=== PATIENT | female | born 1950 | race Caucasian/White ===

== ENCOUNTER → 2017-10-22 10:08 | Outpatient (CLI) | payer MEDICARE, OTHER, SELFPAY | PROVIDERS: Family Provider Family Medicine; PCP Family Medicine; Visit Provider Family Medicine | DX: M16.12 Unilateral primary osteoarthritis, left hip (principal) | CPT/HCPCS: 73502 ==

== ENCOUNTER → 2017-10-26 09:30 | Outpatient (CLI) | payer MEDICARE, OTHER, SELFPAY | PROVIDERS: Family Provider Family Medicine; PCP Family Medicine; Visit Provider Family Medicine | DX: M25.552 Pain in left hip (principal) | CPT/HCPCS: 72195 ==

== ENCOUNTER → 2017-10-28 16:49 | Outpatient (CLI) | payer MEDICARE, OTHER, SELFPAY ==
[2017-10-28 17:05] LABS: CREATININE FINGERSTICK 0.7 mg/dL (0.55-1.02); EGFR FINGERSTICK > 60.0000 mL/min (>60)
== END ==
PROVIDERS: Family Provider Family Medicine; PCP Family Medicine; Visit Provider Surgery
DX: R59.0 Localized enlarged lymph nodes (principal); R10.9 Unspecified abdominal pain
CPT/HCPCS: 74177; Q9967

== ENCOUNTER 2017-11-02 06:49 | Day surgery (SDC) | payer MEDICARE, OTHER, SELFPAY ==
[2017-11-02] VITALS (7 sets, daily range): BP systolic 87–155; BP diastolic 50–102; PULSE 60–87; RESP 16; TEMP 36.4–37.1; O2SAT 94–98; BMI 46.7
--- NOTE | 2017-11-02 | IMM_PTH ---
PATIENT: SARAH GRANGER LOC: EN U#:[id number] AGE/SX: 67/F ROOM: RE11/02/[address]: Dr. Kevin Varghese MD : 1950 BED: DIS: 11/02/2017 SPEC #: [id number] RECD: 11/03/17 14:04 STATUS: JESSIE REQ #: [id number] DONITA: 11/02/17 00:[address]: Kevin Varghese DEPT: IMMUNOHISTOCHEMISTRY RECD BY: Loida Odonnell ENTERED: 11/03/17 14:06 SP TYPE: IMMUNO OTHR DR: Dr. Jose Daniel Yang, DO Tissues: Transverse colon Procedures: Synapto (add) RCC (add) MSH2 (add) MLH-1 (add) MSH6 (add) Anti-PMS2 (add) NAPSIN A (add) CA-125 (add) CD56 (add) CEA (add) CHROMO (add) CK20 (add) CK7 (add) CK8 (add) JACQUES-2 (add) HEP PAR (add) KI-67 (add) P53 (add) SD (add) TTF1 (add) ER (initial) PHYSICIAN & INSTITUTION [place] [id number] SPECIMEN INFORMATION: Tissue Source: Transverse colon mass, biopsy Clinical Info: Right lower quadrant pain, diarrhea Specimen Number: [id number] CPT code: 22097, 01400 x20 METHODOLOGY: Deparaffinized sections of prefer/formalin-fixed tissue or PAP/DQ stained slides are incubated with monoclonal/polyclonal antibodies/oligonucleotide probes. Localization is made via biotin free immunoperoxidase method. Appropriate controls are performed and reacted as expected. Results on target cell population are indicated in the following table: RESULTS: ANTIBODY / CLONE RESULT ER (6F11) negative SD (1E2) negative CK7 (OV-TL12/30) positive, focal CK8 (55nincI52) positive CK20 (KS20.8) negative TTF-1 (8G7G3/1) negative Napsin A (Rabbit Polyclonal) negative HepPar (OCh1E5) negative RCC (PN-15) negative Ki-67 (30-9) positive (64%) P53 (DO-7) positive, moderate MSH2 (25D12) positive MSH6 (44) positive MLH-1 (M1) negative PMS2 (CEE3162) negative JACQUES-2 (SP21) positive CD56 (123C3.D5) negative Chromo (LK2H10) negative Synapto (polyclonal) negative CA125 (OC125) negative CEA (11-7/TF-3HB-1) negative These tests were developed and their performance characteristics determined by [facility]. They may not have been cleared or approved by the U.S. Food and Drug Administration. The FDA has determined that such clearance or approval is not necessary. INTERPRETATION: Transverse colon mass, biopsy: Poorly differentiated invasive carcinoma. Result of Microsatellite Instability Study: Positive (loss of mismatch protein; microsatellite instability detected). Complete loss of MLH1 and PMS2. Case has been reviewed in consultation with Dr. Del Rosario who concurs with the above diagnosis. IDC:KEISHA SJ:joan 11/04/17
[2017-11-02 07:50] LABS: Bedside Glucose 104 mg/dL (70-110)
--- NOTE | 2017-11-02 08:00 | EGD_PTH ---
PATIENT: SARAH GRANGER LOC: EN U#:[id number] AGE/SX: 67/F ROOM: RE11/02/[address]: Dr. Kevin Varghese MD : 1950 BED: DIS: 11/02/2017 SPEC #: [id number] RECD: 11/02/17 10:07 STATUS: JESSIE JARVIS #: [id number] DONITA: 11/02/17 08:[address]: Kevin Varghese DEPT: SURGICAL PATHOLOGY RECD BY: Pablo Yanez ENTERED: 11/02/17 12:17 SP TYPE: EGD BIOPSY OTHR DR: Dr. Jose Daniel Yang, DO Tissues: Transverse colon Procedures: Surgery Specimen Level IV HEADER OPERATION[place] [place] DIAGNOSIS: Right lower quadrant pain, diarrhea TISSUE SUBMITTED: Biopsy of transverse colon mass MICROSCOPIC DIAGNOSIS Transverse colon mass, biopsy: Poorly differentiated carcinoma. See comment. LESLY:joan 11/03/17 COMMENT Immunohistochemistry ([id number]) supports the above diagnosis. The tumor entirely is submucosal in location. The results from microsatellite instability will be reported separately ([id number]). Case has been reviewed in consultation with Dr. Del Rosario who concurs with the above diagnosis. IDC:AM MICROSCOPIC DESCRIPTION Slides are reviewed. GROSS DESCRIPTION Received in fixative is one container labeled with the patient's name and designated biopsy of transverse colon mass. The specimen consists of multiple irregular fragments of light herring soft tissue that in aggregate measure 1.5 x 0.5 x 0.1 cm. The specimen is totally submitted in one cassette. / SJ:joan 11/02/17 TC:0 CPT: 56869
--- NOTE | 2017-11-02 09:26 | OP.PCM_ITS ---
Problem List (1) Colon wall thickening Status: Acute Report of Operation Date of Procedure: 11/02/17 Pre-Operative Diagnosis: Colonic wall thickening and abdominal lymphadenopathy Post-Operative Diagnosis: Transverse colon mass Surgery/Procedure Performed:: 1. EGD. 2. Colonoscopy with biopsy Description of Surgical Findings:: The patient had a normal EGD. On colonoscopy the colon was normal up until the mid transverse colon where I encountered a mass. I was unable to get past this mass. Multiple biopsies of this mass were taken. Specimen's removed: Transverse colon mass Description of Procedure: The major risks and benefits associated with the procedure were explained to the patient in detail. The patient verbalized understanding and agreement with the same. The patient was then placed in the left lateral decubitus position. IV sedation was started by anesthesia. The endoscope was then advanced under direct visualization over the tongue, into the esophagus , stomach and duodenum. It was slowly withdrawn and the mucosa was carefully evaluated. Duodenal mucosal abnormalities were not visualized. Antegrade and retrograde views of the stomach were normal and did not reveal a hiatal hernia or ulceration. Gastric folds were normal. The scope was then withdrawn through the GE junction and careful examination did not demonstrate any mucosal abnormalities. No evidence of Robles's esophagus was apparent. Careful examination of the remainder of the esophagus was normal. The scope was then withdrawn from the patient and the procedure terminated. It was well tolerated and there were no immediate complications. The patient was placed in the left lateral decubitus position and a digital rectal exam was performed. This examination was within normal limits. A well- lubricated colonoscope was then inserted into the rectum and advanced under direct visualization until the transverse colon was reached. The bowel prep was good. A mass was identified in the mid transverse colon. I was unable to get through this mass. I did take several biopsies of the mass with cold forceps. There was some bleeding but this was slow. It was then withdrawn and the descending colon and sigmoid colon appeared normal. The scope was then retroflexed and the distal rectum appeared normal as well. The scope was then straightened and was completely retrieved upon exiting the anal canal and the procedure was terminated. The patient was then transferred to the recovery room in stable condition. Recommendations: As the patient appears to have a colonic mass. I will not start the patient on antibiotics as I do not believe she has active colitis. Several biopsies of the mass were obtained and I will bring her case before tumor board on Michael morning and call her with pathology.
== END 2017-11-02 09:55 | disposition home or self-care (01) ==
LOC: EN 06:49 → AC 06:50
PROVIDERS: Family Provider Family Medicine; PCP Family Medicine; Visit Provider Surgery
PROC: 0DJD8ZZ Inspection of Lower Intestinal Tract, Via Natural or Artificial Opening Endoscopic (ICD-10-PCS; CPT 45378; principal; 2017-11-02 07:55)
DX: C18.4 Malignant neoplasm of transverse colon (principal); K63.89 Other specified diseases of intestine; R59.0 Localized enlarged lymph nodes; K58.0 Irritable bowel syndrome with diarrhea; E11.9 Type 2 diabetes mellitus without complications; E78.5 Hyperlipidemia, unspecified; I10 Essential (primary) hypertension; E55.9 Vitamin D deficiency, unspecified; E83.52 Hypercalcemia; M19.90 Unspecified osteoarthritis, unspecified site; E06.9 Thyroiditis, unspecified; Z85.3 Personal history of malignant neoplasm of breast; Z79.84 Long term (current) use of oral hypoglycemic drugs; Z79.899 Other long term (current) drug therapy
CPT/HCPCS: 43235; 45380; 82962; 88305; 88341; 88342; J7120

== ENCOUNTER → 2017-11-10 08:22 | Outpatient (CLI) | payer MEDICARE, OTHER, SELFPAY ==
[2017-11-10] VITALS (9 sets, daily range): BP systolic 106–167; BP diastolic 32–82; PULSE 64–85; RESP 16–18; TEMP 36.6; O2SAT 93–928; BMI 47.1
--- NOTE | 2017-11-10 | ASPIGT_PTH ---
PATIENT: SARAH GRANGER LOC: [place] U#:[id number] AGE/SX: 74/F ROOM: RE11/10/[address]: Dr. Violet Shepherd MD : 1950 BED: DIS: SPEC #: [id number] RECD: 11/10/17 12:16 STATUS: JESSIE REPaz #: [id number] DONITA: 11/10/17 00:[address]: Violet Shepherd DEPT: SURGICAL PATHOLOGY RECD BY: Dariusz Stapleton ENTERED: 11/10/17 12:17 SP TYPE: ASP RAD OTHR DR: DO Dr. Catalion Loya MD Tissues: Retroperitoneum, NOS Procedures: FNA Specimen Adequacy Special Stain Group II Surgery Specimen Level IV Diff Quik Stain (control) Imprint (control) HEADER OPERATION: CT-guided retroperitoneal biopsy PRE-OP DIAGNOSIS: Retroperitoneal lymphadenopathy TISSUE SUBMITTED: Retroperitoneal biopsy MICROSCOPIC DIAGNOSIS Retroperitoneal lymph node, CT-guided core biopsy: Moderately to poorly differentiated adenocarcinoma with extensive necrosis. See comment. SJ:rg 11/11/17 COMMENT The specimen is evaluated at the time of CT-guided biopsy by Dr. Suh. Immediate Evaluation = Atypical cells with extensive necrosis are noted. Immunohistochemistry ([id number]) supports the above diagnosis and favors colonic primary. Please make reference to previous specimen ([id number]) transverse colon mass with diagnosis of poorly differentiated carcinoma. As per clinical history, patient has history of bilateral breast carcinoma. 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 This case is discussed with Dr. Shepherd on 11/12/17. Case has been reviewed in consultation with Dr. Del Rosario who concurs with the above diagnosis. IDC:AM MICROSCOPIC DESCRIPTION Slides are reviewed. GROSS DESCRIPTION Received in fixative is one container labeled with the patient's name and designated CT-guided retroperitoneal core biopsy. The specimen consists of three elongated fragments of herring-yellow soft tissue that in aggregate measure 2 x 0.1 x <0.1 cm. The entire specimen is submitted in one cassette. One core is saved in RPMI for flow cytometry study if it is needed. One touch imprint is prepared at the time of core biopsy. The core saved for flow cytometry study is submitted in cassette 2. / SJ:joan 11/10/17 TC:0 CPT: 48218, 35409
--- NOTE | 2017-11-10 | IMM_PTH ---
PATIENT: SARAH GRANGER LOC: CT U#:[id number] AGE/SX: 74/F ROOM: RE11/10/[address]: Dr. Violet Shepherd MD : 1950 BED: DIS: SPEC #: [id number] RECD: 11/11/17 09:42 STATUS: JESSIE REQ #: [id number] DONITA: 11/10/17 00:[address]: Violet Shepherd DEPT: IMMUNOHISTOCHEMISTRY RECD BY: Loida Odonnell ENTERED: 11/11/17 09:44 SP TYPE: IMMUNO OTHR DR: DO Dr. Catalino Loya MD Tissues: Retroperitoneum, NOS Procedures: RCC (add) NAPSIN A (add) CA-125 (add) CEA (add) CK20 (add) CK5-6 (add) CK7 (add) CK8 (add) JACQUES-2 (add) E-CAD (add) HEP PAR (add) DC (add) TTF1 (add) P40 (add) CDX2 (add) ER (initial) PHYSICIAN & INSTITUTION [place] [id number] SPECIMEN INFORMATION: Tissue Source: Retroperitoneal biopsy Clinical Info: Retroperitoneal lymphadenopathy Specimen Number: [id number] CPT code: 28984, 62502 x15 METHODOLOGY: Deparaffinized sections of prefer/formalin-fixed tissue or PAP/DQ stained slides are incubated with monoclonal/polyclonal antibodies/oligonucleotide probes. Localization is made via biotin free immunoperoxidase method. Appropriate controls are performed and reacted as expected. Results on target cell population are indicated in the following table: RESULTS: ANTIBODY / CLONE RESULT ER (6F11) negative DC (1E2) negative E-Cad (ECH-6) positive CK7 (OV-TL12/30) negative CK8 (70dcmnH44) positive CK20 (KS20.8) negative CDX2 ([id number]) positive TTF-1 (8G7G3/1) negative Napsin A (Rabbit Polyclonal) negative HepPar (OCh1E5) negative RCC (PN-15) negative CA125 (OC125) positive CK5-6 (D5 & 1684) negative CEA (11-7/TF-3HB-1) positive P40 (BC28) negative JACQUES-2 (SP21) positive These tests were developed and their performance characteristics determined by [facility]. They may not have been cleared or approved by the U.S. Food and Drug Administration. The FDA has determined that such clearance or approval is not necessary. INTERPRETATION: Retroperitoneal biopsy: Metastatic poorly differentiated adenocarcinoma with extensive necrosis. See comment. SJ:joan 11/11/17 Comment: IHC profile favors colonic primary. Case has been reviewed in consultation with Dr. Del Rosario who concurs with the above diagnosis. IDC:AM
--- NOTE | 2017-11-10 08:44 | CT_ITS ---
PROCEDURE: CT GUIDED biopsy of the left retroperitoneal mass. DATE: November 10, 2017. INDICATION: Female, 67 years old. History of retroperitoneal lymphadenopathy. PHYSICIAN: Chris Hernandez M.D. RADIATION DOSAGE (If Supplied By Facility): CTDIvol = ( 15.2 ) mGy, DLP = ( 365.31 ) mGycm. Individualized dose optimization techniques were utilized. PROCEDURE: The risks, benefits, and alternatives to the procedure were explained to the patient. The specific risk of hemorrhage requiring further treatment or intervention was detailed and accepted. Follow-up instructions were discussed with the patient as well. Written informed consent was obtained. The patient was brought into the CT suite and placed in the prone position. . An appropriate entry site was identified. The overlying skin was prepped and draped in the usual sterile fashion. 1% lidocaine was administered subcutaneously for local anesthesia. Conscious sedation was performed. The patient received 3 mg of Versed and 100 mcg of fentanyl intravenously. The patient was monitored appropriately by the department nurse. Conscious sedation was started at 10:15 AM and terminated at 10:[address] guidance, a total of 4 passes were performed utilizing an 18-gauge core biopsy needle. The specimens were then placed in the appropriate fluid and transported to the laboratory for analysis. Hemostasis was obtained. The patient tolerated the procedure well without immediate complications. CT/Biopsy/Inj or Needle Placement IMPRESSION: Successful CT guided biopsy of the left retroperitoneal lymphadenopathy., as described above. Electronically Signed: Chris Hernandez MD at 14:10 EDT Tel [phone], Service support ,
[2017-11-10 08:47] LABS: Absolute Lymphocyte Count 1.15 X10^3/ul (0.83-4.51); Absolute Neutrophil Count 6.2 X10^3/uL (2.0-7.7); Basophil# 0.03 X10^3/uL; Basophil% 0.3 % (0-1); Eosinophil# 1.07 X10^3/uL; Eosinophils% 11.6 % (0-5); Hematocrit 29.5 % (37-47); Hemoglobin 9.3 g/dl (12.0-15.0); Lymphocyte # 1.15 X10^3/ul (4.0); Lymphocyte % 12.4 % (19-41); Mean Corp Hgb Conc 31.5 g/gl (32-36); Mean Corpuscular Volume 85.5 fL (81-99); Mean Platelet Vol. 9.8 fl (6.2-12.0); Monocyte# 0.79 X10^3/uL; Monocyte% 8.5 % (0-10); Neutrophil # 6.21 X10^3/uL (2.7-7.7); Neutrophil % 67.1 % (47-70); Platelet Count 443 K/mm3 (150-450); RBC Distribution Width CV 15.4 % (11.6-14.6); RBC Distribution Width SD 46.1 fl (35.1-43.9); Red Blood Count 3.45 M/mm3 (4.2-5.4); White Blood Count 9.3 K/mm3 (4.4-11.0)
[2017-11-10 08:49] LABS: POSITIVE COUNT NO; POSITIVE DIFFERENTIAL NO; POSITIVE MORPHOLOGY NO
[2017-11-10 09:22] LABS: International Normalized Ratio 1.1; Prothrombin Time (Protime)PT. 14.5 SECONDS (11.7-14.9)
[2017-11-10 09:23] LABS: Partial Thromboplast Time 29.3 Seconds (24.1-36.2)
[2017-11-11 13:53] LABS: Carcinoembryonic Antigen 19.6 ng/mL (0.0-4.7)
== END ==
PROVIDERS: Family Provider Family Medicine; PCP Family Medicine; Visit Provider Internal Medicine Hematology & Oncology
DX: C78.6 Secondary malignant neoplasm of retroperitoneum and peritoneum (principal); C78.5 Secondary malignant neoplasm of large intestine and rectum; Z85.3 Personal history of malignant neoplasm of breast; E83.52 Hypercalcemia; M19.90 Unspecified osteoarthritis, unspecified site; E11.9 Type 2 diabetes mellitus without complications; I10 Essential (primary) hypertension; K58.9 Irritable bowel syndrome, unspecified; E78.5 Hyperlipidemia, unspecified
CPT/HCPCS: 49180; 36415; 77012; 82378; 85025; 85610; 85730; 88172; 88305; 88313; 88341; 88342; 99156; 99157; J7040; A4216

== ENCOUNTER 2017-11-12 14:46 | Emergency (ER) | payer MEDICARE, OTHER, SELFPAY ==
[2017-11-12 14:47] VITALS: BP 167/89; PULSE 96; RESP 20; TEMP 36.9; O2SAT 98; BMI 46.9
--- NOTE | 2017-11-12 15:06 | ED.DCSUM_ITS ---
- ER Visit Summary Date of Service: 11/12/17 Chief Complaint: Abdominal pain History of Present Illness: The patient is a 67 F recently diagnosed with colon cancer. She has had intermittent right lower quadrant pain for the last 4 months. She reports nausea and dry heaves that started last night. She denies fever or chills. She states she has not been passing gas as much as normal. Her last bowel movement was this morning. Prior abdominal surgeries are significant for full hysterectomy. Physical Examination: Blood pressure is 167/89, temperature 98.5, heart rate 96 , respiratory rate 20, pulse ox 98% on room air. Head and neck examination is unremarkable. Heart is regular rate and rhythm. Lung sounds are clear. Abdomen is soft with no focal tenderness on exam. She allows deep palpation throughout. There is no guarding or rebound. Normal bowel sounds noted throughout. Back examination reveals no focal tenderness. Site of recent lymph node biopsy is nontender. Test Results: CBC was normal white count. Hemoglobin is 9.1 which is stable when compared to prior values. Chemistry studies normal. Urinalysis does show 10-25 RBCs with 5-10 white cells. Only 1+ bacteria is noted. Nitrites are negative. Acute abdominal series x-rays are obtained and reveal a visible mass lesion in hands worse: To the left of the spine with moderate proximal increase in colon and small bowel gas. There is likely at least a minor component of obstruction although no substantial stool collection proximal to the masses noted. Emergency Department Course and Treatment: Patient was given morphine, Zofran, and IV fluids. Test results were discussed with her. She is an appointment to follow-up with her oncologist on Wednesday to get her biopsy results. We discussed soft bland diet. We will give her antiemetics for home. Treatment Plan: [] Disposition: Discharge Impression: Abdominal pain with known colon cancer This note was generated with [employer] dictation software. It may contain incorrect words, spelling, and punctuation that were not noted in review of the chart prior to signing ED Disposition - Plan for ED Patient: Chief Complaint: Abd Pain Referrals: Jose Daniel Yang DO [Primary Care Provider] -
[2017-11-12 15:41] LABS: Absolute Lymphocyte Count 0.91 X10^3/ul (0.83-4.51); Absolute Neutrophil Count 2.9 X10^3/uL (2.0-7.7); Basophil# 0.01 X10^3/uL; Basophil% 0.2 % (0-1); Eosinophils% 4.4 % (0-5); Hemoglobin 9.1 g/dl (12.0-15.0); Lymphocyte # 0.91 X10^3/ul (4.0); Lymphocyte % 20.1 % (19-41); Mean Corp Hgb Conc 31.4 g/gl (32-36); Mean Corpuscular Hgb 26.1 pg (27.0-32.0); Mean Corpuscular Volume 83.3 fL (81-99); Mean Platelet Vol. 9.4 fl (6.2-12.0); Monocyte# 0.56 X10^3/uL; Monocyte% 12.4 % (0-10); Neutrophil # 2.85 X10^3/uL (2.7-7.7); Neutrophil % 62.9 % (47-70); Platelet Count 423 K/mm3 (150-450); RBC Distribution Width CV 15.6 % (11.6-14.6); RBC Distribution Width SD 47.7 fl (35.1-43.9); Red Blood Count 3.48 M/mm3 (4.2-5.4); White Blood Count 4.5 K/mm3 (4.4-11.0)
[2017-11-12 15:42] LABS: POSITIVE COUNT NO; POSITIVE DIFFERENTIAL NO; POSITIVE MORPHOLOGY NO
[2017-11-12] MEDS: Morphine 4 MG/ML Syringe IV (15:55)
[2017-11-12] MEDS: Ondansetron 4 MG/2 ML Vial IV (15:55)
[2017-11-12 16:03] LABS: Anion Gap 12 (5-15); BUN 19 mg/dL (7-18); BUN/Creat Ratio 24.3 RATIO (10-20); Calcium,Total 8.4 mg/dL (8.5-10.1); Chloride 106 mmol/L (98-107); Creatinine, Serum 0.78 mg/dL (0.55-1.02); EST Glomerular Filtration Rate 79 mL/min (>60); Est Glom Filt Rate - Afr Amer 95 mL/min (>60); Estimated Creatinine Clearance 59.48 ml/min; Glucose 96 mg/dL (74-106); Sodium Level 142 mmol/L (136-145)
--- NOTE | 2017-11-12 16:05 | RAD_ITS ---
STUDY: X-RAY - ACUTE ABDOMINAL SERIES REASON FOR EXAM: Female, 67 years old. Abdominal pain with recent diagnosis of colon cancer. TECHNIQUE: Single view of the chest. Supine and upright, 2 view(s) of the abdomen were obtained. COMPARISON: None. FINDINGS: Moderately good inspiration with areas of bibasilar linear atelectasis, mild. Negative for major consolidation or pleural effusion. Normal size heart. Normal mediastinum and nish. Normal visualized pulmonary arteries. There is atherosclerotic tortuosity of the aortic arch and descending thoracic aorta. There is a relative gaseous distention of the proximal transverse colon with an abrupt cut off and the appearance of a very narrowed lumen of the left side of the transverse colon which is likely the site of colon cancer. The colon thereafter is nondistended. Also evidence of mild distal small bowel dilatation . Multiple surgical zacarias of the bilateral pelvis. Degenerative changes of the lumbar spine and hips bilaterally, left greater than right. RAD/Acute Abdomen Inc Chest IMPRESSION: Visible mass lesion and narrowing of the transverse colon to the left of the spine with a moderate proximal increase in colon and small bowel gas. There is likely at least a minor component of obstruction although there does not appear to be substantial stool collection proximal to the mass density. Negative for evidence of perforation. Electronically Signed: Lesli Perez MD at 17:16 EDT , Service support ,
[2017-11-12 17:49] LABS: Color, Urine Yellow (Yellow); Glucose, Dipstick Normal (Normal); Ketone-Dipstick 5 mg/dl (Negative); Leukocyte Esterase-Dipstick 100 /ul (Negative); Nitrite-Dipstick Negative (Negative); Occult Blood-Urine 25 /ul (Negative); Protein-Dipstick 30 mg/dl (Negative); Urine Clarity Cloudy (Clear); Urine Urobilinogen Normal (Normal)
[2017-11-12 17:52] LABS: Urine Bilirubin Dipstick 3 mg/dL (Negative)
[2017-11-12 17:56] LABS: Fine Granular Cast- Urine 0-5 SEEN /lpf (0-5); Mucous, Urine 2+ /hpf (<or=2+)
[2017-11-12 17:58] LABS: Hyaline Cast 0-5 SEEN /lpf (0-5)
[2017-11-12 18:00] LABS: Bacteria 1+ /hpf (None Seen); Red Blood Cells-Urine 10-25 SEEN /hpf (0-5); Squamous Epithelial Cells - UA 0-5 SEEN /hpf (5-10); Transitional Epithelial - Ur 0-5 SEEN /hpf (0-5)
[2017-11-12 18:01] LABS: White Blood Cells 5-10 SEEN /hpf (0-5)
[2017-11-12] MEDS: 0.9% Normal Saline 1,000 ML 150 ML IV (18:19)
--- NOTE | 2017-11-12 18:35 | ED.DEP ---
ED Disposition - Plan for ED Patient: Disposition: Home or Assisted Living Chief Complaint: Abd Pain Instructions: ED Abdominal Pain Unkn Cause Referrals: Violet Shepherd MD [STAFF PHYSICIAN] - Keep Crescencio appointment Additional Instructions: As discussed, your CT scan revealed build-up of air in your colon due to the mass in your colon. Follow bland diet with soft foods. Return for worsening symptoms or concerns.
--- NOTE | 2017-11-12 18:37 | ED.DEP ---
ED Disposition - Plan for ED Patient: Disposition: Home or Assisted Living Chief Complaint: Abd Pain Instructions: ED Abdominal Pain Unkn Cause Prescriptions: Ondansetron [Zofran Odt] 4 mg PO Q8H PRN PRN #10 tablet PRN Reason: Nausea Referrals: Violet Shepherd MD [STAFF PHYSICIAN] - Keep Crescencio appointment Additional Instructions: As discussed, your CT scan revealed build-up of air in your colon due to the mass in your colon. Follow bland diet with soft foods. Return for worsening symptoms or concerns.
== END 2017-11-12 19:11 | disposition home or self-care (01) ==
PROVIDERS: Emergency Provider Emergency Medicine; Family Provider Family Medicine; PCP Family Medicine
DX: C18.9 Malignant neoplasm of colon, unspecified (principal); I10 Essential (primary) hypertension; E78.00 Pure hypercholesterolemia, unspecified; E11.9 Type 2 diabetes mellitus without complications; Z85.3 Personal history of malignant neoplasm of breast; Z79.84 Long term (current) use of oral hypoglycemic drugs; Z79.899 Other long term (current) drug therapy
CPT/HCPCS: 74022; 80048; 81001; 85025; 96361; 96374; 96375; 99285; J7030; J7040; A4216; J2405

== ENCOUNTER 2017-11-14 17:09 | Inpatient (IN) | payer MEDICARE, OTHER, SELFPAY ==
[2017-11-14 17:26] VITALS: BP 136/67; PULSE 76; RESP 16; TEMP 36.6; O2SAT 100; BMI 47.1
[2017-11-14 18:49] VITALS: BMI 47.2
[2017-11-14 19:09] LABS: Absolute Lymphocyte Count 1.52 X10^3/ul (0.83-4.51); Absolute Neutrophil Count 4.7 X10^3/uL (2.0-7.7); Basophil# 0.03 X10^3/uL; Basophil% 0.4 % (0-1); Eosinophil# 0.94 X10^3/uL; Eosinophils% 11.9 % (0-5); Hematocrit 26.9 % (37-47); Hemoglobin 8.2 g/dl (12.0-15.0); Lymphocyte # 1.52 X10^3/ul (4.0); Lymphocyte % 19.3 % (19-41); Mean Corp Hgb Conc 30.5 g/gl (32-36); Mean Corpuscular Volume 85.4 fL (81-99); Mean Platelet Vol. 9.5 fl (6.2-12.0); Monocyte# 0.63 X10^3/uL; Neutrophil # 4.74 X10^3/uL (2.7-7.7); Neutrophil % 60.1 % (47-70); Platelet Count 396 K/mm3 (150-450); RBC Distribution Width CV 15.8 % (11.6-14.6); RBC Distribution Width SD 49.2 fl (35.1-43.9); Red Blood Count 3.15 M/mm3 (4.2-5.4); White Blood Count 7.9 K/mm3 (4.4-11.0)
[2017-11-14 19:11] LABS: POSITIVE COUNT NO; POSITIVE DIFFERENTIAL NO; POSITIVE MORPHOLOGY NO
[2017-11-14 19:33] LABS: ALB/GLOB Ratio 0.9 RATIO (0.9-2.4); AST(SGOT) 32 U/L (15-37); Alanine Aminotransfer ALT/SGPT 18 U/L (13-56); Albumin, Serum 3.3 g/dL (3.2-5.0); Alkaline Phosphatase 82 U/L (45-117); Anion Gap 8 (5-15); BUN 17 mg/dL (7-18); Calcium,Total 8.6 mg/dL (8.5-10.1); Chloride 106 mmol/L (98-107); Creatinine, Serum 0.89 mg/dL (0.55-1.02); EST Glomerular Filtration Rate 67 mL/min (>60); Est Glom Filt Rate - Afr Amer 81 mL/min (>60); Estimated Creatinine Clearance 52.13 ml/min; Globulin 3.7 g/dL (2.2-4.2); Glucose 77 mg/dL (74-106); Potassium 3.7 mmol/L (3.5-5.1); Sodium Level 140 mmol/L (136-145)
[2017-11-14] MEDS: 0.9% Normal Saline 1,000 ML 125 ML IV (19:58)
[2017-11-14 20:05] LABS: Bedside Glucose 74 mg/dL (70-110)
[2017-11-14] MEDS: metroNIDAZOLE 500 MG Tablet 1000 MG PO ×2 (21:00→22:14)
[2017-11-14] MEDS: Magnesium Citrate 300 ML PO (21:00)
[2017-11-14 21:02] VITALS: BP 160/73; PULSE 62; RESP 16; TEMP 36.8; O2SAT 95
[2017-11-15] VITALS (12 sets, daily range): BP systolic 103–155; BP diastolic 51–92; PULSE 52–75; RESP 14–20; TEMP 36.3–37.2; O2SAT 93–100; BMI 47.1; BMI 47.2
--- NOTE | 2017-11-15 | IMM_PTH ---
PATIENT: SARAH GRANGER LOC: MS2 U#:[id number] AGE/SX: 67/F ROOM: [facility] [place] RE11/14/[address]: Dr. Kevin Varghese MD : 1950 BED: 1 DIS: 11/20/2017 SPEC #: [id number] RECD: 11/18/17 14:39 STATUS: JESSIE REQ #: [id number] DONITA: 11/15/17 00:[address]: Kevin Varghese DEPT: IMMUNOHISTOCHEMISTRY RECD BY: Loida Odonnell ENTERED: 11/18/17 14:41 SP TYPE: IMMUNO OTHR DR: Dr. Jose Daniel Yang, DO Tissues: Right colon Procedures: CD31 (initial) Synapto (add) CD56 (add) CHROMO (add) FACTOR VIII (add) NSE (add) PHYSICIAN & INSTITUTION [place] [id number] SPECIMEN INFORMATION: Tissue Source: Right colon, hemicolectomy Clinical Info: Colon cancer, partial colon obstruction Specimen Number: [id number] #5 CPT code: 60655, 07961 x5 METHODOLOGY: Deparaffinized sections of prefer/formalin-fixed tissue or PAP/DQ stained slides are incubated with monoclonal/polyclonal antibodies/oligonucleotide probes. Localization is made via biotin free immunoperoxidase method. Appropriate controls are performed and reacted as expected. Results on target cell population are indicated in the following table: RESULTS: ANTIBODY / CLONE RESULT Block #5 CD31 (ERINN/70A) positive Factor VIII (R Ag) positive Chromo (LK2H10) negative Synapto (polyclonal) negative CD56 (123C3.D5) negative NSE Neuron Specific Enolase negative These tests were developed and their performance characteristics determined by [facility]. They may not have been cleared or approved by the U.S. Food and Drug Administration. The FDA has determined that such clearance or approval is not necessary. INTERPRETATION: Right colon, hemicolectomy: Poorly differentiated carcinoma. Focal lymphvascular invasion is noted. Negative for neuroendocrine differentiation. SJ:joan 11/19/17
[2017-11-15 00:11] LABS: Bedside Glucose 79 mg/dL (70-110)
[2017-11-15 03:07] LABS: Anion Gap 8 (5-15); BUN 15 mg/dL (7-18); BUN/Creat Ratio 19.9 RATIO (10-20); Calcium,Total 8.2 mg/dL (8.5-10.1); Chloride 107 mmol/L (98-107); Creatinine, Serum 0.75 mg/dL (0.55-1.02); EST Glomerular Filtration Rate 82 mL/min (>60); Est Glom Filt Rate - Afr Amer 99 mL/min (>60); Estimated Creatinine Clearance 61.86 ml/min; Glucose 92 mg/dL (74-106); Potassium 3.3 mmol/L (3.5-5.1); Sodium Level 141 mmol/L (136-145)
--- NOTE | 2017-11-15 03:29 | PCM.HP.STD ---
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 The patient underwent needle biopsy of enlarged retroperitoneal lymph nodes this week and that came back as consistent with metastatic disease and colon cancer. The patient came to the emergency room Michael evening with abdominal pain nausea and vomiting. She had an acute abdominal series which showed distention of the distal small bowel and proximal colon consistent with partial obstruction. The patient reports that she had a lot of pain that day but it did get better. Currently she is not having much abdominal pain. Past Medical History Past Medical History (Chronic Problems): Chronic Problems (Last Reviewed 11/01/17 @ 13:02 by Neha Gu) Left hip pain (Chronic) Arthritis (Chronic) Type 2 diabetes mellitus (Chronic) IBS (irritable bowel syndrome) (Chronic) Hyperlipemia (Chronic) Hypertension (Chronic) Medical History: Medical History (Last Reviewed 11/01/17 @ 13:02 by Neha Gu) Hypercalcemia (Acute) E83.52 Vitamin D deficiency (Acute) E55.9 Arthritis (Chronic) M19.90 Type 2 diabetes mellitus (Chronic) E11.9 History of breast cancer (Acute) Z85.3 started in 1997 IBS (irritable bowel syndrome) (Chronic) K58.9 Parathyroid abnormality (Acute) E21.5 Hyperlipemia (Chronic) E78.5 Hypertension (Chronic) I10 History of left knee surgery Z98.890 Allergies amoxicillin [From Augmentin] Adverse Reaction (Severe, Verified 11/12/17 14:47) Hives clavulanic acid [From Augmentin] Adverse Reaction (Severe, Verified 11/12/17 14:47) Hives Home Medications: Ambulatory Orders Medication Instructions Recorded nabumetone 750 mg tablet 750 mg PO BID #180 tab 08/03/17 calcium carbonate 600 mg calcium 600 mg PO BID tab 08/17/17 (1,500 mg) tablet cholecalciferol (vitamin D3) 5,000 5,000 unit PO QDAY 08/17/17 unit capsule levothyroxine 50 mcg tablet 50 mcg PO QDAY 08/17/17 metformin 500 mg tablet 1,000 mg PO BID tab 08/17/17 Citalopram [Celexa] 10 mg PO DAILY 11/09/17 Multivitamin [Multiple Vitamins] 1 each PO DAILY 11/09/17 Ondansetron [Zofran Odt] 4 mg PO Q8H PRN PRN #10 tablet 11/12/17 Atorvastatin Calcium [Lipitor] 40 mg PO QDAY 11/14/17 Surgical History: Surgical History (Last Reviewed 11/09/17 @ 14:46 by Khushbu Mcleod) History of bilateral mastectomy Z90.13 History of hysterectomy Z90.710 due to postmenopausal bleeding and history of breast cancer History of lumpectomy of right breast Z98.890 1997 History of parathyroidectomy Z2017, due to enlargement. History of tonsillectomy Z. Surgical History: hysterectomy, mastectomy Smoking Status: Never smoker Alcohol: None Drugs: None - *Family History Maternal Family History: Family History (Last Reviewed 11/15/17 @ 03:31 by Kevin Varghese MD) Mother Cancer Sister Cancer Father Heart disease Myocardial infarction, Onset Age: 72 Review of Systems Constitutional: Reports: Anorexia. Denies: Chills HEENT: Denies: Difficulty Swallowing Cardiovascular: Denies: Chest Pain Respiratory: Denies: Cough, Shortness of Breath Gastrointestinal: Reports: Diarrhea, Nausea. Denies: Abdominal Pain, Hematemesis, Hematochezia, Melena, Vomiting Genitourinary: Denies: Dysuria Musculoskeletal: Denies: Joint Tenderness Skin: Denies: Jaundice Neurological: Denies: Balance problems Hematologic/ Lymphatic: Reports: Anemia VTE Information - Inpt Only VTE Present on Admission: No VTE Mechan Device Prophylaxis: SCD's Patient Problems: Active and Suspected Problems (Last Reviewed 11/01/17 @ 13:02 by Neha Gu) Colonic obstruction (Acute) - Physical Exam General: Alert, Oriented x3, Cooperative HEENT: Atraumatic, PERRLA Neck: Supple Lungs: Normal air movement Cardiovascular: Regular rate, Regular Rhythm Abdomen: Soft, Non Tender, Non-Distended, Obese Extremities: No clubbing Skin: No rashes Musculoskeletal: No Muscle Wasting Neurological: Cranial nerves II-XII grossly intact, Deep Tendon Reflexes 2+/4 and Symmetrical Psych/Mental Status: Normal Affect, Appropriate Vital Signs Temp Pulse Resp BP Pulse Ox 98.8 F 70 16 155/79 H 96 11/15/17 02:31 11/15/17 02:31 11/15/17 02:31 11/15/17 02:31 11/15/17 02:31 Oxygen Delivery Method Room Air Weight: 266 lb 4.8 oz Body Mass Index (BMI) 47.1 Intake and Output for Last 24 Hours 11/13/17 11/14/17 11/15/17 23:59 23:59 23:59 Intake Total 830 / 830 Balance 830 / 830 Laboratory Tests Past 24 Hrs 11/14/17 11/14/17 11/14/17 18:50 18:50 18:50 WBC 7.9 RBC 3.15 L Hgb 8.2 L Hct 26.9 L MCV 85.4 MCH 26.0 L MCHC 30.5 L RDW 15.8 H RDW Differential 49.2 H Plt Count 396 MPV 9.5 Immature Gran % (Auto) 0.300 Neut % (Auto) 60.1 Lymph % (Auto) 19.3 [place] % (Auto) 8.0 Eos % (Auto) 11.9 H Baso % (Auto) 0.4 Absolute Neuts (auto) 4.7 Absolute Lymphs (auto) 1.52 Total Counted Not Reportable Sodium 140 Potassium 3.7 Chloride 106 Carbon Dioxide 26.0 Anion Gap 8 BUN 17 Creatinine 0.89 Estim Creat Clear Calc 52.13 Est GFR (MDRD) Af Amer 81 Est GFR (MDRD) Non-Af 67 BUN/Creatinine Ratio 19.0 Glucose 77 Hemoglobin A1c Calcium 8.6 Total Bilirubin 0.60 AST 32 ALT 18 Alkaline Phosphatase 82 Total Protein 7.0 Albumin 3.3 Globulin 3.7 Albumin/Globulin Ratio 0.9 Carcinoembryonic Ag Pending TSH Blood Type Antibody Screen 11/14/17 11/15/17 11/15/17 18:50 02:17 02:17 WBC RBC Hgb Hct MCV MCH MCHC RDW RDW Differential Plt Count MPV Immature Gran % (Auto) Neut % (Auto) Lymph % (Auto) [place] % (Auto) Eos % (Auto) Baso % (Auto) Absolute Neuts (auto) Absolute Lymphs (auto) Total Counted Sodium 141 Potassium 3.3 L Chloride 107 Carbon Dioxide 26.0 Anion Gap 8 BUN 15 Creatinine 0.75 Estim Creat Clear Calc 61.86 Est GFR (MDRD) Af Amer 99 Est GFR (MDRD) Non-Af 82 BUN/Creatinine Ratio 19.9 Glucose 92 Hemoglobin A1c 6.0 Calcium 8.2 L Total Bilirubin AST ALT Alkaline Phosphatase Total Protein Albumin Globulin Albumin/Globulin Ratio Carcinoembryonic Ag TSH 2.00 Blood Type A POSITIVE Antibody Screen NEGATIVE POC Glucose 11/15/17 11/14/17 00:06 19:04 POC Glucose 79 74 Assessment/Plan All Active Problems (Last Reviewed 11/01/17 @ 13:02 by Neha Gu) Colonic obstruction (Acute) Colon cancer (Acute) Lymphadenopathy, abdominal (Acute) Colon wall thickening (Acute) Hypercalcemia (Acute) Vitamin D deficiency (Acute) History of breast cancer (Acute) Parathyroid abnormality (Acute) Contusion (Acute) 67-year-old female with colon carcinoma and partial obstruction of the colon 1. The patient was recently in the emergency room for partial obstruction of her colon. She was discharged home but I called her and asked her to come in to be directly admitted. I discussed her case with Dr. Shepherd on Wednesday. Her lymph node biopsy was consistent with metastatic disease. I discussed her case at tumor Board this morning as well. The consensus is that she should have palliative partial colectomy to bypass the mass if possible with chemotherapy subsequently. 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 She was referred for genetic therapy but has not been able to get to her appointment yet. 2. I believe we should do the surgery sooner rather than later as the patient has a minute obstruction of her colon. I explained to the patient that this surgery is palliative in nature and that her cancer is not curable but it is treatable. The plan will be to perform an extended right hemicolectomy with ileocolic anastomosis. Once again this plan is for palliative resection and subsequently she will have chemotherapy. I explained that a port will be placed at another date due to the complexity of her surgery. 3. I explained that I would try to start laparoscopically and proceed with his much surgery as I could laparoscopically. I explained the possibility of carcinomatosis. I explained that likely I would have to open at least an upper abdominal midline incision to take the specimen out and possibly perform the anastomosis. I explained that if I would encode to rule out adhesions or carcinomatosis I may have to bring the loop of small bowel out as a loop ileostomy for diversion. I explained that there is a high risk of bleeding due to the several enlarged lymph nodes in her mesentery and retroperitoneum. I explained the risks of surgery including but not limited to bleeding, infection, injury to her other organs such as the ureters, small bowel, colon, liver, spleen and bladder. I explained once more that there is a possibility of having to create a stoma. The patient understands and is willing to proceed with surgery tomorrow afternoon. 4. I admitted the patient and I will start on a clear liquid diet. She will be n.p.o. after midnight. I will give her an antibiotic bowel prep and a bottle of mag citrate as a partial mechanical prep as she is not completely obstructed. She was hypokalemic on this morning's BMP and I will replace her potassium. She has been typed and screened. I will not start her on Lovenox after surgery due to high risk of bleeding due to the lymphadenopathy. Kevin Varghese MD Pager: [facility] [address] [place] [address], [address] [place] [address] Office:
[2017-11-15] MEDS: 0.9% Normal Saline 1,000 ML 125 ML IV ×2 (03:38→20:59)
[2017-11-15] MEDS: metroNIDAZOLE 500 MG Tablet 1000 MG PO (05:06)
[2017-11-15 05:21] LABS: Bedside Glucose 90 mg/dL (70-110)
--- NOTE | 2017-11-15 05:30 | EKG12_ITS ---
Test Reason : AM EKG Blood Pressure : / mmHG Vent. Rate : 064 BPM Atrial Rate : 064 BPM P-R Int : 158 ms QRS Dur : 084 ms QT Int : 432 ms P-R-T Axes : 050 031 040 degrees QTc Int : 445 ms Normal sinus rhythm Normal ECG When compared with ECG of 06-NOV-2011 15:05, No significant change was found Confirmed by NILES LAWRENCE, ATIYA ([id number]), multimedia editor NICHOLAS MUSA ([id number]) on 11/23/2017 2:58:05 PM Referred By: HERMINIA Confirmed By:ATIYA CAGE MD
--- NOTE | 2017-11-15 07:30 | COL._PTH ---
PATIENT: SARAH GRANGER LOC: MS2 U#:[id number] AGE/SX: 67/F ROOM: MS212 RE11/14/[address]: Dr. Kevin Varghese MD : 1950 BED: 1 DIS: 11/20/2017 SPEC #: [id number] RECD: 11/15/17 18:53 STATUS: JESSIE BRYANTPaz #: [id number] DONITA: 11/15/17 07:[address]: Kevin Varghese DEPT: SURGICAL PATHOLOGY RECD BY: Dariusz Stapleton ENTERED: 11/16/17 09:57 SP TYPE: COLON OTHR DR: Dr. Jose Daniel Yang, DO Tissues: Colon, NOS Procedures: Surgery Specimen Level HEADER OPERATION: Laparoscopic extended hemicolectomy PRE-OP DIAGNOSIS: Colon cancer, partial colon obstruction TISSUE SUBMITTED: Harry right colon MICROSCOPIC DIAGNOSIS Right colon, right hemicolectomy: Invasive adenocarcinoma. See cancer checklist below. AM:joan 11/18/17 COMMENT COLON CANCER SUMMARY: Specimen - right colon Procedure - right hemicolectomy Tumor site - right colon Tumor size - 7 x 4 x 2 cm Macroscopic tumor perforation - not identified Histologic type - adenocarcinoma Histologic grade - high grade (poorly differentiated) Microscopic tumor extension - tumor invades through muscularis propria and extends into subserosal adipose tissue. Tumor is located 22 cm from its closest (distal) margin of resection. Margins: Proximal margin - uninvolved by invasive carcinoma Distal margin - uninvolved by invasive carcinoma Circumferential or mesenteric margin - uninvolved by invasive carcinoma Treatment effect - unknown Lymph-Vascular invasion - focally present Perineural invasion - not identified Tumor deposits - present (several, macroscopic) Lymph nodes: Number of lymph nodes examined - 23 Number of lymph nodes involved - 13 and matted group of lymph nodes Many of the lymph nodes are completely replaced by the tumor. Distant metastasis: present, please refer to previous specimen [id number], retroperitoneal lymph node biopsy. Additional pathologic findings: - Appendix, luminal obliteration. - Colonic and small intestinal donut, no pathologic diagnosis. - Cecum, focal serosal fibrosis. 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 PATHOLOGIC STAGE: pT3 N2b M1 The above summary is in compliance with [employer] (CAP) Cancer Protocols Checklist and [place] Joint Committee on Cancer (AJCC), Staging Manual, 8th Ed. Immunohistochemistry ([id number]) supports the above diagnosis the diagnosis of lymph-vascular invasion and no evidence of neuroendocrine differentiation. Please make reference to previous specimens [id number], Transverse colon mass, biopsy with diagnosis of poorly differentiated carcinoma; and [id number], retroperitoneal lymph node, core biopsy with diagnosis of moderately to poorly differentiated adenocarcinoma with extensive necrosis and [id number], IHC profile favors colonic primary. Case has been reviewed in consultation with Dr. Suh who concurs with the above diagnosis. IDC:SJ MICROSCOPIC DESCRIPTION Slides are reviewed. GROSS DESCRIPTION Received in fixative is one container labeled with the patient's name and designated harry right colon. The specimen consists of an extended right hemicolectomy specimen consisting of cecum with ascending colon and transverse colon with attached adipose tissue measuring 56 cm in length. Segment of small intestine measures 3 cm in length. The appendix measures 8 cm in length and 0.7 cm in diameter. 22?cm away from the distal resection margin and 22 cm away from the ileocecal valve there is a circumferential ulcerated tumor mass measuring 7 x 4 x 2 cm. The mass is almost completely obliterating the lumen. The mucosa proximal to the mass is edematous. No additional mass lesion is identified. The serosal surface and overlying adipose tissue over the tumor is inked black. The mass appears to involve the full thickness of the bowel wall. Also present in the container is a donut-shaped piece of colonic tissue measuring 3 x 1.5 x 1 cm. The colonic adipose tissue is fixed in lymph node-revealing solution. More dictation will follow after overnight fixation. / LESLY:joan 11/16/17 Sections of the appendix reveal a pinpoint lumen. Sections of the tumor reveal it extensively invades into the adjacent adipose tissue. Multiple matted groups of lymph nodes are noted in the pericolonic adipose tissue. Focal area of serosal surface at the cecum shows a whitish area. The section of pericolonic adipose tissue also reveals multiple lymph nodes. The largest lymph node measures 2 cm in greatest dimension. Multiple areas of tumor deposits are noted in the pericolonic adipose tissue. Division Chief sections are submitted as follows: 1- donut, 2 - appendix, 3 - proximal and distal resection margins, 4-7 - tumor, 8 - whitish area on the serosal surface, cecum and small intestine, 9 - ileocecal valve, 10 - multiple lymph nodes, 11 - one serially sectioned lymph node, 12 - one bisected lymph node, 13-15 - mattered group of lymph nodes and tumor deposits, 16 - one bisected lymph node, 17 - one bisected lymph node, 18 - multiple lymph nodes, 19 - one bisected lymph node, 20 - two lymph nodes, 21 - one lymph node, 22 - one lymph node, 23 - one lymph node, 24 - one lymph node. / SJ:rg 11/17/17 TC:0 CPT: 52699 ADDENDUM ADDENDUM ADDENDUM ADDENDUM ADDENDUM ADDENDUM ADDENDUM ADDENDUM 01/26/2018 10:06 ADDENDUM 01/26/2018 10:06 ADDENDUM 01/26/2018 10:06 ADDENDUM 01/26/2018 10:06 ADDENDUM 01/26/2018 10:06 KRAS AND NRAS ANALYSIS REPORT FROM [facility] KRAS Extended Analysis: No KRAS mutation was identified in the provided specimen. NRAS Extended Analysis: No NRAS mutation was identified in the provided specimen. Please see complete report in e-chart or EMR for further details
--- NOTE | 2017-11-15 08:16 | PCM.PN.SRG ---
Patient Problems: Active and Suspected Problems (Last Reviewed 11/01/17 @ 13:02 by Neha Gu) Colonic obstruction (Acute) Subjective: Patient does not have any complaints this morning - Physical Exam General: Alert, Oriented x3, Cooperative, No apparent distress HEENT: Atraumatic Lungs: Normal air movement Cardiovascular: Regular rate, Regular Rhythm Abdomen: Soft, Non Tender, Non-Distended Vital Signs Temp Pulse Resp BP Pulse Ox 98.8 F 70 16 155/79 H 96 11/15/17 02:31 11/15/17 02:31 11/15/17 02:31 11/15/17 02:31 11/15/17 02:31 Oxygen Delivery Method Room Air Weight: 266 lb 4.8 oz Body Mass Index (BMI) 47.1 Intake and Output for Last 24 Hours 11/13/17 11/14/17 11/15/17 23:59 23:59 23:59 Intake Total 1578 / 1578 Balance 1578 / 1578 Laboratory Tests Past 24 Hrs 11/14/17 11/14/17 11/14/17 18:50 18:50 18:50 WBC 7.9 RBC 3.15 L Hgb 8.2 L Hct 26.9 L MCV 85.4 MCH 26.0 L MCHC 30.5 L RDW 15.8 H RDW Differential 49.2 H Plt Count 396 MPV 9.5 Immature Gran % (Auto) 0.300 Neut % (Auto) 60.1 Lymph % (Auto) 19.3 [place] % (Auto) 8.0 Eos % (Auto) 11.9 H Baso % (Auto) 0.4 Absolute Neuts (auto) 4.7 Absolute Lymphs (auto) 1.52 Total Counted Not Reportable Sodium 140 Potassium 3.7 Chloride 106 Carbon Dioxide 26.0 Anion Gap 8 BUN 17 Creatinine 0.89 Estim Creat Clear Calc 52.13 Est GFR (MDRD) Af Amer 81 Est GFR (MDRD) Non-Af 67 BUN/Creatinine Ratio 19.0 Glucose 77 Hemoglobin A1c Calcium 8.6 Total Bilirubin 0.60 AST 32 ALT 18 Alkaline Phosphatase 82 Total Protein 7.0 Albumin 3.3 Globulin 3.7 Albumin/Globulin Ratio 0.9 Carcinoembryonic Ag Pending TSH Blood Type Antibody Screen 11/14/17 11/15/17 11/15/17 18:50 02:17 02:17 WBC RBC Hgb Hct MCV MCH MCHC RDW RDW Differential Plt Count MPV Immature Gran % (Auto) Neut % (Auto) Lymph % (Auto) [place] % (Auto) Eos % (Auto) Baso % (Auto) Absolute Neuts (auto) Absolute Lymphs (auto) Total Counted Sodium 141 Potassium 3.3 L Chloride 107 Carbon Dioxide 26.0 Anion Gap 8 BUN 15 Creatinine 0.75 Estim Creat Clear Calc 61.86 Est GFR (MDRD) Af Amer 99 Est GFR (MDRD) Non-Af 82 BUN/Creatinine Ratio 19.9 Glucose 92 Hemoglobin A1c 6.0 Calcium 8.2 L Total Bilirubin AST ALT Alkaline Phosphatase Total Protein Albumin Globulin Albumin/Globulin Ratio Carcinoembryonic Ag TSH 2.00 Blood Type A POSITIVE Antibody Screen NEGATIVE POC Glucose 11/15/17 11/15/17 11/14/17 05:12 00:06 19:04 POC Glucose 90 79 74 Medical Necessity - Tobacco Use Smoking Status: Never smoker Assessment/Plan All Active Problems (Last Reviewed 11/01/17 @ 13:02 by Neha Gu) Colonic obstruction (Acute) Colon cancer (Acute) Lymphadenopathy, abdominal (Acute) Colon wall thickening (Acute) Hypercalcemia (Acute) Vitamin D deficiency (Acute) History of breast cancer (Acute) Parathyroid abnormality (Acute) Contusion (Acute) 67-year-old female with colon cancer 1. The patient did tolerate a bottle of mag citrate last night and had a liquid bowel movement. She may be only partially obstructed at this time but I still recommend surgery before she is completely obstructed. I asked her if she had any further questions this morning and she denied any. I discussed surgery once more with her and once again stressed the point that this was a palliative surgery and there was a possibility of placing a stoma. The patient understands and is willing to proceed with surgery. 2. Patient was hypokalemic and I have replaced this per IV. 3. Plan is to proceed with laparoscopic probable open extended right hemicolectomy for partially obstructing transverse colon cancer. Kevin Varghese MD Pager: [facility] [address] [place] [address], [address] [place] [address] Office:
[2017-11-15 12:10] LABS: Bedside Glucose 78 mg/dL (70-110)
--- NOTE | 2017-11-15 12:13 | NURSING ---
PT TO PACU VIA BED.
[2017-11-15] MEDS: Bupiv/Epi 0.5% Mpf 30 ML Vial (17:20)
[2017-11-15 18:05] LABS: Bedside Glucose 149 mg/dL (70-110)
--- NOTE | 2017-11-15 19:10 | PCM.OPRPT ---
Problem List (1) Colonic obstruction Status: Acute (2) Colon cancer Status: Acute Qualifiers: Colon location: transverse Qualified Code(s): C18.4 - Malignant neoplasm of transverse colon Report of Operation Date of Procedure: 11/15/17 Pre-Operative Diagnosis: Obstructing transverse colon cancer, metastatic to lymph nodes in the retroperitoneum Post-Operative Diagnosis: Same Surgery/Procedure Performed:: Palliative laparoscopic extended right hemicolectomy with terminal ileum to descending colon anastomosis Description of Surgical Findings:: Large colon mass with distention of proximal colon Specimen's removed: Extended right hemicolon Description of Procedure: The patient was brought back to the operating room and general anesthesia was induced. A Stacy catheter was placed. Next the abdomen was prepped and draped in the usual sterile fashion. Next a small midline incision was made inferior to the umbilicus and deepened to the level of the fascia. The fascia was elevated and incised. A 12 mm port was placed into this incision and the abdomen was inflated to 15 mmHg. The abdomen was inspected and there was no carcinomatosis. Next a 5 mm port was placed in the left lower quadrant and left upper quadrant. The transverse colon was grasped and elevated. There were adhesions to the anterior abdominal wall which were taken down with the Enseal. There is a very large mass in the distal transverse colon with dilated ascending colon. Next the patient was placed in reverse Trendelenburg position and another 12 mm port was placed in the superior epigastrium. The splenic flexure attachments were taken down laparoscopically. This was taken medially and the lesser sac was taken off of the transverse colon. Next the right colon was taken from its lateral attachments. The appendix was then elevated and the terminal ileum was elevated as well. A window was made in the mesentery of the terminal ileum and a stapler was fired across the terminal ileum. Next the terminal ileum and appendix were elevated and the mesentery of the right colon was taken at the colon. I did not attempt to take any mesentery as this is a palliative procedure. This was taken anteriorly and superiorly until the hepatic flexure was reached. The duodenum was reflected superiorly and the transverse colon was taken down from its mesentery. This was taken into the splenic flexure was reached. Next the surgery was converted to open and the midline incision superiorly was opened down to the fascia and extended. The specimen was then brought through the anterior abdominal incision and stapled at the splenic flexure. This was sent for pathology. Next the terminal ileum was brought adjacent to the descending colon and an enterotomy was made in both parts of the bowel and a 75 DANY stapler was placed into both in the antimesenteric side of the terminal ileum was stapled to the tenia of the descending colon. Next the staple line was inspected and there was no bleeding. A 60 TL stapler was then used to close the enterotomy. A 3-0 Vicryl suture was used as a crotch stitch. The anastomosis appeared to have no tension on it. Next the abdomen was irrigated and suctioned dry. Omentum was used to cover the anterior abdominal wall. Next all staff changed the gown and gloves. The anterior fascia was then closed with running with #1 PDS sutures which met in the middle. The subcutaneous tissue was then irrigated and suctioned and all incisions were injected with local anesthetic. The midline incision was then stapled and the small laparoscopic incisions were closed with interrupted 4-0 Monocryl as well as Steri-Strips and bandages. The patient's Stacy was left in at the end of the case to monitor urine output. Patient tolerated the procedure well and was brought to PACU in stable condition. - Admit VTE Documentation VTE Mechan Device Prophylaxis: SCD's
[2017-11-15 23:11] LABS: Bedside Glucose 117 mg/dL (70-110)
[2017-11-16] VITALS (11 sets, daily range): BP systolic 136–158; BP diastolic 64–78; PULSE 54–74; RESP 16–20; TEMP 36.8–37.1; O2SAT 94–96
[2017-11-16] MEDS: Morphine 2 MG/ML Syringe IV (04:18)
[2017-11-16] MEDS: 0.9% NaCl Peripheral Flush Adult/Peds IV (04:18)
[2017-11-16] MEDS: 0.9% Normal Saline 1,000 ML 125 ML IV (06:06)
[2017-11-16 06:46] LABS: Bedside Glucose 87 mg/dL (70-110)
[2017-11-16 07:08] LABS: Absolute Lymphocyte Count 1.03 X10^3/ul (0.83-4.51); Absolute Neutrophil Count 6.9 X10^3/uL (2.0-7.7); Basophil# 0.01 X10^3/uL; Basophil% 0.1 % (0-1); Eosinophil# 0.16 X10^3/uL; Eosinophils% 1.9 % (0-5); Hematocrit 27.5 % (37-47); Hemoglobin 8.5 g/dl (12.0-15.0); Lymphocyte # 1.03 X10^3/ul (4.0); Lymphocyte % 11.9 % (19-41); Mean Corp Hgb Conc 30.9 g/gl (32-36); Mean Corpuscular Hgb 26.3 pg (27.0-32.0); Mean Corpuscular Volume 85.1 fL (81-99); Mean Platelet Vol. 9.7 fl (6.2-12.0); Monocyte# 0.55 X10^3/uL; Monocyte% 6.4 % (0-10); Neutrophil # 6.88 X10^3/uL (2.7-7.7); Neutrophil % 79.6 % (47-70); Platelet Count 385 K/mm3 (150-450); RBC Distribution Width CV 16.2 % (11.6-14.6); RBC Distribution Width SD 50.7 fl (35.1-43.9); Red Blood Count 3.23 M/mm3 (4.2-5.4); White Blood Count 8.6 K/mm3 (4.4-11.0)
[2017-11-16 07:10] LABS: POSITIVE COUNT NO; POSITIVE DIFFERENTIAL NO; POSITIVE MORPHOLOGY NO
[2017-11-16 07:41] LABS: Anion Gap 9 (5-15); BUN 11 mg/dL (7-18); BUN/Creat Ratio 14.8 RATIO (10-20); Calcium,Total 7.5 mg/dL (8.5-10.1); Chloride 110 mmol/L (98-107); Creatinine, Serum 0.74 mg/dL (0.55-1.02); EST Glomerular Filtration Rate 83 mL/min (>60); Est Glom Filt Rate - Afr Amer 101 mL/min (>60); Glucose 91 mg/dL (74-106); Magnesium 1.8 mg/dL (1.6-2.6); Phosphorus 2.7 mg/dL (2.5-4.9); Potassium 4.4 mmol/L (3.5-5.1); Sodium Level 142 mmol/L (136-145)
--- NOTE | 2017-11-16 07:48 | PN.SURG_ITS ---
Patient Problems: Active and Suspected Problems (Last Reviewed 11/01/17 @ 13:02 by Neha Gu) Colonic obstruction (Acute) Subjective: Patient is doing well and her pain is controlled with no nausea or vomiting. She is not passing flatus yet. - Physical Exam General: Alert, Cooperative Lungs: Normal air movement Cardiovascular: Regular rate, Regular Rhythm Abdomen: Soft, Non-Distended, Tender - Mild incisional tenderness., - - Incision has some serosanguineous drainage. Dressings were changed. Vital Signs Temp Pulse Resp BP Pulse Ox 97.6 F L 54 L 16 141/66 H 94 11/15/17 22:46 11/16/17 03:45 11/16/17 03:45 11/15/17 22:46 11/16/17 06:50 Oxygen Flow Rate (L/min) 6 Oxygen Delivery Method Nasal Cannula Weight: 266 lb 1.567 oz Body Mass Index (BMI) 47.1 Finger Stick Blood Glucose 149 Intake and Output for Last 24 Hours 11/14/17 11/15/17 11/16/17 23:59 23:59 23:59 Intake Total 4078 / 4078 2658 / 2658 Output Total 180 / 180 340 / 340 Balance 3898 / 3898 2318 / 2318 Laboratory Tests Past 24 Hrs 11/14/17 11/16/17 11/16/17 18:50 06:40 06:40 WBC 8.6 RBC 3.23 L Hgb 8.5 L Hct 27.5 L MCV 85.1 MCH 26.3 L MCHC 30.9 L RDW 16.2 H RDW Differential 50.7 H Plt Count 385 MPV 9.7 Immature Gran % (Auto) 0.100 Neut % (Auto) 79.6 H Lymph % (Auto) 11.9 L [place] % (Auto) 6.4 Eos % (Auto) 1.9 Baso % (Auto) 0.1 Absolute Neuts (auto) 6.9 Absolute Lymphs (auto) 1.03 Total Counted Not Reportable Sodium 142 Potassium 4.4 Chloride 110 H Carbon Dioxide 23.0 Anion Gap 9 BUN 11 Creatinine 0.74 Estim Creat Clear Calc 62.70 Est GFR (MDRD) Af Amer 101 Est GFR (MDRD) Non-Af 83 BUN/Creatinine Ratio 14.8 Glucose 91 Calcium 7.5 L Phosphorus 2.7 Magnesium 1.8 Crossmatch See Detail POC Glucose 11/16/17 11/15/17 11/15/17 06:16 23:05 18:00 POC Glucose 87 117 H 149 H 11/15/17 11:53 POC Glucose 78 Medical Necessity - Tobacco Use Smoking Status: Never smoker Assessment/Plan All Active Problems (Last Reviewed 11/01/17 @ 13:02 by Neha Gu) Colonic obstruction (Acute) Colon cancer (Acute) Lymphadenopathy, abdominal (Acute) Colon wall thickening (Acute) Hypercalcemia (Acute) Vitamin D deficiency (Acute) History of breast cancer (Acute) Parathyroid abnormality (Acute) Contusion (Acute) 67-year-old female status post extended right hemicolectomy for colon cancer 1. The patient is doing well and her pain is well controlled. She had low urine output I will give her another bolus of 500 cc and keep the Stacy in place for now until the urine output picks up. Her urine is dark and tereso colored. Her creatinine is normal. 2. I encouraged ambulation and incentive spirometer. Her hemoglobin is stable so I will start Lovenox. PPI as well. 3. Once the patient is passing flatus will start a clear liquid diet and advance as tolerated. Kevin Varghese MD Pager: [facility] [address] [place] [address], [address] [place] [phone] Office:
[2017-11-16] MEDS: Multivitamins,Therapeutic Tablet 1 TABLET PO (08:03)
[2017-11-16] MEDS: Calcium Carbonate 500 MG Tablet PO ×2 (08:03→17:33)
[2017-11-16] MEDS: Citalopram 10 MG Tablet PO (08:04)
[2017-11-16] MEDS: Etodolac 300 MG Capsule PO ×2 (08:04→17:33)
[2017-11-16 09:52] LABS: Carcinoembryonic Antigen 17.3 ng/mL (0.0-4.7)
[2017-11-16] MEDS: Enoxaparin 40 MG/0.4 ML Syringe SC (10:09)
--- NOTE | 2017-11-16 11:23 | ONC.PHONE ---
PATIENT IN [facility]; CALLED AND SPOKE WITH NOEMY BALTAZAR. F/U APPT SCHEDULED FOR 12/06/17 @2:30PM ADDED TO D/C PAPERWORK FOR PATIENT.
[2017-11-16 11:31] LABS: Bedside Glucose 79 mg/dL (70-110)
[2017-11-16] MEDS: 0.9% Normal Saline 1,000 ML 999 ML IV (12:25)
[2017-11-16] MEDS: Dextrose 5%-Lactated Ringers 1,000 ML 125 ML IV ×2 (12:26→20:34)
--- NOTE | 2017-11-16 12:35 | CASEMGMT ---
NOEMY LUNA Assessment completed. DC Plan: home -NOEMY LUNA took seat in room and discussed dc planning with pt. Pt states she was independent prior to admission. Used a cane due to L hip pain-needs surgical intervention, however this will need to be held due to present condition. Lives independently, drives and plans to return home on dc. -Pt has hx of mastectomy w/chemotherapy in past and is not looking forward to having to start chemo again. She saw Dr. Alexander in past and will see him on dc. NOEMY LUNA offered support to pt, allowed her to voice concerns over diagnosis of colon ca and need for chemo. Pt states her family is very supportive and will assist if needed. Pt states she does need anything further on dc at this time. -Time allowed for verbalization and support. -Her plan is to return home on dc. Kaylee SHEA RN [facility]
[2017-11-16 17:41] LABS: Bedside Glucose 106 mg/dL (70-110)
[2017-11-16] MEDS: Atorvastatin Calcium 40 MG Tablet PO (20:34)
--- NOTE | 2017-11-16 23:19 | CPS ---
patient refused bipap at time of visit. patient requested to use oxygen via [place]. patients nurse aware.
[2017-11-16 23:50] LABS: Bedside Glucose 114 mg/dL (70-110)
[2017-11-17] VITALS (7 sets, daily range): BP systolic 138–149; BP diastolic 73–82; PULSE 65–84; RESP 16–18; TEMP 36.9–37.6; O2SAT 2–96
[2017-11-17] MEDS: Levothyroxine 50 MCG Tablet PO (04:55)
[2017-11-17] MEDS: Dextrose 5%-Lactated Ringers 1,000 ML 125 ML IV (04:55)
[2017-11-17 06:11] LABS: Bedside Glucose 126 mg/dL (70-110)
[2017-11-17 07:25] LABS: Absolute Lymphocyte Count 0.83 X10^3/ul (0.83-4.51); Absolute Neutrophil Count 8.1 X10^3/uL (2.0-7.7); Basophil# 0.02 X10^3/uL; Basophil% 0.2 % (0-1); Eosinophil# 0.71 X10^3/uL; Eosinophils% 6.8 % (0-5); Hematocrit 28.7 % (37-47); Hemoglobin 8.7 g/dl (12.0-15.0); Lymphocyte # 0.83 X10^3/ul (4.0); Lymphocyte % 7.9 % (19-41); Mean Corp Hgb Conc 30.3 g/gl (32-36); Mean Corpuscular Hgb 25.7 pg (27.0-32.0); Mean Corpuscular Volume 84.7 fL (81-99); Mean Platelet Vol. 9.1 fl (6.2-12.0); Monocyte# 0.79 X10^3/uL; Monocyte% 7.5 % (0-10); Neutrophil # 8.14 X10^3/uL (2.7-7.7); Neutrophil % 77.5 % (47-70); Platelet Count 410 K/mm3 (150-450); RBC Distribution Width CV 16.5 % (11.6-14.6); RBC Distribution Width SD 51.5 fl (35.1-43.9); Red Blood Count 3.39 M/mm3 (4.2-5.4); White Blood Count 10.5 K/mm3 (4.4-11.0)
[2017-11-17 07:29] LABS: POSITIVE COUNT NO; POSITIVE DIFFERENTIAL NO; POSITIVE MORPHOLOGY NO
--- NOTE | 2017-11-17 07:34 | PN.SURG_ITS ---
Patient Problems: Active and Suspected Problems (Last Reviewed 11/01/17 @ 13:02 by Neha Gu) Colonic obstruction (Acute) Subjective: Patient evaluated resting comfortably in chair. She denies abdominal pain/discomfort except 3 out of 10 with movement. She denies nausea, vomiting. Negative flatus and BM. On 3 L of O2. - Physical Exam General: Alert, Oriented x3, Cooperative Abdomen: Soft, Non Tender, Hypoactive Bowel Sounds, Obese, - - Incisions c/d/i. No erythema or infection noted. Vital Signs Temp Pulse Resp BP Pulse Ox 99.6 F H 84 18 149/79 H 92 11/17/17 04:44 11/17/17 04:44 11/17/17 04:53 11/17/17 04:44 11/17/17 04:44 Oxygen Flow Rate (L/min) 3 Oxygen Delivery Method Nasal Cannula Weight: 266 lb 1.567 oz Body Mass Index (BMI) 47.1 Finger Stick Blood Glucose 149 Intake and Output for Last 24 Hours 11/15/17 11/16/17 11/17/17 23:59 23:59 23:59 Intake Total 4078 / 4078 6162 / 6162 637 / 637 Output Total 180 / 180 1240 / 1240 500 / 500 Balance 3898 / 3898 4922 / 4922 137 / 137 Laboratory Tests Past 24 Hrs 11/14/17 11/16/17 11/17/17 18:50 06:40 07:15 WBC 10.5 RBC 3.39 L Hgb 8.7 L Hct 28.7 L MCV 84.7 MCH 25.7 L MCHC 30.3 L RDW 16.5 H RDW Differential 51.5 H Plt Count 410 MPV 9.1 Immature Gran % (Auto) 0.100 Neut % (Auto) 77.5 H Lymph % (Auto) 7.9 L [place] % (Auto) 7.5 Eos % (Auto) 6.8 H Baso % (Auto) 0.2 Absolute Neuts (auto) 8.1 H Absolute Lymphs (auto) 0.83 Total Counted Not Reportable Sodium 142 Potassium 4.4 Chloride 110 H Carbon Dioxide 23.0 Anion Gap 9 BUN 11 Creatinine 0.74 Estim Creat Clear Calc 62.70 Est GFR (MDRD) Af Amer 101 Est GFR (MDRD) Non-Af 83 BUN/Creatinine Ratio 14.8 Glucose 91 Calcium 7.5 L Phosphorus 2.7 Magnesium 1.8 Carcinoembryonic Ag 17.3 H 11/17/17 07:15 WBC RBC Hgb Hct MCV MCH MCHC RDW RDW Differential Plt Count MPV Immature Gran % (Auto) Neut % (Auto) Lymph % (Auto) [place] % (Auto) Eos % (Auto) Baso % (Auto) Absolute Neuts (auto) Absolute Lymphs (auto) Total Counted Sodium Pending Potassium Pending Chloride Pending Carbon Dioxide Pending Anion Gap Pending BUN Pending Creatinine Pending Estim Creat Clear Calc Est GFR (MDRD) Af Amer Pending Est GFR (MDRD) Non-Af Pending BUN/Creatinine Ratio Pending Glucose Pending Calcium Pending Phosphorus Magnesium Carcinoembryonic Ag POC Glucose 11/17/17 11/16/17 11/16/17 06:07 23:32 17:31 POC Glucose 126 H 114 H 106 11/16/17 11:19 POC Glucose 79 Medical Necessity - Tobacco Use Smoking Status: Never smoker Assessment/Plan All Active Problems (Last Reviewed 11/01/17 @ 13:02 by Neha Gu) Colonic obstruction (Acute) Colon cancer (Acute) Lymphadenopathy, abdominal (Acute) Colon wall thickening (Acute) Hypercalcemia (Acute) Vitamin D deficiency (Acute) History of breast cancer (Acute) Parathyroid abnormality (Acute) Contusion (Acute) I am following this patient in conjunction with Dr. Agustin in Dr. Varghese's absence. Impression: S/p laparoscopic extended right linda-colectomy Patient progressing very well Remove Stacy May chew gum and hard candy Will give 20 mg IV Lasix Continue ambulation and encourage I.S. Patient to bring in her home BPAP machine We will continue to monitor this patient Code Visit Inpatient E&M: 44090 Subs Hosp L1 - NO CHARGE; POST-OP
[2017-11-17 07:42] LABS: Anion Gap 6 (5-15); BUN 7 mg/dL (7-18); BUN/Creat Ratio 8.9 RATIO (10-20); Chloride 108 mmol/L (98-107); Creatinine, Serum 0.78 mg/dL (0.55-1.02); EST Glomerular Filtration Rate 78 mL/min (>60); Est Glom Filt Rate - Afr Amer 94 mL/min (>60); Estimated Creatinine Clearance 59.48 ml/min; Glucose 123 mg/dL (74-106); Sodium Level 141 mmol/L (136-145)
[2017-11-17] MEDS: Etodolac 300 MG Capsule PO ×2 (08:09→17:03)
[2017-11-17] MEDS: Citalopram 10 MG Tablet PO (08:10)
[2017-11-17] MEDS: Multivitamins,Therapeutic Tablet 1 TABLET PO (08:10)
[2017-11-17] MEDS: Calcium Carbonate 500 MG Tablet PO ×2 (08:10→17:03)
[2017-11-17] MEDS: Enoxaparin 40 MG/0.4 ML Syringe SC (08:14)
[2017-11-17] MEDS: Furosemide 20 MG/2 ML VIAL IV (08:27)
[2017-11-17 12:21] LABS: Bedside Glucose 129 mg/dL (70-110)
[2017-11-17] MEDS: Dextrose 5%-Lactated Ringers 1,000 ML 60 ML IV (15:43)
[2017-11-17 17:16] LABS: Bedside Glucose 107 mg/dL (70-110)
[2017-11-17] MEDS: Atorvastatin Calcium 40 MG Tablet PO (22:02)
[2017-11-18 00:21] LABS: Bedside Glucose 109 mg/dL (70-110)
[2017-11-18 02:00] VITALS: BP 141/80; PULSE 72; RESP 16; TEMP 36.8; O2SAT 93
[2017-11-18 05:34] LABS: Hemoglobin 7.7 g/dl (12.0-15.0); Mean Corp Hgb Conc 30.8 g/gl (32-36); Mean Corpuscular Hgb 26.2 pg (27.0-32.0); Mean Platelet Vol. 9.3 fl (6.2-12.0); Platelet Count 333 K/mm3 (150-450); RBC Distribution Width CV 16.5 % (11.6-14.6); RBC Distribution Width SD 51.7 fl (35.1-43.9); Red Blood Count 2.94 M/mm3 (4.2-5.4); White Blood Count 7.6 K/mm3 (4.4-11.0)
[2017-11-18 05:37] LABS: Scan Indicated on CBC? Y/N NO
[2017-11-18] MEDS: Levothyroxine 50 MCG Tablet PO (05:42)
[2017-11-18 05:56] LABS: Anion Gap 8 (5-15); BUN 5 mg/dL (7-18); BUN/Creat Ratio 7.2 RATIO (10-20); Calcium,Total 8.2 mg/dL (8.5-10.1); Chloride 106 mmol/L (98-107); EST Glomerular Filtration Rate 90 mL/min (>60); Est Glom Filt Rate - Afr Amer 109 mL/min (>60); Estimated Creatinine Clearance 66.28 ml/min; Glucose 106 mg/dL (74-106); Potassium 3.4 mmol/L (3.5-5.1); Sodium Level 142 mmol/L (136-145)
[2017-11-18 06:26] LABS: Bedside Glucose 103 mg/dL (70-110)
[2017-11-18 07:39] VITALS: O2SAT 91
--- NOTE | 2017-11-18 08:02 | PCM.PN.SRG ---
Patient Problems: Active and Suspected Problems (Last Reviewed 11/01/17 @ 13:02 by Neha Gu) Colonic obstruction (Acute) Subjective: Patient evaluated resting comfortably in bed. She denies nausea, vomiting, fever. Tolerating clear liquids well. Urinating well. Multiple small bowel movements. Very small amount of flatus. - Physical Exam General: Alert, Oriented x3, Cooperative Abdomen: Bowel Sounds Present - slightly more bowel sounds, Soft, Non Tender, Obese, - - Incisions c/d/i. No erythema, infection. No drainage. Vital Signs Temp Pulse Resp BP Pulse Ox 98.2 F 72 16 141/80 H 91 11/18/17 02:00 11/18/17 02:00 11/18/17 02:00 11/18/17 02:00 11/18/17 07:39 Oxygen Flow Rate (L/min) 2 Oxygen Delivery Method Room Air Weight: 266 lb 1.567 oz Body Mass Index (BMI) 47.1 Finger Stick Blood Glucose 149 Intake and Output for Last 24 Hours 11/16/17 11/17/17 11/18/17 23:59 23:59 23:59 Intake Total 6162 / 6162 1771 / 1771 761 / 761 Output Total 1240 / 1240 2600 / 2600 600 / 600 Balance 4922 / 4922 -829 / -829 161 / 161 Laboratory Tests Past 24 Hrs 11/18/17 11/18/17 05:15 05:15 WBC 7.6 RBC 2.94 L Hgb 7.7 L Hct 25.0 L MCV 85.0 MCH 26.2 L MCHC 30.8 L RDW 16.5 H RDW Differential 51.7 H Plt Count 333 MPV 9.3 Sodium 142 Potassium 3.4 L Chloride 106 Carbon Dioxide 28.0 Anion Gap 8 BUN 5 L Creatinine 0.70 Estim Creat Clear Calc 66.28 Est GFR (MDRD) Af Amer 109 Est GFR (MDRD) Non-Af 90 BUN/Creatinine Ratio 7.2 L Glucose 106 Calcium 8.2 L POC Glucose 11/18/17 11/17/17 11/17/17 05:40 23:31 17:01 POC Glucose 103 109 107 11/17/17 12:15 POC Glucose 129 H Medical Necessity - Tobacco Use Smoking Status: Never smoker Assessment/Plan All Active Problems (Last Reviewed 11/01/17 @ 13:02 by Neha Gu) Colonic obstruction (Acute) Colon cancer (Acute) Lymphadenopathy, abdominal (Acute) Colon wall thickening (Acute) Hypercalcemia (Acute) Vitamin D deficiency (Acute) History of breast cancer (Acute) Parathyroid abnormality (Acute) Contusion (Acute) I am following this patient in conjunction with Dr. Agustin in Dr. Varghese's absence. Impression: S/p laparoscopic extended right linda-colectomy Patient progressing very well Continue ambulation and encourage I.S. Continue clear liquids until GI function returns more. Replace potassium We will continue to monitor this patient Code Visit Inpatient E&M: 64826 Subs Hosp L1 - NO CHARGE; POST-OP
[2017-11-18] MEDS: Multivitamins,Therapeutic Tablet 1 TABLET PO (08:40)
[2017-11-18 08:45] VITALS: BP 150/69; PULSE 82; RESP 18; TEMP 36.6; O2SAT 92
[2017-11-18] MEDS: Calcium Carbonate 500 MG Tablet PO ×2 (08:48→17:20)
[2017-11-18] MEDS: Dextrose 5%-Lactated Ringers 1,000 ML 60 ML IV (08:48)
[2017-11-18] MEDS: Etodolac 300 MG Capsule PO ×2 (08:48→17:20)
[2017-11-18] MEDS: Enoxaparin 40 MG/0.4 ML Syringe SC (08:49)
[2017-11-18] MEDS: Citalopram 10 MG Tablet PO (08:49)
--- NOTE | 2017-11-18 10:41 | CASEMGMT ---
Addendum entered by Marcy Andera 11/18/17 11:07: Myrtle from TCU left this SW a message stating pt would qualify for a short term stay in TCU. SW spoke w/pt, explained that she would qualify for a short term stay in TCU. Pt states she may want to do this, is fairly certain she would like to go to TCU at discharge. TCU is her first choice over a SNF in the community. SW explained will let TCU know, and will check back with her tomorrow. Pt states understanding. SW will continue to follow. BIN Vergara, [employer] Original Note: SW spoke w/RN, she states pt may want to go somewhere for rehab short term. SW met w/pt in room, reviewed options with pt including group home for a short stay versus home health. Pt states she would like to consider a short term rehab stay. SW explained will need to qualify under Medicare. SW explained the Medicare qualifying stay rule, and a need for skilled services. Pt states understanding. SW spoke w/pt about SNF options, pt is agreeable to SW making a referral to Myrtle in TCU and having her look at pt's chart to see if pt would qualify for a short term SNF stay. Pt states if she does not qualify, she would be okay w/going home and having home health and a [facility] referral. SW explained will look into this for her and let her know. SW called Myrtle in TCU, message left requesting she review pt to see if she would qualify for TCU. SW will continue to follow. BIN Vergara, [employer]
[2017-11-18] MEDS: Pantoprazole Sodium 40 MG Tablet PO (12:17)
[2017-11-18 12:25] LABS: Bedside Glucose 119 mg/dL (70-110)
[2017-11-18 14:00] VITALS: BP 129/68; PULSE 87; RESP 18; TEMP 36.9; O2SAT 93
[2017-11-18 17:31] LABS: Bedside Glucose 96 mg/dL (70-110)
--- NOTE | 2017-11-18 17:55 | NURSING ---
reviewed and agree with charting by Ciera Zarco, student nurse
[2017-11-18 20:53] VITALS: BP 144/62; PULSE 66; RESP 18; TEMP 37.1; O2SAT 94
[2017-11-18] MEDS: Atorvastatin Calcium 40 MG Tablet PO (21:08)
[2017-11-18 22:01] LABS: Bedside Glucose 102 mg/dL (70-110)
[2017-11-19 02:11] VITALS: BP 157/67; PULSE 63; RESP 16; TEMP 37.2; O2SAT 95
[2017-11-19] MEDS: Levothyroxine 50 MCG Tablet PO (06:35)
[2017-11-19] MEDS: 0.9% NaCl Peripheral Flush Adult/Peds IV (06:35)
[2017-11-19 06:46] LABS: Bedside Glucose 102 mg/dL (70-110)
[2017-11-19 07:30] VITALS: O2SAT 95
--- NOTE | 2017-11-19 07:54 | PCM.PN.SRG ---
Patient Problems: Active and Suspected Problems (Last Reviewed 11/01/17 @ 13:02 by Neha Gu) Colonic obstruction (Acute) Subjective: Patient tolerated transitional diet yesterday, small amount of flatus and small bowel movements, ambulating - Physical Exam General: Alert, Oriented x3, Cooperative, No apparent distress HEENT: Atraumatic Abdomen: Soft, Non-Distended, Tender - Minimal at incision site, incision clean dry and intact with zacarias Extremities: No clubbing, No cyanosis Vital Signs Temp Pulse Resp BP Pulse Ox 98.9 F 63 16 157/67 H 95 11/19/17 02:11 11/19/17 02:11 11/19/17 02:11 11/19/17 02:11 11/19/17 07:30 Oxygen Flow Rate (L/min) 2 Oxygen Delivery Method Nasal Cannula Weight: 266 lb 1.567 oz Body Mass Index (BMI) 47.1 Finger Stick Blood Glucose 149 Intake and Output for Last 24 Hours 11/17/17 11/18/17 11/19/17 23:59 23:59 23:59 Intake Total 1771 / 1771 2697 / 2697 Output Total 2600 / 2600 2700 / 2700 450 / 450 Balance -829 / -829 -3 / -3 -450 / -450 POC Glucose 11/19/17 11/18/17 11/18/17 06:33 21:07 17:20 POC Glucose 102 102 96 11/18/17 12:16 POC Glucose 119 H Medical Necessity - Tobacco Use Smoking Status: Never smoker Assessment/Plan All Active Problems (Last Reviewed 11/01/17 @ 13:02 by Neha Gu) Colonic obstruction (Acute) Colon cancer (Acute) Lymphadenopathy, abdominal (Acute) Colon wall thickening (Acute) Hypercalcemia (Acute) Vitamin D deficiency (Acute) History of breast cancer (Acute) Parathyroid abnormality (Acute) Contusion (Acute) Continue transitional diet Will check back with patient in the afternoon to see if she is still doing well if so may be able to transition to TCU later today. Continue ambulation
[2017-11-19 07:57] VITALS: BP 158/82; PULSE 64; RESP 16; TEMP 36.8; O2SAT 97
[2017-11-19] MEDS: Calcium Carbonate 500 MG Tablet PO ×2 (08:09→17:06)
[2017-11-19] MEDS: Multivitamins,Therapeutic Tablet 1 TABLET PO (08:09)
[2017-11-19] MEDS: Etodolac 300 MG Capsule PO ×2 (08:09→17:06)
--- NOTE | 2017-11-19 09:37 | CASEMGMT ---
SW met w/pt in room in regard to discharge plan. Pt is agreeable to go to TCU, she asked about coverage. SW explained that Medicare will cover the first 20 days at 100%, as long as skilled services are needed. SW explained spoke w/therapy, pt will benefit from therapy for strengthening, pt is not at his baseline; SW let pt know this. SW also explained that as per TCU, pt would qualify under Medicare for a short stay in TCU. SW also explained can send in the referral to [facility] and will have the SW in TCU call [facility] to let them know when pt is discharged from there, pt is agreeable to this. Pt asked about cost, SW explained that it's $4/meal suggested donation. SW faxed referral in to [facility]. SW let the TCU SW know to call [facility] when pt is close to discharge. Green sheet on chart in anticipation of discharge later today or tomorrow. JUDY let Myrtle in TCU know pt will be discharged later today or tomorrow. BIN Vergara, [employer]
[2017-11-19] MEDS: Citalopram 10 MG Tablet PO (10:11)
[2017-11-19] MEDS: Enoxaparin 40 MG/0.4 ML Syringe SC (10:11)
[2017-11-19] MEDS: Pantoprazole Sodium 40 MG Tablet PO (10:11)
[2017-11-19 11:06] LABS: Bedside Glucose 150 mg/dL (70-110)
[2017-11-19] MEDS: Insulin Lispro 100 UNIT/ML INSULN.PEN SC (11:06)
[2017-11-19 14:59] VITALS: BP 149/74; PULSE 63; RESP 16; TEMP 36.8; O2SAT 96
[2017-11-19 17:11] LABS: Bedside Glucose 115 mg/dL (70-110)
[2017-11-19] MEDS: Atorvastatin Calcium 40 MG Tablet PO (22:08)
[2017-11-19 22:10] VITALS: BP 154/79; PULSE 73; RESP 16; TEMP 36.6; O2SAT 93
[2017-11-20 00:40] LABS: Bedside Glucose 123 mg/dL (70-110)
[2017-11-20 04:10] VITALS: BP 137/73; PULSE 64; RESP 18; TEMP 36.7; O2SAT 95
--- NOTE | 2017-11-20 05:06 | PCM.DC.GS ---
Discharge Diet: - - Incisional diet/low fiber Discharge Activity: Return to Normal Activity May shower in (days): 0 Lifting Restrictions: No lifting greater than 20 pounds x 4 weeks Call your doctor if your incision/area has: Continuous Slow Oozing, Sudden Increased Bleeding, Increased Pain/ Swelling, Increased Redness, Foul Smelling Discharge, Swelling at the incision site Call your doctor if you observe: Fever of 101 or Higher Remove Dressing in (days):: 1 - Change dressing daily at umbilicus if still slightly draining Additional Dressing/Incision Instructions:: Plan to remove zacarias in 14 days from surgery. Patient is DC'd from [facility] prior to that date we will have her make an appointment Allergies/Adverse Reactions: Allergies amoxicillin [From Augmentin] Adverse Reaction (Severe, Verified 11/12/17 14:47) Hives clavulanic acid [From Augmentin] Adverse Reaction (Severe, Verified 11/12/17 14:47) Hives Medications to take at Discharge nabumetone 750 mg tablet 750 mg PO BID #180 tab 08/03/17 calcium carbonate 600 mg calcium (1,500 mg) tablet 600 mg PO BID tab 08/17/17 cholecalciferol (vitamin D3) 5,000 unit capsule 5,000 unit PO QDAY 08/17/17 levothyroxine 50 mcg tablet 50 mcg PO QDAY 08/17/17 metformin 500 mg tablet 1,000 mg PO BID tab 08/17/17 Citalopram [Celexa] 10 mg PO DAILY 11/09/17 Multivitamin [Multiple Vitamins] 1 each PO DAILY 11/09/17 Ondansetron [Zofran Odt] 4 mg PO Q8H PRN PRN #10 tablet 11/12/17 Atorvastatin Calcium [Lipitor] 40 mg PO QDAY 11/14/17 Primary Care Physician: Jose Daniel Yang DO [Primary Care Provider] - Test Results: Test results from this visit will be discussed in further detail at your follow-up appointment, if applicable. Please Follow Up With: Violet Shepherd MD When: WEDNESDAY Please Follow Up With: Kevin Varghese MD When: Follow-up 2 weeks from discharge or 14 days from surgery for staple removal Proposed Discharge Date: 11/20/17
--- NOTE | 2017-11-20 05:09 | PCM.TXEXTCAR ---
- Diet 11/18/17 16:02 Diet: Transitional Is pt able to select menu?: Yes - Routine Orders/Code Status Code Status: Full Code - Wound(s) ABDOMEN, MIDLINE Wound Type: Surgical Incision Dressing Change: Dry Sterile Dressing - change daily at umbilicus, if no drainage ok to d/c dressing, plan to remove zacarias 14 days from surgery. ABDOMEN, LAPROSCOPIC SITES Wound Type: Surgical Incision Dressing Change: OPSITE X 4 - Suggestions for Active Care Times a day to sit in chair: 3 - Therapies Weight Bearing: Full weight bearing Physical Therapy: Eval and Treat Occupational Therapy: Eval and Treat - Problem/Diagnosis (1) Colon cancer Status: Acute Current Visit: No (2) Lymphadenopathy, abdominal Status: Acute Current Visit: No (3) Colonic obstruction Status: Acute Current Visit: Yes - Allergies/Procedures Done in Hospital Allergies/Adverse Reactions: Allergies amoxicillin [From Augmentin] Adverse Reaction (Severe, Verified 11/12/17 14:47) Hives clavulanic acid [From Augmentin] Adverse Reaction (Severe, Verified 11/12/17 14:47) Hives Procedures: - - 11/15/17 laparoscopic extended right hemicolectomy due to obstructing colon cancer - Type of Care/Length of Stay Estimated LOS: Convalescent Care Less Than 30 days Type of Care Needed: Skilled Rehab Potential: Good Prognosis: Good - Additional Orders/Day of Discharge Day of Discharge: 11/20/17 - Dietary and Speech Recommendations Dietitian Recommendations/Changes: Rec adv diet as tolerated to transitional. Will provide Ensure Clear w/ meals and medpass while on clear liquid diet. - Follow Up Care Primary Care Physician: Jose Daniel Yang DO [Primary Care Provider] - Please Follow Up With: Violet Shepherd MD When: WEDNESDAY Please Follow Up With: Kevin Varghese MD When: Follow-up 2 weeks from discharge or 14 days from surgery for staple removal
--- NOTE | 2017-11-20 05:13 | PCM.DC.SUM ---
Discharge Date and Diagnosis - Problem List Patient Problems: Active and Suspected Problems (Last Reviewed 11/01/17 @ 13:02 by Neha Gu) Colonic obstruction (Acute) Date of Admission: 11/15/17 Date of Discharge: 11/20/17 - Primary Discharge Diagnosis Active and Suspected Problems (Last Reviewed 11/01/17 @ 13:02 by Neha Gu) Colonic obstruction (Acute) Metastatic colon cancer - Secondary Discharge Diagnosis Chronic Problems (Last Reviewed 11/01/17 @ 13:02 by Neha Gu) Left hip pain (Chronic) Arthritis (Chronic) Type 2 diabetes mellitus (Chronic) IBS (irritable bowel syndrome) (Chronic) Hyperlipemia (Chronic) Hypertension (Chronic) Hospital Course and Treatment Operations: - - On 11/15/17 patient underwent laparoscopic extended right hemicolectomy due to obstructing colon cancer Procedures: None Summary of Care Provided: The patient is a 67 year old F was directly admitted after going to the ER on having an acute abdominal series which showed likely obstructing colon cancer lesion in her transverse colon and she was sent home. Patient continued to have abdominal pain and not able to eat. She was direct admitted and underwent a laparoscopic extended right hemicolectomy on 11/15/17. Postoperatively patient did do well and by 11/17 she did have a bowel movement and was able to start on sips which have slowly been advanced and she is currently on a transitional diet/low fiber and is tolerating well and continues to have bowel function as well as flatus. Her hemoglobin on admit was 8.2 her last checked 2 days ago was 7.7 I am rechecking that this morning as well. Discharge Diet: - - Incisional diet/low fiber Discharge Activity: Return to Normal Activity May shower in (days): 0 Call your doctor if your incision/area has: Continuous Slow Oozing, Sudden Increased Bleeding, Increased Pain/ Swelling, Increased Redness, Foul Smelling Discharge, Swelling at the incision site Call your doctor if you observe: Fever of 101 or Higher Remove Dressing in (days):: 1 - Change dressing daily at umbilicus if still slightly draining Additional Dressing/Incision Instructions:: Plan to remove zacarias in 14 days from surgery. Patient is DC'd from [facility] prior to that date we will have her make an appointment Home Medications: Medications to take at Discharge nabumetone 750 mg tablet 750 mg PO BID #180 tab 08/03/17 calcium carbonate 600 mg calcium (1,500 mg) tablet 600 mg PO BID tab 08/17/17 cholecalciferol (vitamin D3) 5,000 unit capsule 5,000 unit PO QDAY 08/17/17 levothyroxine 50 mcg tablet 50 mcg PO QDAY 08/17/17 metformin 500 mg tablet 1,000 mg PO BID tab 08/17/17 Citalopram [Celexa] 10 mg PO DAILY 11/09/17 Multivitamin [Multiple Vitamins] 1 each PO DAILY 11/09/17 Ondansetron [Zofran Odt] 4 mg PO Q8H PRN PRN #10 tablet 11/12/17 Atorvastatin Calcium [Lipitor] 40 mg PO QDAY 11/14/17 Primary Care Physician: Jose Daniel Yang DO [Primary Care Provider] - Please Follow Up With: Violet Shepherd MD When: WEDNESDAY Please Follow Up With: Kevin Varghese MD When: Follow-up 2 weeks from discharge or 14 days from surgery for staple removal Disposition: Snf facility Minutes spent on discharge:: 20 Patient Condition:: Good Medical Necessity - Tobacco Use Smoking Status: Never smoker Meaningful Use Info Meaningful Use Diagnoses (Choose all that apply): None applicable Code Visit Inpatient E&M: 90076 Disch Hosp
--- NOTE | 2017-11-20 05:16 | PCM.PN.SRG ---
Patient Problems: Active and Suspected Problems (Last Reviewed 11/01/17 @ 13:02 by Neha Gu) Colonic obstruction (Acute) Subjective: Patient is doing well tolerating transitional diet having bowel function - Physical Exam General: Alert, Oriented x3, Cooperative, No apparent distress Abdomen: Soft, Non-Distended, Tender - Mild tenderness to palpation over the incision, incision clean dry and intact with zacarias, no peritoneal signs Extremities: No clubbing, No cyanosis Neurological: Cranial nerves II-XII grossly intact Vital Signs Temp Pulse Resp BP Pulse Ox 97.9 F 73 16 154/79 H 93 11/19/17 22:10 11/19/17 22:10 11/19/17 22:10 11/19/17 22:10 11/19/17 22:10 Oxygen Flow Rate (L/min) 2 Oxygen Delivery Method Room Air Weight: 266 lb 1.567 oz Body Mass Index (BMI) 47.1 Finger Stick Blood Glucose 149 Intake and Output for Last 24 Hours 11/18/17 11/19/17 11/20/17 23:59 23:59 23:59 Intake Total 2697 / 2697 750 / 750 200 / 200 Output Total 2700 / 2700 1350 / 1350 Balance -3 / -3 -600 / -600 200 / 200 POC Glucose 11/19/17 11/19/17 11/19/17 22:04 17:01 10:59 POC Glucose 123 H 115 H 150 H 11/19/17 06:33 POC Glucose 102 Medical Necessity - Tobacco Use Smoking Status: Never smoker Assessment/Plan All Active Problems (Last Reviewed 11/01/17 @ 13:02 by Neha Gu) Colonic obstruction (Acute) Colon cancer (Acute) Lymphadenopathy, abdominal (Acute) Colon wall thickening (Acute) Hypercalcemia (Acute) Vitamin D deficiency (Acute) History of breast cancer (Acute) Parathyroid abnormality (Acute) Contusion (Acute) Continue transitional diet We will transfer to TCU this morning for continued physical therapy/OT for strengthening. We will recheck her hemoglobin this morning her last was 7.7 however on admission she was 8.2. Continue ambulation Jackelin Agustin M.D. Pager: [phone] [facility] [address] [place] [address], Outpatient Pavilion, [address] [place] [address] Office: [phone]
[2017-11-20] MEDS: Levothyroxine 50 MCG Tablet PO (06:07)
[2017-11-20 07:01] LABS: Bedside Glucose 104 mg/dL (70-110)
[2017-11-20 07:24] LABS: Absolute Lymphocyte Count 0.93 X10^3/ul (0.83-4.51); Absolute Neutrophil Count 4.2 X10^3/uL (2.0-7.7); Basophil# 0.04 X10^3/uL; Basophil% 0.6 % (0-1); Eosinophil# 0.73 X10^3/uL; Eosinophils% 10.9 % (0-5); Hematocrit 24.9 % (37-47); Hemoglobin 7.6 g/dl (12.0-15.0); Lymphocyte # 0.93 X10^3/ul (4.0); Lymphocyte % 13.8 % (19-41); Mean Corp Hgb Conc 30.5 g/gl (32-36); Mean Corpuscular Hgb 26.2 pg (27.0-32.0); Mean Corpuscular Volume 85.9 fL (81-99); Mean Platelet Vol. 9.7 fl (6.2-12.0); Monocyte# 0.75 X10^3/uL; Monocyte% 11.2 % (0-10); Neutrophil # 4.24 X10^3/uL (2.7-7.7); Neutrophil % 63.1 % (47-70); Platelet Count 369 K/mm3 (150-450); RBC Distribution Width CV 16.1 % (11.6-14.6); RBC Distribution Width SD 48.8 fl (35.1-43.9); White Blood Count 6.7 K/mm3 (4.4-11.0)
[2017-11-20 07:30] LABS: POSITIVE COUNT NO; POSITIVE DIFFERENTIAL NO; POSITIVE MORPHOLOGY NO
[2017-11-20 08:15] LABS: Iron 18 ug/dL (50-170); Iron Binding Capacity,Total 194 ug/dL (250-450); PERCENT IRON SATURATION 9.3 % (15.0-55.0)
[2017-11-20 08:44] VITALS: BP 141/65; PULSE 72; RESP 18; TEMP 36.8; O2SAT 96
[2017-11-20] MEDS: Multivitamins,Therapeutic Tablet 1 TABLET PO (08:46)
[2017-11-20] MEDS: Citalopram 10 MG Tablet PO (08:46)
[2017-11-20] MEDS: Pantoprazole Sodium 40 MG Tablet PO (08:46)
[2017-11-20] MEDS: Calcium Carbonate 500 MG Tablet PO (08:47)
[2017-11-20] MEDS: Etodolac 300 MG Capsule PO (08:47)
[2017-11-20] MEDS: Enoxaparin 40 MG/0.4 ML Syringe SC (08:47)
[2017-11-20] MEDS: Insulin Lispro 100 UNIT/ML INSULN.PEN SC (11:52)
[2017-11-20 12:01] LABS: Bedside Glucose 151 mg/dL (70-110)
--- NOTE | 2017-11-20 12:14 | NURSING ---
call placed to TCU and report given to RN who will be taking over care for this patient
[2017-11-20 14:19] LABS: Ferritin 93 ng/mL (8-252)
[2018-01-26 15:10] LABS: Miscellaneous Lab Procedure SEE PATH
== END 2017-11-20 13:28 | disposition skilled nursing facility (03) | DRG 330 ==
PROVIDERS: Anesthesiology; Physician Assistant; Surgery; Admitting Provider Surgery; Family Provider Family Medicine; PCP Family Medicine; Visit Provider Surgery
PROC: 0DTF4ZZ Resection of Right Large Intestine, Percutaneous Endoscopic Approach (ICD-10-PCS; principal; 2017-11-15 07:10)
DX: C18.4 Malignant neoplasm of transverse colon (principal); C77.2 Secondary and unspecified malignant neoplasm of intra-abdominal lymph nodes; Z68.42 Body mass index [BMI] 45.0-49.9, adult; Z23 Encounter for immunization; E87.6 Hypokalemia; E66.9 Obesity, unspecified; I10 Essential (primary) hypertension; E11.8 Type 2 diabetes mellitus with unspecified complications; E78.5 Hyperlipidemia, unspecified; K58.9 Irritable bowel syndrome, unspecified; M19.90 Unspecified osteoarthritis, unspecified site; Z79.84 Long term (current) use of oral hypoglycemic drugs; Z85.3 Personal history of malignant neoplasm of breast
CPT/HCPCS: 36415; 74022; 80048; 80053; 81001; 82378; 82728; 82962; 83036; 83540; 83550; 83735; 84100; 84443; 85025; 85027; 86850; 86900; 86920; 88309; 88341; 88342; 93005; 94660; 96361; 96374; 96375; 97162; 97166; 97530; 97803; 99285; J7030; J7040; 90686; A4216; C1760; J1940; J2405

== ENCOUNTER 2017-11-20 13:50 | Inpatient (IN) | payer MEDICARE, OTHER, SELFPAY ==
[2017-11-20 14:19] VITALS: BP 143/76; PULSE 68; RESP 18; TEMP 36.4; O2SAT 93
--- NOTE | 2017-11-20 14:19 | NURSING ---
Pt admitted to room 8 from MS2 via bed. Oriented to room and call light system explained.
[2017-11-20 15:08] VITALS: BMI 49.4
[2017-11-20 15:21] VITALS: BMI 49.4
--- NOTE | 2017-11-20 17:00 | PCM.HP.STD ---
Problem List (1) Metastatic colon cancer in female Status: Acute (2) Diabetes mellitus Status: Chronic (3) Osteoarthritis of left hip Status: Chronic (4) Breast cancer Status: Chronic (5) Hypothyroidism Status: Chronic (6) Depression Status: Chronic (7) Nausea Status: Chronic (8) Debility Status: Acute (9) Colonic obstruction Status: Acute (10) IBS (irritable bowel syndrome) Status: Chronic (11) Hyperlipemia Status: Chronic (12) Hypertension Status: Chronic History of Present Illness Date of Admission: 11/20/17 Chief Complaint: Here for rehabilitation, strengthening, prior to discharge home alone. The patient is a 67 year old Female with below past medical history with followin11/15/2017 Admit to Hospital. Colon cancer of transverse colon. Retroperitoneal lymph node needle biopsy consistent with metastatic colon cancer. Abdominal pain, nausea, vomiting. X-ray consistent with partial bowel obstruction. Tumor board recommended palliative partial colectomy with subsequent chemotherapy. Plan right hemicolectomy. 11/15/2017 Dr. Varghese performed palliative laparoscopic extended right hemicolectomy with terminal ileum to descending colon anastomosis. 11/19/2017 Tolerating diet, passing flatus. 11/20/2017 Admit to TCU with debility, here for rehabilitation, strengthening, prior to discharge home alone, outpatient chemotherapy. Past Medical History Past Medical History (Chronic Problems): Chronic Problems (Last Reviewed 11/01/17 @ 13:02 by Neha Gu) Diabetes mellitus (Chronic) Osteoarthritis of left hip (Chronic) Breast cancer (Chronic) Hypothyroidism (Chronic) Depression (Chronic) Nausea (Chronic) Left hip pain (Chronic) Arthritis (Chronic) Type 2 diabetes mellitus (Chronic) IBS (irritable bowel syndrome) (Chronic) Hyperlipemia (Chronic) Hypertension (Chronic) Medical History: Medical History (Last Reviewed 11/01/17 @ 13:02 by Neha Gu) Hypercalcemia (Acute) E83.52 Vitamin D deficiency (Acute) E55.9 Arthritis (Chronic) M19.90 Type 2 diabetes mellitus (Chronic) E11.9 History of breast cancer (Acute) Z85.3 started in 1997 IBS (irritable bowel syndrome) (Chronic) K58.9 Parathyroid abnormality (Acute) E21.5 Hyperlipemia (Chronic) E78.5 Hypertension (Chronic) I10 History of left knee surgery Z98.890 Allergies amoxicillin [From Augmentin] Adverse Reaction (Severe, Verified 11/12/17 14:47) Hives clavulanic acid [From Augmentin] Adverse Reaction (Severe, Verified 11/12/17 14:47) Hives Home Medications: Ambulatory Orders Medication Instructions Recorded calcium carbonate 600 mg calcium 600 mg PO BID tab 08/17/17 (1,500 mg) tablet levothyroxine 50 mcg tablet 50 mcg PO DAILY@0600 08/17/17 metformin 500 mg tablet 1,000 mg PO BIDCM tab 08/17/17 Citalopram [Celexa] 10 mg PO DAILY 11/09/17 Atorvastatin Calcium [Lipitor] 40 mg PO QHS 11/14/17 Cholecalciferol (VIT D3) [Vitamin 5,000 unit PO DAILY 11/20/17 D] Multivit,Calc,Mins/Iron/Folic 1 each PO DAILY 11/20/17 [Therapeutic-M Tablet] Nabumetone [Relafen] 750 mg PO BID 11/20/17 Surgical History: Surgical History (Last Reviewed 11/09/17 @ 14:46 by Khushbu Mcleod) History of bilateral mastectomy Z90.13 History of hysterectomy Z90.710 due to postmenopausal bleeding and history of breast cancer History of lumpectomy of right breast Z98.890 1998 History of parathyroidectomy Z98.890 2018, due to enlargement. History of tonsillectomy Z90.89 Surgical History: hysterectomy, mastectomy - Bilateral., tonsillectomy, - - Parathyroidectomy. 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 Lives: Alone Smoking Status: Never smoker Tobacco Use: Non-smoker Alcohol: None Drugs: None - *Family History Maternal Family History: Family History (Last Reviewed 11/15/17 @ 03:31 by Kevin Varghese MD) Mother Cancer Sister Cancer Father Heart disease Myocardial infarction, Onset Age: 72 History Items: No pertinent history Paternal Family History: Family History (Last Reviewed 11/15/17 @ 03:31 by Kevin Varghese MD) Mother Cancer Sister Cancer Father Heart disease Myocardial infarction, Onset Age: 72 Review of Systems Constitutional: Denies: Chills, Fever, Weight Change HEENT: Denies: Head Aches, Sinus Congestion, Sinus Drainage Cardiovascular: Denies: Chest Pain, Palpitations Respiratory: Denies: Cough, Shortness of breath at rest, Sputum production Gastrointestinal: Denies: Abdominal Pain, Nausea, Vomiting Genitourinary: Denies: Dysuria Musculoskeletal: Denies: Joint Pain, Joint Tenderness Skin: Denies: Rash, Wounds Neurological: Denies: Numbness, Tingling, Focal weakness Psychiatric: Denies: Anxiety, Depression, Homicidal Ideations, Suicidal Ideations Hematologic/ Lymphatic: Denies: Easy Bruising, Easy Bleeding VTE Information - Inpt Only VTE Present on Admission: No VTE Mechan Device Prophylaxis: Knee High RAMAKRISHNA Hose VTE Pharm Prophylaxis ordered?: Yes Patient Problems: Active and Suspected Problems (Last Reviewed 11/01/17 @ 13:02 by Neha Gu) Metastatic colon cancer in female (Acute) Debility (Acute) - Physical Exam General: Alert, Oriented x3, Cooperative HEENT: Atraumatic, PERRLA, EOMI, Normocephalic Neck: Supple, No JVD, Negative Carotid Bruits Lungs: Clear to auscultation, Normal air movement Cardiovascular: Regular rate, No murmurs Abdomen: Bowel Sounds Present, Soft, Non Tender Extremities: No edema, Capillary Refill Less than 3 Seconds Skin: No rashes, No breakdown Musculoskeletal: No Tenderness to Palpation of Joints or Extremities Neurological: Cranial nerves II-XII grossly intact Psych/Mental Status: Normal Affect, Appropriate Vital Signs Temp Pulse Resp BP Pulse Ox 97.6 F L 68 18 143/76 H 93 11/20/17 14:19 11/20/17 14:19 11/20/17 14:19 11/20/17 14:19 11/20/17 14:19 Oxygen Delivery Method Room Air Weight: 126.6 kg Body Mass Index (BMI) 49.4 Finger Stick Blood Glucose 149 Assessment/Plan All Active Problems (Last Reviewed 11/01/17 @ 13:02 by Neha Gu) Colonic obstruction (Acute) Metastatic colon cancer in female (Acute) Debility (Acute) Colon cancer (Acute) Lymphadenopathy, abdominal (Acute) Colon wall thickening (Acute) Hypercalcemia (Acute) Vitamin D deficiency (Acute) History of breast cancer (Acute) Parathyroid abnormality (Acute) Contusion (Acute) 67 year old female with below past medical history significant for metastatic colon cancer, hospitalized for bowel obstruction, underwent lap right hemicolectomy per Dr. Varghese, admitted to TCU with debility, here for rehabilitation, strengthening, prior to discharge home alone, outpatient chemotherapy. Debility - PT/OT. Pain - Tylenol 1000MG Q8H PRN mild pain. Bowel - Miralax 17GM daily, Senna/colace 1 tablet BID, Dulcolax 10MG PO daily PRN. Pneumonia vaccination - Administer Prevnar 13 and/or Pneumovax 23 as necessary. DVT prophylaxis - Hold due to risk of bleeding from retroperitoneal lymph node. Hyperlipidemia - Atorvastatin 40MG QHS. Calcium deficiency - Oscal 500MG BID. Vitamin D deficiency - D3 5000IU daily. Depression - Celexa 10MG daily. Osteoarthritis of left hip - Lodine 300MG BID. Iron deficiency/Postoperative anemia - Ferrex 150MG daily. Hypothyroidism - Levothyroxine 50MCG daily. Diabetes Mellitus II - Metformin 1000MG BID. Nutrition - MVI daily. Insomnia - Doxepin 50MG QHS.
[2017-11-20 17:06] LABS: Bedside Glucose 109 mg/dL (70-110)
--- NOTE | 2017-11-20 17:07 | HP.PCM_ITS ---
Problem List (1) Metastatic colon cancer in female Status: Acute (2) Diabetes mellitus Status: Chronic (3) Osteoarthritis of left hip Status: Chronic (4) Breast cancer Status: Chronic (5) Hypothyroidism Status: Chronic (6) Depression Status: Chronic (7) Nausea Status: Chronic (8) Debility Status: Acute (9) Colonic obstruction Status: Acute (10) IBS (irritable bowel syndrome) Status: Chronic (11) Hyperlipemia Status: Chronic (12) Hypertension Status: Chronic History of Present Illness Date of Admission: 11/20/17 Chief Complaint: Here for rehabilitation, strengthening, prior to discharge home alone. The patient is a 67 year old Female with below past medical history with followin11/15/2017 Admit to Hospital. Colon cancer of transverse colon. Retroperitoneal lymph node needle biopsy consistent with metastatic colon cancer. Abdominal pain, nausea, vomiting. X-ray consistent with partial bowel obstruction. Tumor board recommended palliative partial colectomy with subsequent chemotherapy. Plan right hemicolectomy. 11/15/2017 Dr. Varghese performed palliative laparoscopic extended right hemicolectomy with terminal ileum to descending colon anastomosis. 11/19/2017 Tolerating diet, passing flatus. 11/20/2017 Admit to TCU with debility, here for rehabilitation, strengthening, prior to discharge home alone, outpatient chemotherapy. Past Medical History Past Medical History (Chronic Problems): Chronic Problems (Last Reviewed 11/01/17 @ 13:02 by Neha Gu) Diabetes mellitus (Chronic) Osteoarthritis of left hip (Chronic) Breast cancer (Chronic) Hypothyroidism (Chronic) Depression (Chronic) Nausea (Chronic) Left hip pain (Chronic) Arthritis (Chronic) Type 2 diabetes mellitus (Chronic) IBS (irritable bowel syndrome) (Chronic) Hyperlipemia (Chronic) Hypertension (Chronic) Medical History: Medical History (Last Reviewed 11/01/17 @ 13:02 by Neha Gu) Hypercalcemia (Acute) E83.52 Vitamin D deficiency (Acute) E55.9 Arthritis (Chronic) M19.90 Type 2 diabetes mellitus (Chronic) E11.9 History of breast cancer (Acute) Z85.3 started in 1997 IBS (irritable bowel syndrome) (Chronic) K58.9 Parathyroid abnormality (Acute) E21.5 Hyperlipemia (Chronic) E78.5 Hypertension (Chronic) I10 History of left knee surgery Z98.890 Allergies amoxicillin [From Augmentin] Adverse Reaction (Severe, Verified 11/12/17 14:47) Hives clavulanic acid [From Augmentin] Adverse Reaction (Severe, Verified 11/12/17 14:47) Hives Home Medications: Ambulatory Orders Medication Instructions Recorded calcium carbonate 600 mg calcium 600 mg PO BID tab 08/17/17 (1,500 mg) tablet levothyroxine 50 mcg tablet 50 mcg PO DAILY@0600 08/17/17 metformin 500 mg tablet 1,000 mg PO BIDCM tab 08/17/17 Citalopram [Celexa] 10 mg PO DAILY 11/09/17 Atorvastatin Calcium [Lipitor] 40 mg PO QHS 11/14/17 Cholecalciferol (VIT D3) [Vitamin 5,000 unit PO DAILY 11/20/17 D] Multivit,Calc,Mins/Iron/Folic 1 each PO DAILY 11/20/17 [Therapeutic-M Tablet] Nabumetone [Relafen] 750 mg PO BID 11/20/17 Surgical History: Surgical History (Last Reviewed 11/09/17 @ 14:46 by Khushbu Mcleod) History of bilateral mastectomy Z90.13 History of hysterectomy Z90.710 due to postmenopausal bleeding and history of breast cancer History of lumpectomy of right breast Z98.890 1998 History of parathyroidectomy Z98.890 2018, due to enlargement. History of tonsillectomy Z90.89 Surgical History: hysterectomy, mastectomy - Bilateral., tonsillectomy, - - Parathyroidectomy. 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 Lives: Alone Smoking Status: Never smoker Tobacco Use: Non-smoker Alcohol: None Drugs: None - *Family History Maternal Family History: Family History (Last Reviewed 11/15/17 @ 03:31 by Kevin Varghese MD) Mother Cancer Sister Cancer Father Heart disease Myocardial infarction, Onset Age: 72 History Items: No pertinent history Paternal Family History: Family History (Last Reviewed 11/15/17 @ 03:31 by Kevin Varghese MD) Mother Cancer Sister Cancer Father Heart disease Myocardial infarction, Onset Age: 72 Review of Systems Constitutional: Denies: Chills, Fever, Weight Change HEENT: Denies: Head Aches, Sinus Congestion, Sinus Drainage Cardiovascular: Denies: Chest Pain, Palpitations Respiratory: Denies: Cough, Shortness of breath at rest, Sputum production Gastrointestinal: Denies: Abdominal Pain, Nausea, Vomiting Genitourinary: Denies: Dysuria Musculoskeletal: Denies: Joint Pain, Joint Tenderness Skin: Denies: Rash, Wounds Neurological: Denies: Numbness, Tingling, Focal weakness Psychiatric: Denies: Anxiety, Depression, Homicidal Ideations, Suicidal Ideations Hematologic/ Lymphatic: Denies: Easy Bruising, Easy Bleeding VTE Information - Inpt Only VTE Present on Admission: No VTE Mechan Device Prophylaxis: Knee High RAMAKRISHNA Hose VTE Pharm Prophylaxis ordered?: Yes Patient Problems: Active and Suspected Problems (Last Reviewed 11/01/17 @ 13:02 by Neha uG) Metastatic colon cancer in female (Acute) Debility (Acute) - Physical Exam General: Alert, Oriented x3, Cooperative HEENT: Atraumatic, PERRLA, EOMI, Normocephalic Neck: Supple, No JVD, Negative Carotid Bruits Lungs: Clear to auscultation, Normal air movement Cardiovascular: Regular rate, No murmurs Abdomen: Bowel Sounds Present, Soft, Non Tender Extremities: No edema, Capillary Refill Less than 3 Seconds Skin: No rashes, No breakdown Musculoskeletal: No Tenderness to Palpation of Joints or Extremities Neurological: Cranial nerves II-XII grossly intact Psych/Mental Status: Normal Affect, Appropriate Vital Signs Temp Pulse Resp BP Pulse Ox 97.6 F L 68 18 143/76 H 93 11/20/17 14:19 11/20/17 14:19 11/20/17 14:19 11/20/17 14:19 11/20/17 14:19 Oxygen Delivery Method Room Air Weight: 126.6 kg Body Mass Index (BMI) 49.4 Finger Stick Blood Glucose 149 Assessment/Plan All Active Problems (Last Reviewed 11/01/17 @ 13:02 by Neha Gu) Colonic obstruction (Acute) Metastatic colon cancer in female (Acute) Debility (Acute) Colon cancer (Acute) Lymphadenopathy, abdominal (Acute) Colon wall thickening (Acute) Hypercalcemia (Acute) Vitamin D deficiency (Acute) History of breast cancer (Acute) Parathyroid abnormality (Acute) Contusion (Acute) 67 year old female with below past medical history significant for metastatic colon cancer, hospitalized for bowel obstruction, underwent lap right hemicolectomy per Dr. Varghese, admitted to TCU with debility, here for rehabilitation, strengthening, prior to discharge home alone, outpatient chemotherapy. * Debility - PT/OT. * Pain - Tylenol 1000MG Q8H PRN mild pain. * Bowel - Miralax 17GM daily, Senna/colace 1 tablet BID, Dulcolax 10MG PO daily PRN. * Pneumonia vaccination - Administer Prevnar 13 and/or Pneumovax 23 as necessary. * DVT prophylaxis - Hold due to risk of bleeding from retroperitoneal lymph node. * Hyperlipidemia - Atorvastatin 40MG QHS. * Calcium deficiency - Oscal 500MG BID. * Vitamin D deficiency - D3 5000IU daily. * Depression - Celexa 10MG daily. * Osteoarthritis of left hip - Lodine 300MG BID. * Iron deficiency/Postoperative anemia - Ferrex 150MG daily. * Hypothyroidism - Levothyroxine 50MCG daily. * Diabetes Mellitus II - Metformin 1000MG BID. * Nutrition - MVI daily. * Insomnia - Doxepin 50MG QHS.
[2017-11-20] MEDS: Calcium (Elemental) 500 MG Tablet PO (17:36)
[2017-11-20] MEDS: Etodolac 300 MG Capsule PO (17:36)
[2017-11-20] MEDS: Senna/Docusate Sodium 1 Tablet PO (17:40)
[2017-11-20] MEDS: Iron Polysaccharide Complex 150 MG CAPSULE PO (18:34)
[2017-11-20] MEDS: Atorvastatin Calcium 40 MG Tablet PO (20:07)
[2017-11-20 21:26] LABS: Bedside Glucose 138 mg/dL (70-110)
[2017-11-21] MEDS: Citalopram 10 MG Tablet PO (04:47)
[2017-11-21] MEDS: Senna/Docusate Sodium 1 Tablet PO ×2 (04:48→18:07)
[2017-11-21] MEDS: Levothyroxine 50 MCG Tablet PO (04:48)
[2017-11-21 06:19] LABS: Absolute Lymphocyte Count 0.95 X10^3/ul (0.83-4.51); Absolute Neutrophil Count 5.4 X10^3/uL (2.0-7.7); Basophil# 0.03 X10^3/uL; Basophil% 0.4 % (0-1); Eosinophil# 0.77 X10^3/uL; Eosinophils% 9.7 % (0-5); Hemoglobin 7.7 g/dl (12.0-15.0); Lymphocyte # 0.95 X10^3/ul (4.0); Mean Corp Hgb Conc 30.8 g/gl (32-36); Mean Corpuscular Hgb 26.4 pg (27.0-32.0); Mean Corpuscular Volume 85.6 fL (81-99); Mean Platelet Vol. 9.3 fl (6.2-12.0); Monocyte# 0.73 X10^3/uL; Monocyte% 9.2 % (0-10); Neutrophil # 5.41 X10^3/uL (2.7-7.7); Neutrophil % 68.4 % (47-70); Platelet Count 378 K/mm3 (150-450); RBC Distribution Width SD 48.8 fl (35.1-43.9); Red Blood Count 2.92 M/mm3 (4.2-5.4); White Blood Count 7.9 K/mm3 (4.4-11.0)
[2017-11-21 06:26] LABS: POSITIVE COUNT NO; POSITIVE DIFFERENTIAL NO; POSITIVE MORPHOLOGY NO
[2017-11-21 06:37] LABS: Anion Gap 7 (5-15); BUN 7 mg/dL (7-18); BUN/Creat Ratio 8.7 RATIO (10-20); Calcium,Total 8.3 mg/dL (8.5-10.1); Chloride 106 mmol/L (98-107); Creatinine, Serum 0.81 mg/dL (0.55-1.02); EST Glomerular Filtration Rate 76 mL/min (>60); Est Glom Filt Rate - Afr Amer 92 mL/min (>60); Estimated Creatinine Clearance 57.28 ml/min; Glucose 93 mg/dL (74-106); Potassium 3.3 mmol/L (3.5-5.1); Sodium Level 141 mmol/L (136-145)
[2017-11-21 07:01] LABS: Bedside Glucose 105 mg/dL (70-110)
[2017-11-21] MEDS: Etodolac 300 MG Capsule PO ×2 (08:04→18:07)
[2017-11-21] MEDS: Iron Polysaccharide Complex 150 MG CAPSULE PO (08:05)
[2017-11-21] MEDS: Calcium (Elemental) 500 MG Tablet PO ×2 (08:05→18:07)
[2017-11-21] MEDS: Multivitamins,Therapeutic Tablet 1 TABLET PO (08:05)
--- NOTE | 2017-11-21 08:48 | NURSING ---
Labs reviewed by Dr. Sousa, NO for KCL 20mEq x1 now and recheck BMP in AM.
[2017-11-21] MEDS: Tuberculin,Purif.prot.deriv. 50 TU/ML Vial 5 ML ID (10:05)
--- NOTE | 2017-11-21 10:46 | PCM.PN.RX ---
<MaxShakeel D - Last Filed: 11/21/17 10:46> Progress Note - Pharmacy Subjective: TCU Admission Objective: Allergies amoxicillin [From Augmentin] Adverse Reaction (Severe, Verified 11/12/17 14:47) Hives clavulanic acid [From Augmentin] Adverse Reaction (Severe, Verified 11/12/17 14:47) Hives Current Medications Generic Name Dose Route Start Last Admin Trade Name Freq PRN Reason Stop Dose Admin Acetaminophen 1,000 mg 11/20/17 17:15 Tylenol PO Q8H PRN PRN MILD PAIN (1-3) Atorvastatin Calcium 40 mg 11/20/17 22:00 11/20/17 20:07 Lipitor PO 40 mg QHS [facility] Administration Bisacodyl 10 mg 11/20/17 14:42 Dulcolax PO DAILY PRN Constipation Calcium Carbonate 500 mg 11/20/17 17:00 11/21/17 08:05 Os-Lio 500 PO 500 mg BIDCM [facility] Administration Cholecalciferol 5,000 unit 11/21/17 06:00 11/21/17 04:48 Vitamin D PO 5,000 unit DAILY [facility] Administration Citalopram Hydrobromide 10 mg 11/21/17 06:00 11/21/17 04:47 Celexa PO 10 mg DAILY [facility] Administration Etodolac 300 mg 11/20/17 17:00 11/21/17 08:04 Lodine PO 300 mg BIDCM [facility] Administration Levothyroxine Sodium 50 mcg 11/21/17 06:00 11/21/17 04:48 Synthroid PO 50 mcg DAILY@0600 [facility] Administration Metformin HCl 1,000 mg 11/20/17 17:00 11/21/17 08:04 Glucophage PO 1,000 mg BIDCM [facility] Administration Multivitamins 1 tablet 11/21/17 08:00 11/21/17 08:05 Multivitamin PO 1 tablet DAILY@0800 [facility] Administration Polyethylene Glycol 17 gm 11/21/17 06:00 11/21/17 04:48 Miralax PO Not Given DAILY [facility] Polysaccharide Iron Complex 150 mg 11/20/17 16:30 11/21/17 08:05 [facility] Senna/Docusate Sodium 1 tablet 11/20/17 18:00 11/21/17 04:48 Senokot-S, Elaine-Colace PO 1 tablet BID [facility] Administration Tuberculin PPD 5 tu 11/28/17 10:00 Tubersol, Aplisol, Ppd ID 11/28/17 10:01 X1 ONE Problem List (Last Reviewed 11/01/17 @ 13:02 by Neha Gu) Metastatic colon cancer in female (Acute) Diabetes mellitus (Chronic) Osteoarthritis of left hip (Chronic) Breast cancer (Chronic) Hypothyroidism (Chronic) Depression (Chronic) Nausea (Chronic) Debility (Acute) Vital Signs Temp Pulse Resp BP Pulse Ox 97.6 F L 68 18 143/76 H 93 11/20/17 14:19 11/20/17 14:19 11/20/17 14:19 11/20/17 14:19 11/20/17 14:19 Oxygen Delivery Method Room Air Weight: 126.6 kg Body Mass Index (BMI) 49.4 Finger Stick Blood Glucose 149 Sodium 141 mmol/L (136-145) 11/21/17 06:03 Potassium 3.3 mmol/L (3.5-5.1) L 11/21/17 06:03 Chloride 106 mmol/L (98-107) 11/21/17 06:03 Carbon Dioxide 28.0 mmol/L (21.0-32.0) 11/21/17 06:03 Anion Gap 7 (5-15) 11/21/17 06:03 BUN 7 mg/dL (7-18) 11/21/17 06:03 Creatinine 0.81 mg/dL (0.55-1.02) 11/21/17 06:03 Est GFR (MDRD) Af Amer 92 mL/min (>60) 11/21/17 06:03 Est GFR (MDRD) Non-Af 76 mL/min (>60) 11/21/17 06:03 BUN/Creatinine Ratio 8.7 RATIO (10-20) L 11/21/17 06:03 Glucose 93 mg/dL (74-106) 11/21/17 06:03 Assessment/Plan: 1) Pain APAP for mild pain, etodolac scheduled. Continue to monitor daily pain scores, prn medication use. 2) DM2 Metformin twice daily, atorvastatin. Continue to monitor BGT, renal function, lipids 3) Nutrition Ca, D, Fe, multivitamin. Continue to monitor clinically. Psychotropic Medications: 4) Depression Citalopram daily. Continue to monitor s/s depression. Unnecessary Medications: None Bowel Regimen: 5) Senna/s, PEG, prn bisacodyl. Continue to monitor prn medication use, for constipation/diarrhea. Date of Note:: 11/21/17 - Provider Comments Provider responsibility: Provider responsible to enter orders to implement recommendations <Ole Sousa Chi - Last Filed: 11/21/17 12:57> Progress Note - Pharmacy Subjective: [] Objective: Allergies amoxicillin [From Augmentin] Adverse Reaction (Severe, Verified 11/12/17 14:47) Hives clavulanic acid [From Augmentin] Adverse Reaction (Severe, Verified 11/12/17 14:47) Hives Current Medications Generic Name Dose Route Start Last Admin Trade Name Freq PRN Reason Stop Dose Admin Acetaminophen 1,000 mg 11/20/17 17:15 Tylenol PO Q8H PRN PRN MILD PAIN (1-3/10) Atorvastatin Calcium 40 mg 11/20/17 22:00 11/20/17 20:07 Lipitor PO 40 mg QHS [facility] Administration Bisacodyl 10 mg 11/20/17 14:42 Dulcolax PO DAILY PRN Constipation Calcium Carbonate 500 mg 11/20/17 17:00 11/21/17 08:05 Os-Lio 500 PO 500 mg BIDCM [facility] Administration Cholecalciferol 5,000 unit 11/21/17 06:00 11/21/17 04:48 Vitamin D PO 5,000 unit DAILY [facility] Administration Citalopram Hydrobromide 10 mg 11/21/17 06:00 11/21/17 04:47 Celexa PO 10 mg DAILY [facility] Administration Doxepin HCl 50 mg 11/21/17 22:00 Doxepin Hcl PO QHS [facility] Etodolac 300 mg 11/20/17 17:00 11/21/17 08:04 Lodine PO 300 mg BIDCM [facility] Administration Levothyroxine Sodium 50 mcg 11/21/17 06:00 11/21/17 04:48 Synthroid PO 50 mcg DAILY@0600 [facility] Administration Metformin HCl 1,000 mg 11/20/17 17:00 11/21/17 08:04 Glucophage PO 1,000 mg BIDCM [facility] Administration Multivitamins 1 tablet 11/21/17 08:00 11/21/17 08:05 Multivitamin PO 1 tablet DAILY@0800 [facility] Administration Polyethylene Glycol 17 gm 11/21/17 06:00 11/21/17 04:48 Miralax PO Not Given DAILY [facility] Polysaccharide Iron Complex 150 mg 11/20/17 16:30 11/21/17 08:05 Ferrex 150 PO 150 mg DAILYCM [facility] Administration Senna/Docusate Sodium 1 tablet 11/20/17 18:00 11/21/17 04:48 Senokot-S, Elaine-Colace PO 1 tablet BID [facility] Administration Tuberculin PPD 5 tu 11/28/17 10:00 Tubersol, Aplisol, Ppd ID 11/28/17 10:01 X1 ONE Problem List (Last Reviewed 11/01/17 @ 13:02 by Neha Gu) Metastatic colon cancer in female (Acute) Diabetes mellitus (Chronic) Osteoarthritis of left hip (Chronic) Breast cancer (Chronic) Hypothyroidism (Chronic) Depression (Chronic) Nausea (Chronic) Debility (Acute) Vital Signs Temp Pulse Resp BP Pulse Ox 97.6 F L 68 18 143/76 H 93 11/20/17 14:19 11/20/17 14:19 11/20/17 14:19 11/20/17 14:19 11/20/17 14:19 Oxygen Delivery Method Room Air Weight: 126.6 kg Body Mass Index (BMI) 49.4 Finger Stick Blood Glucose 149 Sodium 141 mmol/L (136-145) 11/21/17 06:03 Potassium 3.3 mmol/L (3.5-5.1) L 11/21/17 06:03 Chloride 106 mmol/L (98-107) 11/21/17 06:03 Carbon Dioxide 28.0 mmol/L (21.0-32.0) 11/21/17 06:03 Anion Gap 7 (5-15) 11/21/17 06:03 BUN 7 mg/dL (7-18) 11/21/17 06:03 Creatinine 0.81 mg/dL (0.55-1.02) 11/21/17 06:03 Est GFR (MDRD) Af Amer 92 mL/min (>60) 11/21/17 06:03 Est GFR (MDRD) Non-Af 76 mL/min (>60) 11/21/17 06:03 BUN/Creatinine Ratio 8.7 RATIO (10-20) L 11/21/17 06:03 Glucose 93 mg/dL (74-106) 11/21/17 06:03 Assessment/Plan: Psychotropic Medications: Unnecessary Medications: Bowel Regimen: - Provider Comments Provider responsibility: Provider responsible to enter orders to implement recommendations Provider Comments to Recommendations by Pharmacy: Agree
--- NOTE | 2017-11-21 11:01 | PHA.CONS_ITS ---
<MaxShakeel D - Last Filed: 11/21/17 10:46> Progress Note - Pharmacy Subjective: TCU Admission Objective: Allergies amoxicillin [From Augmentin] Adverse Reaction (Severe, Verified 11/12/17 14:47) Hives clavulanic acid [From Augmentin] Adverse Reaction (Severe, Verified 11/12/17 14:47) Hives Current Medications Generic Name Dose Route Start Last Admin Trade Name Freq PRN Reason Stop Dose Admin Acetaminophen 1,000 mg 11/20/17 17:15 Tylenol PO Q8H PRN PRN MILD PAIN (1-3) Atorvastatin Calcium 40 mg 11/20/17 22:00 11/20/17 20:07 Lipitor PO 40 mg QHS [facility] Administration Bisacodyl 10 mg 11/20/17 14:42 Dulcolax PO DAILY PRN Constipation Calcium Carbonate 500 mg 11/20/17 17:00 11/21/17 08:05 Os-Lio 500 PO 500 mg BIDCM [facility] Administration Cholecalciferol 5,000 unit 11/21/17 06:00 11/21/17 04:48 Vitamin D PO 5,000 unit DAILY [facility] Administration Citalopram Hydrobromide 10 mg 11/21/17 06:00 11/21/17 04:47 Celexa PO 10 mg DAILY [facility] Administration Etodolac 300 mg 11/20/17 17:00 11/21/17 08:04 Lodine PO 300 mg BIDCM [facility] Administration Levothyroxine Sodium 50 mcg 11/21/17 06:00 11/21/17 04:48 Synthroid PO 50 mcg DAILY@0600 [facility] Administration Metformin HCl 1,000 mg 11/20/17 17:00 11/21/17 08:04 Glucophage PO 1,000 mg BIDCM [facility] Administration Multivitamins 1 tablet 11/21/17 08:00 11/21/17 08:05 Multivitamin PO 1 tablet DAILY@0800 [facility] Administration Polyethylene Glycol 17 gm 11/21/17 06:00 11/21/17 04:48 Miralax PO Not Given DAILY [facility] Polysaccharide Iron Complex 150 mg 11/20/17 16:30 11/21/17 08:05 [facility] Senna/Docusate Sodium 1 tablet 11/20/17 18:00 11/21/17 04:48 Senokot-S, Elaine-Colace PO 1 tablet BID [facility] Administration Tuberculin PPD 5 tu 11/28/17 10:00 Tubersol, Aplisol, Ppd ID 11/28/17 10:01 X1 ONE Problem List (Last Reviewed 11/01/17 @ 13:02 by Neha Gu) Metastatic colon cancer in female (Acute) Diabetes mellitus (Chronic) Osteoarthritis of left hip (Chronic) Breast cancer (Chronic) Hypothyroidism (Chronic) Depression (Chronic) Nausea (Chronic) Debility (Acute) Vital Signs Temp Pulse Resp BP Pulse Ox 97.6 F L 68 18 143/76 H 93 11/20/17 14:19 11/20/17 14:19 11/20/17 14:19 11/20/17 14:19 11/20/17 14:19 Oxygen Delivery Method Room Air Weight: 126.6 kg Body Mass Index (BMI) 49.4 Finger Stick Blood Glucose 149 Sodium 141 mmol/L (136-145) 11/21/17 06:03 Potassium 3.3 mmol/L (3.5-5.1) L 11/21/17 06:03 Chloride 106 mmol/L (98-107) 11/21/17 06:03 Carbon Dioxide 28.0 mmol/L (21.0-32.0) 11/21/17 06:03 Anion Gap 7 (5-15) 11/21/17 06:03 BUN 7 mg/dL (7-18) 11/21/17 06:03 Creatinine 0.81 mg/dL (0.55-1.02) 11/21/17 06:03 Est GFR (MDRD) Af Amer 92 mL/min (>60) 11/21/17 06:03 Est GFR (MDRD) Non-Af 76 mL/min (>60) 11/21/17 06:03 BUN/Creatinine Ratio 8.7 RATIO (10-20) L 11/21/17 06:03 Glucose 93 mg/dL (74-106) 11/21/17 06:03 Assessment/Plan: 1) Pain APAP for mild pain, etodolac scheduled. Continue to monitor daily pain scores, prn medication use. 2) DM2 Metformin twice daily, atorvastatin. Continue to monitor BGT, renal function, lipids 3) Nutrition Ca, D, Fe, multivitamin. Continue to monitor clinically. Psychotropic Medications: 4) Depression Citalopram daily. Continue to monitor s/s depression. Unnecessary Medications: None Bowel Regimen: 5) Senna/s, PEG, prn bisacodyl. Continue to monitor prn medication use, for constipation/diarrhea. Date of Note:: 11/21/17 - Provider Comments Provider responsibility: Provider responsible to enter orders to implement recommendations <Ole Sousa Chi - Last Filed: 11/21/17 12:57> Progress Note - Pharmacy Subjective: [] Objective: Allergies amoxicillin [From Augmentin] Adverse Reaction (Severe, Verified 11/12/17 14:47) Hives clavulanic acid [From Augmentin] Adverse Reaction (Severe, Verified 11/12/17 14:47) Hives Current Medications Generic Name Dose Route Start Last Admin Trade Name Freq PRN Reason Stop Dose Admin Acetaminophen 1,000 mg 11/20/17 17:15 Tylenol PO Q8H PRN PRN MILD PAIN (1-3/10) Atorvastatin Calcium 40 mg 11/20/17 22:00 11/20/17 20:07 Lipitor PO 40 mg QHS [facility] Administration Bisacodyl 10 mg 11/20/17 14:42 Dulcolax PO DAILY PRN Constipation Calcium Carbonate 500 mg 11/20/17 17:00 11/21/17 08:05 Os-Lio 500 PO 500 mg BIDCM [facility] Administration Cholecalciferol 5,000 unit 11/21/17 06:00 11/21/17 04:48 Vitamin D PO 5,000 unit DAILY [facility] Administration Citalopram Hydrobromide 10 mg 11/21/17 06:00 11/21/17 04:47 Celexa PO 10 mg DAILY [facility] Administration Doxepin HCl 50 mg 11/21/17 22:00 Doxepin Hcl PO QHS [facility] Etodolac 300 mg 11/20/17 17:00 11/21/17 08:04 Lodine PO 300 mg BIDCM [facility] Administration Levothyroxine Sodium 50 mcg 11/21/17 06:00 11/21/17 04:48 Synthroid PO 50 mcg DAILY@0600 [facility] Administration Metformin HCl 1,000 mg 11/20/17 17:00 11/21/17 08:04 Glucophage PO 1,000 mg BIDCM [facility] Administration Multivitamins 1 tablet 11/21/17 08:00 11/21/17 08:05 Multivitamin PO 1 tablet DAILY@0800 [facility] Administration Polyethylene Glycol 17 gm 11/21/17 06:00 11/21/17 04:48 Miralax PO Not Given DAILY [facility] Polysaccharide Iron Complex 150 mg 11/20/17 16:30 11/21/17 08:05 Ferrex 150 PO 150 mg DAILYCM [facility] Administration Senna/Docusate Sodium 1 tablet 11/20/17 18:00 11/21/17 04:48 Senokot-S, Elaine-Colace PO 1 tablet BID [facility] Administration Tuberculin PPD 5 tu 11/28/17 10:00 Tubersol, Aplisol, Ppd ID 11/28/17 10:01 X1 ONE Problem List (Last Reviewed 11/01/17 @ 13:02 by Neha Gu) Metastatic colon cancer in female (Acute) Diabetes mellitus (Chronic) Osteoarthritis of left hip (Chronic) Breast cancer (Chronic) Hypothyroidism (Chronic) Depression (Chronic) Nausea (Chronic) Debility (Acute) Vital Signs Temp Pulse Resp BP Pulse Ox 97.6 F L 68 18 143/76 H 93 11/20/17 14:19 11/20/17 14:19 11/20/17 14:19 11/20/17 14:19 11/20/17 14:19 Oxygen Delivery Method Room Air Weight: 126.6 kg Body Mass Index (BMI) 49.4 Finger Stick Blood Glucose 149 Sodium 141 mmol/L (136-145) 11/21/17 06:03 Potassium 3.3 mmol/L (3.5-5.1) L 11/21/17 06:03 Chloride 106 mmol/L (98-107) 11/21/17 06:03 Carbon Dioxide 28.0 mmol/L (21.0-32.0) 11/21/17 06:03 Anion Gap 7 (5-15) 11/21/17 06:03 BUN 7 mg/dL (7-18) 11/21/17 06:03 Creatinine 0.81 mg/dL (0.55-1.02) 11/21/17 06:03 Est GFR (MDRD) Af Amer 92 mL/min (>60) 11/21/17 06:03 Est GFR (MDRD) Non-Af 76 mL/min (>60) 11/21/17 06:03 BUN/Creatinine Ratio 8.7 RATIO (10-20) L 11/21/17 06:03 Glucose 93 mg/dL (74-106) 11/21/17 06:03 Assessment/Plan: Psychotropic Medications: Unnecessary Medications: Bowel Regimen: - Provider Comments Provider responsibility: Provider responsible to enter orders to implement recommendations Provider Comments to Recommendations by Pharmacy: Agree
--- NOTE | 2017-11-21 11:01 | NURSING ---
Incision to abdomen well approximated with no drainage. 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 Will continue to monitor.
--- NOTE | 2017-11-21 12:28 | NURSING ---
Pt has c/o not sleeping well. Dr. Sousa updated, NO for doxepin 50mg PO qHS.
[2017-11-21 15:10] VITALS: BP 156/81; PULSE 80; RESP 20; TEMP 37.2; O2SAT 92
[2017-11-21] MEDS: DOXEPIN HCL 50 MG CAPSULE PO (22:03)
[2017-11-21] MEDS: Atorvastatin Calcium 40 MG Tablet PO (22:03)
[2017-11-22] MEDS: Citalopram 10 MG Tablet PO (05:30)
[2017-11-22] MEDS: Levothyroxine 50 MCG Tablet PO (05:30)
[2017-11-22 06:05] LABS: Anion Gap 8 (5-15); BUN 8 mg/dL (7-18); BUN/Creat Ratio 11.6 RATIO (10-20); Calcium,Total 8.9 mg/dL (8.5-10.1); Chloride 106 mmol/L (98-107); Creatinine, Serum 0.69 mg/dL (0.55-1.02); EST Glomerular Filtration Rate 91 mL/min (>60); Est Glom Filt Rate - Afr Amer 110 mL/min (>60); Estimated Creatinine Clearance 67.24 ml/min; Glucose 93 mg/dL (74-106); Potassium 3.4 mmol/L (3.5-5.1); Sodium Level 143 mmol/L (136-145)
[2017-11-22 07:00] LABS: Bedside Glucose 96 mg/dL (70-110)
--- NOTE | 2017-11-22 07:31 | NURSING ---
Dr. Rivera in to see pt
--- NOTE | 2017-11-22 08:16 | PCM.PN.SRG ---
Patient Problems: Active and Suspected Problems (Last Reviewed 11/01/17 @ 13:02 by Neha Gu) Metastatic colon cancer in female (Acute) Debility (Acute) Subjective: Patient reports she is doing well. She is having loose stools. She is tolerating a diet and her pain is minimal. - Physical Exam General: Alert, Oriented x3 Neck: Supple Lungs: Normal air movement Cardiovascular: Regular rate, Regular Rhythm Abdomen: Soft, Non Tender, Non-Distended, - - Her incision is clean dry and intact and healing well. Vital Signs Temp Pulse Resp BP Pulse Ox 98.9 F 80 20 H 156/81 H 92 11/21/17 15:10 11/21/17 15:10 11/21/17 15:10 11/21/17 15:10 11/21/17 15:10 Oxygen Delivery Method Room Air Weight: 279 lb 1.683 oz Body Mass Index (BMI) 49.4 Finger Stick Blood Glucose 149 Intake and Output for Last 24 Hours 11/20/17 11/21/17 11/22/17 23:59 23:59 23:59 Intake Total 600 / 600 900 / 900 Balance 600 / 600 900 / 900 Laboratory Tests Past 24 Hrs 11/22/17 05:20 Sodium 143 Potassium 3.4 L Chloride 106 Carbon Dioxide 29.0 Anion Gap 8 BUN 8 Creatinine 0.69 Estim Creat Clear Calc 67.24 Est GFR (MDRD) Af Amer 110 Est GFR (MDRD) Non-Af 91 BUN/Creatinine Ratio 11.6 Glucose 93 Calcium 8.9 POC Glucose 11/22/17 06:18 POC Glucose 96 Medical Necessity - Tobacco Use Smoking Status: Never smoker Tobacco Use: Non-smoker Assessment/Plan All Active Problems (Last Reviewed 11/01/17 @ 13:02 by Neha Gu) Colonic obstruction (Acute) Metastatic colon cancer in female (Acute) Debility (Acute) Colon cancer (Acute) Lymphadenopathy, abdominal (Acute) Colon wall thickening (Acute) Hypercalcemia (Acute) Vitamin D deficiency (Acute) History of breast cancer (Acute) Parathyroid abnormality (Acute) Contusion (Acute) 67-year-old female status post transverse colon resection 1. The patient is tolerating a diet and her pain is minimal. I do recommend holding MiraLAX and Colace as she is having loose stools. I may add some Lomotil to decrease her soft stools. 2. I will remove zacarias at the end of the week. Kevin Varghese MD Pager: [facility] [address] [place] [address] [address] [place] [address] Office:
--- NOTE | 2017-11-22 08:19 | PN.SURG_ITS ---
Patient Problems: Active and Suspected Problems (Last Reviewed 11/01/17 @ 13:02 by Neha Gu) Metastatic colon cancer in female (Acute) Debility (Acute) Subjective: Patient reports she is doing well. She is having loose stools. She is tolerating a diet and her pain is minimal. - Physical Exam General: Alert, Oriented x3 Neck: Supple Lungs: Normal air movement Cardiovascular: Regular rate, Regular Rhythm Abdomen: Soft, Non Tender, Non-Distended, - - Her incision is clean dry and intact and healing well. Vital Signs Temp Pulse Resp BP Pulse Ox 98.9 F 80 20 H 156/81 H 92 11/21/17 15:10 11/21/17 15:10 11/21/17 15:10 11/21/17 15:10 11/21/17 15:10 Oxygen Delivery Method Room Air Weight: 279 lb 1.683 oz Body Mass Index (BMI) 49.4 Finger Stick Blood Glucose 149 Intake and Output for Last 24 Hours 11/20/17 11/21/17 11/22/17 23:59 23:59 23:59 Intake Total 600 / 600 900 / 900 Balance 600 / 600 900 / 900 Laboratory Tests Past 24 Hrs 11/22/17 05:20 Sodium 143 Potassium 3.4 L Chloride 106 Carbon Dioxide 29.0 Anion Gap 8 BUN 8 Creatinine 0.69 Estim Creat Clear Calc 67.24 Est GFR (MDRD) Af Amer 110 Est GFR (MDRD) Non-Af 91 BUN/Creatinine Ratio 11.6 Glucose 93 Calcium 8.9 POC Glucose 11/22/17 06:18 POC Glucose 96 Medical Necessity - Tobacco Use Smoking Status: Never smoker Tobacco Use: Non-smoker Assessment/Plan All Active Problems (Last Reviewed 11/01/17 @ 13:02 by Neha Gu) Colonic obstruction (Acute) Metastatic colon cancer in female (Acute) Debility (Acute) Colon cancer (Acute) Lymphadenopathy, abdominal (Acute) Colon wall thickening (Acute) Hypercalcemia (Acute) Vitamin D deficiency (Acute) History of breast cancer (Acute) Parathyroid abnormality (Acute) Contusion (Acute) 67-year-old female status post transverse colon resection 1. The patient is tolerating a diet and her pain is minimal. I do recommend holding MiraLAX and Colace as she is having loose stools. I may add some Lomotil to decrease her soft stools. 2. I will remove zacarias at the end of the week. Kevin Varghese MD Pager: [facility] [address] [place] [address] [address] [place] [address] Office:
[2017-11-22] MEDS: Etodolac 300 MG Capsule PO ×2 (08:56→17:00)
[2017-11-22] MEDS: Calcium (Elemental) 500 MG Tablet PO ×2 (08:56→17:00)
[2017-11-22] MEDS: Multivitamins,Therapeutic Tablet 1 TABLET PO (08:56)
[2017-11-22] MEDS: Iron Polysaccharide Complex 150 MG CAPSULE PO (08:56)
--- NOTE | 2017-11-22 11:04 | NURSING ---
THIS NURSE FOUND PT HAS A RASH ON HER BELLY,SIDES AND UPPER /POST THIGHS. REPORTED TO NOEMY HOUSTON AND NOEMY ROB
[2017-11-22 14:37] VITALS: PULSE 73; RESP 18; O2SAT 92
[2017-11-22 15:44] VITALS: BP 152/70; PULSE 67; RESP 18; TEMP 36.8; O2SAT 95
[2017-11-22] MEDS: Atorvastatin Calcium 40 MG Tablet PO (22:38)
[2017-11-22] MEDS: DOXEPIN HCL 50 MG CAPSULE PO (22:38)
[2017-11-23] MEDS: Citalopram 10 MG Tablet PO (06:25)
[2017-11-23] MEDS: Levothyroxine 50 MCG Tablet PO (06:25)
[2017-11-23 06:31] LABS: Bedside Glucose 100 mg/dL (70-110)
[2017-11-23] MEDS: Iron Polysaccharide Complex 150 MG CAPSULE PO (08:33)
[2017-11-23] MEDS: Etodolac 300 MG Capsule PO ×2 (08:33→17:23)
[2017-11-23] MEDS: Multivitamins,Therapeutic Tablet 1 TABLET PO (08:33)
[2017-11-23] MEDS: Calcium (Elemental) 500 MG Tablet PO ×2 (08:33→17:23)
[2017-11-23 16:00] VITALS: BP 149/71; PULSE 78; RESP 20; TEMP 37.7; O2SAT 91
[2017-11-23] MEDS: Acetaminophen 500 MG Tablet 1000 MG PO (17:23)
--- NOTE | 2017-11-23 17:24 | NURSING ---
Addendum entered by Charla Collins 11/23/17 17:45: Dr Sousa aware, no new orders. Original Note: Pt running low grade temp. 100.2. Not symptomatic at this time. no chills or pain at this time. Charla SALGUERO aware. Will continue to monitor
--- NOTE | 2017-11-23 17:33 | RAD_ITS ---
STUDY: X-RAY - ABDOMEN/PELVIS REASON FOR EXAM: Female, 67 years old. Fever. Recent surgery. TECHNIQUE: 3 AP supine views of the abdomen and pelvis. COMPARISON: 11/12/17 FINDINGS: There is no bowel obstruction. There is air and stool to the level of the rectum. There are surgical clips in the midline. The visualized osseous structures are within normal limits. RAD/Abdomen Single View (Portable) IMPRESSION: No bowel obstruction. Electronically Signed: Alcides Albarran, at 18:04 EDT Tel , Service support ,
[2017-11-23] MEDS: DOXEPIN HCL 50 MG CAPSULE PO (20:59)
[2017-11-23] MEDS: Atorvastatin Calcium 40 MG Tablet PO (20:59)
[2017-11-24] MEDS: Levothyroxine 50 MCG Tablet PO (06:19)
[2017-11-24] MEDS: Citalopram 10 MG Tablet PO (06:19)
[2017-11-24 06:22] VITALS: TEMP 36.9
[2017-11-24] MEDS: Etodolac 300 MG Capsule PO ×2 (08:08→17:38)
[2017-11-24] MEDS: Calcium (Elemental) 500 MG Tablet PO ×2 (08:08→17:38)
[2017-11-24] MEDS: Multivitamins,Therapeutic Tablet 1 TABLET PO (08:08)
[2017-11-24] MEDS: Iron Polysaccharide Complex 150 MG CAPSULE PO (08:08)
--- NOTE | 2017-11-24 13:17 | CASEMGMT ---
Plan of care meeting held. Resident present, no support person present at this time due to resident family all living out of town. Resident declining for this social insurance administrator to contact resident family in regards to meeting. Resident does not have a discharge date set at this time. Resident plans to continue with further care and treatment on the Transitional Care Unit at this time. Resident plans to discharge to home alone at time of discharge. Support given. Will continue to follow. Lady VIDAL, VAMP THROATER
--- NOTE | 2017-11-24 15:50 | NURSING ---
Pt running low grade temp of 99.9 at this time. Asymptomatic. No complaints voiced. Dinora SALGUERO made aware.
[2017-11-24 16:00] VITALS: BP 159/91; PULSE 86; RESP 20; TEMP 37.7; O2SAT 90
--- NOTE | 2017-11-24 17:07 | PCM.PROGNOTE ---
Patient Problems: Active and Suspected Problems (Last Reviewed 11/01/17 @ 13:02 by Neha Gu) Metastatic colon cancer in female (Acute) Debility (Acute) Subjective: This 67-year-old diabetic female was consulted to podiatry for thickened, discolored, elongated, and painful toenails 1, 2, 3, 4, 5 of the right and left foot. Patient is unable to safely trim her toenails on her own and feels she would get relief having them debrided. Patient admits to being diabetic and says that her blood sugars usually run around the 130 range. She currently denies any feelings of nausea, vomiting, fever, chills. - Physical Exam General: Alert, Oriented x3, Cooperative Extremities: No cyanosis, Capillary Refill Less than 3 Seconds - To distal digits bilateral, No Calf Tenderness - Negative Faye and Brewer sign, Diminished Peripheral Pulses - DP pulse palpable bilateral PT pulse nonpalpable due to bilateral lower extremity edema, Edema - Bilateral claudia-malleolar edema Skin: No rashes, No breakdown, - - Toenails 1, 2, 3, 4, 5 of the right and left foot are thickened, discolored, elongated, painful to palpation with the presence of subungual debris. Musculoskeletal: Tenderness - With palpation of the aforementioned toenails Neurological: Sensory exam intact to light touch and pain Psych/Mental Status: Normal Affect, Appropriate Vital Signs Temp Pulse Resp BP Pulse Ox 99.9 F H 86 20 H 159/91 H 90 11/24/17 16:00 11/24/17 16:00 11/24/17 16:00 11/24/17 16:00 11/24/17 16:00 Oxygen Delivery Method Room Air Weight: 125 kg Body Mass Index (BMI) 49.4 Finger Stick Blood Glucose 149 Intake and Output for Last 24 Hours 11/22/17 11/23/17 11/24/17 23:59 23:59 23:59 Intake Total 880 / 880 800 / 800 300 / 300 Balance 880 / 880 800 / 800 300 / 300 Medical Necessity - Tobacco Use Smoking Status: Never smoker Tobacco Use: Non-smoker Assessment/Plan All Active Problems (Last Reviewed 11/01/17 @ 13:02 by Neha Gu) Colonic obstruction (Acute) Metastatic colon cancer in female (Acute) Debility (Acute) Colon cancer (Acute) Lymphadenopathy, abdominal (Acute) Colon wall thickening (Acute) Hypercalcemia (Acute) Vitamin D deficiency (Acute) History of breast cancer (Acute) Parathyroid abnormality (Acute) Contusion (Acute) This 67-year-old diabetic female was carefully examined and evaluated bedside this evening. She is alert and oriented and in no apparent distress. Her toenails 1, 2, 3, 4 and 5 of the right and left foot were carefully debrided using a nail nipper. This was all done without incident. Patient experienced relief upon debridement of toenails. She was educated on diabetic foot health and was encouraged to follow-up with podiatry upon discharge for routine diabetic foot checks. At this time, the patient can be seen on an as-needed basis. Please contact with any issues.
[2017-11-24] MEDS: Acetaminophen 500 MG Tablet 1000 MG PO (18:15)
[2017-11-24 18:16] VITALS: TEMP 38
--- NOTE | 2017-11-24 18:21 | NURSING ---
temp rechecked, 100.4 temporal. PRN tylenol given at this time d/t elevated temp. Pt denies any symptoms. Will recheck temp and monitor. Dr. Sousa aware. See new orders.
--- NOTE | 2017-11-24 18:30 | RAD_ITS ---
STUDY: X-RAY CHEST REASON FOR EXAM: Female, 67 years old. Fever. History of colon cancer with recent surgery. TECHNIQUE: PA and lateral views of the chest. COMPARISON: Acute abdominal series with chest, November 12, 2017. FINDINGS: There is hypoexpansion of the lungs, unchanged from prior study. There is no new mass or infiltrate. There is no demonstrated pleural abnormality. Normal size heart. Normal mediastinum and nish. Normal visualized pulmonary arteries. There is atherosclerotic calcification of the aortic arch with tortuosity. There are diffuse degenerative changes of the visualized thoracic spine. There is degenerative osteoarthritis of the bilateral shoulders. There is an air-fluid level in the stomach beneath the left hemidiaphragm. There is no visualized free air. RAD/Chest PA and Lateral IMPRESSION: Hypoexpansion lungs without acute cardiopulmonary disease or interval change. Electronically Signed: Luis Pickard DO at 18:50 EDT Tel [phone], Service support ,
[2017-11-24 19:08] LABS: Bacteria 0 SEEN /hpf (None Seen); Mucous, Urine 0 SEEN /hpf (<or=2+); Red Blood Cells-Urine 0 SEEN /hpf (0-5); Squamous Epithelial Cells - UA 0 SEEN /hpf (5-10); White Blood Cells 0 SEEN /hpf (0-5)
[2017-11-24 19:52] LABS: Color, Urine Yellow (Yellow); Glucose, Dipstick Normal (Normal); Ketone-Dipstick Negative (Negative); Leukocyte Esterase-Dipstick Negative /ul (Negative); Nitrite-Dipstick Negative (Negative); Occult Blood-Urine 10 /ul (Negative); Protein-Dipstick Negative (Negative); Specific Gravity, Urine 1.015 (1.002-1.030); Urine Clarity Sl. Cloudy (Clear); Urine Urobilinogen Normal (Normal)
[2017-11-24 20:02] LABS: Urine Bilirubin Dipstick 3 mg/dL (Negative)
[2017-11-24 20:21] LABS: Absolute Lymphocyte Count 0.96 X10^3/ul (0.83-4.51); Absolute Neutrophil Count 6.4 X10^3/uL (2.0-7.7); Basophil# 0.02 X10^3/uL; Basophil% 0.2 % (0-1); Eosinophil# 0.68 X10^3/uL; Eosinophils% 7.7 % (0-5); Hematocrit 23.9 % (37-47); Hemoglobin 7.4 g/dl (12.0-15.0); Lymphocyte # 0.96 X10^3/ul (4.0); Lymphocyte % 10.9 % (19-41); Mean Corpuscular Hgb 26.1 pg (27.0-32.0); Mean Corpuscular Volume 84.2 fL (81-99); Mean Platelet Vol. 8.9 fl (6.2-12.0); Monocyte# 0.76 X10^3/uL; Monocyte% 8.6 % (0-10); Neutrophil % 72.5 % (47-70); POSITIVE COUNT NO; POSITIVE DIFFERENTIAL NO; POSITIVE MORPHOLOGY NO; Platelet Count 376 K/mm3 (150-450); RBC Distribution Width CV 16.2 % (11.6-14.6); RBC Distribution Width SD 50.2 fl (35.1-43.9); Red Blood Count 2.84 M/mm3 (4.2-5.4); White Blood Count 8.8 K/mm3 (4.4-11.0)
[2017-11-24] MEDS: Atorvastatin Calcium 40 MG Tablet PO (20:30)
[2017-11-24] MEDS: DOXEPIN HCL 50 MG CAPSULE PO (20:31)
[2017-11-24 20:38] LABS: Anion Gap 7 (5-15); BUN 13 mg/dL (7-18); BUN/Creat Ratio 16.7 RATIO (10-20); Calcium,Total 9.3 mg/dL (8.5-10.1); Chloride 103 mmol/L (98-107); Creatinine, Serum 0.78 mg/dL (0.55-1.02); EST Glomerular Filtration Rate 79 mL/min (>60); Est Glom Filt Rate - Afr Amer 96 mL/min (>60); Estimated Creatinine Clearance 59.48 ml/min; Glucose 109 mg/dL (74-106); Potassium 4.3 mmol/L (3.5-5.1); Sodium Level 138 mmol/L (136-145)
[2017-11-24 20:39] VITALS: BP 141/76; PULSE 87; RESP 16; TEMP 36.8; O2SAT 90
--- NOTE | 2017-11-24 20:55 | NURSING ---
Dr Sousa aware of CXR, CBC, BMP and UA. N.O. to encourage I.S. Pt aware, and encouraged. Pt utilizing I.S. while RN in room. Will continue to monitor and asses.
[2017-11-25 06:00] VITALS: TEMP 36.4
[2017-11-25] MEDS: Levothyroxine 50 MCG Tablet PO (06:21)
[2017-11-25] MEDS: Citalopram 10 MG Tablet PO (06:21)
[2017-11-25 06:56] LABS: Bedside Glucose 89 mg/dL (70-110)
[2017-11-25] MEDS: Etodolac 300 MG Capsule PO ×2 (08:39→16:48)
[2017-11-25] MEDS: Iron Polysaccharide Complex 150 MG CAPSULE PO (08:39)
[2017-11-25] MEDS: Multivitamins,Therapeutic Tablet 1 TABLET PO (08:39)
[2017-11-25] MEDS: Calcium (Elemental) 500 MG Tablet PO ×2 (08:39→16:48)
--- NOTE | 2017-11-25 11:31 | NURSING ---
Dr. Varghese here to see pt, took zacarias out, steri strips placed. States for pt to follow up after discharge.
--- NOTE | 2017-11-25 11:45 | CASEMGMT ---
Addendum entered by Lady Winn 11/25/17 14:10: Reviewed and approved social human services assistants student MDS documentation. Lady Mcgraw MECHANIC SENIOR, CIGARETTE MAKING EXAMINER Original Note: Brief interview for mental status (BIMS) and mood (PHQ-9) completed on this day. BIMS score 15/15. PHQ-9 score 04/20. Jennifer Mcgraw Social Work Student
[2017-11-25 16:00] VITALS: BP 134/58; PULSE 110; RESP 20; TEMP 37.2; O2SAT 92
[2017-11-25 20:15] VITALS: PULSE 74; RESP 20; O2SAT 92
[2017-11-25] MEDS: Atorvastatin Calcium 40 MG Tablet PO (20:16)
[2017-11-25] MEDS: DOXEPIN HCL 50 MG CAPSULE PO (20:16)
--- NOTE | 2017-11-25 23:16 | NURSING ---
Patient has been complaining of having loose stools/diarrhea for the past couple of days. Dr. Sousa notified, orders given for Imodium 2mg q6h prn for diarrhea.
[2017-11-25] MEDS: Loperamide 2 MG Capsule PO (23:34)
[2017-11-26] MEDS: Citalopram 10 MG Tablet PO (06:11)
[2017-11-26] MEDS: Levothyroxine 50 MCG Tablet PO (06:11)
[2017-11-26] MEDS: Loperamide 2 MG Capsule PO ×2 (06:15→20:34)
[2017-11-26 07:00] LABS: Bedside Glucose 92 mg/dL (70-110)
[2017-11-26] MEDS: Iron Polysaccharide Complex 150 MG CAPSULE PO (08:29)
[2017-11-26] MEDS: Multivitamins,Therapeutic Tablet 1 TABLET PO (08:29)
[2017-11-26] MEDS: Etodolac 300 MG Capsule PO ×2 (08:29→17:26)
[2017-11-26] MEDS: Calcium (Elemental) 500 MG Tablet PO ×2 (08:30→17:26)
[2017-11-26 15:22] VITALS: BP 134/71; PULSE 78; RESP 16; TEMP 36.7; O2SAT 94
--- NOTE | 2017-11-26 15:43 | MDS.RN ---
Pain interview for lidia 11/27/17 completed.
[2017-11-26] MEDS: Atorvastatin Calcium 40 MG Tablet PO (20:34)
[2017-11-26] MEDS: DOXEPIN HCL 50 MG CAPSULE PO (20:34)
[2017-11-26 22:03] VITALS: PULSE 74; RESP 16
[2017-11-27] MEDS: Levothyroxine 50 MCG Tablet PO (04:47)
[2017-11-27] MEDS: Citalopram 10 MG Tablet PO (04:47)
[2017-11-27 06:41] LABS: Bedside Glucose 93 mg/dL (70-110)
[2017-11-27] MEDS: Multivitamins,Therapeutic Tablet 1 TABLET PO (09:06)
[2017-11-27] MEDS: Etodolac 300 MG Capsule PO ×2 (09:06→17:09)
[2017-11-27] MEDS: Calcium (Elemental) 500 MG Tablet PO ×2 (09:06→17:09)
[2017-11-27] MEDS: Iron Polysaccharide Complex 150 MG CAPSULE PO (09:07)
[2017-11-27 16:00] VITALS: BP 139/83; PULSE 77; RESP 16; TEMP 37.1; O2SAT 94
[2017-11-27] MEDS: DOXEPIN HCL 50 MG CAPSULE PO (19:49)
[2017-11-27] MEDS: Atorvastatin Calcium 40 MG Tablet PO (19:49)
[2017-11-28] MEDS: Citalopram 10 MG Tablet PO (06:04)
[2017-11-28] MEDS: Levothyroxine 50 MCG Tablet PO (06:05)
[2017-11-28 06:45] LABS: Absolute Lymphocyte Count 1.07 X10^3/ul (0.83-4.51); Absolute Neutrophil Count 4.5 X10^3/uL (2.0-7.7); Basophil# 0.04 X10^3/uL; Basophil% 0.6 % (0-1); Eosinophil# 0.79 X10^3/uL; Hematocrit 24.4 % (37-47); Hemoglobin 7.4 g/dl (12.0-15.0); Lymphocyte # 1.07 X10^3/ul (4.0); Lymphocyte % 14.9 % (19-41); Mean Corp Hgb Conc 30.3 g/gl (32-36); Mean Corpuscular Hgb 26.2 pg (27.0-32.0); Mean Corpuscular Volume 86.5 fL (81-99); Mean Platelet Vol. 10.2 fl (6.2-12.0); Monocyte# 0.76 X10^3/uL; Monocyte% 10.6 % (0-10); Neutrophil # 4.53 X10^3/uL (2.7-7.7); Neutrophil % 62.8 % (47-70); Platelet Count 428 K/mm3 (150-450); RBC Distribution Width CV 16.3 % (11.6-14.6); RBC Distribution Width SD 49.9 fl (35.1-43.9); Red Blood Count 2.82 M/mm3 (4.2-5.4); White Blood Count 7.2 K/mm3 (4.4-11.0)
[2017-11-28 06:57] LABS: POSITIVE COUNT NO; POSITIVE DIFFERENTIAL NO; POSITIVE MORPHOLOGY NO
[2017-11-28 07:02] LABS: Anion Gap 9 (5-15); BUN 12 mg/dL (7-18); BUN/Creat Ratio 15.4 RATIO (10-20); Calcium,Total 9.1 mg/dL (8.5-10.1); Chloride 104 mmol/L (98-107); Creatinine, Serum 0.78 mg/dL (0.55-1.02); EST Glomerular Filtration Rate 79 mL/min (>60); Est Glom Filt Rate - Afr Amer 95 mL/min (>60); Estimated Creatinine Clearance 59.48 ml/min; Glucose 86 mg/dL (74-106); Potassium 4.8 mmol/L (3.5-5.1); Sodium Level 141 mmol/L (136-145)
[2017-11-28 07:26] LABS: Bedside Glucose 93 mg/dL (70-110)
[2017-11-28] MEDS: Multivitamins,Therapeutic Tablet 1 TABLET PO (07:56)
[2017-11-28] MEDS: Calcium (Elemental) 500 MG Tablet PO ×2 (07:56→22:23)
[2017-11-28] MEDS: Iron Polysaccharide Complex 150 MG CAPSULE PO (07:56)
[2017-11-28] MEDS: Etodolac 300 MG Capsule PO ×2 (07:56→22:23)
[2017-11-28 08:42] VITALS: PULSE 82; RESP 16
--- NOTE | 2017-11-28 11:06 | NURSING ---
Dr Sousa aware of pt HGB 7.4, new order for 2 units PRBC's with lasix in between.
[2017-11-28] MEDS: Tuberculin,Purif.prot.deriv. 50 TU/ML Vial 5 ML ID (11:42)
--- NOTE | 2017-11-28 13:59 | NURSING ---
pt off floor to room 212 for blood transfusion
[2017-11-28 22:05] VITALS: BP 121/75; PULSE 90; RESP 16; TEMP 36.6; O2SAT 94
[2017-11-28] MEDS: DOXEPIN HCL 50 MG CAPSULE PO (22:23)
[2017-11-28] MEDS: Atorvastatin Calcium 40 MG Tablet PO (22:23)
--- NOTE | 2017-11-28 22:25 | NURSING ---
JUST RETURNED FROM GETTING BLOOD. VSS SEE FLOW SHEET. GIVEN ALL EVENING MEDS. DENIES ANY PAIN OR DISCOMFORT, ASSISTED TO BATHROOM AND BACK TO BED. WILL CONT TO MONITOR. IN GOOD SPIRITS.SAME REPORTED TO NOEMY ANTONY.
[2017-11-29] MEDS: Citalopram 10 MG Tablet PO (05:50)
[2017-11-29] MEDS: Levothyroxine 50 MCG Tablet PO (05:50)
[2017-11-29 06:31] LABS: Bedside Glucose 94 mg/dL (70-110)
[2017-11-29] MEDS: Calcium (Elemental) 500 MG Tablet PO ×2 (08:26→18:28)
[2017-11-29] MEDS: Iron Polysaccharide Complex 150 MG CAPSULE PO (08:26)
[2017-11-29] MEDS: Multivitamins,Therapeutic Tablet 1 TABLET PO (08:26)
[2017-11-29] MEDS: Etodolac 300 MG Capsule PO ×2 (08:26→18:28)
[2017-11-29 10:00] VITALS: PULSE 96; O2SAT 91
[2017-11-29 15:52] VITALS: BP 138/78; PULSE 116; RESP 14; TEMP 36.6; O2SAT 91
[2017-11-29] MEDS: Atorvastatin Calcium 40 MG Tablet PO (21:29)
[2017-11-29] MEDS: DOXEPIN HCL 50 MG CAPSULE PO (21:29)
[2017-11-29 22:31] LABS: Hematocrit 31.6 % (37-47); Hemoglobin 10.1 g/dl (12.0-15.0)
[2017-11-30] MEDS: Levothyroxine 50 MCG Tablet PO (04:59)
[2017-11-30] MEDS: Citalopram 10 MG Tablet PO (04:59)
[2017-11-30 07:01] LABS: Bedside Glucose 90 mg/dL (70-110)
[2017-11-30] MEDS: Multivitamins,Therapeutic Tablet 1 TABLET PO (09:23)
[2017-11-30] MEDS: Calcium (Elemental) 500 MG Tablet PO ×2 (09:23→17:36)
[2017-11-30] MEDS: Iron Polysaccharide Complex 150 MG CAPSULE PO (09:23)
[2017-11-30] MEDS: Etodolac 300 MG Capsule PO ×2 (09:23→17:36)
[2017-11-30 16:00] VITALS: BP 128/90; PULSE 91; RESP 20; TEMP 36.8; O2SAT 95
[2017-11-30 18:30] VITALS: PULSE 84; RESP 18
[2017-11-30] MEDS: Atorvastatin Calcium 40 MG Tablet PO (21:14)
[2017-11-30] MEDS: DOXEPIN HCL 50 MG CAPSULE PO (21:14)
[2017-12-01] MEDS: Levothyroxine 50 MCG Tablet PO (06:06)
[2017-12-01] MEDS: Citalopram 10 MG Tablet PO (06:06)
[2017-12-01 06:56] LABS: Bedside Glucose 87 mg/dL (70-110)
--- NOTE | 2017-12-01 08:09 | PCM.PN.SRG ---
Patient Problems: Active and Suspected Problems (Last Reviewed 11/01/17 @ 13:02 by Neha Gu) Metastatic colon cancer in female (Acute) Debility (Acute) Subjective: Patient is doing well and having normal bowel movements. She is ambulating and tolerating a diet. - Physical Exam General: Alert, Oriented x3, Cooperative Lungs: Normal air movement Cardiovascular: Regular rate, Regular Rhythm Abdomen: Soft, Non Tender, Non-Distended, - - Incision is clean dry and intact Vital Signs Temp Pulse Resp BP Pulse Ox 98.2 F 84 18 128/90 H 95 11/30/17 16:00 11/30/17 18:30 11/30/17 18:30 11/30/17 16:00 11/30/17 16:00 Oxygen Delivery Method Room Air Weight: 265 lb 1 oz Body Mass Index (BMI) 49.4 Finger Stick Blood Glucose 149 Intake and Output for Last 24 Hours 11/29/17 11/30/17 12/01/17 23:59 23:59 23:59 Intake Total 840 / 840 960 / 960 Balance 840 / 840 960 / 960 POC Glucose 12/01/17 06:49 POC Glucose 87 Medical Necessity - Tobacco Use Smoking Status: Never smoker Tobacco Use: Non-smoker Assessment/Plan All Active Problems (Last Reviewed 11/01/17 @ 13:02 by Neha Gu) Colonic obstruction (Acute) Metastatic colon cancer in female (Acute) Debility (Acute) Colon cancer (Acute) Lymphadenopathy, abdominal (Acute) Colon wall thickening (Acute) Hypercalcemia (Acute) Vitamin D deficiency (Acute) History of breast cancer (Acute) Parathyroid abnormality (Acute) Contusion (Acute) 67-year-old female with colon cancer 1. Patient is doing well recovering from surgery. Her incision is clean dry and intact. 2. Patient needs a port for chemotherapy. Since she is still here I will get this done to reduce the amount of trip she has to make to the hospital. I will plan on doing this tomorrow. I explained port placement to the patient. I explained the risks including but not limited to bleeding, infection, pneumothorax, DVT, line infection. The patient understands all the risks and is willing to proceed. I will make her n.p.o. after midnight. Kevin Varghese MD Pager: [facility] [address] [place] [address], [address] [place] [address] Office:
[2017-12-01] MEDS: Calcium (Elemental) 500 MG Tablet PO ×2 (08:56→17:55)
[2017-12-01] MEDS: Multivitamins,Therapeutic Tablet 1 TABLET PO (08:56)
[2017-12-01] MEDS: Etodolac 300 MG Capsule PO ×2 (08:57→17:55)
[2017-12-01] MEDS: Iron Polysaccharide Complex 150 MG CAPSULE PO (08:57)
--- NOTE | 2017-12-01 13:27 | NURSING ---
IV IN RIGHT ARM. FLUSHED,NO S/S OF INFECTION OR REDNESS. PT TOLERATED WELL. REPORTED TO NOEMY PATRICIO AND NOEMY PEREZ
[2017-12-01 15:55] VITALS: BP 155/88; PULSE 94; RESP 20; TEMP 37; O2SAT 96
[2017-12-01 21:30] VITALS: PULSE 90; RESP 16; O2SAT 92
[2017-12-01] MEDS: Atorvastatin Calcium 40 MG Tablet PO (21:30)
[2017-12-01] MEDS: DOXEPIN HCL 50 MG CAPSULE PO (21:30)
--- NOTE | 2017-12-02 06:14 | NURSING ---
0600 MEDS NOT GIVEN AT PRESENT PER NOEMY MERCEDES. NPO FOR PROCEDURE THIS AM. WILL CONT TO MONITOR.
[2017-12-02 07:11] LABS: Bedside Glucose 86 mg/dL (70-110)
--- NOTE | 2017-12-02 09:15 | NURSING ---
pt off unit to surgery
--- NOTE | 2017-12-02 11:52 | NURSING ---
Addendum entered by Charla Collins 12/02/17 13:42: 2 steristrips to RT neck and DSD to RT chest over port site. Original Note: pt back from PACU at this time. alert & oriented x3.
[2017-12-02] MEDS: Multivitamins,Therapeutic Tablet 1 TABLET PO (13:23)
[2017-12-02] MEDS: Citalopram 10 MG Tablet PO (13:24)
[2017-12-02] MEDS: Iron Polysaccharide Complex 150 MG CAPSULE PO (13:24)
[2017-12-02] MEDS: Levothyroxine 50 MCG Tablet PO (13:24)
--- NOTE | 2017-12-02 14:08 | MDS.RN ---
Pain interview for lidia 12/04/17 completed.
--- NOTE | 2017-12-02 14:53 | MDS.RN ---
Information for the mds was obtained from review of the clinical record, interview of resident, staff, and direct observation of resident's care.
[2017-12-02 16:00] VITALS: BP 130/80; PULSE 81; RESP 20; TEMP 36.8; O2SAT 93
[2017-12-02] MEDS: Etodolac 300 MG Capsule PO (17:16)
[2017-12-02] MEDS: Calcium (Elemental) 500 MG Tablet PO (17:17)
[2017-12-02] MEDS: Menthol/Lanolin/Calamine/Znox 113 GM Tube 1 APPLIC TOPICAL (22:11)
[2017-12-02] MEDS: Atorvastatin Calcium 40 MG Tablet PO (22:12)
[2017-12-02] MEDS: DOXEPIN HCL 50 MG CAPSULE PO (22:12)
[2017-12-03] MEDS: Menthol/Lanolin/Calamine/Znox 113 GM Tube 1 APPLIC TOPICAL ×2 (05:34→21:48)
[2017-12-03] MEDS: Levothyroxine 50 MCG Tablet PO (05:35)
[2017-12-03] MEDS: Citalopram 10 MG Tablet PO (05:35)
[2017-12-03 06:50] LABS: Bedside Glucose 112 mg/dL (70-110)
[2017-12-03] MEDS: Iron Polysaccharide Complex 150 MG CAPSULE PO (08:44)
[2017-12-03] MEDS: Multivitamins,Therapeutic Tablet 1 TABLET PO (08:44)
[2017-12-03] MEDS: Etodolac 300 MG Capsule PO ×2 (08:44→17:47)
[2017-12-03] MEDS: Calcium (Elemental) 500 MG Tablet PO ×2 (08:44→17:47)
[2017-12-03 10:00] VITALS: PULSE 88; RESP 16
--- NOTE | 2017-12-03 13:33 | CASEMGMT ---
Brief interview for mental status (BIMS) and resident mood interview (PHQ-9) completed on this day. BIMS score 15/15. PHQ-9 score
--- NOTE | 2017-12-03 13:34 | CASEMGMT ---
Social Work Spoke with resident in room. This social work professor communicating to resident that discharge date has been set for 12/09/17. Resident is agreeable to discharge date and plans to discharge to home alone. No further therapy is being recommended at this time. Resident is reporting to need a walker at time of discharge. Resident does not have a preference of [facility], [employer] to be utilized. Support given. Will set up walker when order has been obtained. Proposed discharge date: 12/09/17 PLAN: Discharge to home alone. Lady VIDAL, CORPORATE CONCIERGE
--- NOTE | 2017-12-03 14:46 | DCINST_ITS ---
- Discharge Diagnoses Current Active Problems: Current Active and Chronic Problems (Last Reviewed 11/01/17 @ 13:02 by Neha Gu) Encounter for insertion of venous access port (Acute) Metastatic colon cancer in female (Acute) Diabetes mellitus (Chronic) Osteoarthritis of left hip (Chronic) Breast cancer (Chronic) Hypothyroidism (Chronic) Depression (Chronic) Nausea (Chronic) Debility (Acute) You will use the following diet at home:: No restrictions, Regular Your food should be the consistency of: Regular Your liquids should be the consistency of: Regular/Thin Discharge Activity: Return to Normal Activity, May Shower, Use Walker Weight Bearing Status: Weight bearing as tolerated Call your doctor if you observe: Fever of 101 or Higher, Inability to urinate, Inability to have a bowel movement, Shortness of breath, Chest pain, Uncontrolled pain Allergies/Adverse Reactions: Allergies amoxicillin [From Augmentin] Adverse Reaction (Severe, Verified 11/12/17 14:47) Hives clavulanic acid [From Augmentin] Adverse Reaction (Severe, Verified 11/12/17 14:47) Hives Medications to take at Discharge calcium carbonate 600 mg calcium (1,500 mg) tablet 600 mg PO BID tab 08/17/17 levothyroxine 50 mcg tablet 50 mcg PO DAILY@0600 08/17/17 metformin 500 mg tablet 1,000 mg PO BIDCM tab 08/17/17 Citalopram [Celexa] 10 mg PO DAILY 11/09/17 Atorvastatin Calcium [Lipitor] 40 mg PO QHS 11/14/17 Cholecalciferol (VIT D3) [Vitamin D3] 5,000 unit PO DAILY 11/20/17 Multivit,Calc,Mins/Iron/Folic [Therapeutic-M Tablet] 1 each PO DAILY 11/20/17 Nabumetone [Relafen] 750 mg PO BID 11/20/17 Acetaminophen [Tylenol] 1,000 mg PO Q8H PRN PRN tablet 12/03/17 Doxepin HCl 50 mg PO QHS #30 capsule 12/03/17 Iron Polysaccharide Complex [Ferrex 150] 150 mg PO DAILYCM #30 capsule 12/03/17 Menthol/Lanolin/Calamine/Znox [Calmoseptine Ointment] 1 applic TOPICAL 0600,2200 tube 12/03/17 Multivitamins,Therapeutic [Multivitamin] 1 tablet PO DAILY@0800 tablet 12/03/17 Polyethylene Glycol 3350 [Miralax] 17 gm PO DAILY PRN #30 packet 12/03/17 Potassium Chloride [K-Dur] 20 meq PO DAILYCM #30 tablet 12/03/17 The following prescriptions were given: Doxepin HCl 50 mg PO QHS #30 capsule Iron Polysaccharide Complex [Ferrex 150] 150 mg PO DAILYCM #30 capsule Polyethylene Glycol 3350 [Miralax] 17 gm PO DAILY PRN #30 packet PRN Reason: Constipation Potassium Chloride [K-Dur] 20 meq PO DAILYCM #30 tablet Primary Care Physician: Jose Daniel Yang DO [Primary Care Provider] - Please follow up with your Primary Care Physician in: 1 week. Test Results: Test results from this visit will be discussed in further detail at your follow- up appointment, if applicable. Please Follow Up With: Dr Varghese When: 1 week. Please Follow Up With: Dr Shepherd When: 1 week. Proposed Discharge Date: 12/09/17
--- NOTE | 2017-12-03 14:46 | PCM.DC.SUM ---
Discharge Date and Diagnosis - Problem List Patient Problems: Active and Suspected Problems (Last Reviewed 11/01/17 @ 13:02 by Neha Gu) Encounter for insertion of venous access port (Acute) Metastatic colon cancer in female (Acute) Debility (Acute) Date of Admission: 11/20/17 Date of Discharge: 12/09/17 - Primary Discharge Diagnosis Active and Suspected Problems (Last Reviewed 11/01/17 @ 13:02 by Neha Gu) Encounter for insertion of venous access port (Acute) Metastatic colon cancer in female (Acute) Debility (Acute) - Secondary Discharge Diagnosis Chronic Problems (Last Reviewed 11/01/17 @ 13:02 by Neha Gu) Diabetes mellitus (Chronic) Osteoarthritis of left hip (Chronic) Breast cancer (Chronic) Hypothyroidism (Chronic) Depression (Chronic) Nausea (Chronic) Left hip pain (Chronic) Arthritis (Chronic) Type 2 diabetes mellitus (Chronic) IBS (irritable bowel syndrome) (Chronic) Hyperlipemia (Chronic) Hypertension (Chronic) Hospital Course and Treatment Imaging Results: 12/02/17 12:33 Diet: Cardiac/Low Cholesterol Is pt able to select menu?: Yes Diet Comments: advance as tolerated Clinical Impression(s) from Imaging Studies KUB X-Ray 11/23/17 17:33 IMPRESSION: No bowel obstruction. Electronically Signed: Alcides Albarran, at 18:04 EDT Tel , Service support , Chest X-Ray 11/24/17 18:30 IMPRESSION: Hypoexpansion lungs without acute cardiopulmonary disease or interval change. Electronically Signed: Luis Pickard DO at 18:50 EDT Tel [phone], Service support , Labs (Last 48 Hours) 12/02/17 12/03/17 06:47 06:02 POC Glucose 86 112 H Operations: None, - - On 11/15/17 patient underwent laparoscopic extended right hemicolectomy due to obstructing colon cancer Procedures: None Summary of Care Provided: The patient is a 67 year old Female with below past medical history significant for metastatic colon cancer, hospitalized for bowel obstruction, underwent lap right hemicolectomy per Dr. Varghese, admitted to TCU with debility, here for rehabilitation, strengthening, prior to discharge home alone, outpatient chemotherapy. Discharge home alone. Patient Problems: Active and Suspected Problems (Last Reviewed 11/01/17 @ 13:02 by Neha Gu) Encounter for insertion of venous access port (Acute) Metastatic colon cancer in female (Acute) Debility (Acute) - Physical Exam Vital Signs Temp Pulse Resp BP Pulse Ox 98.2 F 88 16 130/80 H 93 12/02/17 16:00 12/03/17 10:00 12/03/17 10:00 12/02/17 16:00 12/02/17 16:00 Oxygen Delivery Method Room Air Weight: 120.23 kg Body Mass Index (BMI) 49.4 Finger Stick Blood Glucose 149 Intake and Output for Last 24 Hours 12/01/17 12/02/17 12/03/17 23:59 23:59 23:59 Intake Total 580 / 580 240 / 240 560 / 560 Balance 580 / 580 240 / 240 560 / 560 POC Glucose 12/03/17 06:02 POC Glucose 112 H Discharge Diet: No Restrictions Discharge Activity: Return to Normal Activity, May Shower, Use Walker Weight Bearing Status: Weight bearing as tolerated Call your doctor if you observe: Fever of 101 or Higher, Inability to urinate, Inability to have a bowel movement, Shortness of breath, Chest pain, Uncontrolled pain Home Medications: Medications to take at Discharge calcium carbonate 600 mg calcium (1,500 mg) tablet 600 mg PO BID tab 08/17/17 levothyroxine 50 mcg tablet 50 mcg PO DAILY@0600 08/17/17 metformin 500 mg tablet 1,000 mg PO BIDCM tab 08/17/17 Citalopram [Celexa] 10 mg PO DAILY 11/09/17 Atorvastatin Calcium [Lipitor] 40 mg PO QHS 11/14/17 Cholecalciferol (VIT D3) [Vitamin D3] 5,000 unit PO DAILY 11/20/17 Multivit,Calc,Mins/Iron/Folic [Therapeutic-M Tablet] 1 each PO DAILY 11/20/17 Nabumetone [Relafen] 750 mg PO BID 11/20/17 Acetaminophen [Tylenol] 1,000 mg PO Q8H PRN PRN tablet 12/03/17 Doxepin HCl 50 mg PO QHS #30 capsule 12/03/17 Iron Polysaccharide Complex [Ferrex 150] 150 mg PO DAILYCM #30 capsule 12/03/17 Menthol/Lanolin/Calamine/Znox [Calmoseptine Ointment] 1 applic TOPICAL 0600,2200 tube 12/03/17 Multivitamins,Therapeutic [Multivitamin] 1 tablet PO DAILY@0800 tablet 12/03/17 Polyethylene Glycol 3350 [Miralax] 17 gm PO DAILY PRN #30 packet 12/03/17 Potassium Chloride [K-Dur] 20 meq PO DAILYCM #30 tablet 12/03/17 Following Prescrptions Were Given to Patient: Doxepin HCl 50 mg PO QHS #30 capsule Iron Polysaccharide Complex [Ferrex 150] 150 mg PO DAILYCM #30 capsule Polyethylene Glycol 3350 [Miralax] 17 gm PO DAILY PRN #30 packet PRN Reason: Constipation Potassium Chloride [K-Dur] 20 meq PO DAILYCM #30 tablet Primary Care Physician: Jose Daniel Yang DO [Primary Care Provider] - Please follow up with your Primary Care Physician in: 1 week. Please Follow Up With: Dr Varghese When: 1 week. Please Follow Up With: Dr Shepherd When: 1 week. Disposition: Home Minutes spent on discharge:: 30 Patient Condition:: Stable Medical Necessity - Tobacco Use Smoking Status: Never smoker Tobacco Use: Non-smoker Meaningful Use Info Meaningful Use Diagnoses (Choose all that apply): None applicable
[2017-12-03 15:50] VITALS: BP 144/81; PULSE 88; RESP 18; TEMP 36.6; O2SAT 95
[2017-12-03] MEDS: Atorvastatin Calcium 40 MG Tablet PO (21:49)
[2017-12-03] MEDS: DOXEPIN HCL 50 MG CAPSULE PO (21:49)
[2017-12-04] MEDS: Citalopram 10 MG Tablet PO (06:24)
[2017-12-04] MEDS: Levothyroxine 50 MCG Tablet PO (06:24)
[2017-12-04] MEDS: Menthol/Lanolin/Calamine/Znox 113 GM Tube 1 APPLIC TOPICAL ×2 (06:26→22:13)
[2017-12-04 07:11] LABS: Bedside Glucose 87 mg/dL (70-110)
[2017-12-04] MEDS: Calcium (Elemental) 500 MG Tablet PO ×2 (08:33→16:57)
[2017-12-04] MEDS: Multivitamins,Therapeutic Tablet 1 TABLET PO (08:33)
[2017-12-04] MEDS: Iron Polysaccharide Complex 150 MG CAPSULE PO (08:33)
[2017-12-04] MEDS: Etodolac 300 MG Capsule PO ×2 (08:33→16:57)
[2017-12-04 16:00] VITALS: BP 133/76; PULSE 84; RESP 16; TEMP 37; O2SAT 93
[2017-12-04] MEDS: Atorvastatin Calcium 40 MG Tablet PO (22:12)
[2017-12-04] MEDS: DOXEPIN HCL 50 MG CAPSULE PO (22:12)
[2017-12-04 22:14] VITALS: PULSE 91; RESP 16; O2SAT 92
[2017-12-05] MEDS: Levothyroxine 50 MCG Tablet PO (05:53)
[2017-12-05] MEDS: Citalopram 10 MG Tablet PO (05:54)
[2017-12-05] MEDS: Menthol/Lanolin/Calamine/Znox 113 GM Tube 1 APPLIC TOPICAL ×2 (05:56→21:21)
[2017-12-05 06:32] LABS: Absolute Lymphocyte Count 1.27 X10^3/ul (0.83-4.51); Absolute Neutrophil Count 3.3 X10^3/uL (2.0-7.7); Basophil# 0.04 X10^3/uL; Basophil% 0.7 % (0-1); Eosinophil# 0.85 X10^3/uL; Eosinophils% 14.1 % (0-5); Hematocrit 31.2 % (37-47); Hemoglobin 9.5 g/dl (12.0-15.0); Lymphocyte # 1.27 X10^3/ul (4.0); Lymphocyte % 21.1 % (19-41); Mean Corp Hgb Conc 30.4 g/gl (32-36); Mean Corpuscular Hgb 26.2 pg (27.0-32.0); Mean Corpuscular Volume 86.2 fL (81-99); Mean Platelet Vol. 9.9 fl (6.2-12.0); Monocyte# 0.54 X10^3/uL; Neutrophil # 3.32 X10^3/uL (2.7-7.7); Neutrophil % 54.9 % (47-70); Platelet Count 401 K/mm3 (150-450); RBC Distribution Width CV 15.6 % (11.6-14.6); Red Blood Count 3.62 M/mm3 (4.2-5.4)
[2017-12-05 06:34] LABS: POSITIVE COUNT NO; POSITIVE DIFFERENTIAL NO; POSITIVE MORPHOLOGY NO
[2017-12-05 06:50] LABS: Anion Gap 6 (5-15); BUN 13 mg/dL (7-18); Calcium,Total 9.6 mg/dL (8.5-10.1); Chloride 103 mmol/L (98-107); Creatinine, Serum 0.93 mg/dL (0.55-1.02); EST Glomerular Filtration Rate 64 mL/min (>60); Est Glom Filt Rate - Afr Amer 78 mL/min (>60); Estimated Creatinine Clearance 49.89 ml/min; Glucose 88 mg/dL (74-106); Potassium 4.6 mmol/L (3.5-5.1); Sodium Level 136 mmol/L (136-145)
[2017-12-05 07:06] LABS: Bedside Glucose 87 mg/dL (70-110)
[2017-12-05] MEDS: Etodolac 300 MG Capsule PO ×2 (08:21→16:53)
[2017-12-05] MEDS: Calcium (Elemental) 500 MG Tablet PO ×2 (08:22→16:53)
[2017-12-05] MEDS: Multivitamins,Therapeutic Tablet 1 TABLET PO (08:22)
[2017-12-05] MEDS: Iron Polysaccharide Complex 150 MG CAPSULE PO (08:22)
--- NOTE | 2017-12-05 08:27 | NURSING ---
DRESSING REMOVED FROM RIGHT PORT SITE. STRI STRIPS IN TACK. NO S/S OF INFECTION. OR REDNESS.
[2017-12-05 16:00] VITALS: BP 118/74; PULSE 93; RESP 14; TEMP 36.8; O2SAT 90
[2017-12-05 21:00] VITALS: PULSE 90; RESP 18; O2SAT 92
[2017-12-05] MEDS: Atorvastatin Calcium 40 MG Tablet PO (21:22)
[2017-12-05] MEDS: DOXEPIN HCL 50 MG CAPSULE PO (21:23)
[2017-12-06] MEDS: Menthol/Lanolin/Calamine/Znox 113 GM Tube 1 APPLIC TOPICAL ×2 (05:44→20:21)
[2017-12-06] MEDS: Levothyroxine 50 MCG Tablet PO (05:44)
[2017-12-06] MEDS: Citalopram 10 MG Tablet PO (05:45)
[2017-12-06 07:11] LABS: Bedside Glucose 90 mg/dL (70-110)
[2017-12-06] MEDS: Etodolac 300 MG Capsule PO ×2 (09:52→17:33)
[2017-12-06] MEDS: Iron Polysaccharide Complex 150 MG CAPSULE PO (09:52)
[2017-12-06] MEDS: Multivitamins,Therapeutic Tablet 1 TABLET PO (09:52)
[2017-12-06] MEDS: Calcium (Elemental) 500 MG Tablet PO ×2 (09:52→17:34)
[2017-12-06 10:00] VITALS: PULSE 90; RESP 18; O2SAT 94
--- NOTE | 2017-12-06 13:34 | CASEMGMT ---
Addendum entered by Lady Winn 12/07/17 09:30: Correction: Discharge date: 12/09/17 Original Note: Social Work Order faxed to [facility] for front wheeled walkerAdriana. Walker to be delivered to resident room prior to resident discharge. Proposed discharge date: 12/08/17 PLAN: Discharge to home alone. - Resident does have friends/neighbors for support as needed. Lady VIDAL, POWERTRAIN ENGINEER
[2017-12-06 16:00] VITALS: BP 131/77; PULSE 88; RESP 18; TEMP 36.9; O2SAT 91
--- NOTE | 2017-12-06 16:25 | CASEMGMT ---
Social Work Collaborating with resident in room in regards to further discharge planning. Resident returning from oncology appointment just prior to this social media job titles enter the room. Resident appeared tearful. This social media job titles inquiring about appointment. Resident open to conversation. This social media job titles offered support to resident as the conversation of facing own mortality was had with resident. Resident tearful throughout conversation but able to voice emotions and process with this social media job titles. After resident collected self resident was able to discuss discharge planning with this social media job titles and finalize plans. Resident requesting for this social media job titles to give resident information on [employer] Whe[employer]. This social media job titles offering to make referral to [facility] for resident, resident declining at this time and plans to make referral on own. Support given. Resident son plans to provide transportation home for resident at time of discharge. Proposed discharge date: 12/09/17. PLAN: Discharge to home alone. Lady VIDAL, SWIMMING POOL SERVICE TECHNICIAN
[2017-12-06] MEDS: Acetaminophen 500 MG Tablet 1000 MG PO (18:49)
[2017-12-06] MEDS: DOXEPIN HCL 50 MG CAPSULE PO (20:20)
[2017-12-06] MEDS: Atorvastatin Calcium 40 MG Tablet PO (20:20)
[2017-12-07] MEDS: Levothyroxine 50 MCG Tablet PO (06:20)
[2017-12-07] MEDS: Citalopram 10 MG Tablet PO (06:20)
[2017-12-07] MEDS: Menthol/Lanolin/Calamine/Znox 113 GM Tube 1 APPLIC TOPICAL ×2 (06:24→20:54)
[2017-12-07 06:55] LABS: Bedside Glucose 89 mg/dL (70-110)
[2017-12-07] MEDS: Calcium (Elemental) 500 MG Tablet PO ×2 (08:16→18:17)
[2017-12-07] MEDS: Multivitamins,Therapeutic Tablet 1 TABLET PO (08:17)
[2017-12-07] MEDS: Etodolac 300 MG Capsule PO ×2 (08:17→18:17)
[2017-12-07] MEDS: Iron Polysaccharide Complex 150 MG CAPSULE PO (08:17)
[2017-12-07 16:00] VITALS: BP 129/75; PULSE 81; RESP 20; TEMP 36.7; O2SAT 92
[2017-12-07] MEDS: Atorvastatin Calcium 40 MG Tablet PO (20:53)
[2017-12-07] MEDS: DOXEPIN HCL 50 MG CAPSULE PO (20:53)
[2017-12-08] MEDS: Levothyroxine 50 MCG Tablet PO (05:43)
[2017-12-08] MEDS: Citalopram 10 MG Tablet PO (05:43)
[2017-12-08 06:41] LABS: Bedside Glucose 79 mg/dL (70-110)
[2017-12-08 07:02] VITALS: PULSE 75; RESP 16; O2SAT 92
[2017-12-08 07:12] VITALS: BP 137/77; PULSE 78; RESP 16; O2SAT 92
[2017-12-08] MEDS: Menthol/Lanolin/Calamine/Znox 113 GM Tube 1 APPLIC TOPICAL ×2 (07:14→21:10)
[2017-12-08] MEDS: Calcium (Elemental) 500 MG Tablet PO ×2 (08:26→17:32)
[2017-12-08] MEDS: Iron Polysaccharide Complex 150 MG CAPSULE PO (08:27)
[2017-12-08] MEDS: Etodolac 300 MG Capsule PO ×2 (08:27→17:32)
[2017-12-08] MEDS: Multivitamins,Therapeutic Tablet 1 TABLET PO (08:27)
[2017-12-08 15:54] VITALS: BP 146/89; PULSE 113; RESP 18; TEMP 36.9; O2SAT 94
[2017-12-08] MEDS: Atorvastatin Calcium 40 MG Tablet PO (21:08)
[2017-12-08] MEDS: DOXEPIN HCL 50 MG CAPSULE PO (21:08)
[2017-12-09] MEDS: Levothyroxine 50 MCG Tablet PO (05:54)
[2017-12-09] MEDS: Citalopram 10 MG Tablet PO (05:54)
[2017-12-09] MEDS: Menthol/Lanolin/Calamine/Znox 113 GM Tube 1 APPLIC TOPICAL (05:57)
[2017-12-09 06:36] LABS: Bedside Glucose 87 mg/dL (70-110)
[2017-12-09] MEDS: Iron Polysaccharide Complex 150 MG CAPSULE PO (09:37)
[2017-12-09] MEDS: Multivitamins,Therapeutic Tablet 1 TABLET PO (09:37)
[2017-12-09] MEDS: Etodolac 300 MG Capsule PO ×2 (09:37→16:55)
[2017-12-09] MEDS: Calcium (Elemental) 500 MG Tablet PO ×2 (09:37→16:54)
[2017-12-09 09:58] VITALS: PULSE 75; RESP 16; O2SAT 92
[2017-12-09 15:46] VITALS: BP 133/85; PULSE 95; RESP 18; TEMP 37.1; O2SAT 93
== END 2017-12-09 18:25 | disposition home or self-care (01) | DRG 949 ==
PROVIDERS: Admitting Provider Family Medicine Geriatric Medicine; Family Provider Family Medicine; PCP Family Medicine; Visit Provider Family Medicine Geriatric Medicine
DX: Z48.815 Encounter for surgical aftercare following surgery on the digestive system (principal); C18.9 Malignant neoplasm of colon, unspecified; Z85.3 Personal history of malignant neoplasm of breast; E55.9 Vitamin D deficiency, unspecified; M16.12 Unilateral primary osteoarthritis, left hip; E11.9 Type 2 diabetes mellitus without complications; E03.9 Hypothyroidism, unspecified; F32.9 Major depressive disorder, single episode, unspecified; E78.5 Hyperlipidemia, unspecified; K58.9 Irritable bowel syndrome, unspecified; I10 Essential (primary) hypertension; Z90.49 Acquired absence of other specified parts of digestive tract; M79.675 Pain in left toe(s); M79.674 Pain in right toe(s)
CPT/HCPCS: 36415; 36430; 71046; 74018; 80048; 81001; 82962; 85014; 85018; 85025; 86850; 86900; 86920; 86922; 87086; 97110; 97116; 97161; 97166; 97530; 97535; 97802; J7040; J7120; P9016; A4216

== ENCOUNTER 2017-11-28 14:30 | Outpatient (CLI) | payer MEDICARE, OTHER, SELFPAY ==
[2017-11-28] VITALS (9 sets, daily range): BP systolic 140–175; BP diastolic 83–97; PULSE 63–98; RESP 16–18; TEMP 36.6–37.4; O2SAT 94–97
[2017-11-28] MEDS: 0.9% NaCl Peripheral Flush Adult/Peds IV ×2 (18:09→21:45)
[2017-11-28] MEDS: Furosemide 40 MG/4 ML Vial IV (18:09)
--- NOTE | 2017-11-28 21:50 | NURSING ---
Called report to [facility] and informed that 2 units of PRBC were infused, and she received 40mg of lasix, pt tolerated well with clear lung sounds. Pt will be returning back to TCU via w/c in few minutes.
== END 2017-11-28 21:45 ==
LOC: MEDOUTP 14:33 → MS2 14:34
PROVIDERS: Family Provider Family Medicine; PCP Family Medicine; Visit Provider Family Medicine Geriatric Medicine
DX: D64.9 Anemia, unspecified (principal)
CPT/HCPCS: 36415; 36430; 86850; 86900; 86920; 86922; J7040; P9016; A4216; J1940

== ENCOUNTER 2017-12-02 09:21 | Day surgery (SDC) | payer MEDICARE, OTHER, SELFPAY ==
[2017-12-02] VITALS (7 sets, daily range): BP systolic 112–136; BP diastolic 64–71; PULSE 75–87; RESP 16; TEMP 36.2–36.9; O2SAT 93–98; BMI 46.9
[2017-12-02 09:56] LABS: Bedside Glucose 80 mg/dL (70-110)
[2017-12-02] MEDS: Bupivacaine Mpf 0.5% 30 ML VIAL (10:48)
--- NOTE | 2017-12-02 11:07 | RAD_ITS ---
STUDY: X-RAY CHEST REASON FOR EXAM: Female, 67 years old. Port placement TECHNIQUE: Single AP portable view of the chest. COMPARISON: Chest x-ray November 24, 2017 FINDINGS: There is a right-sided port with its tip in the region of the midsuperior vena cava near the level of the pulmonary arteries. No evidence pneumothorax. Low lung lines are noted and there is mild hypoventilatory change at the lung bases. There is no demonstrated pleural abnormality. Normal size heart. Normal mediastinum and nish. Normal visualized pulmonary arteries. Normal visualized aortic arch and descending thoracic aorta. Degenerative spondylosis is noted with multilevel marginal osteophytes of the thoracic spine. Normal visualized ribs, clavicles, and shoulders. There is no demonstrated abnormality of the visualized soft tissue structures of the upper abdomen. RAD/CXR for Line Placement IMPRESSION: There is now a right-sided Port-A-Cath present with its tip in the region the midsuperior vena cava. No pneumothorax. Electronically Signed: Katie Ventura MD at 12:06 EDT , Service support ,
--- NOTE | 2017-12-02 11:27 | DCINST_ITS ---
Discharge Diet: No Restrictions - Pain medication may cause nausea. You should typically eat light foods as you take your pain medication. Discharge Activity: Return to Normal Activity, May Shower - with your bandage in place in 1-2 days after surgery. DO NOT SHOWER WHEN YOUR PORT IS ACCESSED. Call your doctor if your incision/area has: Continuous Slow Oozing, Sudden Increased Bleeding, Increased Pain/ Swelling, Increased Redness Call your doctor if you observe: Fever of 101 or Higher Remove Dressing in (days):: 3 - When you remove the bandage, leave the steri- strips intact until they fall off. Allergies/Adverse Reactions: Allergies amoxicillin [From Augmentin] Adverse Reaction (Severe, Verified 11/12/17 14:47) Hives clavulanic acid [From Augmentin] Adverse Reaction (Severe, Verified 11/12/17 14:47) Hives Medications to take at Discharge calcium carbonate 600 mg calcium (1,500 mg) tablet 600 mg PO BID tab 08/17/17 levothyroxine 50 mcg tablet 50 mcg PO DAILY@0600 08/17/17 metformin 500 mg tablet 1,000 mg PO BIDCM tab 08/17/17 Citalopram [Celexa] 10 mg PO DAILY 11/09/17 Atorvastatin Calcium [Lipitor] 40 mg PO QHS 11/14/17 Cholecalciferol (VIT D3) [Vitamin D] 5,000 unit PO DAILY 11/20/17 Multivit,Calc,Mins/Iron/Folic [Therapeutic-M Tablet] 1 each PO DAILY 11/20/17 Nabumetone [Relafen] 750 mg PO BID 11/20/17 Primary Care Physician: Jose Daniel Yang DO [Primary Care Provider] - Test Results: Test results from this visit will be discussed in further detail at your follow- up appointment, if applicable. Please Follow Up With: Kevin Varghese MD When: Please call to schedule 2 week follow up appointment. [phone]
--- NOTE | 2017-12-02 11:27 | PCM.OPRPT ---
Problem List (1) Encounter for insertion of venous access port Status: Acute Report of Operation Date of Procedure: 12/02/17 Pre-Operative Diagnosis: Stage IV colon cancer Post-Operative Diagnosis: Stage IV colon cancer, need for vascular access device for chemotherapy Surgery/Procedure Performed:: Fluoroscopy and ultrasound-guided right chest port placement utilizing right IJ Description of Procedure: After obtaining informed consent patient was brought back to the operating room MAC anesthesia was induced and the right chest and neck were prepped in normal sterile fashion. Ultrasound was used to evaluate both IJ is in the right IJ was selected. Next, using a needle, the right IJ was accessed and a guidewire was passed on into the superior vena cava under fluoroscopy guidance. A small incision was made over the puncture site and the dilator introducer was placed over the guidewire. Next this was capped and the pocket was made for the port. 1% lidocaine with epinephrine was injected in the proposed port site. An incision was made with scalpel. Electrocautery was used to make a pocket under the skin and subcutaneous tissue. Hemostasis was obtained. Next, the catheter was tunneled up to the neck incision site and placed through the introducer. The peel-away introducer was removed and the position of the catheter was confirmed on fluoroscopy. Next, the catheter was trimmed and attached to the port with the locking device. Interrupted 2-0 Vicryl sutures were used to anchor the port to the chest wall and then the port was placed inside the pocket. The pocket was then flushed with saline and the port irrigated with saline. There was good blood return and the port flushed easily. Next, heparin was injected into the port. The skin was closed with subcutaneous interrupted 3-0 Vicryl sutures and interrupted skin 3-0 nylon sutures. A single 3-0 Vicryl sutures placed under the skin at the neck incision site. Steri-Strips were placed as well as op sites. Patient tolerated procedure well, was taken to PACU in stable condition. Chest x-ray will be obtained. Grafts/Implants Used: 8 [employer] - Admit VTE Documentation VTE Mechan Device Prophylaxis: SCD's
== END 2017-12-02 11:40 | disposition skilled nursing facility (03) ==
LOC: SDC 09:22 → AC 09:23
PROVIDERS: Family Provider Family Medicine; PCP Family Medicine; Referring Provider Surgery; Visit Provider Surgery
PROC: (CPT 36561; principal; 2017-12-02 10:00)
DX: C18.9 Malignant neoplasm of colon, unspecified (principal); Z45.2 Encounter for adjustment and management of vascular access device; Z85.3 Personal history of malignant neoplasm of breast; E55.9 Vitamin D deficiency, unspecified; D64.9 Anemia, unspecified; E11.9 Type 2 diabetes mellitus without complications; G47.33 Obstructive sleep apnea (adult) (pediatric); Z90.13 Acquired absence of bilateral breasts and nipples; Z79.84 Long term (current) use of oral hypoglycemic drugs; Z79.899 Other long term (current) drug therapy
CPT/HCPCS: 36561; 71045; 77001; 82962; C1788

== ENCOUNTER → 2017-12-13 10:33 | Outpatient (CLI) | payer MEDICARE, OTHER, SELFPAY ==
--- NOTE | 2017-12-13 10:38 | NM_ITS ---
CLINICAL: 67-year-old female with reported history of colorectal carcinoma. WHOLE BODY 99m Tc MDP RADIONUCLIDE BONE SCINTIGRAPHY COMPARISON: None available FINDINGS: Following the intravenous administration of 25.4 mCi of 99m Tc MDP, whole body bone images reveal: 1. Increased radiopharmaceutical concentration is identified in the upper-mid cervical spine posteriorly on the left, second-12th thoracic vertebra posteriorly on the left and right, the acromioclavicular compartments of both shoulders, sternoclavicular compartment of the right shoulder, third-fifth lumbar vertebra, right wrist, the left hip, bilateral knees, the right ankle, right-left midfoot, forefoot bilaterally. 2. The remaining skeletal structures are scintigraphically unremarkable with the bilateral renal images and urinary bladder activity identified. NM/Bone Scan Whole Body IMPRESSION: 1. The increase in radiopharmaceutical concentration identified in the cervical, thoracic and lumbar spine, bilateral shoulders, right wrist, left hip, both knees, right ankle, the midfoot and forefoot bilaterally is most consistent with degenerative arthritis. 2. there is no definitive typical scintigraphic evidence of skeletal metastatic disease on the current examination. Electronically Signed: Dariusz Li DO at 11:48 EDT Tel , Service support ,
== END ==
PROVIDERS: Family Provider Family Medicine; PCP Family Medicine; Referring Provider Internal Medicine Hematology & Oncology; Visit Provider Internal Medicine Hematology & Oncology
DX: C18.9 Malignant neoplasm of colon, unspecified (principal); C77.9 Secondary and unspecified malignant neoplasm of lymph node, unspecified
CPT/HCPCS: 78306

== ENCOUNTER → 2017-12-14 08:42 | Outpatient (CLI) | payer MEDICARE, OTHER, SELFPAY ==
--- NOTE | 2017-12-14 08:46 | CT_ITS ---
STUDY: CT CHEST WITH CONTRAST REASON FOR EXAM: Female, 67 years old. Initial staging. History of breast carcinoma, colon carcinoma, fallopian tube carcinoma. Had port placement 2 weeks ago. Previous bilateral mastectomy with chemotherapy and hysterectomy. RADIATION DOSAGE (If Supplied By Facility): CTDIvol = ( 17.75 ) mGy, DLP = ( 748.15 ) mGycm TECHNIQUE: Transaxial imaging was performed following intravenous administration of 100 ml of Isovue 300 contrast material. Coronal and sagittal reconstructions were performed. Individualized dose optimization techniques were used for this CT. COMPARISON: None. FINDINGS: Prominent soft tissue density adjacent to the left common carotid artery. This is most likely a dilated left internal jugular vein rather than mass. Ultrasound will help to confirm. Focal linear atelectases with air bronchograms in the posterior aspect of the left lower lobe. Minimal linear subsegmental atelectasis in the bibasilar region. No suspicious pulmonary nodules or infiltrates. There is no demonstrated pleural abnormality. Normal heart and pericardium. Normal mediastinum. Normal hilar regions. Normal enhanced pulmonary arteries. Normal aorta arch and descending thoracic aorta. No acute osseous abnormality. No lytic or blastic metastatic disease. Diffuse idiopathic skeletal hyperostosis in the bottom half of the thoracic spine. There is no demonstrated abnormality of the visualized upper abdomen. CT/Chest WITH Contrast IMPRESSION: 1. Focal linear atelectasis with air bronchograms in the left lower lobe. 2. Linear subsegmental atelectasis in the bibasilar region. 3. No suspicious metastatic pulmonary nodules or metastatic lymphadenopathy. 4. No CT evidence of lytic or blastic bone metastatic disease. 5. Prominent soft tissue adjacent the left common carotid artery is presumably a dominant and dilated left internal jugular vein. Correlation with physical exam will help exclude the presence of a mass in the left medial neck base. Ultrasound will also help confirm if desired. Electronically Signed: Mumtaz Jamil MD at 14:44 EDT , Service support ,
[2017-12-14 09:59] LABS: Absolute Lymphocyte Count 0.82 X10^3/ul (0.83-4.51); Basophil# 0.03 X10^3/uL; Basophil% 0.4 % (0-1); Eosinophils% 11.9 % (0-5); Hematocrit 29.8 % (37-47); Hemoglobin 9.3 g/dl (12.0-15.0); Lymphocyte # 0.82 X10^3/ul (4.0); Lymphocyte % 10.8 % (19-41); Mean Corp Hgb Conc 31.2 g/gl (32-36); Mean Corpuscular Hgb 26.9 pg (27.0-32.0); Mean Corpuscular Volume 86.1 fL (81-99); Mean Platelet Vol. 10.3 fl (6.2-12.0); Monocyte# 0.84 X10^3/uL; Monocyte% 11.1 % (0-10); Neutrophil # 4.99 X10^3/uL (2.7-7.7); Neutrophil % 65.7 % (47-70); Platelet Count 351 K/mm3 (150-450); RBC Distribution Width CV 15.5 % (11.6-14.6); RBC Distribution Width SD 47.3 fl (35.1-43.9); Red Blood Count 3.46 M/mm3 (4.2-5.4); White Blood Count 7.6 K/mm3 (4.4-11.0)
[2017-12-14 10:00] LABS: POSITIVE COUNT NO; POSITIVE DIFFERENTIAL NO; POSITIVE MORPHOLOGY NO
[2017-12-14 10:17] LABS: ALB/GLOB Ratio 0.7 RATIO (0.9-2.4); AST(SGOT) 30 U/L (15-37); Alanine Aminotransfer ALT/SGPT 18 U/L (13-56); Alkaline Phosphatase 81 U/L (45-117); Anion Gap 10 (5-15); BUN 16 mg/dL (7-18); BUN/Creat Ratio 16.3 RATIO (10-20); Calcium,Total 9.2 mg/dL (8.5-10.1); Chloride 102 mmol/L (98-107); Creatinine, Serum 0.98 mg/dL (0.55-1.02); EST Glomerular Filtration Rate 61 mL/min (>60); Est Glom Filt Rate - Afr Amer 73 mL/min (>60); Ferritin 164 ng/mL (8-252); Globulin 4.2 g/dL (2.2-4.2); Glucose 102 mg/dL (74-106); Iron 20 ug/dL (50-170); Iron Binding Capacity,Total 248 ug/dL (250-450); PERCENT IRON SATURATION 8.1 % (15.0-55.0); Potassium 4.4 mmol/L (3.5-5.1); Protein, Total 7.2 g/dL (6.4-8.2); Sodium Level 137 mmol/L (136-145)
[2017-12-15 11:09] LABS: Carcinoembryonic Antigen 18.5 ng/mL (0.0-4.7)
== END ==
PROVIDERS: Family Provider Family Medicine; PCP Family Medicine; Referring Provider Internal Medicine Hematology & Oncology; Visit Provider Internal Medicine Hematology & Oncology
DX: C18.9 Malignant neoplasm of colon, unspecified (principal); C77.9 Secondary and unspecified malignant neoplasm of lymph node, unspecified; D64.9 Anemia, unspecified
CPT/HCPCS: 36415; 71260; 80053; 82378; 82728; 83540; 83550; 85025; Q9967; A4216

== ENCOUNTER 2017-12-23 11:23 | Inpatient (IN) | payer MEDICARE, OTHER, SELFPAY ==
[2017-12-23] VITALS (14 sets, daily range): BP systolic 104–139; BP diastolic 68–99; PULSE 101–116; RESP 18–27; TEMP 36.6–36.9; O2SAT 93–100; BMI 45.1; BMI 45.2; BMI 44.1
--- NOTE | 2017-12-23 12:09 | RAD_ITS ---
STUDY: X-RAY CHEST REASON FOR EXAM: Female, 67 years old. Shortness of breath. Wheezing and weakness. History of breast cancer. Status post bilateral mastectomy. TECHNIQUE: Single AP portable view of the chest. COMPARISON: Comparison is made with prior study dated December 02, 2017. FINDINGS: A right-sided portacatheter is in situ with the tip in the midportion of the superior vena cava. EKG electrodes are seen. The lungs are clear and expanded. There is no demonstrated pleural abnormality. Normal size heart. Normal mediastinum and nish. There is prominence of the pulmonary hilar arteries without peripheral pulmonary vascular congestion, suggesting pulmonary hypertension. Normal visualized aortic arch and descending thoracic aorta. There are diffuse degenerative changes of the visualized thoracic spine. Normal visualized ribs, clavicles, and shoulders. There is no demonstrated abnormality of the visualized soft tissue structures of the upper abdomen. RAD/Chest 1 View (Portable) IMPRESSION: Enlargement of the pulmonary arteries bilaterally. The lungs are clear. Electronically Signed: Chris Hernandez MD at 12:32 EDT Tel [phone], Service support ,
--- NOTE | 2017-12-23 12:09 | EKG12_ITS ---
Test Reason : SOB Blood Pressure : / mmHG Vent. Rate : 109 BPM Atrial Rate : 109 BPM P-R Int : 156 ms QRS Dur : 134 ms QT Int : 386 ms P-R-T Axes : 060 -02 119 degrees QTc Int : 519 ms Sinus tachycardia Left bundle branch block Abnormal ECG Confirmed by ATIYA CAGE MD ([id number]), make up editor NICHOLAS MUSA ([id number]) on 12/27/2017 3:55:19 PM Referred By: Kevin Varghese Confirmed By:ATIYA CAGE MD
[2017-12-23 12:36] LABS: Absolute Lymphocyte Count 1.06 X10^3/ul (0.83-4.51); Absolute Neutrophil Count 6.6 X10^3/uL (2.0-7.7); Basophil# 0.03 X10^3/uL; Basophil% 0.3 % (0-1); Eosinophil# 0.41 X10^3/uL; Eosinophils% 4.5 % (0-5); Hematocrit 35.4 % (37-47); Lymphocyte # 1.06 X10^3/ul (4.0); Lymphocyte % 11.7 % (19-41); Mean Corp Hgb Conc 31.1 g/gl (32-36); Mean Corpuscular Volume 83.7 fL (81-99); Mean Platelet Vol. 9.9 fl (6.2-12.0); Monocyte# 0.99 X10^3/uL; Monocyte% 10.9 % (0-10); Neutrophil # 6.57 X10^3/uL (2.7-7.7); Neutrophil % 72.5 % (47-70); POSITIVE COUNT NO; POSITIVE DIFFERENTIAL NO; POSITIVE MORPHOLOGY NO; Platelet Count 459 K/mm3 (150-450); RBC Distribution Width CV 16.4 % (11.6-14.6); RBC Distribution Width SD 50.1 fl (35.1-43.9); Red Blood Count 4.23 M/mm3 (4.2-5.4); White Blood Count 9.1 K/mm3 (4.4-11.0)
[2017-12-23] MEDS: 0.9% Normal Saline 1,000 ML 150 ML IV (12:36)
[2017-12-23 12:47] LABS: Anion Gap 11 (5-15); BUN 24 mg/dL (7-18); BUN/Creat Ratio 21.2 RATIO (10-20); Calcium,Total 9.3 mg/dL (8.5-10.1); Chloride 102 mmol/L (98-107); Creatinine, Serum 1.13 mg/dL (0.55-1.02); EST Glomerular Filtration Rate 51 mL/min (>60); Est Glom Filt Rate - Afr Amer 62 mL/min (>60); Estimated Creatinine Clearance 41.06 ml/min; Glucose 121 mg/dL (74-106); Potassium 4.4 mmol/L (3.5-5.1); Sodium Level 136 mmol/L (136-145)
[2017-12-23 13:11] LABS: D-Dimer Quantitative (DVT/PE) 6.45 FEU/ug/m (0.27-0.49)
--- NOTE | 2017-12-23 13:13 | CT_ITS ---
STUDY: CTA CHEST REASON FOR EXAM: Female, 67 years old. One-day history of shortness of breath. History of stage IV colon carcinoma. RADIATION DOSAGE (If Supplied By Facility): CTDIvol = ( 17.65 ) mGy, DLP = ( 622.06 ) mGycm TECHNIQUE: The examination was performed with the intravenous administration of 100 ml of Isovue 370 contrast material. Post-processing of the angiographic images was performed, with multiplanar reformation and 3D reconstruction. Individualized dose optimization techniques were used for this CT. COMPARISON: Comparison is made with prior examination dated December 14, 2017. FINDINGS: Multiple bilateral intraluminal filling defects are seen in the distal left and right pulmonary arteries extending into the branches. This is in keeping with extensive pulmonary embolism. The pulmonary arteries are enlarged bilaterally. Normal thoracic aorta and visualized great vessels. There is no demonstrated aortic dissection. Normal heart and pericardium. Normal mediastinum. Normal hilar regions. Normal visualized trachea and bronchi. The lungs are well expanded. Mild degree of increased markings at the left lung base suggestive of right basilar atelectasis and/or early infiltrate. Mild increased markings in the lateral peripheral aspect of the superior segment of the left lower lobe suggestive of atelectasis and/or early infiltrate. Normal pleura. Normal chest wall structures. There are degenerative changes of thoracic spine. Loss of height of mid dorsal vertebrae. Metastasis cannot be excluded. Multiple rounded soft tissue masses seen in the peripancreatic region as well as the jaspal hepatis. This is suggestive of a adenopathy. An underlying pancreatic mass cannot be excluded. Tiny rounded densities as well as linear densities are seen in the peritoneal fat anterior to the left kidney. Omental metastasis should be ruled out. CT/CTA Chest W/WO Contrast IMPRESSION: Diffuse bilateral pulmonary emboli. Masses surrounding the pancreas and the region of the jaspal hepatis suggestive of adenopathy. Electronically Signed: Chris Hernandez MD at 14:06 EDT Tel [phone], Service support ,
--- NOTE | 2017-12-23 14:06 | ED.VISSUMM ---
- ER Visit Summary Date of Service: 12/23/17 Chief Complaint: Short Of breath, dehydration History of Present Illness: The patient is a 67 F with stage IV colon cancer. Patient was discharged from the TCU on December 10. She had a recent colectomy and had a port placed. She is scheduled to start chemotherapy next week. Patient has had very poor appetite and decreased p.o. intake over the past 2 weeks. She reports loss of 20 pounds in the past 9 days. She reports having shortness of breath since yesterday. She denies chest pain. She was seen at her PCPs office and then referred to the ER today. Physical Examination: Blood pressure is 123/74, temperature 98, heart rate 116, respiratory rate 18, pulse ox 94% on room air. Patient is sitting upright in bed in no acute distress. She is alert and talkative. Head neck examination is unremarkable. Heart is tachycardic. Lung sounds are clear. Abdomen is soft and nontender. Lower extremity examination does reveal 2+ edema bilaterally that is symmetric. Legs are nontender. Test Results: EKG is sinus tach at 109. There is a new left bundle branch block when compared to prior study from November 15 of this year. CBC reveals white count that is normal with hemoglobin 11.0. Chemistry studies reveal BUN 24 and creatinine 1.13. Troponin is elevated at 0.250. D-dimer is 6.45. Portable chest x-ray shows enlargement of pulmonary arteries bilaterally. Lungs are clear. CTA of the chest reveals large bilateral pulmonary emboli. Radiologist does note patient has adenopathy in the claudia-pancreatic space as well. Emergency Department Course and Treatment: Patient was given IV fluids. Upon completion of the CAT scan I spoke with supervisor food checkers and cashiers as well as cardiology. Patient be placed on heparin bolus and drip. She will be monitored in the ICU. Hospitalist is on page at this time and I will also contact PCP that sent the patient in to update them on her current findings. Treatment Plan: [] Disposition: Admit Impression: 1. Bilateral pulmonary emboli 2. Elevated troponin 3. New left bundle branch block This note was generated with [employer] dictation software. It may contain incorrect words, spelling, and punctuation that were not noted in review of the chart prior to signing ED Disposition - Plan for ED Patient: Chief Complaint: Shortness of Breath Referrals: Jose Daniel Yang, [Primary Care Provider] -
[2017-12-23] MEDS: HEPARIN/D5w 25,000 UNITS 25,000 UNITS/250 ML IV.SOLN. 10 UNITS IV (14:14)
[2017-12-23 14:19] LABS: International Normalized Ratio 1.2; Prothrombin Time (Protime)PT. 15.1 SECONDS (11.7-14.9)
[2017-12-23] MEDS: Heparin 10,000 UNITS/10 ML Vial 4000 UNITS IV (14:21)
--- NOTE | 2017-12-23 15:17 | HP.PCM_ITS ---
Problem List (1) Bilateral pulmonary embolism Status: Acute (2) Colon cancer metastasized to intra-abdominal lymph node Status: Chronic (3) SCOOTER (iron deficiency anemia) Status: Chronic (4) Diabetes mellitus Status: Chronic (5) Hypothyroidism Status: Chronic (6) Depression Status: Chronic (7) Hyperlipemia Status: Chronic (8) Hypertension Status: Chronic History of Present Illness Date of Admission: 12/23/17 Chief Complaint: SOB The patient is a 67 year old F with a h/o HTN. HLD, DM2, Hypothyroidism, and Stage 4 colon cancer s/p resection on 11/15 presenting with a one day h/o SOB. She went to her PCP and for evaluation and he sent her to the ER. In the Er she was found to have a new LBBB and an elevated troponin. CTA demonstrated diffuse PE. The ER physician discussed the case with the shelter advocate for admission in the ICU. The patient denies CP,and did not have any recent leg swelling. Past Medical History Past Medical History (Chronic Problems): Chronic Problems (Last Updated 12/23/17 @ 10:14 by Catina Burciaga) Colon cancer (Chronic) Colon cancer metastasized to intra-abdominal lymph node (Chronic) SCOOTER (iron deficiency anemia) (Chronic) Diabetes mellitus (Chronic) Osteoarthritis of left hip (Chronic) Breast cancer (Chronic) Hypothyroidism (Chronic) Depression (Chronic) Nausea (Chronic) Left hip pain (Chronic) Arthritis (Chronic) Type 2 diabetes mellitus (Chronic) IBS (irritable bowel syndrome) (Chronic) Hyperlipemia (Chronic) Hypertension (Chronic) Medical History: Medical History (Last Updated 12/23/17 @ 10:14 by Catina Buricaga) Colon cancer (Chronic) C18.9 Hypercalcemia (Acute) E83.52 Vitamin D deficiency (Acute) E55.9 Arthritis (Chronic) M19.90 Type 2 diabetes mellitus (Chronic) E11.9 History of breast cancer (Acute) Z85.3 started in 1997 IBS (irritable bowel syndrome) (Chronic) K58.9 Parathyroid abnormality (Acute) E21.5 Hyperlipemia (Chronic) E78.5 Hypertension (Chronic) I10 History of hysterectomy Z90.710 due to postmenopausal bleeding and history of breast cancer Allergies amoxicillin [From Augmentin] Allergy (Severe, Verified 12/23/17 14:03) Hives clavulanic acid [From Augmentin] Allergy (Severe, Verified 12/23/17 14:03) Hives Home Medications: Ambulatory Orders Medication Instructions Recorded calcium carbonate 600 mg calcium 600 mg PO BID tab 08/17/17 (1,500 mg) tablet levothyroxine 50 mcg tablet 50 mcg PO DAILY@0600 08/17/17 metformin 500 mg tablet 1,000 mg PO BIDCM tab 08/17/17 Citalopram [Celexa] 10 mg PO DAILY 11/09/17 Atorvastatin Calcium [Lipitor] 40 mg PO QHS 11/14/17 Nabumetone [Relafen] 750 mg PO BID 11/20/17 Acetaminophen [Tylenol] 1,000 mg PO Q8H PRN PRN tab 12/03/17 Doxepin HCl 50 mg PO QHS #30 cap 12/03/17 Iron Polysaccharide Complex 150 mg PO DAILYCM #30 cap 12/03/17 [Ferrex 150] Multivitamins,Therapeutic 1 tab PO DAILY@0800 tab 12/03/17 [Multivitamin] Potassium Chloride [K-Dur] 20 meq PO DAILYCM #30 tab 12/03/17 Lidocaine/Prilocaine 30 gm TP DAILY PRN PRN 30 Days #1 12/14/17 [Lidocaine-Prilocaine Cream] cream..g. Ondansetron HCl [Zofran] 4 mg PO Q8H PRN PRN 30 Days #30 tab 12/14/17 Cholecalciferol (Vitamin D3) 5,000 unit PO DAILY 12/23/17 [Vitamin D3] Escitalopram Oxalate [Lexapro] 10 mg PO DAILY 12/23/17 Surgical History: Surgical History (Last Reviewed 12/23/17 @ 10:14 by Catina Burciaga) History of bilateral mastectomy Z90.13 History of left knee surgery Z98.890 History of lumpectomy of right breast Z98.890 1997 History of parathyroidectomy Z98.890 2017, due to enlargement. History of tonsillectomy Z90.89 Hx of colectomy Z90.49 12/09 s/p port placement 12/09 Surgical History: hysterectomy, mastectomy - Bilateral., tonsillectomy, - - Parathyroidectomy. 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 Denies: Cough, Sputum production Gastrointestinal: Denies: Abdominal Pain, Nausea, Vomiting Genitourinary: Denies: Dysuria Musculoskeletal: Denies: Joint Pain, Joint Tenderness Skin: Denies: Rash, Wounds Neurological: Denies: Numbness, Tingling, Focal weakness Psychiatric: Reports: Depression. Denies: Anxiety Hematologic/ Lymphatic: Denies: Easy Bruising, Easy Bleeding VTE Information - Inpt Only VTE Present on Admission: Yes VTE Mechan Device Prophylaxis: None VTE Pharm Prophylaxis ordered?: Yes Patient Problems: Active and Suspected Problems (Last Updated 12/23/17 @ 10:14 by Catina Burciaga) Bilateral pulmonary embolism (Acute) - Physical Exam General: Alert, Oriented x3, Cooperative, No apparent distress HEENT: Atraumatic, PERRLA, EOMI, Normocephalic Oral: Moist Mucosa Neck: Supple, No JVD Lungs: Clear to auscultation, Normal air movement, No rhonchi, No wheeze, No rales Cardiovascular: Regular Rhythm, Normal S1, Normal S2, No murmurs, Tachycardic Abdomen: Soft, Non Tender, Non-Distended, No Hepato-splenomegaly Extremities: No edema, Capillary Refill Less than 3 Seconds Skin: No rashes, No breakdown, Incision - CDI Musculoskeletal: No Tenderness to Palpation of Joints or Extremities Neurological: Neuro grossly intact, Sensory exam intact to light touch and pain Psych/Mental Status: Normal Affect, Appropriate Vital Signs Temp Pulse Resp BP Pulse Ox 98 F 102 H 18 132/98 H 98 12/23/17 11:24 12/23/17 13:53 12/23/17 13:53 12/23/17 13:53 12/23/17 13:53 Oxygen Flow Rate (L/min) 3 Oxygen Delivery Method Nasal Cannula Weight: 255 lb Body Mass Index (BMI) 45.1 Finger Stick Blood Glucose 149 Laboratory Tests Past 24 Hrs 11/01/18 11/01/18 11/01/18 11:40 11:40 11:40 WBC 9.1 RBC 4.23 Hgb 11.0 L Hct 35.4 L MCV 83.7 MCH 26.0 L MCHC 31.1 L RDW 16.4 H RDW Differential 50.1 H Plt Count 459 H MPV 9.9 Immature Gran % (Auto) 0.100 Neut % (Auto) 72.5 H Lymph % (Auto) 11.7 L [place] % (Auto) 10.9 H Eos % (Auto) 4.5 Baso % (Auto) 0.3 Absolute Neuts (auto) 6.6 Absolute Lymphs (auto) 1.06 Total Counted Not Reportable PT INR D-Dimer Quant (PE/DVT) 6.45 H* Sodium 136 Potassium 4.4 Chloride 102 Carbon Dioxide 23.0 Anion Gap 11 BUN 24 H Creatinine 1.13 H Estim Creat Clear Calc 41.06 Est GFR (MDRD) Af Amer 62 Est GFR (MDRD) Non-Af 51 L BUN/Creatinine Ratio 21.2 H Glucose 121 H Calcium 9.3 Troponin I 0.250 H 12/23/17 11:40 WBC RBC Hgb Hct MCV MCH MCHC RDW RDW Differential Plt Count MPV Immature Gran % (Auto) Neut % (Auto) Lymph % (Auto) [place] % (Auto) Eos % (Auto) Baso % (Auto) Absolute Neuts (auto) Absolute Lymphs (auto) Total Counted PT 15.1 H INR 1.2 D-Dimer Quant (PE/DVT) Sodium Potassium Chloride Carbon Dioxide Anion Gap BUN Creatinine Estim Creat Clear Calc Est GFR (MDRD) Af Amer Est GFR (MDRD) Non-Af BUN/Creatinine Ratio Glucose Calcium Troponin I Assessment/Plan All Active Problems (Last Updated 12/23/17 @ 10:14 by Catina Burciaga) Bilateral pulmonary embolism (Acute) Educational circumstance (Acute) 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 Bilateral PE with elevated troponin and new LBBB/Stage 4 colon cancer with lymph node mets - Heparin gtt, will need to transition to therapeutic lovenox at discharge as the drug of choice - Serial cardiac enzymes - c/s to intensivitist and cardiology - echo in the am - IVF@125 2. DM2 - will hold metformin and start SSI with accuchecks 3. HLD - Stable - c/w lipitor 4. Iron deficiency anemia - Hgb 11 - C/w iron replacement 5. Hypothyroidism - stable, TSH 2 - Synthroid 50 mcg daily 6. Depression and Insomnia - she is on 3 different SSRI high risk for serotonin syndrome - Will DC all three start on Zoloft 50 mg with the goal increase to 100-150 mg after discharge - If her depression is uncontrolled then can add Wellbutrin or BuSpar if needed DVT: Heparin gtt Code Visit Inpatient E&M: 54420 Init Hosp L3
--- NOTE | 2017-12-23 16:20 | ECHOD_ITS ---
Reason For Study: Emboli Procedure This was a 2D Doppler, Color Flow transthoracic echocardiogram. Myocardial strain analysis was performed in this exam to aid in the assessment of cardiac function. Exam performed portable in ICU/CCU. Left Ventricle Normal LV size. The estimated ejection fraction is 50 %. Septal motion consistent with IVCD. Stage 1 diastolic dysfunction. The global longitudinal strain is moderately abnormal. The global longitudinal strain = -13.7% (abnormal). No regional wall motion abnormalities noted. Right Ventricle Normal RV size. Normal systolic function. Atria Normal left atrium. Normal right atrium. Mitral Valve Normal mitral valve. Tricuspid Valve Normal tricuspid valve. Mild (1+) tricuspid valve insufficiency. Pulmonary artery systolic pressure is 32 mmHg. Aortic Valve Trisinus/trileaflet aortic valve. Mild focal aortic valve calcification. Pulmonic Valve Normal pulmonic valve. Great Vessels Normal aortic root. The pulmonary artery is normal size. Normal inferior vena cava. Pericardium/Pleural No pericardial effusion. MMode/2D Measurements & Calculations LVIDd: 3.8 cm IVSd: 1.3 cm Ao root diam: 2.7 cm LVIDs: 2.8 cm LVPWd: 0.74 cm LA dimension: 3.2 cm RVDd: 4.3 cm FS: 27.2 % LAV(MOD-bp): 28.1 ml LVAd ap4: 22.2 cm2 SV(MOD-sp4): 19.7 ml LAV(MOD-bp) Indexed: 13.2 ml/m2 EDV(MOD-sp4): 46.1 ml LAV(MOD-sp2): 39.2 ml EDV(sp4-el): 47.7 ml LAV(MOD-sp4): 19.9 ml LVAs ap4: 14.6 cm2 ESV(MOD-sp4): 26.3 ml ESV(sp4-el): 25.6 ml EF(MOD-sp4): 42.9 % EF(sp4-el): 46.4 % SV(sp4-el): 22.1 ml LA A4 area: 11.2 cm2 RA A4 area: 10.7 cm2 Doppler Measurements & Calculations MV E max rubin: 36.5 cm/sec Lat Peak E' Rubin: 5.5 cm/sec Med Peak E' Rubin: 7.8 cm/sec MV A max rubin: 109.7 cm/sec E/E' lat: 6.7 E/E' med: 4.7 MV E/A: 0.33 Ao V2 max: 142.9 cm/sec LV V1 max: 113.9 cm/sec PA V2 max: 79.1 cm/sec Ao max P.2 mmHg LV V1 max P.2 mmHg Ao V2 mean: 102.8 cm/sec Ao mean P.8 mmHg Ao V2 VTI: 22.8 cm TR max rubin: 261.5 cm/sec TR max P.4 mmHg Interpretation Summary Normal LV size. The estimated ejection fraction is 50 %. Septal motion consistent with IVCD. Stage 1 diastolic dysfunction. The global longitudinal strain is moderately abnormal. Pulmonary artery systolic pressure is 32 mmHg. Ordering Physician: Jose Andrews Referring Physician: Jose Daniel Yang Performed By: Sylvia Lomas RDCS, RVT
[2017-12-23 16:25] LABS: Bedside Glucose 102 mg/dL (70-110)
--- NOTE | 2017-12-23 18:02 | PCM.CONS.C ---
Reason for Consult Date of Consultation: 12/23/17 Reason for Consultation: Abnormal cardiac enzymes History of Present Illness: The patient is a 67 year old F with a history of recurrent breast carcinoma status post chemotherapy and now with recently diagnosed stage IV colon cancer. Patient was discharged from the TCU on December 10. She had a recent colectomy and had a port placed. She is scheduled to start chemotherapy next week. Patient has had very poor appetite and decreased p.o. intake over the past 2 weeks. She reports loss of 20 pounds in the past 9 days. She reports having shortness of breath since yesterday. She denies chest pain. She was seen at her PCPs office and then referred to the ER today. She was evaluated in the emergency room and was noted to be tachycardic with a new left bundle branch block. A d-dimer was obtained which was noted to be elevated and a CAT scan was performed which demonstrated evidence of bilateral significant pulmonary emboli. She was admitted to the intensive care unit and cardiology consulted due to the abnormal cardiac troponin enzymes. She did not have any dizziness or diaphoresis no near syncope or syncope. She has not had any recent prolonged travel. She however has been hospitalized as noted above recently Past Medical History Allergies/Adverse Reactions: Allergies amoxicillin [From Augmentin] Allergy (Severe, Verified 12/23/17 14:03) Hives clavulanic acid [From Augmentin] Allergy (Severe, Verified 12/23/17 14:03) Hives Home Medications: Ambulatory Orders Medication Instructions Recorded calcium carbonate 600 mg calcium 600 mg PO BID tab 08/17/17 (1,500 mg) tablet levothyroxine 50 mcg tablet 50 mcg PO DAILY@0600 08/17/17 metformin 500 mg tablet 1,000 mg PO BIDCM tab 08/17/17 Citalopram [Celexa] 10 mg PO DAILY 11/09/17 Atorvastatin Calcium [Lipitor] 40 mg PO QHS 11/14/17 Nabumetone [Relafen] 750 mg PO BID 11/20/17 Acetaminophen [Tylenol] 1,000 mg PO Q8H PRN PRN tab 12/03/17 Doxepin HCl 50 mg PO QHS #30 cap 12/03/17 Iron Polysaccharide Complex 150 mg PO DAILYCM #30 cap 12/03/17 [Ferrex 150] Multivitamins,Therapeutic 1 tab PO DAILY@0800 tab 12/03/17 [Multivitamin] Potassium Chloride [K-Dur] 20 meq PO DAILYCM #30 tab 12/03/17 Lidocaine/Prilocaine 30 gm TP DAILY PRN PRN 30 Days #1 12/14/17 [Lidocaine-Prilocaine Cream] cream..g. Ondansetron HCl [Zofran] 4 mg PO Q8H PRN PRN 30 Days #30 tab 12/14/17 Cholecalciferol (Vitamin D3) 5,000 unit PO DAILY 12/23/17 [Vitamin D3] Escitalopram Oxalate [Lexapro] 10 mg PO DAILY 12/23/17 Past Medical History (Chronic Problems): Chronic Problems (Last Updated 12/23/17 @ 10:14 by Catina Burciaga) Colon cancer (Chronic) Colon cancer metastasized to intra-abdominal lymph node (Chronic) SCOOTER (iron deficiency anemia) (Chronic) Diabetes mellitus (Chronic) Osteoarthritis of left hip (Chronic) Breast cancer (Chronic) Hypothyroidism (Chronic) Depression (Chronic) Nausea (Chronic) Left hip pain (Chronic) Arthritis (Chronic) Type 2 diabetes mellitus (Chronic) IBS (irritable bowel syndrome) (Chronic) Hyperlipemia (Chronic) Hypertension (Chronic) Surgical History: hysterectomy, mastectomy - Bilateral., tonsillectomy, - - Parathyroidectomy. 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 Denies: Fever, Night Sweats HEENT: Denies: Vision Change Cardiovascular: Reports: Shortness of Breath, Shortness of Breath at Rest. Denies: Chest Discomfort, Orthopnea, PND, Peripheral Edema, Palpitations, Lightheadedness, Dizziness, Near Syncope, Syncope Respiratory: Denies: Cough, Sputum Production, Hemoptysis Gastrointestinal: Denies: Hematemesis, Hematochezia, Melena Genitourinary: Denies: Dysuria, Hematuria Muscoloskeletal: Denies: Myalgias Skin: Denies: Rash Neurological: Reports: Weakness. Denies: Dizziness Psychiatric: Denies: Anxiety Endocrine: Reports: Unexplained Weight Loss Hematologic/ Lymphatic: Reports: Anemia Subjectve: Pleasant lady no apparent distress Objective: Vital Signs Temp Pulse Resp BP Pulse Ox 97.8 F 104 H 23 H 112/68 100 12/23/17 16:00 12/23/17 16:00 12/23/17 16:00 12/23/17 16:00 12/23/17 16:00 Oxygen Flow Rate (L/min) 3 Oxygen Delivery Method Nasal Cannula Weight: 249 lb 1.957 oz Body Mass Index (BMI) 44.1 Finger Stick Blood Glucose 149 General: Awake, Alert, Oriented x 3 HEENT: PERRL, EOMI, Sclera Non Icteric Neck: Supple, Good ROM, No Lymph Node Enlargement Chest Wall: - - Bilateral mastectomy Lungs: Clear to auscultation Cardiovascular: Regular Rhythm, Normal S1, Normal S2, No Murmurs, No Rubs, No Gallops Vascular: No Carotid Bruits, Normal Femoral Pulses, Normal Radial Pulses, Normal Dorsalis Pedal Pulse, Normal Posterior Tibial Pulses Abdomen: Bowel Sounds Present, Soft, Non Tender, No HSM, No Organomegaly Extremities: No Cyanosis, No Clubbing, No edema Lymphatic: No Lymph Node Enlargement Neurological: No Focal Motor or Sensory Deficit Psych/Mental Status: Appropriate 12/23/17 11:40: WBC 9.1, RBC 4.23, Hgb 11.0 L, Hct 35.4 L, MCV 83.7, MCH 26.0 L, MCHC 31.1 L, RDW 16.4 H, RDW Differential 50.1 H, Plt Count 459 H, MPV 9.9, Immature Gran % (Auto) 0.100, Neut % (Auto) 72.5 H, Lymph % (Auto) 11.7 L, [place] % (Auto) 10.9 H, Eos % (Auto) 4.5, Baso % (Auto) 0.3, Absolute Neuts (auto) 6.6, Total Counted Not Reportable 12/23/17 11:40: D-Dimer Quant (PE/DVT) 6.45 H* 12/23/17 11:40: Sodium 136, Potassium 4.4, Chloride 102, Carbon Dioxide 23.0, Anion Gap 11, BUN 24 H, Creatinine 1.13 H, Est GFR (MDRD) Af Amer 62, Est GFR (MDRD) Non-Af 51 L, BUN/Creatinine Ratio 21.2 H, Glucose 121 H, Calcium 9.3, Troponin I 0.250 H 12/23/17 11:40: PT 15.1 H, INR 1.2 12/23/17 16:10: Troponin I 0.236 H Rhythm: EKG: ECHO: Stress Test: Cardiac Cath: PCI: CT Surgery: Holter monitor: EPS: PPM: CXR: Chest CT Scan: Assessment/Plan 1. Abnormal cardiac enzymes The above is likely secondary to the extensive pulmonary emboli rather than primary coronary artery disease. My recommendation at this time is to continue with supportive therapy and obtain an echocardiogram to assess her left ventricular function. She will continue with anticoagulation with heparin. There is no indication for tissue plasminogen activator at this particular time. 2. New onset left bundle branch block This is certainly new compared to her electrocardiogram from October of this year. Like to obtain an echocardiogram to exclude a cardiomyopathic process. I have explained to the family that at this time supportive therapy would be the modus operandi. Thank you for allowing me to participate in the care of your patient. Please don't hesitate to call if any issues arise
--- NOTE | 2017-12-23 18:08 | CON.PCM_ITS ---
Reason for Consult Date of Consultation: 12/23/17 Reason for Consultation: Abnormal cardiac enzymes History of Present Illness: The patient is a 67 year old F with a history of recurrent breast carcinoma status post chemotherapy and now with recently diagnosed stage IV colon cancer. Patient was discharged from the TCU on December 10. She had a recent colectomy and had a port placed. She is scheduled to start chemotherapy next week. Patient has had very poor appetite and decreased p.o. intake over the past 2 weeks. She reports loss of 20 pounds in the past 9 days. She reports having shortness of breath since yesterday. She denies chest pain. She was seen at her PCPs office and then referred to the ER today. She was evaluated in the emergency room and was noted to be tachycardic with a new left bundle branch block. A d-dimer was obtained which was noted to be elevated and a CAT scan was performed which demonstrated evidence of bilateral significant pulmonary emboli. She was admitted to the intensive care unit and cardiology consulted due to the abnormal cardiac troponin enzymes. She did not have any dizziness or diaphoresis no near syncope or syncope. She has not had any recent prolonged travel. She however has been hospitalized as noted above recently Past Medical History Allergies/Adverse Reactions: Allergies amoxicillin [From Augmentin] Allergy (Severe, Verified 12/23/17 14:03) Hives clavulanic acid [From Augmentin] Allergy (Severe, Verified 12/23/17 14:03) Hives Home Medications: Ambulatory Orders Medication Instructions Recorded calcium carbonate 600 mg calcium 600 mg PO BID tab 08/17/17 (1,500 mg) tablet levothyroxine 50 mcg tablet 50 mcg PO DAILY@0600 08/17/17 metformin 500 mg tablet 1,000 mg PO BIDCM tab 08/17/17 Citalopram [Celexa] 10 mg PO DAILY 11/09/17 Atorvastatin Calcium [Lipitor] 40 mg PO QHS 11/14/17 Nabumetone [Relafen] 750 mg PO BID 11/20/17 Acetaminophen [Tylenol] 1,000 mg PO Q8H PRN PRN tab 12/03/17 Doxepin HCl 50 mg PO QHS #30 cap 12/03/17 Iron Polysaccharide Complex 150 mg PO DAILYCM #30 cap 12/03/17 [Ferrex 150] Multivitamins,Therapeutic 1 tab PO DAILY@0800 tab 12/03/17 [Multivitamin] Potassium Chloride [K-Dur] 20 meq PO DAILYCM #30 tab 12/03/17 Lidocaine/Prilocaine 30 gm TP DAILY PRN PRN 30 Days #1 12/14/17 [Lidocaine-Prilocaine Cream] cream..g. Ondansetron HCl [Zofran] 4 mg PO Q8H PRN PRN 30 Days #30 tab 12/14/17 Cholecalciferol (Vitamin D3) 5,000 unit PO DAILY 12/23/17 [Vitamin D3] Escitalopram Oxalate [Lexapro] 10 mg PO DAILY 12/23/17 Past Medical History (Chronic Problems): Chronic Problems (Last Updated 12/23/17 @ 10:14 by Catina Burciaga) Colon cancer (Chronic) Colon cancer metastasized to intra-abdominal lymph node (Chronic) SCOOTER (iron deficiency anemia) (Chronic) Diabetes mellitus (Chronic) Osteoarthritis of left hip (Chronic) Breast cancer (Chronic) Hypothyroidism (Chronic) Depression (Chronic) Nausea (Chronic) Left hip pain (Chronic) Arthritis (Chronic) Type 2 diabetes mellitus (Chronic) IBS (irritable bowel syndrome) (Chronic) Hyperlipemia (Chronic) Hypertension (Chronic) Surgical History: hysterectomy, mastectomy - Bilateral., tonsillectomy, - - Parathyroidectomy. 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 Denies: Fever, Night Sweats HEENT: Denies: Vision Change Cardiovascular: Reports: Shortness of Breath, Shortness of Breath at Rest. Denies: Chest Discomfort, Orthopnea, PND, Peripheral Edema, Palpitations, Lightheadedness, Dizziness, Near Syncope, Syncope Respiratory: Denies: Cough, Sputum Production, Hemoptysis Gastrointestinal: Denies: Hematemesis, Hematochezia, Melena Genitourinary: Denies: Dysuria, Hematuria Muscoloskeletal: Denies: Myalgias Skin: Denies: Rash Neurological: Reports: Weakness. Denies: Dizziness Psychiatric: Denies: Anxiety Endocrine: Reports: Unexplained Weight Loss Hematologic/ Lymphatic: Reports: Anemia Subjectve: Pleasant lady no apparent distress Objective: Vital Signs Temp Pulse Resp BP Pulse Ox 97.8 F 104 H 23 H 112/68 100 12/23/17 16:00 12/23/17 16:00 12/23/17 16:00 12/23/17 16:00 12/23/17 16:00 Oxygen Flow Rate (L/min) 3 Oxygen Delivery Method Nasal Cannula Weight: 249 lb 1.957 oz Body Mass Index (BMI) 44.1 Finger Stick Blood Glucose 149 General: Awake, Alert, Oriented x 3 HEENT: PERRL, EOMI, Sclera Non Icteric Neck: Supple, Good ROM, No Lymph Node Enlargement Chest Wall: - - Bilateral mastectomy Lungs: Clear to auscultation Cardiovascular: Regular Rhythm, Normal S1, Normal S2, No Murmurs, No Rubs, No Gallops Vascular: No Carotid Bruits, Normal Femoral Pulses, Normal Radial Pulses, Normal Dorsalis Pedal Pulse, Normal Posterior Tibial Pulses Abdomen: Bowel Sounds Present, Soft, Non Tender, No HSM, No Organomegaly Extremities: No Cyanosis, No Clubbing, No edema Lymphatic: No Lymph Node Enlargement Neurological: No Focal Motor or Sensory Deficit Psych/Mental Status: Appropriate 12/23/17 11:40: WBC 9.1, RBC 4.23, Hgb 11.0 L, Hct 35.4 L, MCV 83.7, MCH 26.0 L, MCHC 31.1 L, RDW 16.4 H, RDW Differential 50.1 H, Plt Count 459 H, MPV 9.9, Immature Gran % (Auto) 0.100, Neut % (Auto) 72.5 H, Lymph % (Auto) 11.7 L, [place] % (Auto) 10.9 H, Eos % (Auto) 4.5, Baso % (Auto) 0.3, Absolute Neuts (auto) 6.6, Total Counted Not Reportable 12/23/17 11:40: D-Dimer Quant (PE/DVT) 6.45 H* 12/23/17 11:40: Sodium 136, Potassium 4.4, Chloride 102, Carbon Dioxide 23.0, Anion Gap 11, BUN 24 H, Creatinine 1.13 H, Est GFR (MDRD) Af Amer 62, Est GFR (MDRD) Non-Af 51 L, BUN/Creatinine Ratio 21.2 H, Glucose 121 H, Calcium 9.3, Troponin I 0.250 H 12/23/17 11:40: PT 15.1 H, INR 1.2 12/23/17 16:10: Troponin I 0.236 H Rhythm: EKG: ECHO: Stress Test: Cardiac Cath: PCI: CT Surgery: Holter monitor: EPS: PPM: CXR: Chest CT Scan: Assessment/Plan 1. Abnormal cardiac enzymes * The above is likely secondary to the extensive pulmonary emboli rather than primary coronary artery disease. My recommendation at this time is to continue with supportive therapy and obtain an echocardiogram to assess her left ventricular function. * She will continue with anticoagulation with heparin. There is no indication for tissue plasminogen activator at this particular time. * 2. New onset left bundle branch block * This is certainly new compared to her electrocardiogram from October of this year. * Like to obtain an echocardiogram to exclude a cardiomyopathic process. * I have explained to the family that at this time supportive therapy would be the modus operandi. Thank you for allowing me to participate in the care of your patient. Please don't hesitate to call if any issues arise
[2017-12-23] MEDS: 0.9% Normal Saline 1,000 ML 125 ML IV (20:02)
[2017-12-23 20:45] LABS: Partial Thromboplast Time 42.5 Seconds (24.1-36.2)
[2017-12-23 21:55] LABS: Bedside Glucose 119 mg/dL (70-110)
[2017-12-23] MEDS: Acetaminophen 325 MG Tablet 650 MG PO (23:19)
[2017-12-24] VITALS (22 sets, daily range): BP systolic 108–152; BP diastolic 76–94; PULSE 65–113; RESP 15–25; TEMP 36.2–37; O2SAT 95–100
[2017-12-24] MEDS: 0.9% Normal Saline 1,000 ML 125 ML IV (04:03)
[2017-12-24 04:28] LABS: Hematocrit 30.3 % (37-47); Hemoglobin 9.4 g/dl (12.0-15.0); Mean Corpuscular Hgb 25.9 pg (27.0-32.0); Mean Corpuscular Volume 83.5 fL (81-99); Mean Platelet Vol. 9.5 fl (6.2-12.0); Platelet Count 358 K/mm3 (150-450); RBC Distribution Width CV 16.6 % (11.6-14.6); Red Blood Count 3.63 M/mm3 (4.2-5.4); Scan Indicated on CBC? Y/N NO; White Blood Count 7.3 K/mm3 (4.4-11.0)
[2017-12-24 04:38] LABS: Partial Thromboplast Time 52.6 Seconds (24.1-36.2)
[2017-12-24 04:39] LABS: Anion Gap 8 (5-15); BUN 20 mg/dL (7-18); BUN/Creat Ratio 24.5 RATIO (10-20); Chloride 106 mmol/L (98-107); Creatinine, Serum 0.82 mg/dL (0.55-1.02); EST Glomerular Filtration Rate 75 mL/min (>60); Est Glom Filt Rate - Afr Amer 90 mL/min (>60); Estimated Creatinine Clearance 56.58 ml/min; Glucose 108 mg/dL (74-106); Potassium 4.3 mmol/L (3.5-5.1); Sodium Level 139 mmol/L (136-145)
[2017-12-24] MEDS: Acetaminophen 325 MG Tablet 650 MG PO (05:07)
--- NOTE | 2017-12-24 05:55 | EKG12_ITS ---
Test Reason : AM EKG Blood Pressure : / mmHG Vent. Rate : 089 BPM Atrial Rate : 089 BPM P-R Int : 174 ms QRS Dur : 078 ms QT Int : 398 ms P-R-T Axes : 056 013 055 degrees QTc Int : 484 ms Normal sinus rhythm Nonspecific T wave abnormality Abnormal ECG When compared with ECG of 23-DEC-2017 11:40, MANUAL COMPARISON REQUIRED, DATA IS UNCONFIRMED Confirmed by NILES LAWRENCE, ATIYA ([id number]), fashion editor NICHOLAS MUSA ([id number]) on 12/30/2017 4:14:53 PM Referred By: CAMPBELL Confirmed By:ATIYA CAGE MD
[2017-12-24 06:46] LABS: Bedside Glucose 109 mg/dL (70-110)
--- NOTE | 2017-12-24 07:43 | PCM.CON.CC ---
Problem List (1) Bilateral pulmonary embolism Status: Acute (2) Colon cancer Status: Chronic (3) Colon cancer metastasized to intra-abdominal lymph node Status: Chronic (4) Metastasis to lymph nodes Status: Acute (5) SCOOTER (iron deficiency anemia) Status: Chronic (6) Diabetes mellitus Status: Chronic (7) Osteoarthritis of left hip Status: Chronic (8) Hypothyroidism Status: Chronic (9) Left hip pain Status: Chronic (10) Vitamin D deficiency Status: Acute (11) Arthritis Status: Chronic (12) Type 2 diabetes mellitus Status: Chronic (13) History of breast cancer Status: Acute Comment: started in 1997 (14) IBS (irritable bowel syndrome) Status: Chronic (15) Parathyroid abnormality Status: Acute (16) Hyperlipemia Status: Chronic (17) Hypertension Status: Chronic Reason for Consult Date of Consultation: 12/24/17 Reason for Consultation: Hypoxemia History of Present Illness: The patient is a 67 year old F, with past medical history listed below, who presented to [facility] on 12/23/2017 secondary to shortness of breath. Patient was recently discharged from the TCU on December 10 following a recent colectomy and port placement. Patient reportedly to start chemotherapy next week, but noted on Wednesday that she started to have acute shortness of breath at approximately 4 PM. Patient has noted a decreased appetite and a 20 pound weight loss, but shortness of breath has not been an issue to this point. Patient denied any chest pain on presentation, but was noted to be tachycardic at 116 bpm. D-dimer was elevated at 6.45, so a CT scan of the chest was done showing large bilateral pulmonary emboli. Patient's troponin was mildly elevated at 0.25. Patient was initiated on a heparin drip and then admitted to the intensive care unit for further monitoring. Since being in the intensive care unit, patient has had some ectopy, but this has improved over the course of her hospitalization. Patient is currently on a heparin drip and denies any complications such as epistaxis, hemoptysis, melena or hematochezia. Patient subjectively feels her shortness of breath is improved, but she has not been walking around. Patient denies any current chest pain at this time. Patient does give a history of breast cancer in the past. Patient with a recent diagnosis of colon cancer. Patient has never been on anticoagulation previously. Patient denies any previous lung pathology including asthma. Patient denies any smoking history. 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 Review of systems otherwise negative x10 systems. Past Medical History Past Medical History (Chronic Problems): Chronic Problems (Last Updated 12/23/17 @ 10:14 by Catina Burciaga) Colon cancer (Chronic) Colon cancer metastasized to intra-abdominal lymph node (Chronic) SCOOTER (iron deficiency anemia) (Chronic) Diabetes mellitus (Chronic) Osteoarthritis of left hip (Chronic) Breast cancer (Chronic) Hypothyroidism (Chronic) Depression (Chronic) Nausea (Chronic) Left hip pain (Chronic) Arthritis (Chronic) Type 2 diabetes mellitus (Chronic) IBS (irritable bowel syndrome) (Chronic) Hyperlipemia (Chronic) Hypertension (Chronic) Medical History: Medical History (Last Updated 12/23/17 @ 10:14 by Catina Burciaga) Colon cancer (Chronic) C18.9 Hypercalcemia (Acute) E83.52 Vitamin D deficiency (Acute) E55.9 Arthritis (Chronic) M19.90 Type 2 diabetes mellitus (Chronic) E11.9 History of breast cancer (Acute) Z85.3 started in 1997 IBS (irritable bowel syndrome) (Chronic) K58.9 Parathyroid abnormality (Acute) E21.5 Hyperlipemia (Chronic) E78.5 Hypertension (Chronic) I10 History of hysterectomy Z90.710 due to postmenopausal bleeding and history of breast cancer Allergies amoxicillin [From Augmentin] Allergy (Severe, Verified 12/23/17 14:03) Hives clavulanic acid [From Augmentin] Allergy (Severe, Verified 12/23/17 14:03) Hives Home Medications: Ambulatory Orders Medication Instructions Recorded calcium carbonate 600 mg calcium 600 mg PO BID tab 08/17/17 (1,500 mg) tablet levothyroxine 50 mcg tablet 50 mcg PO DAILY@0600 08/17/17 metformin 500 mg tablet 1,000 mg PO BIDCM tab 08/17/17 Citalopram [Celexa] 10 mg PO DAILY 11/09/17 Atorvastatin Calcium [Lipitor] 40 mg PO QHS 11/14/17 Nabumetone [Relafen] 750 mg PO BID 11/20/17 Acetaminophen [Tylenol] 1,000 mg PO Q8H PRN PRN tab 12/03/17 Doxepin HCl 50 mg PO QHS #30 cap 12/03/17 Iron Polysaccharide Complex 150 mg PO DAILYCM #30 cap 12/03/17 [Ferrex 150] Multivitamins,Therapeutic 1 tab PO DAILY@0800 tab 12/03/17 [Multivitamin] Potassium Chloride [K-Dur] 20 meq PO DAILYCM #30 tab 12/03/17 Lidocaine/Prilocaine 30 gm TP DAILY PRN PRN 30 Days #1 12/14/17 [Lidocaine-Prilocaine Cream] cream..g. Ondansetron HCl [Zofran] 4 mg PO Q8H PRN PRN 30 Days #30 tab 12/14/17 Cholecalciferol (Vitamin D3) 5,000 unit PO DAILY 12/23/17 [Vitamin D3] Escitalopram Oxalate [Lexapro] 10 mg PO DAILY 12/23/17 Surgical History: Surgical History (Last Reviewed 12/23/17 @ 10:14 by Catina Burciaga) History of bilateral mastectomy Z90.13 History of left knee surgery Z98.890 History of lumpectomy of right breast Z98.890 1998 History of parathyroidectomy Z98.890 2018, due to enlargement. History of tonsillectomy Z90.89 Hx of colectomy Z90.49 12/09 s/p port placement 12/09 Surgical History: hysterectomy, mastectomy - Bilateral., tonsillectomy, - - Parathyroidectomy. 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 Large bilateral pulmonary emboli are appreciated. No significant lung pathology is noted such as bronchiectasis, emphysema or groundglass opacities. - Physical Exam General: Alert, Oriented x3, Cooperative, No apparent distress, - - No conversational dyspnea. Morbidly obese. HEENT: Atraumatic, PERRLA, EOMI, Normocephalic, - - No scleral icterus or injection noted. Nasal cannula in place. Oral: Moist Mucosa, No Gingival or Mucosal Lesions/ Ulcerations Neck: Supple, No JVD, No Nodes, Trachea Midline Lungs: No rhonchi, No wheeze, No rales, Diminished, - - Symmetric expansion. No dullness to percussion. Cardiovascular: Regular rate, Regular Rhythm, Normal S1, Normal S2, No murmurs, No rub noted, No Gallop, - - Ectopy noted initially, but appears to be improving on telemetry Abdomen: Bowel Sounds Present, Soft, Non Tender, Non-Distended, Obese Extremities: No clubbing, No cyanosis, Capillary Refill Less than 3 Seconds, Edema - Bilateral lower extremities Skin: No rashes, No breakdown Musculoskeletal: No Tenderness to Palpation of Joints or Extremities, No Muscle Wasting Lymphatic: No Cervical, Supraclavicular, or Inguinal Adenopathy Neurological: Cranial nerves II-XII grossly intact, Neuro grossly intact, Motor Exam 5/5 strength throughout Psych/Mental Status: Alert and oriented to time, place, person, mood and affect Vital Signs Temp Pulse Resp BP Pulse Ox 37.0 C 97 19 H 136/94 H 98 12/24/17 04:00 12/24/17 07:00 12/24/17 07:00 12/24/17 07:00 12/24/17 07:00 Oxygen Flow Rate (L/min) 3 Oxygen Delivery Method Nasal Cannula Weight: 112.8 kg Body Mass Index (BMI) 44.1 Finger Stick Blood Glucose 149 Intake and Output for Last 24 Hours 12/22/17 12/23/17 12/24/17 23:59 23:59 23:59 Intake Total 657 / 657 1831.1 / 1831.1 Output Total 300 / 300 200 / 200 Balance 357 / 357 1631.1 / 1631.1 Laboratory Tests Past 24 Hrs 12/23/17 12/23/17 12/23/17 11:40 11:40 11:40 WBC 9.1 RBC 4.23 Hgb 11.0 L Hct 35.4 L MCV 83.7 MCH 26.0 L MCHC 31.1 L RDW 16.4 H RDW Differential 50.1 H Plt Count 459 H MPV 9.9 Immature Gran % (Auto) 0.100 Neut % (Auto) 72.5 H Lymph % (Auto) 11.7 L [place] % (Auto) 10.9 H Eos % (Auto) 4.5 Baso % (Auto) 0.3 Absolute Neuts (auto) 6.6 Absolute Lymphs (auto) 1.06 Total Counted Not Reportable PT INR APTT D-Dimer Quant (PE/DVT) 6.45 H* Sodium 136 Potassium 4.4 Chloride 102 Carbon Dioxide 23.0 Anion Gap 11 BUN 24 H Creatinine 1.13 H Estim Creat Clear Calc 41.06 Est GFR (MDRD) Af Amer 62 Est GFR (MDRD) Non-Af 51 L BUN/Creatinine Ratio 21.2 H Glucose 121 H Calcium 9.3 Troponin I 0.250 H 12/23/17 12/23/17 12/23/17 11:40 16:10 20:15 WBC RBC Hgb Hct MCV MCH MCHC RDW RDW Differential Plt Count MPV Immature Gran % (Auto) Neut % (Auto) Lymph % (Auto) [place] % (Auto) Eos % (Auto) Baso % (Auto) Absolute Neuts (auto) Absolute Lymphs (auto) Total Counted PT 15.1 H INR 1.2 APTT D-Dimer Quant (PE/DVT) Sodium Potassium Chloride Carbon Dioxide Anion Gap BUN Creatinine Estim Creat Clear Calc Est GFR (MDRD) Af Amer Est GFR (MDRD) Non-Af BUN/Creatinine Ratio Glucose Calcium Troponin I 0.236 H 0.159 H 12/23/17 12/23/17 12/24/17 20:15 23:20 04:15 WBC 7.3 RBC 3.63 L Hgb 9.4 L Hct 30.3 L MCV 83.5 MCH 25.9 L MCHC 31.0 L RDW 16.6 H RDW Differential 51.0 H Plt Count 358 MPV 9.5 Immature Gran % (Auto) Neut % (Auto) Lymph % (Auto) [place] % (Auto) Eos % (Auto) Baso % (Auto) Absolute Neuts (auto) Absolute Lymphs (auto) Total Counted PT INR APTT 42.5 H D-Dimer Quant (PE/DVT) Sodium Potassium Chloride Carbon Dioxide Anion Gap BUN Creatinine Estim Creat Clear Calc Est GFR (MDRD) Af Amer Est GFR (MDRD) Non-Af BUN/Creatinine Ratio Glucose Calcium Troponin I 0.143 H 12/24/17 12/24/17 04:15 04:15 WBC RBC Hgb Hct MCV MCH MCHC RDW RDW Differential Plt Count MPV Immature Gran % (Auto) Neut % (Auto) Lymph % (Auto) [place] % (Auto) Eos % (Auto) Baso % (Auto) Absolute Neuts (auto) Absolute Lymphs (auto) Total Counted PT INR APTT 52.6 H D-Dimer Quant (PE/DVT) Sodium 139 Potassium 4.3 Chloride 106 Carbon Dioxide 25.0 Anion Gap 8 BUN 20 H Creatinine 0.82 Estim Creat Clear Calc 56.58 Est GFR (MDRD) Af Amer 90 Est GFR (MDRD) Non-Af 75 BUN/Creatinine Ratio 24.5 H Glucose 108 H Calcium 8.0 L Troponin I POC Glucose 12/24/17 12/23/17 12/23/17 06:42 21:46 16:16 POC Glucose 109 119 H 102 Clinical Impression(s) from Imaging Studies Chest X-Ray 12/23/17 12:09 IMPRESSION: Enlargement of the pulmonary arteries bilaterally. The lungs are clear. Electronically Signed: Chris Hernandez MD at 12:32 EDT Tel [phone], Service support , Chest CTA 12/23/17 13:13 IMPRESSION: Diffuse bilateral pulmonary emboli. Masses surrounding the pancreas and the region of the jaspal hepatis suggestive of adenopathy. Electronically Signed: Chris Hernandez MD at 14:06 EDT Tel [phone], Service support , Assessment/Plan Active and Suspected Problems (Last Updated 12/23/17 @ 10:14 by Catina Burciaga) Bilateral pulmonary embolism (Acute) RECOMMENDATIONS: 1. Wean oxygen as tolerated 2. Obtain echocardiogram for evaluation of right-sided pressures 3. Probably transition to Lovenox therapy on discharge 4. Walking oximetry prior to discharge 5. Increase activity as tolerated 6. Okay to leave the intensive care unit from my perspective IMPRESSIONS: 1. Acute hypoxic respiratory insufficiency secondary to bilateral PE Patient currently requiring supplemental oxygen to maintain appropriate saturations. Patient is on a heparin drip. Okay to discontinue serial cardiac enzymes from my perspective. Will obtain an echocardiogram for evaluation of right heart strain. If patient has significant right heart strain, repeat in 4-6 weeks to ensure resolution would be appropriate. Clinical suspicion that patient will need to be on anticoagulation for the rest of her life given stage IV colon cancer and relative immobility. Lovenox has been approved for the use of malignancy. 2. Elevated troponin Patient reports onset of symptoms approximately 24 hours prior to presentation. Elevation in troponin likely secondary to increased demand and strain related to bilateral PE. Echocardiogram has been ordered to evaluate right-sided pressures. Cardiology is following. 3. Stage IV colon cancer status post resection Patient reportedly to start chemotherapy in the near future. This will increase her risk of recurrent clots. Patient likely should be treated with Lovenox therapy for the rest of her life. Defer to oncology. 4. Iron deficiency anemia/hyperlipidemia/diabetes mellitus type 2/hypothyroidism/depression Complicates care, management, recovery and prognosis. Patient has had a drop in hemoglobin, but this is likely delusional. Continue with baseline medications. Agree with hold of metformin given recent contrast. Code Visit Inpatient E&M: 74776 Init Hosp L3
--- NOTE | 2017-12-24 07:51 | CON.PCM_ITS ---
Problem List (1) Bilateral pulmonary embolism Status: Acute (2) Colon cancer Status: Chronic (3) Colon cancer metastasized to intra-abdominal lymph node Status: Chronic (4) Metastasis to lymph nodes Status: Acute (5) SCOOTER (iron deficiency anemia) Status: Chronic (6) Diabetes mellitus Status: Chronic (7) Osteoarthritis of left hip Status: Chronic (8) Hypothyroidism Status: Chronic (9) Left hip pain Status: Chronic (10) Vitamin D deficiency Status: Acute (11) Arthritis Status: Chronic (12) Type 2 diabetes mellitus Status: Chronic (13) History of breast cancer Status: Acute Comment: started in 1997 (14) IBS (irritable bowel syndrome) Status: Chronic (15) Parathyroid abnormality Status: Acute (16) Hyperlipemia Status: Chronic (17) Hypertension Status: Chronic Reason for Consult Date of Consultation: 12/24/17 Reason for Consultation: Hypoxemia History of Present Illness: The patient is a 67 year old F, with past medical history listed below, who presented to [facility] on 12/23/2017 secondary to shortness of breath. Patient was recently discharged from the TCU on December 10 following a recent colectomy and port placement. Patient reportedly to start chemotherapy next week, but noted on Wednesday that she started to have acute shortness of breath at approximately 4 PM. Patient has noted a decreased appetite and a 20 pound weight loss, but shortness of breath has not been an issue to this point. Patient denied any chest pain on presentation, but was noted to be tachycardic at 116 bpm. D-dimer was elevated at 6.45, so a CT scan of the chest was done showing large bilateral pulmonary emboli. Patient's troponin was mildly elevated at 0.25. Patient was initiated on a heparin drip and then admitted to the intensive care unit for further monitoring. Since being in the intensive care unit, patient has had some ectopy, but this has improved over the course of her hospitalization. Patient is currently on a heparin drip and denies any complications such as epistaxis, hemoptysis, melena or hematochezia. Patient subjectively feels her shortness of breath is improved, but she has not been walking around. Patient denies any current chest pain at this time. Patient does give a history of breast cancer in the past. Patient with a recent diagnosis of colon cancer. Patient has never been on anticoagulation previously. Patient denies any previous lung pathology including asthma. Patient denies any smoking history. 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 Review of systems otherwise negative x10 systems. Past Medical History Past Medical History (Chronic Problems): Chronic Problems (Last Updated 12/23/17 @ 10:14 by Catina Burciaga) Colon cancer (Chronic) Colon cancer metastasized to intra-abdominal lymph node (Chronic) SCOOTER (iron deficiency anemia) (Chronic) Diabetes mellitus (Chronic) Osteoarthritis of left hip (Chronic) Breast cancer (Chronic) Hypothyroidism (Chronic) Depression (Chronic) Nausea (Chronic) Left hip pain (Chronic) Arthritis (Chronic) Type 2 diabetes mellitus (Chronic) IBS (irritable bowel syndrome) (Chronic) Hyperlipemia (Chronic) Hypertension (Chronic) Medical History: Medical History (Last Updated 12/23/17 @ 10:14 by Catina Burciaga) Colon cancer (Chronic) C18.9 Hypercalcemia (Acute) E83.52 Vitamin D deficiency (Acute) E55.9 Arthritis (Chronic) M19.90 Type 2 diabetes mellitus (Chronic) E11.9 History of breast cancer (Acute) Z85.3 started in 1997 IBS (irritable bowel syndrome) (Chronic) K58.9 Parathyroid abnormality (Acute) E21.5 Hyperlipemia (Chronic) E78.5 Hypertension (Chronic) I10 History of hysterectomy Z90.710 due to postmenopausal bleeding and history of breast cancer Allergies amoxicillin [From Augmentin] Allergy (Severe, Verified 12/23/17 14:03) Hives clavulanic acid [From Augmentin] Allergy (Severe, Verified 12/23/17 14:03) Hives Home Medications: Ambulatory Orders Medication Instructions Recorded calcium carbonate 600 mg calcium 600 mg PO BID tab 08/17/17 (1,500 mg) tablet levothyroxine 50 mcg tablet 50 mcg PO DAILY@0600 08/17/17 metformin 500 mg tablet 1,000 mg PO BIDCM tab 08/17/17 Citalopram [Celexa] 10 mg PO DAILY 11/09/17 Atorvastatin Calcium [Lipitor] 40 mg PO QHS 11/14/17 Nabumetone [Relafen] 750 mg PO BID 11/20/17 Acetaminophen [Tylenol] 1,000 mg PO Q8H PRN PRN tab 12/03/17 Doxepin HCl 50 mg PO QHS #30 cap 12/03/17 Iron Polysaccharide Complex 150 mg PO DAILYCM #30 cap 12/03/17 [Ferrex 150] Multivitamins,Therapeutic 1 tab PO DAILY@0800 tab 12/03/17 [Multivitamin] Potassium Chloride [K-Dur] 20 meq PO DAILYCM #30 tab 12/03/17 Lidocaine/Prilocaine 30 gm TP DAILY PRN PRN 30 Days #1 12/14/17 [Lidocaine-Prilocaine Cream] cream..g. Ondansetron HCl [Zofran] 4 mg PO Q8H PRN PRN 30 Days #30 tab 12/14/17 Cholecalciferol (Vitamin D3) 5,000 unit PO DAILY 12/23/17 [Vitamin D3] Escitalopram Oxalate [Lexapro] 10 mg PO DAILY 12/23/17 Surgical History: Surgical History (Last Reviewed 12/23/17 @ 10:14 by Catina Burciaga) History of bilateral mastectomy Z90.13 History of left knee surgery Z98.890 History of lumpectomy of right breast Z98.890 1998 History of parathyroidectomy Z98.890 2018, due to enlargement. History of tonsillectomy Z90.89 Hx of colectomy Z90.49 12/09 s/p port placement 12/09 Surgical History: hysterectomy, mastectomy - Bilateral., tonsillectomy, - - Parathyroidectomy. 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 Large bilateral pulmonary emboli are appreciated. No significant lung pathology is noted such as bronchiectasis, emphysema or groundglass opacities. - Physical Exam General: Alert, Oriented x3, Cooperative, No apparent distress, - - No conversational dyspnea. Morbidly obese. HEENT: Atraumatic, PERRLA, EOMI, Normocephalic, - - No scleral icterus or injection noted. Nasal cannula in place. Oral: Moist Mucosa, No Gingival or Mucosal Lesions/ Ulcerations Neck: Supple, No JVD, No Nodes, Trachea Midline Lungs: No rhonchi, No wheeze, No rales, Diminished, - - Symmetric expansion. No dullness to percussion. Cardiovascular: Regular rate, Regular Rhythm, Normal S1, Normal S2, No murmurs, No rub noted, No Gallop, - - Ectopy noted initially, but appears to be improving on telemetry Abdomen: Bowel Sounds Present, Soft, Non Tender, Non-Distended, Obese Extremities: No clubbing, No cyanosis, Capillary Refill Less than 3 Seconds, Edema - Bilateral lower extremities Skin: No rashes, No breakdown Musculoskeletal: No Tenderness to Palpation of Joints or Extremities, No Muscle Wasting Lymphatic: No Cervical, Supraclavicular, or Inguinal Adenopathy Neurological: Cranial nerves II-XII grossly intact, Neuro grossly intact, Motor Exam 5/5 strength throughout Psych/Mental Status: Alert and oriented to time, place, person, mood and affect Vital Signs Temp Pulse Resp BP Pulse Ox 37.0 C 97 19 H 136/94 H 98 12/24/17 04:00 12/24/17 07:00 12/24/17 07:00 12/24/17 07:00 12/24/17 07:00 Oxygen Flow Rate (L/min) 3 Oxygen Delivery Method Nasal Cannula Weight: 112.8 kg Body Mass Index (BMI) 44.1 Finger Stick Blood Glucose 149 Intake and Output for Last 24 Hours 12/22/17 12/23/17 12/24/17 23:59 23:59 23:59 Intake Total 657 / 657 1831.1 / 1831.1 Output Total 300 / 300 200 / 200 Balance 357 / 357 1631.1 / 1631.1 Laboratory Tests Past 24 Hrs 12/23/17 12/23/17 12/23/17 11:40 11:40 11:40 WBC 9.1 RBC 4.23 Hgb 11.0 L Hct 35.4 L MCV 83.7 MCH 26.0 L MCHC 31.1 L RDW 16.4 H RDW Differential 50.1 H Plt Count 459 H MPV 9.9 Immature Gran % (Auto) 0.100 Neut % (Auto) 72.5 H Lymph % (Auto) 11.7 L [place] % (Auto) 10.9 H Eos % (Auto) 4.5 Baso % (Auto) 0.3 Absolute Neuts (auto) 6.6 Absolute Lymphs (auto) 1.06 Total Counted Not Reportable PT INR APTT D-Dimer Quant (PE/DVT) 6.45 H* Sodium 136 Potassium 4.4 Chloride 102 Carbon Dioxide 23.0 Anion Gap 11 BUN 24 H Creatinine 1.13 H Estim Creat Clear Calc 41.06 Est GFR (MDRD) Af Amer 62 Est GFR (MDRD) Non-Af 51 L BUN/Creatinine Ratio 21.2 H Glucose 121 H Calcium 9.3 Troponin I 0.250 H 12/23/17 12/23/17 12/23/17 11:40 16:10 20:15 WBC RBC Hgb Hct MCV MCH MCHC RDW RDW Differential Plt Count MPV Immature Gran % (Auto) Neut % (Auto) Lymph % (Auto) [place] % (Auto) Eos % (Auto) Baso % (Auto) Absolute Neuts (auto) Absolute Lymphs (auto) Total Counted PT 15.1 H INR 1.2 APTT D-Dimer Quant (PE/DVT) Sodium Potassium Chloride Carbon Dioxide Anion Gap BUN Creatinine Estim Creat Clear Calc Est GFR (MDRD) Af Amer Est GFR (MDRD) Non-Af BUN/Creatinine Ratio Glucose Calcium Troponin I 0.236 H 0.159 H 12/23/17 12/23/17 12/24/17 20:15 23:20 04:15 WBC 7.3 RBC 3.63 L Hgb 9.4 L Hct 30.3 L MCV 83.5 MCH 25.9 L MCHC 31.0 L RDW 16.6 H RDW Differential 51.0 H Plt Count 358 MPV 9.5 Immature Gran % (Auto) Neut % (Auto) Lymph % (Auto) [place] % (Auto) Eos % (Auto) Baso % (Auto) Absolute Neuts (auto) Absolute Lymphs (auto) Total Counted PT INR APTT 42.5 H D-Dimer Quant (PE/DVT) Sodium Potassium Chloride Carbon Dioxide Anion Gap BUN Creatinine Estim Creat Clear Calc Est GFR (MDRD) Af Amer Est GFR (MDRD) Non-Af BUN/Creatinine Ratio Glucose Calcium Troponin I 0.143 H 12/24/17 12/24/17 04:15 04:15 WBC RBC Hgb Hct MCV MCH MCHC RDW RDW Differential Plt Count MPV Immature Gran % (Auto) Neut % (Auto) Lymph % (Auto) [place] % (Auto) Eos % (Auto) Baso % (Auto) Absolute Neuts (auto) Absolute Lymphs (auto) Total Counted PT INR APTT 52.6 H D-Dimer Quant (PE/DVT) Sodium 139 Potassium 4.3 Chloride 106 Carbon Dioxide 25.0 Anion Gap 8 BUN 20 H Creatinine 0.82 Estim Creat Clear Calc 56.58 Est GFR (MDRD) Af Amer 90 Est GFR (MDRD) Non-Af 75 BUN/Creatinine Ratio 24.5 H Glucose 108 H Calcium 8.0 L Troponin I POC Glucose 12/24/17 12/23/17 12/23/17 06:42 21:46 16:16 POC Glucose 109 119 H 102 Clinical Impression(s) from Imaging Studies Chest X-Ray 12/23/17 12:09 IMPRESSION: Enlargement of the pulmonary arteries bilaterally. The lungs are clear. Electronically Signed: Chris Hernandez MD at 12:32 EDT Tel [phone], Service support , Chest CTA 12/23/17 13:13 IMPRESSION: Diffuse bilateral pulmonary emboli. Masses surrounding the pancreas and the region of the jaspal hepatis suggestive of adenopathy. Electronically Signed: Chris Hernandez MD at 14:06 EDT Tel [phone], Service support , Assessment/Plan Active and Suspected Problems (Last Updated 12/23/17 @ 10:14 by Catina Burciaga) Bilateral pulmonary embolism (Acute) RECOMMENDATIONS: 1. Wean oxygen as tolerated 2. Obtain echocardiogram for evaluation of right-sided pressures 3. Probably transition to Lovenox therapy on discharge 4. Walking oximetry prior to discharge 5. Increase activity as tolerated 6. Okay to leave the intensive care unit from my perspective IMPRESSIONS: 1. Acute hypoxic respiratory insufficiency secondary to bilateral PE Patient currently requiring supplemental oxygen to maintain appropriate saturations. Patient is on a heparin drip. Okay to discontinue serial cardiac enzymes from my perspective. Will obtain an echocardiogram for evaluation of right heart strain. If patient has significant right heart strain, repeat in 4- 6 weeks to ensure resolution would be appropriate. Clinical suspicion that patient will need to be on anticoagulation for the rest of her life given stage IV colon cancer and relative immobility. Lovenox has been approved for the use of malignancy. 2. Elevated troponin Patient reports onset of symptoms approximately 24 hours prior to presentation. Elevation in troponin likely secondary to increased demand and strain related to bilateral PE. Echocardiogram has been ordered to evaluate right-sided pressures. Cardiology is following. 3. Stage IV colon cancer status post resection Patient reportedly to start chemotherapy in the near future. This will increase her risk of recurrent clots. Patient likely should be treated with Lovenox therapy for the rest of her life. Defer to oncology. 4. Iron deficiency anemia/hyperlipidemia/diabetes mellitus type 2/hypothyroidism/depression Complicates care, management, recovery and prognosis. Patient has had a drop in hemoglobin, but this is likely delusional. Continue with baseline m edications. Agree with hold of metformin given recent contrast. Code Visit Inpatient E&M: 75572 Init Hosp L3
--- NOTE | 2017-12-24 07:56 | PCM.PN.HOSP ---
Patient Problems: Active and Suspected Problems (Last Updated 12/23/17 @ 10:14 by Catina Burciaga) Bilateral pulmonary embolism (Acute) Subjective: Patient was seen and examined. Did well overnight with no complaints. 2 L of oxygen. Denies any pain or shortness of breath or chest discomfort Vitals/I&O's: Vital Signs Temp Pulse Resp BP Pulse Ox 98.6 F 86 19 H 136/94 H 98 12/24/17 04:00 12/24/17 07:25 12/24/17 07:00 12/24/17 07:00 12/24/17 07:00 Oxygen Flow Rate (L/min) 3 Oxygen Delivery Method Nasal Cannula Weight: 112.8 kg Body Mass Index (BMI) 44.1 Finger Stick Blood Glucose 149 Intake and Output for Last 24 Hours 12/22/17 12/23/17 12/24/17 23:59 23:59 23:59 Intake Total 657 / 657 1831.1 / 1831.1 Output Total 300 / 300 200 / 200 Balance 357 / 357 1631.1 / 1631.1 General: Alert, Oriented x3, Cooperative, No apparent distress, - - On 3 L of oxygen HEENT: Atraumatic, PERRLA, EOMI, Normocephalic Oral: Moist Mucosa Neck: Supple, No JVD, Negative Carotid Bruits Lungs: Clear to auscultation, Normal air movement Cardiovascular: Regular rate, Regular Rhythm, Normal S1, Normal S2, No murmurs Abdomen: Bowel Sounds Present, Soft, Non Tender, Non-Distended, No Hepato-splenomegaly Extremities: No edema Skin: No rashes, No breakdown Musculoskeletal: No Tenderness to Palpation of Joints or Extremities Lymphatic: No Cervical, Supraclavicular, or Inguinal Adenopathy Neurological: Cranial nerves II-XII grossly intact, Neuro grossly intact Psych/Mental Status: Normal Affect, Appropriate Laboratory Results 12/23/17 11:40: WBC 9.1, RBC 4.23, Hgb 11.0 L, Hct 35.4 L, MCV 83.7, MCH 26.0 L, MCHC 31.1 L, RDW 16.4 H, RDW Differential 50.1 H, Plt Count 459 H, MPV 9.9, Immature Gran % (Auto) 0.100, Neut % (Auto) 72.5 H, Lymph % (Auto) 11.7 L, [place] % (Auto) 10.9 H, Eos % (Auto) 4.5, Baso % (Auto) 0.3, Absolute Neuts (auto) 6.6, Absolute Lymphs (auto) 1.06, Total Counted Not Reportable 12/23/17 11:40: D-Dimer Quant (PE/DVT) 6.45 H* 12/23/17 11:40: Sodium 136, Potassium 4.4, Chloride 102, Carbon Dioxide 23.0, Anion Gap 11, BUN 24 H, Creatinine 1.13 H, Estim Creat Clear Calc 41.06, Est GFR (MDRD) Af Amer 62, Est GFR (MDRD) Non-Af 51 L, BUN/Creatinine Ratio 21.2 H, Glucose 121 H, Calcium 9.3, Troponin I 0.250 H 12/23/17 11:40: PT 15.1 H, INR 1.2 12/23/17 16:10: Troponin I 0.236 H 12/23/17 16:16: POC Glucose 102 12/23/17 20:15: Troponin I 0.159 H 12/23/17 20:15: APTT 42.5 H 12/23/17 21:46: POC Glucose 119 H 12/23/17 23:20: Troponin I 0.143 H 12/24/17 04:15: WBC 7.3, RBC 3.63 L, Hgb 9.4 L, Hct 30.3 L, MCV 83.5, MCH 25.9 L, MCHC 31.0 L, RDW 16.6 H, RDW Differential 51.0 H, Plt Count 358, MPV 9.5 12/24/17 04:15: Sodium 139, Potassium 4.3, Chloride 106, Carbon Dioxide 25.0, Anion Gap 8, BUN 20 H, Creatinine 0.82, Estim Creat Clear Calc 56.58, Est GFR (MDRD) Af Amer 90, Est GFR (MDRD) Non-Af 75, BUN/Creatinine Ratio 24.5 H, Glucose 108 H, Calcium 8.0 L 12/24/17 04:15: APTT 52.6 H 12/24/17 06:42: POC Glucose 109 Current Medications Acetaminophen (Tylenol) 650 mg PO Q6H PRN PRN PRN Reason: PAIN Last Admin: 12/24/17 05:07 Dose: 650 mg Dextrose (D50w Syringe) 0 gm IV X1 PRN; Protocol PRN Reason: Hypoglycemia Glucagon () 1 mg IM .X1 PRN PRN Reason: Hypoglycemia Heparin Sodium (Beef Lung) () 50 units IV UD PRN PRN Reason: HEPARIN FLUSH Heparin Sodium (Porcine) (Heparin Na) 0 unit IV UD PRN; Protocol Sodium Chloride () 1,000 mls @ 125 mls/hr IV .Q8H JOSE Last Admin: 12/24/17 04:03 Dose: 125 mls/hr Heparin Sodium/Dextrose () 25,000 units in 250 mls @ 10 mls/hr IV .Q25H JOSE; Protocol Last Admin: 12/23/17 16:18 Dose: Not Given Sodium Chloride () 250 mls @ 15 mls/hr IV .[id number] PRN PRN Reason: SALINE FLUSH Insulin Human Lispro (Humalog Kwikpen (Bkc)) 0 unit SQ ACHS JOSE; Protocol Last Admin: 12/24/17 07:11 Dose: Not Given Magnesium Hydroxide (Milk Of Magnesia) 30 ml PO DAILY PRN PRN PRN Reason: Constipation Sertraline HCl (Zoloft) 50 mg PO DAILY JOSE Sodium Chloride () 5 - 30 ml IV UD PRN PRN Reason: SALINE FLUSH Sodium Chloride () 10 ml IV UD PRN PRN Reason: VAD FLUSH Medical Necessity - Tobacco Use Smoking Status: Never smoker Assessment/Plan All Active Problems (Last Updated 12/23/17 @ 10:14 by Catina Burciaga) Bilateral pulmonary embolism (Acute) Educational circumstance (Acute) Metastasis to lymph nodes (Acute) Encounter for insertion of venous access port (Acute) Colonic obstruction (Acute) Debility (Acute) Hypercalcemia (Acute) Vitamin D deficiency (Acute) History of breast cancer (Acute) Parathyroid abnormality (Acute) Contusion (Acute) 67-year-old female with past medical history of stage IV colon cancer status post resection, hypertension, hyper lipidemia, type II DM comes in with shortness of breath and found to have extensive PE 1. Acute respiratory insufficiency secondary to extensive PE, continue on oxygen, wean off oxygen for SPO2 more than 94%, encourage use of incentive spirometer 2. Acute extensive PE, currently on heparin drip, will continue same for today, would need to transition her to Lovenox subcu 3. RISSA secondary to dehydration, improved with hydration, will trend BMP 4. Iron deficiency anemia, on oral iron 5. Hypertension, on medication, continue to monitor 6. Hyperlipidemia, on statin 7. Anxiety/depression, on Celexa, Lexapro 8. Type II DM, was on metformin, blood sugar stable, will resume on metformin, continue Accu-Chek with insulin sliding scale 9. Hypothyroidism, on levothyroxine 10. DVT prophylaxis -on heparin drip Code Visit Inpatient E&M: 48509 Subs Hosp L2
--- NOTE | 2017-12-24 09:33 | CASEMGMT ---
As per agent telegrapher, pt has LW/POA but is not able to bring in the documents. BIN Vergara, HEAD OF MEASUREMENT & INSIGHTS
--- NOTE | 2017-12-24 10:32 | CASEMGMT ---
SW received referral from for pt. SW met w/pt, offered support. Pt is having a difficult time regarding her diagnosis, and is feeling down. Pt denies wanting to harm herself, denying being suicidal. Pt states she may benefit from counseling, did take a list of counseling agencies in the area. Pt declined to have SW make an appointment for her. We discussed pt's diagnosis, the process in her getting diagnosed, and the treatment plan. Pt talked about supportive family and friends, and not wanting to ask for help but knowing she needs to do so. Supportive listening provided. SW also spoke w/pt about Passport services. Pt did start the application process for Medicaid, and is thinking about assisted living as well. Pt did try to call [facility] but could not get through. SW explained can send in a referral for a fpc care consult, pt agreeable to this. SW also spoke w/pt about Rose, pt navigator. Pt has met Rose already, SW encouraged her to follow up w/Rose if needed for other financial resources. Pt states understanding. SW let pt know if available to speak w/pt again. Pt thanked SW. SW completed and faxed referral to [facility] for a fpc care consult. SW remains available for any other supportive needs. BIN Vergara, AUTOMOBILE PAINTER
[2017-12-24] MEDS: Acetaminophen 500 MG Tablet 1000 MG PO ×2 (11:28→19:02)
--- NOTE | 2017-12-24 11:30 | CASEMGMT ---
Addendum entered by Abelardo Ann 12/24/17 12:04: If Home Oxygen is needed on discharge- See Green sheet with information on ordering from [facility]. Original Note: NOEMY LUNA Assessment. Intro role of CM to patient in room. Pt presented to ER with shortness of breath. CT showed bilateral pulmonary embolism. To ICU on 3L NC and Heparin gtt. PCP: Dr. Ortega Specialist: Dr. Shepherd, Oncologist Pharmacy: [facility] Prescription Coverage: yes. Enoxaparin coverage verified with pt's Prescription company. Per their review- Only generic is covered. Quantity limit of 48 syringes per month. Cost is $164.00 until deductible is met, then $57.40 after. IF Enoxaparin prescription exceeds above amount- physician will need to e-scribe to pharmacy. Prior authorization can then be started with Request for Quantity Exception. If approved, script can be filled. Prescription Company: [employer] RxBIN: [id number] RXPCN: [id number] RxGRP: [id number] ID: [id number] Phone: - Living Arrangements: DME preferred provider: [facility]. Pt lives independently in mobile home. Transportation: drives DME: sonny Lindsey RN, CM discussed dc plan with pt who plans to return home. Pt verbalized feeling depressed, having lack of desire and motivation for daily activities. Pt states she is not working, and this used to be an outlet activity for her. NOEMY LUNA offered to have JUDY speak with her re: resources available for her. Pt is agreeable. Referral placed and update given to JUDY Gloria DC PLAN: Home. See above For Enoxaparin information if ordered on dc.
[2017-12-24] MEDS: Glucerna Shake 120 ML LIQUID PO ×3 (11:34→17:13)
[2017-12-24 11:35] LABS: Bedside Glucose 151 mg/dL (70-110)
[2017-12-24 11:59] LABS: Partial Thromboplast Time 48.5 Seconds (24.1-36.2)
[2017-12-24] MEDS: Citalopram 10 MG Tablet PO (12:07)
[2017-12-24] MEDS: Insulin Lispro 100 UNIT/ML INSULN.PEN SQ (12:10)
[2017-12-24] MEDS: HEPARIN/D5w 25,000 UNITS 25,000 UNITS/250 ML IV.SOLN. 10 UNITS IV (12:25)
[2017-12-24] MEDS: Calcium Carbonate 500 MG Tablet PO (16:08)
[2017-12-24 16:30] LABS: Bedside Glucose 120 mg/dL (70-110)
--- NOTE | 2017-12-24 17:10 | CHAPLAIN ---
Type of Pastoral Visit _x__ Initial Visit ___ Follow-up Visit ___ On-call Visit ___ General Patient Visit ___ Spiritual Assessment ___ Family Conference ___ Bereavement ___ Rapid Response ___ Code Blue ___ Other (describe below) Pastoral Care Referral From _x__ Patient ___ Family ___ Nurse ___ Physician ___ Snack Bar Cook ___ Research Food Technologist ___ Other (describe below) Sacrament/Intervention _x__ Active listening ___ Anointing ___ Pentecostal ___ Bereavement ___ Communion _x__ Louann exploration ___ _x__ Life review _x__ Prayer ___ Reconciliation ___ Sacrament of Sick _x__ Supportive presence ___ Wedding ___ Other (describe below) Pastoral Comments patient says she has some depressing feelings due to ongoing health issues and feelings of being unable to sort out all the details of managing my health; pt is scheduled to have start to chemo treatments and is concerned that these will start on time; pt has two adult sons but they live out of town; pt loves to work at [employer] and the people that she sees there but will be unable to work now; we talked about other activities that bring her alberto and peace; patient was attending rastafari but has not been active in recent years; pt would like to get reconnected to her louann in these times; pt is open to further visits with contaminated land consultant; prayer is welcomed
[2017-12-24] MEDS: Atorvastatin Calcium 40 MG Tablet PO (21:49)
[2017-12-24] MEDS: DOXEPIN HCL 50 MG CAPSULE PO (21:49)
[2017-12-24 22:20] LABS: Bedside Glucose 124 mg/dL (70-110)
[2017-12-25] VITALS (14 sets, daily range): BP systolic 131–145; BP diastolic 83–92; PULSE 89–121; RESP 14–16; TEMP 36.1–36.8; O2SAT 92–100
[2017-12-25 03:23] LABS: Partial Thromboplast Time 69.9 Seconds (24.1-36.2)
[2017-12-25] MEDS: Acetaminophen 500 MG Tablet 1000 MG PO ×2 (03:49→13:17)
[2017-12-25] MEDS: Levothyroxine 50 MCG Tablet PO (06:07)
[2017-12-25 07:01] LABS: Bedside Glucose 104 mg/dL (70-110)
[2017-12-25 07:14] LABS: Absolute Lymphocyte Count 0.92 X10^3/ul (0.83-4.51); Basophil# 0.04 X10^3/uL; Basophil% 0.6 % (0-1); Eosinophil# 0.49 X10^3/uL; Eosinophils% 6.7 % (0-5); Hematocrit 30.4 % (37-47); Hemoglobin 9.3 g/dl (12.0-15.0); Lymphocyte # 0.92 X10^3/ul (4.0); Lymphocyte % 12.7 % (19-41); Mean Corp Hgb Conc 30.6 g/gl (32-36); Mean Corpuscular Hgb 26.3 pg (27.0-32.0); Mean Corpuscular Volume 86.1 fL (81-99); Mean Platelet Vol. 10.8 fl (6.2-12.0); Monocyte# 0.82 X10^3/uL; Monocyte% 11.3 % (0-10); Neutrophil # 4.98 X10^3/uL (2.7-7.7); Neutrophil % 68.6 % (47-70); POSITIVE COUNT NO; POSITIVE DIFFERENTIAL NO; POSITIVE MORPHOLOGY NO; Platelet Count 355 K/mm3 (150-450); RBC Distribution Width CV 16.7 % (11.6-14.6); RBC Distribution Width SD 50.7 fl (35.1-43.9); Red Blood Count 3.53 M/mm3 (4.2-5.4); White Blood Count 7.3 K/mm3 (4.4-11.0)
[2017-12-25] MEDS: Iron Polysaccharide Complex 150 MG CAPSULE PO (08:28)
[2017-12-25] MEDS: Multivitamins,Therapeutic Tablet 1 TABLET PO (08:29)
[2017-12-25] MEDS: Glucerna Shake 120 ML LIQUID PO ×3 (08:29→17:15)
[2017-12-25] MEDS: Calcium Carbonate 500 MG Tablet PO ×2 (08:29→17:15)
[2017-12-25] MEDS: Citalopram 10 MG Tablet PO (08:30)
--- NOTE | 2017-12-25 08:31 | DCINST_ITS ---
- Discharge Diagnoses Current Active Problems: Current Active and Chronic Problems (Last Updated 12/23/17 @ 10:14 by Catina Burciaga) Bilateral pulmonary embolism (Acute) Reason(s) for Visit for Discharge Instructions: Shortness of breath You will use the following diet at home:: Calorie/Carbohydrate Controlled (specify 1200, 1400, etc) Your food should be the consistency of: Regular Your liquids should be the consistency of: Regular/Thin Discharge Activity: Return to Normal Activity Additional Instructions: Continue to wear your oxygen all the time. Ypu should continue to use your incentive spirometer all the time. You should use your Lovenox injections twice a day. You need to follow-up with oncology and your primary care doctor in the outpatient in 2 weeks Allergies/Adverse Reactions: Allergies amoxicillin [From Augmentin] Allergy (Severe, Verified 12/23/17 14:03) Hives clavulanic acid [From Augmentin] Allergy (Severe, Verified 12/23/17 14:03) Hives Medications to take at Discharge calcium carbonate 600 mg calcium (1,500 mg) tablet 600 mg PO BID tab 08/17/17 levothyroxine 50 mcg tablet 50 mcg PO DAILY@0600 08/17/17 metformin 500 mg tablet 1,000 mg PO BIDCM tab 08/17/17 Citalopram [Celexa] 10 mg PO DAILY 11/09/17 Atorvastatin Calcium [Lipitor] 40 mg PO QHS 11/14/17 Nabumetone [Relafen] 750 mg PO BID 11/20/17 Acetaminophen [Tylenol] 1,000 mg PO Q8H PRN PRN tab 12/03/17 Doxepin HCl 50 mg PO QHS #30 cap 12/03/17 Iron Polysaccharide Complex [Ferrex 150] 150 mg PO DAILYCM #30 cap 12/03/17 Multivitamins,Therapeutic [Multivitamin] 1 tab PO DAILY@0800 tab 12/03/17 Potassium Chloride [K-Dur] 20 meq PO DAILYCM #30 tab 12/03/17 Lidocaine/Prilocaine [Lidocaine-Prilocaine Cream] 30 gm TP DAILY PRN PRN 30 Days #1 cream..g. 12/14/17 Ondansetron HCl [Zofran] 4 mg PO Q8H PRN PRN 30 Days #30 tab 12/14/17 Cholecalciferol (Vitamin D3) [Vitamin D3] 5,000 unit PO DAILY 12/23/17 Escitalopram Oxalate [Lexapro] 10 mg PO DAILY 12/23/17 Enoxaparin [Lovenox] 110 mg SC Q12@0600,1800 #60 syringe 12/25/17 The following prescriptions were given: Enoxaparin [Lovenox] 100 mg SC Q12 #60 syringe Primary Care Physician: Jose Daniel Yang DO [Primary Care Provider] - Please follow up with your Primary Care Physician in: within 2 weeks Test Results: Test results from this visit will be discussed in further detail at your follow- up appointment, if applicable. Please Follow Up With: Violet Shepherd MD When: within 2 weeks Proposed Discharge Date: 12/25/17
--- NOTE | 2017-12-25 08:34 | PCM.DC.SUM ---
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 The lungs are clear. Electronically Signed: Chris Hernandez MD at 12:32 EDT Tel [phone], Service support , Chest CTA 12/23/17 13:13 IMPRESSION: Diffuse bilateral pulmonary emboli. Masses surrounding the pancreas and the region of the jaspal hepatis suggestive of adenopathy. Electronically Signed: Chris Hernandez MD at 14:06 EDT Tel [phone], Service support , Pulmonology Operations: None, - Procedures: 2-D Echocardiogram Summary of Care Provided: 67-year-old female with past medical history of stage IV colon cancer status post resection, hypertension, hyperlipidemia, type II DM comes in with shortness of breath and found to have extensive PE. She was managed on oxygen initially in ICU. Transferred to the regular floor. No acute events on telemetry. She was managed on heparin and discharged on Lovenox subcu. Patient also had acute kidney injury on admission in 7 to dehydration that improved with hydration. She has history of iron deficiency anemia and is on iron. She was also on nutritional supplements and followed by resident hall director. Patient Problems: Active and Suspected Problems (Last Updated 12/23/17 @ 10:14 by Catina Burciaga) Bilateral pulmonary embolism (Acute) Subjective: Patient was seen and examined. Denies any complains. Feels well. Denies chest pain, palpitations. Objective: General: Alert, Oriented x3, Cooperative, No apparent distress, off oxygen HEENT: Atraumatic, PERRLA, EOMI, Normocephalic Oral: Moist Mucosa Neck: Supple, No JVD, Negative Carotid Bruits Lungs: Clear to auscultation, Normal air movement Cardiovascular: Regular rate, Regular Rhythm, Normal S1, Normal S2, No murmurs Abdomen: Bowel Sounds Present, Soft, Non Tender, Non-Distended, No Hepato-splenomegaly Extremities: No edema Skin: No rashes, No breakdown Musculoskeletal: No Tenderness to Palpation of Joints or Extremities Lymphatic: No Cervical, Supraclavicular, or Inguinal Adenopathy Neurological: Cranial nerves II-XII grossly intact, Neuro grossly intact Psych/Mental Status: Normal Affect, Appropriate - Physical Exam Vital Signs Temp Pulse Resp BP Pulse Ox 97 F L 98 16 131/92 H 100 12/25/17 08:19 12/25/17 08:19 12/25/17 08:19 12/25/17 08:19 12/25/17 08:19 Oxygen Flow Rate (L/min) 3 Oxygen Delivery Method Nasal Cannula Weight: 112.8 kg Body Mass Index (BMI) 44.1 Finger Stick Blood Glucose 149 Intake and Output for Last 24 Hours 12/23/17 12/24/17 12/25/17 23:59 23:59 23:59 Intake Total 657 / 657 3170.7 / 3170.7 Output Total 300 / 300 400 / 400 Balance 357 / 357 2770.7 / 2770.7 Laboratory Tests Past 24 Hrs 12/24/17 12/24/17 12/25/17 11:33 20:00 03:05 WBC RBC Hgb Hct MCV MCH MCHC RDW RDW Differential Plt Count MPV Immature Gran % (Auto) Neut % (Auto) Lymph % (Auto) [place] % (Auto) Eos % (Auto) Baso % (Auto) Absolute Neuts (auto) Absolute Lymphs (auto) Total Counted APTT 48.5 H 51.0 H 69.9 H 12/25/17 03:05 WBC 7.3 RBC 3.53 L Hgb 9.3 L Hct 30.4 L MCV 86.1 MCH 26.3 L MCHC 30.6 L RDW 16.7 H RDW Differential 50.7 H Plt Count 355 MPV 10.8 Immature Gran % (Auto) 0.100 Neut % (Auto) 68.6 Lymph % (Auto) 12.7 L [place] % (Auto) 11.3 H Eos % (Auto) 6.7 H Baso % (Auto) 0.6 Absolute Neuts (auto) 5.0 Absolute Lymphs (auto) 0.92 Total Counted Not Reportable APTT POC Glucose 12/25/17 12/24/17 12/24/17 06:55 21:46 16:04 POC Glucose 104 124 H 120 H 12/24/17 11:32 POC Glucose 151 H Discharge Diet: Low fat/ Low Cholesterol, 2000 mg Sodium Diet, Carb Control Diet Discharge Activity: Return to Normal Activity Home Medications: Medications to take at Discharge calcium carbonate 600 mg calcium (1,500 mg) tablet 600 mg PO BID tab 08/17/17 levothyroxine 50 mcg tablet 50 mcg PO DAILY@0600 08/17/17 metformin 500 mg tablet 1,000 mg PO BIDCM tab 08/17/17 Citalopram [Celexa] 10 mg PO DAILY 11/09/17 Atorvastatin Calcium [Lipitor] 40 mg PO QHS 11/14/17 Nabumetone [Relafen] 750 mg PO BID 11/20/17 Acetaminophen [Tylenol] 1,000 mg PO Q8H PRN PRN tab 12/03/17 Doxepin HCl 50 mg PO QHS #30 cap 12/03/17 Iron Polysaccharide Complex [Ferrex 150] 150 mg PO DAILYCM #30 cap 12/03/17 Multivitamins,Therapeutic [Multivitamin] 1 tab PO DAILY@0800 tab 12/03/17 Potassium Chloride [K-Dur] 20 meq PO DAILYCM #30 tab 12/03/17 Lidocaine/Prilocaine [Lidocaine-Prilocaine Cream] 30 gm TP DAILY PRN PRN 30 Days #1 cream..g. 12/14/17 Ondansetron HCl [Zofran] 4 mg PO Q8H PRN PRN 30 Days #30 tab 12/14/17 Cholecalciferol (Vitamin D3) [Vitamin D3] 5,000 unit PO DAILY 12/23/17 Escitalopram Oxalate [Lexapro] 10 mg PO DAILY 12/23/17 Enoxaparin [Lovenox] 30 mg IV BID #60 syringe 12/25/17 Enoxaparin [Lovenox] 80 mg SC Q12@0600,1800 #60 syringe 12/25/17 Following Prescrptions Were Given to Patient: Enoxaparin [Lovenox] 80 mg SC Q12@0600,1800 #60 syringe Enoxaparin [Lovenox] 30 mg IV BID #60 syringe Primary Care Physician: Jose Daniel Yang DO [Primary Care Provider] - Please follow up with your Primary Care Physician in: within 2 weeks Please Follow Up With: Violet Shepherd MD When: within 2 weeks Disposition: Home Minutes spent on discharge:: 45 Patient Condition:: Stable Medical Necessity - Tobacco Use Smoking Status: Never smoker Meaningful Use Info Meaningful Use Diagnoses (Choose all that apply): None applicable Code Visit Inpatient E&M: 08186 Disch Hosp
[2017-12-25] MEDS: Enoxaparin 100 MG/ML Syringe SC ×2 (09:36→22:53)
--- NOTE | 2017-12-25 10:11 | PCM.PROGNOTE ---
Patient Problems: Active and Suspected Problems (Last Updated 12/23/17 @ 10:14 by Catina Burciaga) Bilateral pulmonary embolism (Acute) Subjective: Patient did well overnight. No acute issues were reported. No bleeding complications have been reported. Patient has been weaned to room air and had a walking oximetry this morning. Saturations were reportedly maintained. Patient does report more dyspnea on exertion than baseline, but states that she can get around well. Objective: Echo results were noted. - Physical Exam General: Alert, Oriented x3, Cooperative, No apparent distress, - - Morbidly obese. Speaking in full sentences. HEENT: Atraumatic, PERRLA, EOMI, Normocephalic, - - No scleral icterus or injection noted. Oral: Moist Mucosa, No Gingival or Mucosal Lesions/ Ulcerations Neck: Supple, No JVD, No Nodes, Trachea Midline Lungs: Clear to auscultation, Normal air movement, No rhonchi, No wheeze, No rales, - - Symmetric expansion. No dullness to percussion. Cardiovascular: Regular rate, Regular Rhythm, Normal S1, Normal S2, No murmurs, No rub noted, No Gallop Abdomen: Bowel Sounds Present, Soft, Non Tender, Non-Distended Extremities: No clubbing, No cyanosis, Capillary Refill Less than 3 Seconds, Edema Skin: No rashes, No breakdown Musculoskeletal: No Tenderness to Palpation of Joints or Extremities Lymphatic: No Cervical, Supraclavicular, or Inguinal Adenopathy Neurological: Cranial nerves II-XII grossly intact, Neuro grossly intact, Motor Exam 5/5 strength throughout Psych/Mental Status: Alert and oriented to time, place, person, mood and affect Vital Signs Temp Pulse Resp BP Pulse Ox 36.1 C L 98 16 131/92 H 92 12/25/17 08:19 12/25/17 08:19 12/25/17 08:19 12/25/17 08:19 12/25/17 09:18 Oxygen Flow Rate (L/min) [] 0 Oxygen Flow Rate (L/min) [] 0 Oxygen Flow Rate (L/min) 3 Oxygen Delivery Method Nasal Cannula Weight: 112.8 kg Body Mass Index (BMI) 44.1 Finger Stick Blood Glucose 149 Intake and Output for Last 24 Hours 12/23/17 12/24/17 12/25/17 23:59 23:59 23:59 Intake Total 657 / 657 3170.7 / 3170.7 Output Total 300 / 300 400 / 400 Balance 357 / 357 2770.7 / 2770.7 Laboratory Tests Past 24 Hrs 12/24/17 12/24/17 12/25/17 11:33 20:00 03:05 WBC RBC Hgb Hct MCV MCH MCHC RDW RDW Differential Plt Count MPV Immature Gran % (Auto) Neut % (Auto) Lymph % (Auto) [place] % (Auto) Eos % (Auto) Baso % (Auto) Absolute Neuts (auto) Absolute Lymphs (auto) Total Counted APTT 48.5 H 51.0 H 69.9 H 12/25/17 03:05 WBC 7.3 RBC 3.53 L Hgb 9.3 L Hct 30.4 L MCV 86.1 MCH 26.3 L MCHC 30.6 L RDW 16.7 H RDW Differential 50.7 H Plt Count 355 MPV 10.8 Immature Gran % (Auto) 0.100 Neut % (Auto) 68.6 Lymph % (Auto) 12.7 L [place] % (Auto) 11.3 H Eos % (Auto) 6.7 H Baso % (Auto) 0.6 Absolute Neuts (auto) 5.0 Absolute Lymphs (auto) 0.92 Total Counted Not Reportable APTT POC Glucose 12/25/17 12/24/17 12/24/17 06:55 21:46 16:04 POC Glucose 104 124 H 120 H 12/24/17 11:32 POC Glucose 151 H Medical Necessity - Tobacco Use Smoking Status: Never smoker Assessment/Plan All Active Problems (Last Updated 12/23/17 @ 10:14 by Catina Burciaga) Bilateral pulmonary embolism (Acute) Educational circumstance (Acute) 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 Repeat echocardiogram per cardiology recommendations 2. Continue anticoagulation with Lovenox therapy 3. Follow-up with hematology/oncology as an outpatient 4. No pulmonary follow-up indicated from my perspective. IMPRESSIONS: 1. Acute hypoxic respiratory insufficiency secondary to bilateral PE She has responded very well to anticoagulation therapy. Patient currently on room air and tolerating well. Patient does not have any baseline lung pathology that would require pulmonary function testing as an outpatient. Patient does have risk factors for sleep apnea and this can be addressed if requested by PCP. However, pulmonary follow-up is likely not necessary given that cardiology can follow-up with echocardiogram and hematology can follow with anticoagulation. 2. Elevated troponin Patient reports onset of symptoms approximately 24 hours prior to presentation. Elevation in troponin likely secondary to increased demand and strain related to bilateral PE. And had no right heart strain, but did have elevated pulmonary artery pressures.. Cardiology is following. 3. Stage IV colon cancer status post resection Patient reportedly to start chemotherapy in the near future. This will increase her risk of recurrent clots. Patient likely should be treated with Lovenox therapy for the rest of her life. Defer to oncology. 4. Iron deficiency anemia/hyperlipidemia/diabetes mellitus type 2/hypothyroidism/depression Complicates care, management, recovery and prognosis. Patient has had a drop in hemoglobin, but this is likely delusional. Hemoglobin has remained stable overnight. Continue with baseline medications. Agree with hold of metformin given recent contrast. Code Visit Inpatient E&M: 82307 Subs Hosp L2
--- NOTE | 2017-12-25 11:00 | CASEMGMT ---
NOEMY LUNA received request from PCU charge nurse to follow-up on patient's Lovenox prescription. NOEMY LUNA called [facility] to inquire regarding Enoxaparin prescription. Pharmacy states that they are not able to fill Enoxaparin 110mg and would need two script, one for Enoxaparin 30mg and another for 80mg. Dr. Caldwell updated and she will send new script for Enoxaparin 30mg and 80mg to [facility]. NOEMY LUNA call prescription insurance regarding pricing. Enoxaparin 80mg for 60doses is $618 and 30mg is $84. NOEMY LUNA requested prior authorization to be expedited to lower prescription cost. Insurance stated to call back in 2 hours to see if prior authorization completed. NOEMY LUNA will continue to follow this patient and plan for a safe discharge.
[2017-12-25 12:11] LABS: Bedside Glucose 129 mg/dL (70-110)
--- NOTE | 2017-12-25 15:00 | CASEMGMT ---
NOEMY LUNA called prescription insurance to follow-up regarding prior authorizations. Per insurance the prior auth went through for Enoxaparin 80mg which brought barkley down to $316. Prior auth for Enoxaparin 30mg still pending. NOEMY LUNA called [facility] and updated regarding prior auth. Pharmacist stated that Enoxaparin 80mg ran for $316 and that they only had a 3 day supply for 30mg that they would give the patient and run through insurance when rest of supply came in. NOEMY LUNA updated patient regarding cost of Lovenox and she is unable to afford to fill the prescription. Dr. Caldwell updated. Discharge cancelled and patient will stay till Wednesday so that CM and SW can provided additional resources that will be available Wednesday. NOEMY LUNA updated patient that she will be here till Wednesday so that CM/SW can access additional resources that may be available. Patient thankful for assistance. CM/SW to continue to follow this patient and plan for a safe discharge.
[2017-12-25 16:46] LABS: Bedside Glucose 93 mg/dL (70-110)
[2017-12-25] MEDS: metFORMIN HCl 1,000 MG Tablet 1000 MG PO (17:15)
[2017-12-25] MEDS: DOXEPIN HCL 50 MG CAPSULE PO (22:49)
[2017-12-25] MEDS: Atorvastatin Calcium 40 MG Tablet PO (22:49)
[2017-12-25] MEDS: oxyCODONE 5 MG Tablet PO (22:53)
[2017-12-25 23:05] LABS: Bedside Glucose 114 mg/dL (70-110)
[2017-12-26] VITALS (15 sets, daily range): BP systolic 117–151; BP diastolic 71–91; PULSE 100–111; RESP 14–19; TEMP 36.3–37.1; O2SAT 90–100
[2017-12-26] MEDS: Levothyroxine 50 MCG Tablet PO (06:51)
[2017-12-26 07:06] LABS: Bedside Glucose 93 mg/dL (70-110)
--- NOTE | 2017-12-26 08:27 | PCM.PROGNOTE ---
Patient Problems: Active and Suspected Problems (Last Updated 12/23/17 @ 10:14 by Catina Burciaga) Bilateral pulmonary embolism (Acute) Subjective: Patient was supposed to be discharged yesterday, but stayed overnight secondary to insurance issues with Lovenox therapy. Patient denies any new symptoms at this time. Patient does remain on room air. Patient denies any complications with anticoagulation including epistaxis, melena, hematochezia or hemoptysis. - Physical Exam General: Alert, Oriented x3, Cooperative, No apparent distress, Well developed, Well nourished, - - Speaking in full sentences. Morbidly obese HEENT: Atraumatic, PERRLA, EOMI, Normocephalic, - - No scleral icterus or injection noted. Oral: Moist Mucosa, No Gingival or Mucosal Lesions/ Ulcerations Neck: Supple, No JVD, No Nodes, Trachea Midline Lungs: No rhonchi, No wheeze, No rales, Diminished, - - Symmetric expansion. No dullness to percussion. Cardiovascular: Normal S1, Normal S2, No murmurs, No rub noted, No Gallop, Tachycardic Abdomen: Bowel Sounds Present, Soft, Non Tender, Non-Distended, Obese Extremities: No clubbing, No cyanosis, Edema - 1+ lower extremity Skin: No rashes, No breakdown Musculoskeletal: No Tenderness to Palpation of Joints or Extremities Lymphatic: No Cervical, Supraclavicular, or Inguinal Adenopathy Neurological: Cranial nerves II-XII grossly intact, Neuro grossly intact, Motor Exam 5/5 strength throughout Psych/Mental Status: Alert and oriented to time, place, person, mood and affect Vital Signs Temp Pulse Resp BP Pulse Ox 36.7 C 107 H 18 117/71 90 12/26/17 03:30 12/26/17 07:37 12/26/17 03:30 12/26/17 03:30 12/26/17 07:25 Oxygen Flow Rate (L/min) [At 0 REST on Room Air] Oxygen Flow Rate (L/min) [ 0 AMBULATING on Room Air] Oxygen Flow Rate (L/min) 3 Oxygen Delivery Method Room Air Weight: 112.8 kg Body Mass Index (BMI) 44.1 Finger Stick Blood Glucose 149 Intake and Output for Last 24 Hours 11/02/18 11/03/18 11/04/18 23:59 23:59 22:59 Intake Total 3170.7 / 3170.7 801 / 801 520 / 520 Output Total 400 / 400 Balance 2770.7 / 2770.7 801 / 801 520 / 520 POC Glucose 12/26/17 12/25/17 12/25/17 06:47 22:47 16:41 POC Glucose 93 114 H 93 12/25/17 12:01 POC Glucose 129 H Medical Necessity - Tobacco Use Smoking Status: Never smoker Assessment/Plan All Active Problems (Last Updated 12/23/17 @ 10:14 by Catina Burciaga) Bilateral pulmonary embolism (Acute) Educational circumstance (Acute) 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 Repeat echocardiogram per cardiology recommendations 2. Continue anticoagulation with Lovenox therapy 3. Follow-up with hematology/oncology as an outpatient 4. No pulmonary follow-up indicated from my perspective. 5. Hemodynamically stable on room air. Will sign off from a pulmonary perspective IMPRESSIONS: 1. Acute hypoxic respiratory insufficiency secondary to bilateral PE She has responded very well to anticoagulation therapy. Patient currently on room air and tolerating well. Patient does not have any baseline lung pathology that would require pulmonary function testing as an outpatient. Patient does have risk factors for sleep apnea and this can be addressed if requested by PCP. However, pulmonary follow-up is likely not necessary given that cardiology can follow-up with echocardiogram and hematology can follow with anticoagulation. Patient currently admitted secondary to insurance issues. Hemodynamically stable on room air, so will sign off from a pulmonary perspective. 2. Elevated troponin Patient reports onset of symptoms approximately 24 hours prior to presentation. Elevation in troponin likely secondary to increased demand and strain related to bilateral PE. And had no right heart strain, but did have elevated pulmonary artery pressures. Cardiology is following. 3. Stage IV colon cancer status post resection Patient reportedly to start chemotherapy in the near future. This will increase her risk of recurrent clots. Patient likely should be treated with Lovenox therapy for the rest of her life. Defer to oncology. Await insurance approval 4. Iron deficiency anemia/hyperlipidemia/diabetes mellitus type 2/hypothyroidism/depression Complicates care, management, recovery and prognosis. Patient has had a drop in hemoglobin, but this is likely delusional. Hemoglobin has remained stable overnight. Continue with baseline medications. Consider BMP tomorrow to ensure normal renal function given metformin at maximum dosing. Code Visit Inpatient E&M: 57410 Subs Hosp L2
[2017-12-26] MEDS: Iron Polysaccharide Complex 150 MG CAPSULE PO (08:40)
[2017-12-26] MEDS: metFORMIN HCl 1,000 MG Tablet 1000 MG PO ×2 (08:40→18:06)
[2017-12-26] MEDS: Multivitamins,Therapeutic Tablet 1 TABLET PO (08:41)
[2017-12-26] MEDS: Calcium Carbonate 500 MG Tablet PO ×2 (08:41→18:06)
--- NOTE | 2017-12-26 08:56 | PN_ITS ---
Patient Problems: Active and Suspected Problems (Last Updated 12/23/17 @ 10:14 by Catina Burciaga) Bilateral pulmonary embolism (Acute) Subjective: Patient was seen and examined. She could not be discharged yesterday because insurance could not prior authorise her Lovenox injection. She was weaned to room air. No acute events overnight. Denies fever, chills, SON, hemoptysis or bleeding. Vitals/I&O's: Vital Signs Temp Pulse Resp BP Pulse Ox 98.5 F 111 H 18 134/82 H 98 12/26/17 08:39 12/26/17 08:39 12/26/17 08:39 12/26/17 08:39 12/26/17 08:39 Oxygen Flow Rate (L/min) [At 0 REST on Room Air] Oxygen Flow Rate (L/min) [ 0 AMBULATING on Room Air] Oxygen Flow Rate (L/min) 3 Oxygen Delivery Method Room Air Weight: 112.8 kg Body Mass Index (BMI) 44.1 Finger Stick Blood Glucose 149 Intake and Output for Last 24 Hours 12/24/17 12/25/17 12/26/17 23:59 23:59 22:59 Intake Total 3170.7 / 3170.7 801 / 801 520 / 520 Output Total 400 / 400 Balance 2770.7 / 2770.7 801 / 801 520 / 520 General: Alert, Oriented x3, Cooperative, No apparent distress HEENT: Atraumatic, PERRLA, EOMI, Normocephalic Oral: Moist Mucosa Neck: Supple, No JVD, Negative Carotid Bruits Lungs: Normal air movement, Diminished - at the lung bases Cardiovascular: Regular rate, Regular Rhythm, Normal S1, Normal S2, No murmurs Abdomen: Bowel Sounds Present, Soft, Non Tender, Non-Distended, No Hepato- splenomegaly Extremities: No edema Skin: No rashes, No breakdown Musculoskeletal: No Tenderness to Palpation of Joints or Extremities Lymphatic: No Cervical, Supraclavicular, or Inguinal Adenopathy Neurological: Cranial nerves II-XII grossly intact, Neuro grossly intact Psych/Mental Status: Normal Affect, Appropriate Laboratory Results 12/25/17 12:01: POC Glucose 129 H 12/25/17 16:41: POC Glucose 93 12/25/17 22:47: POC Glucose 114 H 12/26/17 06:47: POC Glucose 93 Current Medications Acetaminophen (Tylenol) 1,000 mg PO Q8H PRN PRN PRN Reason: MILD PAIN (1-05/01) Last Admin: 12/25/17 13:17 Dose: 1,000 mg Atorvastatin Calcium (Lipitor) 40 mg PO QHS [facility] Last Admin: 12/25/17 22:49 Dose: 40 mg Calcium Carbonate (Tums) 500 mg PO BIDCM [facility] Last Admin: 12/26/17 08:41 Dose: 500 mg Citalopram Hydrobromide (Celexa) 10 mg PO DAILY [facility] Last Admin: 12/25/17 08:30 Dose: 10 mg Dextrose (D50w Syringe) 0 gm IV X1 PRN; Protocol PRN Reason: Hypoglycemia Doxepin HCl (Doxepin Hcl) 50 mg PO QHS [facility] Last Admin: 12/25/17 22:49 Dose: 50 mg Enoxaparin Sodium (Lovenox) 100 mg SC Q12 [facility] Last Admin: 12/25/17 22:53 Dose: 100 mg Glucagon () 1 mg IM .X1 PRN PRN Reason: Hypoglycemia Heparin Sodium (Beef Lung) () 50 units IV UD PRN PRN Reason: HEPARIN FLUSH Insulin Human Lispro (Humalog Kwikpen (Bkc)) 0 unit SQ ACHS [facility]; Protocol Last Admin: 12/26/17 06:51 Dose: Not Given Levothyroxine Sodium (Synthroid) 50 mcg PO DAILY@0600 [facility] Last Admin: 12/26/17 06:51 Dose: 50 mcg Magnesium Hydroxide (Milk Of Magnesia) 30 ml PO DAILY PRN PRN PRN Reason: Constipation Metformin [facility] ([facility]) [facility] Last Admin: 12/26/17 08:40 Dose: 1,000 mg Multivitamins (Multivitamin) 1 tablet PO DAILY@0800 [facility] Last Admin: 12/26/17 08:41 Dose: 1 tablet Nutritional Formula (Lactose Free) (Glucerna Shake) 120 ml PO 4X/DAY [facility] Last Admin: 12/25/17 22:48 Dose: Not Given Ondansetron HCl (Zofran Odt) 4 mg PO Q8H PRN PRN PRN Reason: NAUSEA Oxycodone HCl (Oxyir) 5 mg PO X1 PRN PRN Reason: PAIN Last Admin: 12/25/17 22:53 Dose: 5 mg Polysaccharide Iron Complex (Ferrex 150) [facility] Last Admin: 12/26/17 08:40 Dose: 150 mg Potassium Chloride (K-Dur) 20 meq [facility] Last Admin: 12/26/17 08:40 Dose: 20 meq Sodium Chloride () 5 - 30 ml IV UD PRN PRN Reason: SALINE FLUSH Sodium Chloride () 10 ml IV UD PRN PRN Reason: VAD FLUSH Medical Necessity - Tobacco Use Smoking Status: Never smoker Assessment/Plan All Active Problems (Last Updated 12/23/17 @ 10:14 by Catina Burciaga) Bilateral pulmonary embolism (Acute) Educational circumstance (Acute) 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 1. Acute respiratory insufficiency secondary to extensive PE, resolved, will still encourage use of incentive spirometer 2. Acute extensive PE, on therapeutic Lovenox. Outpatient scripts and discharge are pending insurance authorization. Case management working on them, prior authorizations filled and faxed over to insurance company. Follow-up on Wednesday is warranted. 3. RISSA secondary to dehydration,resolved, labs in am 4. Iron deficiency anemia, on oral iron 5. Hypertension, on medication, continue to monitor 6. Hyperlipidemia, on statin 7. Anxiety/depression, on Celexa, Lexapro 8. Type II DM, resumed on metformin, stable, BS are stable. 9. Hypothyroidism, on levothyroxine 10. 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 DVT prophylaxis -Therapeutic Lovenox 12, Disposition: Pending insurance prior authorization for Lovenox. Code Visit Inpatient E&M: 16758 Subs Hosp L2
[2017-12-26] MEDS: Glucerna Shake 120 ML LIQUID PO ×2 (10:39→14:21)
[2017-12-26] MEDS: Citalopram 10 MG Tablet PO (10:40)
[2017-12-26] MEDS: Enoxaparin 120 MG/0.8 ML Syringe 110 MG SC ×2 (10:42→22:09)
[2017-12-26 12:25] LABS: Bedside Glucose 109 mg/dL (70-110)
[2017-12-26] MEDS: Acetaminophen 500 MG Tablet 1000 MG PO (14:21)
[2017-12-26 16:21] LABS: Bedside Glucose 116 mg/dL (70-110)
[2017-12-26] MEDS: DOXEPIN HCL 50 MG CAPSULE PO (22:09)
[2017-12-26] MEDS: Atorvastatin Calcium 40 MG Tablet PO (22:09)
[2017-12-26] MEDS: oxyCODONE 5 MG Tablet PO (22:10)
[2017-12-26 22:26] LABS: Bedside Glucose 97 mg/dL (70-110)
[2017-12-27] VITALS (7 sets, daily range): BP systolic 134–142; BP diastolic 74–78; PULSE 94–105; RESP 16–20; TEMP 36.7–36.9; O2SAT 93–97
[2017-12-27 06:40] LABS: Anion Gap 9 (5-15); BUN 14 mg/dL (7-18); BUN/Creat Ratio 21.3 RATIO (10-20); Calcium,Total 8.8 mg/dL (8.5-10.1); Chloride 107 mmol/L (98-107); Creatinine, Serum 0.66 mg/dL (0.55-1.02); EST Glomerular Filtration Rate 96 mL/min (>60); Est Glom Filt Rate - Afr Amer 116 mL/min (>60); Glucose 100 mg/dL (74-106); Potassium 4.3 mmol/L (3.5-5.1); Sodium Level 139 mmol/L (136-145)
[2017-12-27] MEDS: Levothyroxine 50 MCG Tablet PO (06:41)
[2017-12-27 07:10] LABS: Bedside Glucose 97 mg/dL (70-110)
[2017-12-27] MEDS: metFORMIN HCl 1,000 MG Tablet 1000 MG PO (08:29)
[2017-12-27] MEDS: Iron Polysaccharide Complex 150 MG CAPSULE PO (08:29)
[2017-12-27] MEDS: Multivitamins,Therapeutic Tablet 1 TABLET PO (08:29)
[2017-12-27] MEDS: Calcium Carbonate 500 MG Tablet PO (08:29)
[2017-12-27] MEDS: Enoxaparin 120 MG/0.8 ML Syringe 110 MG SC (08:30)
[2017-12-27] MEDS: Citalopram 10 MG Tablet PO (08:30)
--- NOTE | 2017-12-27 10:11 | CASEMGMT ---
Addendum entered by Abelardo Ann 12/27/17 12:07: NOEYM LUNA called to [facility]. Per hospital insurance representative, authorization for TIER exception has been approved and medication will be paid at Tier 2 level which would qualify for $reduced copay. He also checked the auth with the pharmacy and medication should be able to be filled now. -call to [facility] pharmacy. Enoxaparin 120 mg syringes, quantity 60 processed for $52.36 and they do have in stock. -intro role of CM to patient in room. Explained Lovenox script and copay @ [facility]. Pt is agreeable. -pt has paperwork for [facility] application and NOEMY LUNA encouraged her to fill out in timely manner so if she is eligible, she can begin receiving benefits. Original Note: NOEMY LUNA Note. Call to [facility] for prescription review of Enoxaparin 120 mg. Cost is over $600 which is cost prohibitive for pt. Per Murray, Rep with [employer], information was taken and medication will be changed from Tier 4 to Tier 2. Copay amount not available. Fax will be sent to [employer] fax machine when approved. NOEMY LUNA will then need to contact pharmacy to rerun prescription with new Tier level. Kaylee SHEA RN ACM
--- NOTE | 2017-12-27 10:55 | PCM.PN.HOSP ---
Patient Problems: Active and Suspected Problems (Last Updated 12/23/17 @ 10:14 by Catina Buricaga) Bilateral pulmonary embolism (Acute) Subjective: Patient seen and examined. She had no complaints and felt well. She denied any fever or chills, any cough or chest pain, shortness of breath, any abdominal pain, any diarrhea vomiting. 12 point review of systems otherwise negative. Patient is awaiting preset for Lovenox. Vitals/I&O's: Vital Signs Temp Pulse Resp BP Pulse Ox 98.4 F 100 18 139/78 H 94 12/27/17 10:05 12/27/17 10:05 12/27/17 10:05 12/27/17 10:05 12/27/17 10:05 Oxygen Flow Rate (L/min) [At 0 REST on Room Air] Oxygen Flow Rate (L/min) [ 0 AMBULATING on Room Air] Oxygen Flow Rate (L/min) 2 Oxygen Delivery Method Room Air Weight: 253 lb 1.451 oz Body Mass Index (BMI) 44.1 Finger Stick Blood Glucose 149 Intake and Output for Last 24 Hours 12/26/17 12/26/17 12/27/17 00:59 23:59 23:59 Intake Total Balance General: Alert, Oriented x3, Cooperative, No apparent distress HEENT: Atraumatic, PERRLA, EOMI, Normocephalic Oral: Moist Mucosa Neck: Supple, No JVD, Negative Carotid Bruits Lungs: Clear to auscultation, Normal air movement, No rhonchi, No wheeze, No rales Cardiovascular: Regular rate, Regular Rhythm, Normal S1, Normal S2, No murmurs Abdomen: Bowel Sounds Present, Soft, Non Tender, Non-Distended, No Hepato-splenomegaly Extremities: No clubbing, No cyanosis, No edema, Capillary Refill Less than 3 Seconds Skin: No rashes, No breakdown Musculoskeletal: No Tenderness to Palpation of Joints or Extremities Lymphatic: No Cervical, Supraclavicular, or Inguinal Adenopathy Neurological: Cranial nerves II-XII grossly intact Psych/Mental Status: Normal Affect, Appropriate, Alert and oriented to time, place, person, mood and affect Laboratory Results 12/26/17 12:16: POC Glucose 109 12/26/17 16:15: POC Glucose 116 H 12/26/17 22:07: POC Glucose 97 12/27/17 05:58: Sodium 139, Potassium 4.3, Chloride 107, Carbon Dioxide 23.0, Anion Gap 9, BUN 14, Creatinine 0.66, Estim Creat Clear Calc 70.30, Est GFR (MDRD) Af Amer 116, Est GFR (MDRD) Non-Af 96, BUN/Creatinine Ratio 21.3 H, Glucose 100, Calcium 8.8 12/27/17 06:43: POC Glucose 97 Diagnostic Data Chest X-Ray 12/23/17 12:09 IMPRESSION: Enlargement of the pulmonary arteries bilaterally. The lungs are clear. Electronically Signed: Chris Hernandez MD at 12:32 EDT Tel [phone], Service support , Chest CTA 12/23/17 13:13 IMPRESSION: Diffuse bilateral pulmonary emboli. Masses surrounding the pancreas and the region of the jaspal hepatis suggestive of adenopathy. Electronically Signed: Chris Hernandez MD at 14:06 EDT Tel [phone], Service support , Current Medications Acetaminophen (Tylenol) 1,000 mg PO Q8H PRN PRN PRN Reason: MILD PAIN (1-3) Last Admin: 12/26/17 14:21 Dose: 1,000 mg Atorvastatin Calcium (Lipitor) 40 mg PO QHS [facility] Last Admin: 12/26/17 22:09 Dose: 40 mg Calcium Carbonate (Tums) 500 mg PO BIDCM [facility] Last Admin: 12/27/17 08:29 Dose: 500 mg Citalopram Hydrobromide (Celexa) 10 mg PO DAILY [facility] Last Admin: 12/27/17 08:30 Dose: 10 mg Dextrose (D50w Syringe) 0 gm IV X1 PRN; Protocol PRN Reason: Hypoglycemia Doxepin HCl (Doxepin Hcl) 50 mg PO QHS [facility] Last Admin: 12/26/17 22:09 Dose: 50 mg Enoxaparin Sodium (Lovenox) 110 mg SC Q12 [facility] Last Admin: 12/27/17 08:30 Dose: 110 mg Glucagon () 1 mg IM .X1 PRN PRN Reason: Hypoglycemia Heparin Sodium (Beef Lung) () 50 units IV UD PRN PRN Reason: HEPARIN FLUSH Insulin Human Lispro (Humalog Kwikpen (Bkc)) 0 unit SQ [facility]; Protocol Last Admin: 12/27/17 08:24 Dose: Not Given Levothyroxine Sodium (Synthroid) 50 mcg PO DAILY@0600 [facility] Last Admin: 12/27/17 06:41 Dose: 50 mcg Magnesium Hydroxide (Milk Of Magnesia) 30 ml PO DAILY PRN PRN PRN Reason: Constipation Metformin [facility]) [facility] Last Admin: 12/27/17 08:29 Dose: 1,000 mg Multivitamins (Multivitamin) 1 tablet PO DAILY@0800 [facility] Last Admin: 12/27/17 08:29 Dose: 1 tablet Nutritional Formula (Lactose Free) (Glucerna Shake) 120 ml PO 4X/DAY [facility] Last Admin: 12/27/17 08:30 Dose: Not Given Ondansetron HCl (Zofran Odt) 4 mg PO Q8H PRN PRN PRN Reason: NAUSEA Oxycodone HCl (Oxyir) 5 mg PO X1 PRN PRN Reason: PAIN Last Admin: 12/26/17 22:10 Dose: 5 mg Polysaccharide Iron Complex (Ferrex 150) [facility] Last Admin: 12/27/17 08:29 Dose: 150 mg Potassium Chloride (K-Dur) 20 meq [facility] Last Admin: 12/27/17 08:29 Dose: 20 meq Sodium Chloride () 5 - 30 ml IV UD PRN PRN Reason: SALINE FLUSH Sodium Chloride () 10 ml IV UD PRN PRN Reason: VAD FLUSH Medical Necessity - Tobacco Use Smoking Status: Never smoker Assessment/Plan All Active Problems (Last Updated 12/23/17 @ 10:14 by Catina Burciaga) Bilateral pulmonary embolism (Acute) Educational circumstance (Acute) 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 Acute bilateral PE likely due to malignancy on SC lovenox. Still awaiting insurance authorization for lovenox. 2. Acute respiratory insufficiency due to PE: resolved. Not on oxygen. Use incentive spirometer 3. Ashley due to dehydration: resolved 4. Stage IV colon cancer: s/p colon resection. To follow up with oncologist on discharge 5. Iron deficiency anemia: stable. on oral iron supplementation 6. HYpertension: stable. continue current meds 7. Hyperlipidemia: on statin. 8. Type 2 diabetes mellitus: on metformin and ISS. Accuchecks ACHS 9. Anciety and depression: on celexa and lexapro 10. HYpothyroidism: on synthroid Disposition: for dc tomorrow once authorisation for lovenox has been received. Code Visit Inpatient E&M: 05741 Subs Hosp L2
--- NOTE | 2017-12-27 11:00 | PN_ITS ---
Patient Problems: Active and Suspected Problems (Last Updated 12/23/17 @ 10:14 by Catina Burciaga) Bilateral pulmonary embolism (Acute) Subjective: Patient seen and examined. She had no complaints and felt well. She denied any fever or chills, any cough or chest pain, shortness of breath, any abdominal pain, any diarrhea vomiting. 12 point review of systems otherwise negative. Patient is awaiting preset for Lovenox. Vitals/I&O's: Vital Signs Temp Pulse Resp BP Pulse Ox 98.4 F 100 18 139/78 H 94 12/27/17 10:05 12/27/17 10:05 12/27/17 10:05 12/27/17 10:05 12/27/17 10:05 Oxygen Flow Rate (L/min) [At 0 REST on Room Air] Oxygen Flow Rate (L/min) [ 0 AMBULATING on Room Air] Oxygen Flow Rate (L/min) 2 Oxygen Delivery Method Room Air Weight: 253 lb 1.451 oz Body Mass Index (BMI) 44.1 Finger Stick Blood Glucose 149 Intake and Output for Last 24 Hours 12/26/17 12/26/17 12/27/17 00:59 23:59 23:59 Intake Total Balance General: Alert, Oriented x3, Cooperative, No apparent distress HEENT: Atraumatic, PERRLA, EOMI, Normocephalic Oral: Moist Mucosa Neck: Supple, No JVD, Negative Carotid Bruits Lungs: Clear to auscultation, Normal air movement, No rhonchi, No wheeze, No rales Cardiovascular: Regular rate, Regular Rhythm, Normal S1, Normal S2, No murmurs Abdomen: Bowel Sounds Present, Soft, Non Tender, Non-Distended, No Hepato-spl enomegaly Extremities: No clubbing, No cyanosis, No edema, Capillary Refill Less than 3 Seconds Skin: No rashes, No breakdown Musculoskeletal: No Tenderness to Palpation of Joints or Extremities Lymphatic: No Cervical, Supraclavicular, or Inguinal Adenopathy Neurological: Cranial nerves II-XII grossly intact Psych/Mental Status: Normal Affect, Appropriate, Alert and oriented to time, place, person, mood and affect Laboratory Results 12/26/17 12:16: POC Glucose 109 12/26/17 16:15: POC Glucose 116 H 12/26/17 22:07: POC Glucose 97 12/27/17 05:58: Sodium 139, Potassium 4.3, Chloride 107, Carbon Dioxide 23.0, Anion Gap 9, BUN 14, Creatinine 0.66, Estim Creat Clear Calc 70.30, Est GFR (MDRD) Af Amer 116, Est GFR (MDRD) Non-Af 96, BUN/Creatinine Ratio 21.3 H, Glucose 100, Calcium 8.8 12/27/17 06:43: POC Glucose 97 Diagnostic Data Chest X-Ray 12/23/17 12:09 IMPRESSION: Enlargement of the pulmonary arteries bilaterally. The lungs are clear. Electronically Signed: Chris Hernandez MD at 12:32 EDT Tel [phone], Service support , Chest CTA 12/23/17 13:13 IMPRESSION: Diffuse bilateral pulmonary emboli. Masses surrounding the pancreas and the region of the jaspal hepatis suggestive of adenopathy. Electronically Signed: Chris Hernandez MD at 14:06 EDT Tel [phone], Service support , Current Medications Acetaminophen (Tylenol) 1,000 mg PO Q8H PRN PRN PRN Reason: MILD PAIN (1-310) Last Admin: 12/26/17 14:21 Dose: 1,000 mg Atorvastatin Calcium (Lipitor) 40 mg PO QHS [facility] Last Admin: 12/26/17 22:09 Dose: 40 mg Calcium Carbonate (Tums) 500 mg PO BIDCM [facility] Last Admin: 12/27/17 08:29 Dose: 500 mg Citalopram Hydrobromide (Celexa) 10 mg PO DAILY [facility] Last Admin: 12/27/17 08:30 Dose: 10 mg Dextrose (D50w Syringe) 0 gm IV X1 PRN; Protocol PRN Reason: Hypoglycemia Doxepin HCl (Doxepin Hcl) 50 mg PO QHS [facility] Last Admin: 12/26/17 22:09 Dose: 50 mg Enoxaparin Sodium (Lovenox) 110 mg SC Q12 [facility] Last Admin: 12/27/17 08:30 Dose: 110 mg Glucagon () 1 mg IM .X1 PRN PRN Reason: Hypoglycemia Heparin Sodium (Beef Lung) () 50 units IV UD PRN PRN Reason: HEPARIN FLUSH Insulin Human Lispro (Humalog Kwkristinpen (Bkc)) 0 unit SQ [facility]; Protocol Last Admin: 12/27/17 08:24 Dose: Not Given Levothyroxine Sodium (Synthroid) 50 mcg PO DAILY@0600 [facility] Last Admin: 12/27/17 06:41 Dose: 50 mcg Magnesium Hydroxide (Milk Of Magnesia) 30 ml PO DAILY PRN PRN PRN Reason: Constipation Metformin [facility] (Glucophage) [facility] Last Admin: 12/27/17 08:29 Dose: 1,000 mg Multivitamins (Multivitamin) 1 tablet PO DAILY@0800 [facility] Last Admin: 12/27/17 08:29 Dose: 1 tablet Nutritional Formula (Lactose Free) (Glucerna Shake) 120 ml PO 4X/DAY [facility] Last Admin: 12/27/17 08:30 Dose: Not Given Ondansetron HCl (Zofran Odt) 4 mg PO Q8H PRN PRN PRN Reason: NAUSEA Oxycodone HCl (Oxyir) 5 mg PO X1 PRN PRN Reason: PAIN Last Admin: 12/26/17 22:10 Dose: 5 mg Polysaccharide Iron Complex (Ferrex 150) [facility] Last Admin: 12/27/17 08:29 Dose: 150 mg Potassium Chloride (K-Dur) 20 meq PO DAILY[facility] Last Admin: 12/27/17 08:29 Dose: 20 meq Sodium Chloride () 5 - 30 ml IV UD PRN PRN Reason: SALINE FLUSH Sodium Chloride () 10 ml IV UD PRN PRN Reason: VAD FLUSH Medical Necessity - Tobacco Use Smoking Status: Never smoker Assessment/Plan All Active Problems (Last Updated 12/23/17 @ 10:14 by Catina Burciaga) Bilateral pulmonary embolism (Acute) Educational circumstance (Acute) 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 Acute bilateral PE * likely due to malignancy * on SC lovenox. Still awaiting insurance authorization for lovenox. 2. Acute respiratory insufficiency due to PE: resolved. Not on oxygen. Use incentive spirometer 3. Ashley due to dehydration: resolved 4. Stage IV colon cancer: s/p colon resection. To follow up with oncologist on discharge 5. Iron deficiency anemia: stable. on oral iron supplementation 6. HYpertension: stable. continue current meds 7. Hyperlipidemia: on statin. 8. Type 2 diabetes mellitus: on metformin and ISS. Accuchecks ACHS 9. Anciety and depression: on celexa and lexapro 10. HYpothyroidism: on synthroid Disposition: for dc tomorrow once authorisation for lovenox has been received. Code Visit Inpatient E&M: 86501 Subs Hosp L2
--- NOTE | 2017-12-27 12:23 | CHAPLAIN ---
Type of Pastoral Visit ___ Initial Visit _x__ Follow-up Visit ___ On-call Visit ___ General Patient Visit ___ Spiritual Assessment ___ Family Conference ___ Bereavement ___ Rapid Response ___ Code Blue ___ Other (describe below) Pastoral Care Referral From _x__ Patient ___ Family ___ Nurse ___ Physician ___ Councilman ___ Battery Container Inspector ___ Other (describe below) Sacrament/Intervention _x__ Active listening ___ Anointing ___ Buddhist ___ Bereavement ___ Communion ___ Louann exploration ___ ___ Life review _x__ Prayer ___ Reconciliation ___ Sacrament of Sick _x__ Supportive presence ___ Wedding ___ Other (describe below) Pastoral Comments
[2017-12-27] MEDS: Acetaminophen 500 MG Tablet 1000 MG PO (12:26)
--- NOTE | 2017-12-27 14:46 | DCINST_ITS ---
- Discharge Diagnoses Current Active Problems: Current Active and Chronic Problems (Last Updated 12/23/17 @ 10:14 by Catina Burciaga) Bilateral pulmonary embolism (Acute) You will use the following diet at home:: Cardiac Your food should be the consistency of: Regular Your liquids should be the consistency of: Regular/Thin Discharge Activity: Return to Normal Activity Weight Bearing Status: Weight bearing as tolerated Call your doctor if you observe: Shortness of breath, Chest pain, Calf discomfort Allergies/Adverse Reactions: Allergies amoxicillin [From Augmentin] Allergy (Severe, Verified 12/23/17 14:03) Hives clavulanic acid [From Augmentin] Allergy (Severe, Verified 12/23/17 14:03) Hives Medications to take at Discharge calcium carbonate 600 mg calcium (1,500 mg) tablet 600 mg PO BID tab 08/17/17 levothyroxine 50 mcg tablet 50 mcg PO DAILY@0600 08/17/17 metformin 500 mg tablet 1,000 mg PO BIDCM tab 08/17/17 Citalopram [Celexa] 10 mg PO DAILY 11/09/17 Atorvastatin Calcium [Lipitor] 40 mg PO QHS 11/14/17 Nabumetone [Relafen] 750 mg PO BID 11/20/17 Acetaminophen [Tylenol] 1,000 mg PO Q8H PRN PRN tab 12/03/17 Doxepin HCl 50 mg PO QHS #30 cap 12/03/17 Iron Polysaccharide Complex [Ferrex 150] 150 mg PO DAILYCM #30 cap 12/03/17 Multivitamins,Therapeutic [Multivitamin] 1 tab PO DAILY@0800 tab 12/03/17 Potassium Chloride [K-Dur] 20 meq PO DAILYCM #30 tab 12/03/17 Lidocaine/Prilocaine [Lidocaine-Prilocaine Cream] 30 gm TP DAILY PRN PRN 30 Days #1 cream..g. 12/14/17 Ondansetron HCl [Zofran] 4 mg PO Q8H PRN PRN 30 Days #30 tab 12/14/17 Cholecalciferol (Vitamin D3) [Vitamin D3] 5,000 unit PO DAILY 12/23/17 Escitalopram Oxalate [Lexapro] 10 mg PO DAILY 12/23/17 Enoxaparin [Lovenox] 110 mg SC Q12 #60 syringe 12/27/17 The following prescriptions were given: Enoxaparin [Lovenox] 110 mg SC Q12 #60 syringe Primary Care Physician: Jose Daniel Yang DO [Primary Care Provider] - Please follow up with your Primary Care Physician in: within 2 weeks Test Results: Test results from this visit will be discussed in further detail at your follow- up appointment, if applicable. Please Follow Up With: Violet Shepherd MD When: within 2 weeks Proposed Discharge Date: 12/27/17
--- NOTE | 2017-12-27 14:46 | PCM.DC.SUM ---
Discharge Date and Diagnosis - Problem List Patient Problems: Active and Suspected Problems (Last Updated 12/23/17 @ 10:14 by Catina Burciaga) Bilateral pulmonary embolism (Acute) Date of Admission: 12/23/17 Date of Discharge: 12/27/17 - Primary Discharge Diagnosis Active and Suspected Problems (Last Updated 12/23/17 @ 10:14 by Catina Bruciaga) Bilateral pulmonary embolism (Acute) - Secondary Discharge Diagnosis Chronic Problems (Last Updated 12/23/17 @ 10:14 by Catina Burciaga) Colon cancer (Chronic) Colon cancer metastasized to intra-abdominal lymph node (Chronic) SCOOTER (iron deficiency anemia) (Chronic) Diabetes mellitus (Chronic) Osteoarthritis of left hip (Chronic) Breast cancer (Chronic) Hypothyroidism (Chronic) Depression (Chronic) Nausea (Chronic) Left hip pain (Chronic) Arthritis (Chronic) Type 2 diabetes mellitus (Chronic) IBS (irritable bowel syndrome) (Chronic) Hyperlipemia (Chronic) Hypertension (Chronic) Hospital Course and Treatment Imaging Results: Diagnostic Data Chest X-Ray 12/23/17 12:09 IMPRESSION: Enlargement of the pulmonary arteries bilaterally. The lungs are clear. Electronically Signed: Chris Hernandez MD at 12:32 EDT Tel [phone], Service support , Chest CTA 12/23/17 13:13 IMPRESSION: Diffuse bilateral pulmonary emboli. Masses surrounding the pancreas and the region of the jaspal hepatis suggestive of adenopathy. Electronically Signed: Chris Hernandez MD at 14:06 EDT Tel [phone], Service support , Operations: None, - Procedures: None Summary of Care Provided: The patient is a 67 year old F with past medical history of hypertension, hyperlipidemia, diabetes mellitus, hypothyroidism and stage IV colon cancer status post resection on 924. She was admitted with a complaint of 1 day history of shortness of breath. In the ED, EKG done showed new left bundle branch block and an elevated troponin. CT angiogram done showed bilateral diffuse PE. She was admitted to be managed for bilateral PE. Patient was started on subcutaneous Lovenox injection. 2D echo done showed normal left ventricular size with estimated EF of 50% in stage I diastolic dysfunction with no regional wall motion abnormality seen. Pulmonary artery systolic pressure was 32 mmH, with moderately abnormal Global longitudinal strain. Patient remained stable and was discharged on 12/27/2017 with a prescription for subcutaneous Lovenox 110 mg twice daily. She is to follow-up with oncologist and primary care doctor. Patient seen and examined prior to discharge. She had no complaints and felt well. She denied any fever or chills, and cough or chest pain, shortness of breath, abdominal pain, any diarrhea or vomiting. Preauthorization for her Lovenox was received from her insurance. [] Patient Problems: Active and Suspected Problems (Last Updated 12/23/17 @ 10:14 by Catina Burciaga) Bilateral pulmonary embolism (Acute) - Physical Exam General: Alert, Oriented x3, Cooperative, No apparent distress HEENT: Atraumatic, PERRLA, EOMI, Normocephalic Oral: Moist Mucosa Neck: Supple, No JVD, Negative Carotid Bruits Lungs: Clear to auscultation, Normal air movement Cardiovascular: Regular rate, Regular Rhythm, Normal S1, Normal S2, No murmurs Abdomen: Bowel Sounds Present, Soft, Non Tender, Non-Distended, No Hepato-splenomegaly Extremities: No edema, Capillary Refill Less than 3 Seconds Skin: No rashes, No breakdown Musculoskeletal: No Tenderness to Palpation of Joints or Extremities Lymphatic: No Cervical, Supraclavicular, or Inguinal Adenopathy Neurological: Cranial nerves II-XII grossly intact Psych/Mental Status: Normal Affect, Appropriate, Alert and oriented to time, place, person, mood and affect Vital Signs Temp Pulse Resp BP Pulse Ox 98.4 F 102 H 18 139/78 H 94 12/27/17 10:05 12/27/17 10:59 12/27/17 10:05 12/27/17 10:05 12/27/17 10:05 Oxygen Flow Rate (L/min) [At 0 REST on Room Air] Oxygen Flow Rate (L/min) [ 0 AMBULATING on Room Air] Oxygen Flow Rate (L/min) 2 Oxygen Delivery Method Room Air Weight: 253 lb 1.451 oz Body Mass Index (BMI) 44.1 Finger Stick Blood Glucose 149 Intake and Output for Last 24 Hours 12/26/17 12/26/17 12/27/17 00:59 23:59 23:59 Intake Total 480 / 480 Balance 480 / 480 Laboratory Tests Past 24 Hrs 12/27/17 05:58 Sodium 139 Potassium 4.3 Chloride 107 Carbon Dioxide 23.0 Anion Gap 9 BUN 14 Creatinine 0.66 Estim Creat Clear Calc 70.30 Est GFR (MDRD) Af Amer 116 Est GFR (MDRD) Non-Af 96 BUN/Creatinine Ratio 21.3 H Glucose 100 Calcium 8.8 POC Glucose 12/27/17 12/26/17 12/26/17 06:43 22:07 16:15 POC Glucose 97 97 116 H Diagnostic Data Chest X-Ray 12/23/17 12:09 IMPRESSION: Enlargement of the pulmonary arteries bilaterally. The lungs are clear. Electronically Signed: Chris Hernandez MD at 12:32 EDT Tel [phone], Service support , Chest CTA 12/23/17 13:13 IMPRESSION: Diffuse bilateral pulmonary emboli. Masses surrounding the pancreas and the region of the jaspal hepatis suggestive of adenopathy. Electronically Signed: Chris Hernandez MD at 14:06 EDT Tel [phone], Service support , Laboratory Tests 12/27/17 12/27/17 12/26/17 Range/Units 06:43 05:58 22:07 WBC (4.4-11.0) K/mm3 RBC (4.2-5.4) M/mm3 Hgb (12.0-15.0) g/dl Hct (37-47) % MCV (81-99) fL MCH (27.0-32.0) pg MCHC (32-36) g/gl RDW (11.6-14.6) % RDW Differential (35.1-43.9) fl Plt Count (150-450) K/mm3 MPV (6.2-12.0) fl Immature Gran % (Auto) (0.0-0.9) % Neut % (Auto) (47-70) % Lymph % (Auto) (19-41) % [place] % (Auto) (0-10) % Eos % (Auto) (0-5) % Baso % (Auto) (0-1) % Absolute Neuts (auto) (2.0-7.7) X10^3/uL Absolute Lymphs (auto) (0.83-4.51) X10^3/ul Total Counted PT (11.7-14.9) SECONDS INR APTT (24.1-36.2) Seconds D-Dimer Quant (PE/DVT) (0.27-0.49) FEU/ug/m Sodium 139 (136-145) mmol/L Potassium 4.3 (3.5-5.1) mmol/L Chloride 107 (98-107) mmol/L Carbon Dioxide 23.0 (21.0-32.0) mmol/L Anion Gap 9 (5-15) BUN 14 (7-18) mg/dL Creatinine 0.66 (0.55-1.02) mg/dL Estim Creat Clear Calc 70.30 ml/min Est GFR (MDRD) Af Amer 116 (>60) mL/min Est GFR (MDRD) Non-Af 96 (>60) mL/min BUN/Creatinine Ratio 21.3 H (10-20) RATIO Glucose 100 (74-106) mg/dL Calcium 8.8 (8.5-10.1) mg/dL Troponin I (<0.045) ng/mL POC Glucose 97 97 (70-110) mg/dL 12/26/17 12/26/17 12/26/17 Range/Units 16:15 12:16 06:47 WBC (4.4-11.0) K/mm3 RBC (4.2-5.4) M/mm3 Hgb (12.0-15.0) g/dl Hct (37-47) % MCV (81-99) fL MCH (27.0-32.0) pg MCHC (32-36) g/gl RDW (11.6-14.6) % RDW Differential (35.1-43.9) fl Plt Count (150-450) K/mm3 MPV (6.2-12.0) fl Immature Gran % (Auto) (0.0-0.9) % Neut % (Auto) (47-70) % Lymph % (Auto) (19-41) % [place] % (Auto) (0-10) % Eos % (Auto) (0-5) % Baso % (Auto) (0-1) % Absolute Neuts (auto) (2.0-7.7) X10^3/uL Absolute Lymphs (auto) (0.83-4.51) X10^3/ul Total Counted PT (11.7-14.9) SECONDS INR APTT (24.1-36.2) Seconds D-Dimer Quant (PE/DVT) (0.27-0.49) FEU/ug/m Sodium (136-145) mmol/L Potassium (3.5-5.1) mmol/L Chloride (98-107) mmol/L Carbon Dioxide (21.0-32.0) mmol/L Anion Gap (5-15) BUN (7-18) mg/dL Creatinine (0.55-1.02) mg/dL Estim Creat Clear Calc ml/min Est GFR (MDRD) Af Amer (>60) mL/min Est GFR (MDRD) Non-Af (>60) mL/min BUN/Creatinine Ratio (10-20) RATIO Glucose (74-106) mg/dL Calcium (8.5-10.1) mg/dL Troponin I (<0.045) ng/mL POC Glucose 116 H 109 93 (70-110) mg/dL 12/25/17 12/25/17 12/25/17 Range/Units 22:47 16:41 12:01 WBC (4.4-11.0) K/mm3 RBC (4.2-5.4) M/mm3 Hgb (12.0-15.0) g/dl Hct (37-47) % MCV (81-99) fL MCH (27.0-32.0) pg MCHC (32-36) g/gl RDW (11.6-14.6) % RDW Differential (35.1-43.9) fl Plt Count (150-450) K/mm3 MPV (6.2-12.0) fl Immature Gran % (Auto) (0.0-0.9) % Neut % (Auto) (47-70) % Lymph % (Auto) (19-41) % [place] % (Auto) (0-10) % Eos % (Auto) (0-5) % Baso % (Auto) (0-1) % Absolute Neuts (auto) (2.0-7.7) X10^3/uL Absolute Lymphs (auto) (0.83-4.51) X10^3/ul Total Counted PT (11.7-14.9) SECONDS INR APTT (24.1-36.2) Seconds D-Dimer Quant (PE/DVT) (0.27-0.49) FEU/ug/m Sodium (136-145) mmol/L Potassium (3.5-5.1) mmol/L Chloride (98-107) mmol/L Carbon Dioxide (21.0-32.0) mmol/L Anion Gap (5-15) BUN (7-18) mg/dL Creatinine (0.55-1.02) mg/dL Estim Creat Clear Calc ml/min Est GFR (MDRD) Af Amer (>60) mL/min Est GFR (MDRD) Non-Af (>60) mL/min BUN/Creatinine Ratio (10-20) RATIO Glucose (74-106) mg/dL Calcium (8.5-10.1) mg/dL Troponin I (<0.045) ng/mL POC Glucose 114 H 93 129 H (70-110) mg/dL 12/25/17 12/25/17 12/25/17 Range/Units 06:55 03:05 03:05 WBC 7.3 (4.4-11.0) K/mm3 RBC 3.53 L (4.2-5.4) M/mm3 Hgb 9.3 L (12.0-15.0) g/dl Hct 30.4 L (37-47) % MCV 86.1 (81-99) fL MCH 26.3 L (27.0-32.0) pg MCHC 30.6 L (32-36) g/gl RDW 16.7 H (11.6-14.6) % RDW Differential 50.7 H (35.1-43.9) fl Plt Count 355 (150-450) K/mm3 MPV 10.8 (6.2-12.0) fl Immature Gran % (Auto) 0.100 (0.0-0.9) % Neut % (Auto) 68.6 (47-70) % Lymph % (Auto) 12.7 L (19-41) % [place] % (Auto) 11.3 H (0-10) % Eos % (Auto) 6.7 H (0-5) % Baso % (Auto) 0.6 (0-1) % Absolute Neuts (auto) 5.0 (2.0-7.7) X10^3/uL Absolute Lymphs (auto) 0.92 (0.83-4.51) X10^3/ul Total Counted Not Reportable PT (11.7-14.9) SECONDS INR APTT 69.9 H (24.1-36.2) Seconds D-Dimer Quant (PE/DVT) (0.27-0.49) FEU/ug/m Sodium (136-145) mmol/L Potassium (3.5-5.1) mmol/L Chloride (98-107) mmol/L Carbon Dioxide (21.0-32.0) mmol/L Anion Gap (5-15) BUN (7-18) mg/dL Creatinine (0.55-1.02) mg/dL Estim Creat Clear Calc ml/min Est GFR (MDRD) Af Amer (>60) mL/min Est GFR (MDRD) Non-Af (>60) mL/min BUN/Creatinine Ratio (10-20) RATIO Glucose (74-106) mg/dL Calcium (8.5-10.1) mg/dL Troponin I (<0.045) ng/mL POC Glucose 104 (70-110) mg/dL 12/24/17 12/24/17 12/24/17 Range/Units 21:46 20:00 16:04 WBC (4.4-11.0) K/mm3 RBC (4.2-5.4) M/mm3 Hgb (12.0-15.0) g/dl Hct (37-47) % MCV (81-99) fL MCH (27.0-32.0) pg MCHC (32-36) g/gl RDW (11.6-14.6) % RDW Differential (35.1-43.9) fl Plt Count (150-450) K/mm3 MPV (6.2-12.0) fl Immature Gran % (Auto) (0.0-0.9) % Neut % (Auto) (47-70) % Lymph % (Auto) (19-41) % [place] % (Auto) (0-10) % Eos % (Auto) (0-5) % Baso % (Auto) (0-1) % Absolute Neuts (auto) (2.0-7.7) X10^3/uL Absolute Lymphs (auto) (0.83-4.51) X10^3/ul Total Counted PT (11.7-14.9) SECONDS INR APTT 51.0 H (24.1-36.2) Seconds D-Dimer Quant (PE/DVT) (0.27-0.49) FEU/ug/m Sodium (136-145) mmol/L Potassium (3.5-5.1) mmol/L Chloride (98-107) mmol/L Carbon Dioxide (21.0-32.0) mmol/L Anion Gap (5-15) BUN (7-18) mg/dL Creatinine (0.55-1.02) mg/dL Estim Creat Clear Calc ml/min Est GFR (MDRD) Af Amer (>60) mL/min Est GFR (MDRD) Non-Af (>60) mL/min BUN/Creatinine Ratio (10-20) RATIO Glucose (74-106) mg/dL Calcium (8.5-10.1) mg/dL Troponin I (<0.045) ng/mL POC Glucose 124 H 120 H (70-110) mg/dL 12/24/17 12/24/17 12/24/17 Range/Units 11:33 11:32 06:42 WBC (4.4-11.0) K/mm3 RBC (4.2-5.4) M/mm3 Hgb (12.0-15.0) g/dl Hct (37-47) % MCV (81-99) fL MCH (27.0-32.0) pg MCHC (32-36) g/gl RDW (11.6-14.6) % RDW Differential (35.1-43.9) fl Plt Count (150-450) K/mm3 MPV (6.2-12.0) fl Immature Gran % (Auto) (0.0-0.9) % Neut % (Auto) (47-70) % Lymph % (Auto) (19-41) % [place] % (Auto) (0-10) % Eos % (Auto) (0-5) % Baso % (Auto) (0-1) % Absolute Neuts (auto) (2.0-7.7) X10^3/uL Absolute Lymphs (auto) (0.83-4.51) X10^3/ul Total Counted PT (11.7-14.9) SECONDS INR APTT 48.5 H (24.1-36.2) Seconds D-Dimer Quant (PE/DVT) (0.27-0.49) FEU/ug/m Sodium (136-145) mmol/L Potassium (3.5-5.1) mmol/L Chloride (98-107) mmol/L Carbon Dioxide (21.0-32.0) mmol/L Anion Gap (5-15) BUN (7-18) mg/dL Creatinine (0.55-1.02) mg/dL Estim Creat Clear Calc ml/min Est GFR (MDRD) Af Amer (>60) mL/min Est GFR (MDRD) Non-Af (>60) mL/min BUN/Creatinine Ratio (10-20) RATIO Glucose (74-106) mg/dL Calcium (8.5-10.1) mg/dL Troponin I (<0.045) ng/mL POC Glucose 151 H 109 (70-110) mg/dL 12/24/17 12/24/17 12/24/17 Range/Units 04:15 04:15 04:15 WBC 7.3 (4.4-11.0) K/mm3 RBC 3.63 L (4.2-5.4) M/mm3 Hgb 9.4 L (12.0-15.0) g/dl Hct 30.3 L (37-47) % MCV 83.5 (81-99) fL MCH 25.9 L (27.0-32.0) pg MCHC 31.0 L (32-36) g/gl RDW 16.6 H (11.6-14.6) % RDW Differential 51.0 H (35.1-43.9) fl Plt Count 358 (150-450) K/mm3 MPV 9.5 (6.2-12.0) fl Immature Gran % (Auto) (0.0-0.9) % Neut % (Auto) (47-70) % Lymph % (Auto) (19-41) % [place] % (Auto) (0-10) % Eos % (Auto) (0-5) % Baso % (Auto) (0-1) % Absolute Neuts (auto) (2.0-7.7) X10^3/uL Absolute Lymphs (auto) (0.83-4.51) X10^3/ul Total Counted PT (11.7-14.9) SECONDS INR APTT 52.6 H (24.1-36.2) Seconds D-Dimer Quant (PE/DVT) (0.27-0.49) FEU/ug/m Sodium 139 (136-145) mmol/L Potassium 4.3 (3.5-5.1) mmol/L Chloride 106 (98-107) mmol/L Carbon Dioxide 25.0 (21.0-32.0) mmol/L Anion Gap 8 (5-15) BUN 20 H (7-18) mg/dL Creatinine 0.82 (0.55-1.02) mg/dL Estim Creat Clear Calc 56.58 ml/min Est GFR (MDRD) Af Amer 90 (>60) mL/min Est GFR (MDRD) Non-Af 75 (>60) mL/min BUN/Creatinine Ratio 24.5 H (10-20) RATIO Glucose 108 H (74-106) mg/dL Calcium 8.0 L (8.5-10.1) mg/dL Troponin I (<0.045) ng/mL POC Glucose (70-110) mg/dL 12/23/17 12/23/17 12/23/17 Range/Units 23:20 21:46 20:15 WBC (4.4-11.0) K/mm3 RBC (4.2-5.4) M/mm3 Hgb (12.0-15.0) g/dl Hct (37-47) % MCV (81-99) fL MCH (27.0-32.0) pg MCHC (32-36) g/gl RDW (11.6-14.6) % RDW Differential (35.1-43.9) fl Plt Count (150-450) K/mm3 MPV (6.2-12.0) fl Immature Gran % (Auto) (0.0-0.9) % Neut % (Auto) (47-70) % Lymph % (Auto) (19-41) % [place] % (Auto) (0-10) % Eos % (Auto) (0-5) % Baso % (Auto) (0-1) % Absolute Neuts (auto) (2.0-7.7) X10^3/uL Absolute Lymphs (auto) (0.83-4.51) X10^3/ul Total Counted PT (11.7-14.9) SECONDS INR APTT 42.5 H (24.1-36.2) Seconds D-Dimer Quant (PE/DVT) (0.27-0.49) FEU/ug/m Sodium (136-145) mmol/L Potassium (3.5-5.1) mmol/L Chloride (98-107) mmol/L Carbon Dioxide (21.0-32.0) mmol/L Anion Gap (5-15) BUN (7-18) mg/dL Creatinine (0.55-1.02) mg/dL Estim Creat Clear Calc ml/min Est GFR (MDRD) Af Amer (>60) mL/min Est GFR (MDRD) Non-Af (>60) mL/min BUN/Creatinine Ratio (10-20) RATIO Glucose (74-106) mg/dL Calcium (8.5-10.1) mg/dL Troponin I 0.143 H (<0.045) ng/mL POC Glucose 119 H (70-110) mg/dL 12/23/17 12/23/17 12/23/17 Range/Units 20:15 16:16 16:10 WBC (4.4-11.0) K/mm3 RBC (4.2-5.4) M/mm3 Hgb (12.0-15.0) g/dl Hct (37-47) % MCV (81-99) fL MCH (27.0-32.0) pg MCHC (32-36) g/gl RDW (11.6-14.6) % RDW Differential (35.1-43.9) fl Plt Count (150-450) K/mm3 MPV (6.2-12.0) fl Immature Gran % (Auto) (0.0-0.9) % Neut % (Auto) (47-70) % Lymph % (Auto) (19-41) % [place] % (Auto) (0-10) % Eos % (Auto) (0-5) % Baso % (Auto) (0-1) % Absolute Neuts (auto) (2.0-7.7) X10^3/uL Absolute Lymphs (auto) (0.83-4.51) X10^3/ul Total Counted PT (11.7-14.9) SECONDS INR APTT (24.1-36.2) Seconds D-Dimer Quant (PE/DVT) (0.27-0.49) FEU/ug/m Sodium (136-145) mmol/L Potassium (3.5-5.1) mmol/L Chloride (98-107) mmol/L Carbon Dioxide (21.0-32.0) mmol/L Anion Gap (5-15) BUN (7-18) mg/dL Creatinine (0.55-1.02) mg/dL Estim Creat Clear Calc ml/min Est GFR (MDRD) Af Amer (>60) mL/min Est GFR (MDRD) Non-Af (>60) mL/min BUN/Creatinine Ratio (10-20) RATIO Glucose (74-106) mg/dL Calcium (8.5-10.1) mg/dL Troponin I 0.159 H 0.236 H (<0.045) ng/mL POC Glucose 102 (70-110) mg/dL 12/23/17 12/23/17 12/23/17 Range/Units 11:40 11:40 11:40 WBC (4.4-11.0) K/mm3 RBC (4.2-5.4) M/mm3 Hgb (12.0-15.0) g/dl Hct (37-47) % MCV (81-99) fL MCH (27.0-32.0) pg MCHC (32-36) g/gl RDW (11.6-14.6) % RDW Differential (35.1-43.9) fl Plt Count (150-450) K/mm3 MPV (6.2-12.0) fl Immature Gran % (Auto) (0.0-0.9) % Neut % (Auto) (47-70) % Lymph % (Auto) (19-41) % [place] % (Auto) (0-10) % Eos % (Auto) (0-5) % Baso % (Auto) (0-1) % Absolute Neuts (auto) (2.0-7.7) X10^3/uL Absolute Lymphs (auto) (0.83-4.51) X10^3/ul Total Counted PT 15.1 H (11.7-14.9) SECONDS INR 1.2 APTT (24.1-36.2) Seconds D-Dimer Quant (PE/DVT) 6.45 H* (0.27-0.49) FEU/ug/m Sodium 136 (136-145) mmol/L Potassium 4.4 (3.5-5.1) mmol/L Chloride 102 (98-107) mmol/L Carbon Dioxide 23.0 (21.0-32.0) mmol/L Anion Gap 11 (5-15) BUN 24 H (7-18) mg/dL Creatinine 1.13 H (0.55-1.02) mg/dL Estim Creat Clear Calc 41.06 ml/min Est GFR (MDRD) Af Amer 62 (>60) mL/min Est GFR (MDRD) Non-Af 51 L (>60) mL/min BUN/Creatinine Ratio 21.2 H (10-20) RATIO Glucose 121 H (74-106) mg/dL Calcium 9.3 (8.5-10.1) mg/dL Troponin I 0.250 H (<0.045) ng/mL POC Glucose (70-110) mg/dL 12/23/17 Range/Units 11:40 WBC 9.1 (4.4-11.0) K/mm3 RBC 4.23 (4.2-5.4) M/mm3 Hgb 11.0 L (12.0-15.0) g/dl Hct 35.4 L (37-47) % MCV 83.7 (81-99) fL MCH 26.0 L (27.0-32.0) pg MCHC 31.1 L (32-36) g/gl RDW 16.4 H (11.6-14.6) % RDW Differential 50.1 H (35.1-43.9) fl Plt Count 459 H (150-450) K/mm3 MPV 9.9 (6.2-12.0) fl Immature Gran % (Auto) 0.100 (0.0-0.9) % Neut % (Auto) 72.5 H (47-70) % Lymph % (Auto) 11.7 L (19-41) % [place] % (Auto) 10.9 H (0-10) % Eos % (Auto) 4.5 (0-5) % Baso % (Auto) 0.3 (0-1) % Absolute Neuts (auto) 6.6 (2.0-7.7) X10^3/uL Absolute Lymphs (auto) 1.06 (0.83-4.51) X10^3/ul Total Counted Not Reportable PT (11.7-14.9) SECONDS INR APTT (24.1-36.2) Seconds D-Dimer Quant (PE/DVT) (0.27-0.49) FEU/ug/m Sodium (136-145) mmol/L Potassium (3.5-5.1) mmol/L Chloride (98-107) mmol/L Carbon Dioxide (21.0-32.0) mmol/L Anion Gap (5-15) BUN (7-18) mg/dL Creatinine (0.55-1.02) mg/dL Estim Creat Clear Calc ml/min Est GFR (MDRD) Af Amer (>60) mL/min Est GFR (MDRD) Non-Af (>60) mL/min BUN/Creatinine Ratio (10-20) RATIO Glucose (74-106) mg/dL Calcium (8.5-10.1) mg/dL Troponin I (<0.045) ng/mL POC Glucose (70-110) mg/dL Discharge Diet: Low fat/ Low Cholesterol, 2000 mg Sodium Diet, Carb Control Diet Discharge Activity: Return to Normal Activity Weight Bearing Status: Weight bearing as tolerated Call your doctor if you observe: Shortness of breath, Chest pain, Calf discomfort Home Medications: Medications to take at Discharge calcium carbonate 600 mg calcium (1,500 mg) tablet 600 mg PO BID tab 08/17/17 levothyroxine 50 mcg tablet 50 mcg PO DAILY@0600 08/17/17 metformin 500 mg tablet 1,000 mg PO BIDCM tab 08/17/17 Citalopram [Celexa] 10 mg PO DAILY 11/09/17 Atorvastatin Calcium [Lipitor] 40 mg PO QHS 11/14/17 Nabumetone [Relafen] 750 mg PO BID 11/20/17 Acetaminophen [Tylenol] 1,000 mg PO Q8H PRN PRN tab 12/03/17 Doxepin HCl 50 mg PO QHS #30 cap 12/03/17 Iron Polysaccharide Complex [Ferrex 150] 150 mg PO DAILYCM #30 cap 12/03/17 Multivitamins,Therapeutic [Multivitamin] 1 tab PO DAILY@0800 tab 12/03/17 Potassium Chloride [K-Dur] 20 meq PO DAILYCM #30 tab 12/03/17 Lidocaine/Prilocaine [Lidocaine-Prilocaine Cream] 30 gm TP DAILY PRN PRN 30 Days #1 cream..g. 12/14/17 Ondansetron HCl [Zofran] 4 mg PO Q8H PRN PRN 30 Days #30 tab 12/14/17 Cholecalciferol (Vitamin D3) [Vitamin D3] 5,000 unit PO DAILY 12/23/17 Escitalopram Oxalate [Lexapro] 10 mg PO DAILY 12/23/17 Enoxaparin [Lovenox] 110 mg SC Q12 #60 syringe 12/27/17 Following Prescrptions Were Given to Patient: Enoxaparin [Lovenox] 110 mg SC Q12 #60 syringe Primary Care Physician: Jose Daniel Yang DO [Primary Care Provider] - Please follow up with your Primary Care Physician in: within 2 weeks Please Follow Up With: Violet Shepherd MD When: within 2 weeks Disposition: Home Minutes spent on discharge:: 40 Patient Condition:: Stable Medical Necessity - Tobacco Use Smoking Status: Never smoker Meaningful Use Info Meaningful Use Diagnoses (Choose all that apply): VTE - VTE Anticoag overlap given w/in hospital stay or rx'd at dc?: Yes Pt receive overlap for 5 days?: No Reason overlap not ordered, prescribed, or given for 5 days: Treatment Not Indicated - patient being discharged home on lovenox Code Visit Inpatient E&M: 19890 Disch Hosp
[2017-12-27 17:00] LABS: Bedside Glucose 108 mg/dL (70-110)
[2017-12-27] MEDS: Glucerna Shake 120 ML LIQUID PO (17:13)
--- NOTE | 2017-12-28 15:13 | CASEMGMT ---
Addendum entered by Magalie Fox 12/29/17 14:34: This RN JEREMY received call back from pt in regards to f/u phone call. Pt states she is 'doing well' and states no questions regarding discharge instructions or medications at this time. Pt does state that Dr. Andrews mentioned putting her on zoloft but she states it never happened while she was here. This RN CM advised pt to ask her PCP about this at her f/u appt, voices understanding. Pt voices no further concerns/needs at this time. Pt states no suggestions for [facility] at this time. S[place]en RN JEREMY Original Note: NOEMY LUNA Discharge follow-up phone call LACE: 13 STRATA: 4 Discharge Date: 12-27-17 Adm Dx: Mi KAUFMAN. Call placed to pt for discharge follow-up. No answer. Message left on answering machine for pt to return call to SENIOR AUDIT MANAGER CM, Carl, if she has any questions or concerns about discharge instructions or medications. Ryan SHEA RN, CM
== END 2017-12-27 17:45 | disposition home or self-care (01) | DRG 175 ==
LOC: ED 12:22 → ICU 14:58 → PCU 12-24 15:49
PROVIDERS: Internal Medicine; Internal Medicine Cardiovascular Disease; Internal Medicine Critical Care Medicine; Admitting Provider Family Medicine; Emergency Provider Emergency Medicine; Family Provider Family Medicine; PCP Family Medicine; Visit Provider Student in an Organized Health Care Education/Training Program
DX: I26.99 Other pulmonary embolism without acute cor pulmonale (principal); E43 Unspecified severe protein-calorie malnutrition; C18.9 Malignant neoplasm of colon, unspecified; C77.2 Secondary and unspecified malignant neoplasm of intra-abdominal lymph nodes; N17.9 Acute kidney failure, unspecified; Z68.41 Body mass index [BMI] 40.0-44.9, adult; I44.7 Left bundle-branch block, unspecified; E03.9 Hypothyroidism, unspecified; I10 Essential (primary) hypertension; E78.5 Hyperlipidemia, unspecified; E11.9 Type 2 diabetes mellitus without complications; Z79.84 Long term (current) use of oral hypoglycemic drugs; Z90.49 Acquired absence of other specified parts of digestive tract; Z85.3 Personal history of malignant neoplasm of breast; D50.9 Iron deficiency anemia, unspecified; E86.0 Dehydration; R06.89 Other abnormalities of breathing; K58.9 Irritable bowel syndrome, unspecified; F32.9 Major depressive disorder, single episode, unspecified; E66.01 Morbid (severe) obesity due to excess calories
CPT/HCPCS: 36415; 71045; 71275; 80048; 82962; 84484; 85025; 85027; 85379; 85610; 85730; 93005; 93306; 97110; 97163; 97165; 97530; 97535; 97802; 99284; J7030; Q9967; A4216

== ENCOUNTER → 2018-03-28 14:58 | Outpatient (CLI) | payer MEDICARE, MEDICAID, SELFPAY ==
[2018-03-16 09:27] VITALS: BMI 42.7
--- NOTE | 2018-03-28 15:04 | CT_ITS ---
STUDY: CT ABDOMEN AND PELVIS WITH CONTRAST REASON FOR EXAM: Female, 68 years old. Rising cancer marker laboratory tests. RADIATION DOSAGE (If Supplied By Facility): CTDIvol = ( 20.91 ) mGy, DLP = ( 2213.61 ) mGycm TECHNIQUE: Transaxial images were obtained from the dome of the diaphragm to the symphysis pubis without oral contrast. 100 ml of Isovue 300 contrast was administered. Sagittal and coronal images were reconstructed. Individualized dose optimization techniques were used for this CT. COMPARISON: CT of the chest, March 28, 2018. CT of the abdomen and pelvis, October 28, 2017. FINDINGS: There is a pleural-based nodular density in the left lower lobe not previously seen. There is stable linear atelectasis in the left lower lobe. Minimal linear atelectasis is seen in the right lobe. There is a 5 mm nodular density near the pleural surface in the right middle lobe best seen on image 13 of series 3. The visualized portions of the heart are within normal limits. Normal liver. Normal gallbladder and extrahepatic biliary system. Normal spleen. The pancreas is difficult to see. There are multiple retroperitoneal lymph nodes extending from the portal hilum downward into the pelvis. There is a 5.4 x 6.2 x 3.8 cm nodule in the left periaortic region which extends downward in front of the left renal hilum. Multiple smaller nodes are seen in the portal hilum and about the pancreas. There is stranding of the peripancreatic retroperitoneal fat. There is a conglomerate grouping of lymph nodes on the right which extends from the level of the upper pole of the kidney downward to just above the bifurcation which measures 4.7 x 8.86 x 5.1 cm. Lower retroperitoneal lymphadenopathy is more conglomerate surrounding the renal arteries and displacing the IVC and renal veins anteriorly more inferiorly these surround both the lower IVC and aorta extending outward along the iliac arteries into the upper pelvis. Normal bilateral adrenal glands. Normal right kidney. Normal left kidney. Normal visualized stomach. Normal small intestine. Surgical resection of the right colon anastomosis in the mid transverse colon. The remainder of the colon is grossly normal. Normal abdominal aorta. Normal inferior vena cava. The urinary bladder is collapsed. Status post hysterectomy. The vaginal cuff is unremarkable. There is left-sided pelvic lymphadenopathy. The 2 largest nodes measure 3.3 x 1.8 x 4.8 cm and 3.3 x 2.0 x 3.3 cm, respectively. There is no right-sided pelvic lymphadenopathy below the bifurcation of the common iliac artery. There are multiple nodular densities within the abdominal wall suggesting subcutaneous injection sites. There are degenerative changes of the hips and lumbar spine without osseous lesions. CT/Abdomen/Pelvis W IV Cont ONLY IMPRESSION: 1. Extensive retroperitoneal and left pelvic lymphadenopathy. This has increased since the prior CT. 2. Interval surgical resection of the right colon. 3. New pleural-based nodular densities in the right middle and left lower lobe. 4. No other major interval change. Electronically Signed: Luis Pickard DO at 21:45 EST Tel [phone], Service support ,
--- NOTE | 2018-03-28 15:04 | CT_ITS ---
STUDY: CT CHEST WITH CONTRAST REASON FOR EXAM: Female, 68 years old. Rising cancer marker on lab tests. RADIATION DOSAGE (If Supplied By Facility): CTDIvol = ( 20.91 ) mGy, DLP = ( 2213.61 ) mGycm TECHNIQUE: Transaxial imaging was performed following intravenous administration of 100 ml of Isovue 300 contrast material. Individualized dose optimization techniques were used for this CT. COMPARISON: CTA of the chest, December 23, 2017. FINDINGS: There is a right jugular Kwxbrh-d-Ubwe with its tip in the superior vena cava. There is a 0.9 x 0.8 x 0.4 cm irregular soft tissue nodule in the right lung apex (image 23, series 6).. There is a second nodular density in the right upper lobe adjacent to the mediastinum as seen on an age 36 of series 6. This measures 1.8 x 1.3 x 1.6 cm. Is a pleural-based mass left lower lobe measuring 0.9 x 0.8 x 1 cm best seen on image 56. At that same level there is a linear lucency through the left lobe has a somewhat nodular component. Similar linear lucency is seen in the right lower lobe. There is no demonstrated pleural abnormality. Normal heart and pericardium. There is a large soft tissue density at the base of the left neck measuring 3.1 x 5.5 x 4.5 cm. There is a 1.7 x 1.3 x 2.3 cm nodular density in the posterior aspect of the superior mediastinum between the left subclavian vein and esophagus. There are small AP window lymph nodes as well as small lymph nodes between the azygos vein and aorta. There is a 7 mm lymph nodes in the subcarinal space. Normal hilar regions. Normal enhanced pulmonary arteries. Normal aorta arch and descending thoracic aorta. There are degenerative changes of the thoracic spine. There is evidence of bilateral mastectomies. The upper abdomen appears normal. CT/Chest WITH Contrast IMPRESSION: 1. Multiple bilateral pulmonary nodules not seen on the previous study. The linear atelectasis in the left lower lobe was previously noted. 2. Large soft tissue mass in the base of the right neck thought to represent lymphadenopathy. This and the mediastinal lymphadenopathy described above appears stable. 3. Degenerative changes of the lumbar spine. Electronically Signed: Luis Pickard DO at 21:32 EST Tel [phone], Service support ,
[2018-03-28] MEDS: 0.9% Saline Lock 10 ML Syringe IV (15:48)
== END ==
PROVIDERS: Family Provider Family Medicine; PCP Family Medicine; Referring Provider Internal Medicine Hematology & Oncology; Visit Provider Internal Medicine Hematology & Oncology
DX: C18.9 Malignant neoplasm of colon, unspecified (principal); C50.919 Malignant neoplasm of unspecified site of unspecified female breast; Z79.899 Other long term (current) drug therapy
CPT/HCPCS: 71260; 74177; Q9967; A4216

== ENCOUNTER → 2018-03-31 11:53 | Outpatient (CLI) | payer MEDICARE, MEDICAID, SELFPAY ==
[2018-03-29 09:02] VITALS: BMI 42.0
--- NOTE | 2018-03-31 11:55 | RAD_ITS ---
STUDY: X-RAY - LEFT HIP REASON FOR EXAM: Female, 68 years old. Pain. TECHNIQUE: AP pelvis and 2 views of the hip. COMPARISON: None. FINDINGS: There are surgical clips in the pelvic region. There is deformity of the left femoral head with mild sclerosis and subchondral cystic changes with marginal degenerative spurs. There is severe narrowing of the left hip joint. There is moderate narrowing of the right hip joint. Normal visualized superior and inferior pubic rami and ischial tuberosities. There are pelvic calcifications likely due to colitis. RAD/HIP, UNI W/ Pelvis 2-3 Views IMPRESSION: 1. Severe degenerative arthrosis of the left hip. 2. Moderate narrowing of the right hip joint. Electronically Signed: Daniel Sims MD at 11:59 EST Tel , Service support ,
== END ==
PROVIDERS: Family Provider Family Medicine; PCP Family Medicine; Referring Provider Orthopaedic Surgery; Visit Provider Orthopaedic Surgery
DX: M16.12 Unilateral primary osteoarthritis, left hip (principal)
CPT/HCPCS: 73502

== ENCOUNTER 2018-04-04 15:30 | Emergency (ER) | payer MEDICARE, MEDICAID, SELFPAY ==
[2018-03-29 09:02] VITALS: BMI 42.0
[2018-04-04 15:31] VITALS: BP 148/87; PULSE 104; RESP 12; TEMP 37; O2SAT 93; BMI 40.7
--- NOTE | 2018-04-04 16:05 | ED.VISSUMM ---
- ER Visit Summary Date of Service: 04/04/18 Chief Complaint: [] History of Present Illness: The patient is a 68 F [] Physical Examination: [] Test Results: [] Emergency Department Course and Treatment: [] Treatment Plan: [] Disposition: [] Impression: [] This note was generated with [employer] dictation software. It may contain incorrect words, spelling, and punctuation that were not noted in review of the chart prior to signing ED Disposition - Plan for ED Patient: Instructions: ED Neck Back Pain General Prescriptions: Oxycodone HCl/Acetaminophen [Percocet 5/325] 1 tablet PO Q6H PRN PRN 5 Days #20 tablet PRN Reason: Pain Ondansetron [Zofran Odt] 4 mg PO Q8H PRN PRN #10 tablet PRN Reason: Nausea Docusate Sodium [Colace] 100 mg PO DAILY #20 capsule Referrals: Jose Daniel Yang DO [Primary Care Provider] - 1 Week if not improving
--- NOTE | 2018-04-04 16:11 | ED.DCSUM_ITS ---
- ER Visit Summary Date of Service: 04/04/18 Chief Complaint: Back pain History of Present Illness: The patient is a [address] Jose Daniel Yang and Dr. Shepherd. She has a history of colon cancer with metastases and is on chemotherapy. Her last dose was 1 week ago. She reports that she has lower quiana k pain that began approximate 1 week ago. It is an aching pain that is 10 out of 10 at worst and 7 out of 10 currently. Is worsened by nothing and relieved by nothing. She denies any radiation to her legs. No numbness or weakness in her legs. No problems with her bowels or bladder. No groin numbness. Patient denies any recent trauma. No fall, MVA, or change in activity. On review of systems she reports that she has chronic diarrhea that is unchanged. No melena or hematochezia. Review of systems is otherwise negative. No fever or chills. Physical Examination: Vitals: Stable. Afebrile. General: A&O x 3. NAD. Cardiovascular exam: Regular rate and rhythm, no murmur, rub or gallop. Respiratory exam: Clear to auscultation bilaterally. No wheezes or stridor. Abdominal exam: Soft, nontender, nondistended, normal bowel sounds. No peritoneal signs. Back: Diffuse moderate tenderness to palpation over the lumbar spine and the paraspinous musculature in the lumbar region. No point tenderness. Negative straight leg bilaterally. 5/5 DF, PF, EHL bilaterally. Normal sensation to light touch throughout. Extremity: No clubbing, cyanosis, or edema. Test Results: I reviewed the patient's recent studies. She had a bone scan in November that did not show bony metastases. She had a CT of the abdomen pelvis this month that did not show any bony lesions. Emergency Department Course and Treatment: Patient was treated with fentanyl IM and Zofran p.o. She is resting comfortably. I had a prolonged discussion with her about the signs and symptoms of cauda equina syndrome. Did discuss with her that if her pain is not improving that she should follow-up with her primary care physician and/or oncologist for an MRI of her back to make sure that she does not have metastases to her spine. There is also the possibility of an epidural abscess while she is on chemotherapy. Treatment Plan: Patient will be discharged with Percocet, Colace, and Zofran. Instructed to follow-up her primary care physician 1 week if not improving. Return to emerge department for any concerns. Disposition: To home in improved and stable condition. Impression: 1. Low back pain. 2. Colon cancer with metastases on chemotherapy. This note was generated with [employer] software. It may contain incorrect words, spelling, and punctuation that were not noted in review of the chart prior to signing ED Disposition - Plan for ED Patient: Instructions: ED Neck Back Pain General Prescriptions: Oxycodone HCl/Acetaminophen [Percocet 5/325] 1 tablet PO Q6H PRN PRN 5 Days #20 tablet PRN Reason: Pain Ondansetron [Zofran Odt] 4 mg PO Q8H PRN PRN #10 tablet PRN Reason: Nausea Docusate Sodium [Colace] 100 mg PO DAILY #20 capsule Referrals: Jose Daniel Yang DO [Primary Care Provider] - 1 Week if not improving
[2018-04-04] MEDS: fentaNYL 100 MCG/2 ML Ampul 50 MCG IM (16:12)
[2018-04-04] MEDS: Ondansetron ODT 4 MG Tablet PO (16:13)
--- NOTE | 2018-04-04 16:38 | ED.RN ---
PT GIVEN WRITTEN AND VERBAL DISCHARGE INSTRUCTIONS AND HOME GOING PRESCRIPTIONS. EDUCATED NOT TO DRIVE WHEN TAKING NARCOTIC MEDICATIONS. PT VERBALIZES UNDERSTANDING, DENIES ANY FURTHER QUESTIONS. PT ASSISTED INTO WHEELCHAIR AND WHEELED TO FAMILY VEHICLE.
== END 2018-04-04 16:40 | disposition home or self-care (01) ==
LOC: ED 16:20
PROVIDERS: Emergency Provider Emergency Medicine; Family Provider Family Medicine; PCP Family Medicine
DX: M54.5 Low back pain (principal); C18.9 Malignant neoplasm of colon, unspecified; C79.9 Secondary malignant neoplasm of unspecified site; Z85.3 Personal history of malignant neoplasm of breast; M16.12 Unilateral primary osteoarthritis, left hip; Z79.899 Other long term (current) drug therapy
CPT/HCPCS: 96372; 99282

== ENCOUNTER → 2018-04-06 11:03 | Outpatient (CLI) | payer MEDICARE, MEDICAID, SELFPAY ==
[2018-04-05 08:28] VITALS: BMI 42.2
--- NOTE | 2018-04-06 11:06 | RAD_ITS ---
STUDY: X-RAY - LUMBAR SPINE REASON FOR EXAM: Female, 68 years old. Pain. TECHNIQUE: 3 view(s) of the lumbar spine were obtained. COMPARISON: Nuclear medicine bone scan December 13, 2017; CT abdomen and pelvis report for 2018. FINDINGS: Normal lumbar lordosis. There is no substantial scoliosis. There is stable grade 1 anterolisthesis of L4 on L5. There is multilevel endplate spondylosis of the thoracolumbar vertebrae, with bridging anterior endplate osteophytes again seen in the lower thoracic levels. There is multi-level degenerative disc disease with multi-level disc space narrowing. There is no demonstrated osseous destructive lesion or acute fracture. There are multilevel degenerative changes of the mid to lower lumbar facet joints. The soft tissue structures are unremarkable. RAD/Lumbar Spine 2 or 3 Views IMPRESSION: Stable multilevel changes of the spine, as detailed above. Electronically Signed: Jono Camilo MD at 15:56 EST , Service support ,
--- NOTE | 2018-04-06 11:06 | RAD_ITS ---
STUDY: X-RAY - SACRUM/COCCYX REASON FOR EXAM: Female, 68 years old. Pain. TECHNIQUE: 3 view(s) of the sacrum and coccyx were obtained. COMPARISON: None. FINDINGS: There are degenerative changes of the visualized lower lumbar spine. Normal bilateral sacroiliac joints. Normal visualized sacral ala and fused sacral bodies. Normal sacrococcygeal junction with a normal angulation. Normal coccygeal segments. There is no demonstrated osseous destructive lesion or fracture. Surgical clips project in the bilateral pelvic soft tissues. There is degenerative arthrosis at the pubic symphysis. Osteoarthritic degenerative change also noted at the left hip. RAD/Sacrum-Coccyx min 2 Views IMPRESSION: 1. Normal x-rays of the sacrum and coccyx. 2. Degenerative changes of the lower lumbar spine, pubic symphysis, and left hip. 3. Surgical clips seen in the bilateral pelvic soft tissues. Electronically Signed: Jono Camilo MD at 15:57 EST , Service support ,
== END ==
PROVIDERS: Family Provider Family Medicine; PCP Family Medicine; Referring Provider Anesthesiology Pain Medicine; Visit Provider Anesthesiology Pain Medicine
DX: M54.5 Low back pain (principal)
CPT/HCPCS: 72100; 72220

== ENCOUNTER → 2018-06-15 13:57 | Outpatient (CLI) | payer MEDICARE, MEDICAID, SELFPAY ==
[2018-06-14 09:27] VITALS: BMI 38.3
[2018-06-15 15:42] LABS: Amphetamine Urine VISTA NEGATIVE (<1000 ng/mL); Barbiturate Urine VISTA NEGATIVE (< 200 ng/mL); Benzodiazepine Urine VISTA NEGATIVE (< 200 ng/mL); Cocaine Urine VISTA NEGATIVE (< 300 ng/mL); Ecstacy Urine VISTA NEGATIVE (< 500 ng/mL); Methadone Urine VISTA NEGATIVE (< 300 ng/mL); PCP Urine VISTA NEGATIVE (< 25 ng/mL); THC Urine VISTA NEGATIVE (< 50 ng/mL); Vista UDS pH Range 5
== END ==
PROVIDERS: Family Provider Family Medicine; PCP Family Medicine; Referring Provider Anesthesiology Pain Medicine; Visit Provider Anesthesiology Pain Medicine
DX: F11.20 Opioid dependence, uncomplicated (principal)
CPT/HCPCS: 80307

== ENCOUNTER → 2018-07-15 15:27 | Outpatient (CLI) | payer MEDICARE, SELFPAY ==
[2018-07-05 09:20] VITALS: BMI 38.7
--- NOTE | 2018-07-15 15:31 | CT_ITS ---
STUDY: CT ABDOMEN AND PELVIS WITH CONTRAST REASON FOR EXAM: Female, 68 years old. Colon cancer follow-up RADIATION DOSAGE (If Supplied By Facility): CTDIvol = ( ) mGy, DLP = ( ) mGycm TECHNIQUE: Transaxial images were obtained from the dome of the diaphragm to the symphysis pubis without oral contrast. 100ML IV Isovue 300 was administered. Sagittal and coronal images were reconstructed. Individualized dose optimization techniques were used for this CT. COMPARISON: 03/28/2018 FINDINGS: Base of the chest described on chest CT, performed concurrently. No hepatic masses. The gallbladder is contracted. Normal spleen. There is diffuse atrophy of the pancreas. Oval-shaped mass arises from the inferior margin of the left adrenal gland (images 40-54) measuring 2.3 x 4.8 cm, decreased in size since the prior study (measured 3.3 x 6.3 cm). The right adrenal gland is normal. Normal right kidney. Normal left kidney. Normal visualized stomach. No dilated loops of small bowel. There is a bowel surgical anastomosis in the left paramedial anterior abdomen. There is non-visualization of the appendix. Normal abdominal aorta. Normal inferior vena cava. Bulky adenopathy of the retroperitoneum has significantly decreased in size since the prior study. For instance, just inferior to the left renal vein, enlarged lymph node measuring 2.4 x 2.7 cm has decreased in size (previously measured 4.0 x 3.8 cm. The mesenteric root adenopathy has also partially involuted (comparing axial image 69 with axial image 65 and the prior study). Normal urinary bladder. Multiple nodular densities within the abdominal wall are likely subcutaneous injection sites. Degenerative changes of the lumbar spine without lytic or sclerotic bone lesion demonstrated. There are degenerative changes of the left more than right hip. CT/Abdomen/Pelvis W IV Cont ONLY IMPRESSION: 1. Since 03/28/2018, FAVORABLE change. Decreased size of retroperitoneal and mesenteric adenopathy. Decreased size of left adrenal gland mass or adjacent sherwin mass. Electronically Signed: Jono Albarado MD at 11:16 EDT , Service support ,
--- NOTE | 2018-07-15 15:36 | CT_ITS ---
STUDY: CT CHEST WITH CONTRAST REASON FOR EXAM: Female, 68 years old. Follow-up colon cancer RADIATION DOSAGE (If Supplied By Facility): CTDIvol = ( 16.70 ) mGy, DLP = ( 1689.29 ) mGycm TECHNIQUE: Transaxial imaging was performed following intravenous administration of 100ML IV Isovue 300. Multiplanar coronal and sagittal images were reformatted. Individualized dose optimization techniques were used for this CT. COMPARISON: December 23, 2017 CT chest FINDINGS: Within the left lower lobe there is a small lobulated focus measuring 1.8 x 0.8 cm. This is stable since prior study December 14, 2017. Now the left lower lobe atelectasis and/or infiltrate is resolved. There is a right apical solid nodule that was not seen on December 14, 2017. This raises concern for new neoplasm or metastatic disease that measures 7.4 x 5.8 mm. There is a nodule within the right anterior aspect of the upper lobe there measuring 1.3 x 1.2 cm greater in size when compared to a prior study December 14, 2017 when it measured 5 mm. There is a focus of right lower lobe linear density or atelectasis. Within the right middle lobe there is a 7.9 mm nodule new since prior study December 14, 2017. There is a solid-appearing left side mid lung zone pleural based mass measuring 1.2 x 0.7 cm. There are coronary calcifications. There are multiple small lymph nodes within the mediastinum, which are normal in size and morphology most compatible with reactive lymph hyperplasia. There is mild thickening of the right hilar region. Normal enhanced pulmonary arteries. Normal aorta arch and descending thoracic aorta. There are multi-level degenerative changes of the thoracic spine. There is a limited reconstructed view of the spine on sagittal imaging. There are bilateral breast prosthesis. CT/Chest WITH Contrast IMPRESSION: Multiple pulmonary nodules that are new or larger since prior study for which metastatic disease should be of concern. Recommend consideration for follow-up PET scan. Electronically Signed: Paige Jiang MD at 16:44 EDT Tel , Service support ,
== END ==
PROVIDERS: Family Provider Family Medicine; PCP Family Medicine; Referring Provider Internal Medicine Hematology & Oncology; Visit Provider Internal Medicine Hematology & Oncology
DX: C18.9 Malignant neoplasm of colon, unspecified (principal); C50.919 Malignant neoplasm of unspecified site of unspecified female breast; C77.2 Secondary and unspecified malignant neoplasm of intra-abdominal lymph nodes
CPT/HCPCS: 71260; 74177; Q9967; A4216

== ENCOUNTER → 2018-10-07 12:16 | Outpatient (CLI) | payer MEDICARE, SELFPAY ==
[2018-09-27 09:42] VITALS: BMI 35.4
--- NOTE | 2018-10-07 12:19 | CT_ITS ---
STUDY: CT ABDOMEN AND PELVIS WITH CONTRAST REASON FOR EXAM: Female, 68 years old. Restaging. Patient has a history of breast, colon and fallopian tube carcinoma. RADIATION DOSAGE (If Supplied By Facility): CTDIvol = ( 18.43 ) mGy, DLP = ( 1658.79 ) mGycm TECHNIQUE: Transaxial images were obtained from the dome of the diaphragm to the symphysis pubis without oral contrast. 100 IV Isovue 300 was administered. Sagittal and coronal images were reconstructed. Individualized dose optimization techniques were used for this CT. COMPARISON: Comparison is made with prior examination dated July 15, 2018. FINDINGS: Bilateral breast prostheses. Small bilateral pleural effusions with bibasilar atelectasis. A portacatheter is seen. The visualized portions of the heart are within normal limits. Mild dilatation of the intrahepatic biliary ducts. Questionable tiny gallstones or sludge along the dependent portion of the gallbladder. Normal spleen. Peripancreatic masses of increased in size and number as well. There is a 2 cm hypodensity in the right adrenal gland. This was not present on prior examination. Stable oval hypodense mass in the left adrenal gland. Normal right kidney. Normal left kidney. Normal visualized stomach. Normal small intestine. Normal colon. The appendix is visualized and appears normal. Normal abdominal aorta. Normal inferior vena cava. There is retroperitoneal lymphadenopathy with enlarged nodes greater than 10-15mm in the short axis. This has progressed as compared to prior study. There is evidence of retroperitoneal seeding as well as multiple lymph nodes in the root of the mesentery were seen the inferior aspect. This extends down into the pelvis. Nonspecific increased markings in the peritoneum. Small amount of free fluid in the pelvis. Normal urinary bladder. There is absence of the uterus consistent with a prior hysterectomy. Normal abdominal wall. There are diffuse degenerative changes of the visualized lumbar spine. Degenerative changes of the hip joints. CT/Abdomen/Pelvis WITH Contrast IMPRESSION: Small bilateral pleural effusion slightly worse on the left side. Mild bibasilar atelectasis. Mild dilatation of the intrahepatic biliary ducts. Increase in the peripancreatic and periportal masses suggestive of adenopathy as well as progressive retroperitoneal lymphadenopathy. Free fluid in the pelvis. Mesenteric lymph nodes as well as a finding suggestive of peritoneal seeding. Stable appearance of the left adrenal gland. Small hypodensity in the right adrenal Electronically Signed: Chris Hernandez, at 13:20 EDT , Service support ,
--- NOTE | 2018-10-07 12:19 | CT_ITS ---
STUDY: CT CHEST WITH CONTRAST REASON FOR EXAM: Female, 68 years old. History of breast cancer, colon and fallopian tube cancer. RADIATION DOSAGE (If Supplied By Facility): CTDIvol = ( 18.43 ) mGy, DLP = ( 1658.79 ) mGycm TECHNIQUE: Transaxial imaging was performed following intravenous administration of 100 IV Isovue 300. Multiplanar coronal and sagittal images were reformatted. Individualized dose optimization techniques were used for this CT. COMPARISON: Comparison is made with prior study July 15, 2018. FINDINGS: A right-sided portacatheter is seen. Stable focal hypodensity in the inferior pole of the right lobe of the thyroid. Unipolar pacemaker is seen. Bilateral breast prostheses are seen. Increased size of the right upper lobe nodule. It presently measures 9.2 mm. Increased size of the lung nodule in the medial aspect of the right upper lobe adjacent to the superior vena cava. It presently measures 1.6 x 1 0.6 L. Increased size of the nodule in the superior segment of the left lower lobe as seen on axial image #44. It presently measures 1.2 cm. Increased size of the pulmonary nodule in the anterior aspect of the right lower lobe as seen on axial image #63. The measures 8.3 mm. Small bilateral pleural effusions. Mild increased markings at the lung bases suggestive of atelectasis. Unipolar pacemaker is seen. Normal mediastinum. Normal hilar regions. Normal enhanced pulmonary arteries. Normal aorta arch and descending thoracic aorta. There are multi-level degenerative changes of the thoracic spine. Abdominal findings described on the dedicated CT scan of the abdomen and pelvis. CT/Chest WITH Contrast IMPRESSION: Increasing size of the bilateral pulmonary nodules. Small bilateral pleural effusions with underlying atelectasis. Electronically Signed: Chris Hernandez, at 13:23 EDT , Service support ,
== END ==
PROVIDERS: Family Provider Family Medicine; PCP Family Medicine; Referring Provider Nurse Practitioner Family; Visit Provider Nurse Practitioner Family
DX: C18.9 Malignant neoplasm of colon, unspecified (principal)
CPT/HCPCS: 71260; 74177; Q9967; A4216

== ENCOUNTER 2018-11-10 09:08 | Observation (INO) | payer MEDICARE, SELFPAY ==
[2018-11-08 10:00] VITALS: BMI 35.6
[2018-11-10] VITALS (11 sets, daily range): BP systolic 128–157; BP diastolic 63–92; PULSE 58–84; RESP 16–21; TEMP 36.6–36.8; O2SAT 94–98; BMI 30.7; BMI 30.8
--- NOTE | 2018-11-10 09:21 | EKG12_ITS ---
Test Reason : CP ADMIT Blood Pressure : / mmHG Vent. Rate : 060 BPM Atrial Rate : 060 BPM P-R Int : 144 ms QRS Dur : 082 ms QT Int : 460 ms P-R-T Axes : 058 035 041 degrees QTc Int : 460 ms Normal sinus rhythm Normal ECG Confirmed by NILES LAWRENCE, ATIYA ([id number]), food editor FABRICIO JACKMAN ([id number]) on 11/11/2018 2:19:47 PM Referred By: Moy Metcalf Confirmed By:ATIYA CAGE MD
--- NOTE | 2018-11-10 10:05 | ED.VISSUMM ---
- ER Visit Summary Date of Service: 11/10/18 Chief Complaint: [Chest pain] History of Present Illness: The patient is a 68 F [presents to the emergency department with discomfort in the center of her chest that started about 2 days ago. Patient noticed it more this morning so she decided to come and get evaluated. Patient has a hard time describing the pain but thinks it is closer to a pressure type discomfort. The discomfort is intermittent. She currently rates it as a 3 out of 10. She denies any radiation of the discomfort. She denies any significant dyspnea. She had some mild nausea. Patient does have a history of stage IV colon cancer and has been receiving chemotherapy. Patient also with history of pulmonary emboli and is currently on Xarelto. She has no heart history. Patient denies any cough or fever.] Physical Examination: [HEENT-PERRLA, EOMI. Cranial nerves II through XII grossly intact. TMs clear. Mucous membranes moist. No adenopathy. Cardiovascular-regular rate and rhythm without murmur or ectopy Lungs-clear to auscultation, chest wall stable without crepitus or subcu emphysema Abdomen-normoactive bowel sounds, soft, nontender, no rebound or rigidity, no peritoneal signs. Extremities-intact ?4, normal range of motion, normal pulses, atraumatic] Test Results: [EKG obtained on arrival shows sinus rhythm with a ventricular rate of 69 bpm with no acute segment changes. CBC with differential obtained showing a 6.9, hemoglobin 9.9, hematocrit 32, platelets 277. Chemistries unremarkable. Troponin was less than 0.15. Chest x-ray showed atelectasis of the lung bases otherwise nothing acute.] Emergency Department Course and Treatment: [Patient received 2 baby aspirin. Patient was given 1 sublingual nitro every 5 minutes x2 which essentially resolved her pain.] Treatment Plan: [Admit for further work-up and evaluation of her chest pain] Disposition: [Admit ] Impression: [Chest pain-rule out acute [place] syndrome] This note was generated with [employer] dictation software. It may contain incorrect words, spelling, and punctuation that were not noted in review of the chart prior to signing ED Disposition - Plan for ED Patient: Referrals: Jose Daniel Yang, [Primary Care Provider] -
[2018-11-10 10:19] LABS: Absolute Neutrophil Count 4.9 X10^3/uL (2.0-7.7); Basophil# 0.04 X10^3/uL; Basophil% 0.6 % (0-1); Eosinophil# 0.53 X10^3/uL; Eosinophils% 7.7 % (0-5); Hematocrit 31.7 % (37-47); Hemoglobin 9.9 g/dL (12.0-15.0); Lymphocyte % 11.6 % (19-41); Mean Corp Hgb Conc 31.2 g/dL (32-36); Mean Corpuscular Hgb 30.5 pg (27.0-32.0); Mean Corpuscular Volume 97.5 fL (81-99); Mean Platelet Vol. 10.2 fl (6.2-12.0); Monocyte# 0.65 X10^3/uL; Monocyte% 9.4 % (0-10); NRBC Flagged by Analyzer 0 % (0-5); Neutrophil # 4.86 X10^3/uL (2.7-7.7); Neutrophil % 70.4 % (47-70); Platelet Count 277 K/mm3 (150-450); RBC Distribution Width CV 15.9 % (11.6-14.6); RBC Distribution Width SD 57.1 fl (35.1-43.9); Red Blood Count 3.25 M/mm3 (4.2-5.4); White Blood Count 6.9 K/mm3 (4.4-11.0)
[2018-11-10] MEDS: 0.9% Normal Saline 1,000 ML 150 ML IV (10:30)
--- NOTE | 2018-11-10 10:30 | RAD_ITS ---
STUDY: X-RAY CHEST REASON FOR EXAM: Female, 68 years old. Chest pain. TECHNIQUE: Single AP portable view of the chest. COMPARISON: Comparison is made with prior examination December 23, 2017. FINDINGS: A right-sided portacatheter is seen with the tip in the midportion of the superior vena cava. This is unchanged. EKG electrodes are seen. Mild degree of increased linear markings at the lung bases suggestive of linear bibasilar atelectasis is worse on the right side. Blunting of the right costophrenic angle. Normal size heart. Normal mediastinum and nish. Normal visualized pulmonary arteries. Normal visualized aortic arch and descending thoracic aorta. There are diffuse degenerative changes of the visualized thoracic spine. Normal visualized ribs, clavicles, and shoulders. There is no demonstrated abnormality of the visualized soft tissue structures of the upper abdomen. RAD/Chest 1 View (Portable) IMPRESSION: Mild increased markings at the lung bases slightly worse on the right side suggestive of atelectasis Electronically Signed: Chris Hernandez, at 10:49 EDT , Service support ,
[2018-11-10] MEDS: Nitroglycerin SL (ED/IMG/CATH) 0.4 MG TABLET SUBLINGUAL ×2 (10:32→10:37)
[2018-11-10 10:49] LABS: Anion Gap 4 (5-15); BUN 13 mg/dL (7-18); BUN/Creat Ratio 27.7 RATIO (10-20); Calcium,Total 8.5 mg/dL (8.5-10.1); Chloride 105 mmol/L (98-107); Creatinine, Serum 0.47 mg/dL (0.55-1.02); EST Glomerular Filtration Rate 141 mL/min (>60); Est Glom Filt Rate - Afr Amer 170 mL/min (>60); Estimated Creatinine Clearance 2.08 ml/min; Glucose 85 mg/dL (74-106); Potassium 3.5 mmol/L (3.5-5.1); Sodium Level 139 mmol/L (136-145)
[2018-11-10] MEDS: Aspirin 81 MG TAB.CHEW 162 MG PO (11:30)
[2018-11-10] MEDS: Morphine 4 MG/ML Syringe IV (11:30)
[2018-11-10] MEDS: Ondansetron 4 MG/2 ML Vial IV (11:30)
--- NOTE | 2018-11-10 11:54 | PCM.HP.STD ---
Problem List (1) Lung metastases Status: Chronic (2) Colon cancer Status: Chronic Qualifiers: (3) Bilateral pulmonary embolism Status: Chronic (4) Colon cancer metastasized to intra-abdominal lymph node Status: Chronic (5) Hypothyroidism Status: Chronic (6) Depression Status: Chronic (7) Type 2 diabetes mellitus Status: Chronic (8) Hyperlipemia Status: Chronic (9) Hypertension Status: Chronic History of Present Illness Date of Admission: 11/10/18 Chief Complaint: Chest pain. The patient is a 68 year old F with past medical history as mentioned above presented to the emergency room because of chest pain. Patient mentioned that she came to the ER today because of both chest pain and low back pain. The low back pain is a chronic issue but the chest pain is a new complaint. Around 8 AM this morning, she was sitting in her chair and she started having chest pain, it is stable, described as chest discomfort, 3 out of 10 in severity, nonradiating, no associated symptoms and no aggravating or relieving factors. She denies associated shortness of breath, palpitation, nausea, vomiting or sweating. She denied dizziness or lightheadedness. She did mention that her pain improved after she received sublingual nitroglycerin in the ED. At this time, she has no more chest pain. In the emergency department, her vital signs were stable. Her routine blood work was remarkable for chronic anemia with stable hemoglobin, otherwise normal. EKG revealed normal sinus rhythm, normal OK interval, normal QRS and no evidence of acute ischemic changes. Troponin was negative. Chest x-ray showed no acute findings. She is being admitted for atypical chest pain for evaluation. 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) Bilateral pulmonary embolism (Chronic) Colon cancer (Chronic) Colon cancer metastasized to intra-abdominal lymph node (Chronic) Metastasis to lymph nodes (Chronic) SCOOTER (iron deficiency anemia) (Chronic) Osteoarthritis of left hip (Chronic) Breast cancer (Chronic) Hypothyroidism (Chronic) Depression (Chronic) Nausea (Chronic) Type 2 diabetes mellitus (Chronic) IBS (irritable bowel syndrome) (Chronic) Hyperlipemia (Chronic) Hypertension (Chronic) Medical History: Medical History (Last Updated 11/10/18 @ 11:53 by Moy Metcalf MD) Colon cancer (Chronic) C18.9 Type 2 diabetes mellitus (Chronic) E11.9 IBS (irritable bowel syndrome) (Chronic) K58.9 Hyperlipemia (Chronic) E78.5 Hypertension (Chronic) I10 History of hysterectomy Z90.710 due to postmenopausal bleeding and history of breast cancer Pulmonary embolism I26.99 Allergies amoxicillin [From Augmentin] Adverse Reaction (Severe, Verified 11/08/18 09:59) Hives clavulanic acid [From Augmentin] Adverse Reaction (Severe, Verified 11/08/18 09:59) Hives Home Medications: Ambulatory Orders Medication Instructions Recorded Atorvastatin Calcium [Lipitor] 40 mg PO QHS 11/14/17 Acetaminophen [Tylenol] 1,000 mg PO Q8H PRN PRN tab 12/03/17 Rivaroxaban [Xarelto] 20 mg PO DAILY 30 Days #30 tab 02/08/18 Fentanyl 1 each TD UD 04/19/18 Ondansetron [Zofran Odt] 4 mg PO Q8H PRN PRN #10 tab 08/30/18 citalopram 20 mg tablet 20 mg PO DAILY #90 tab 08/31/18 levothyroxine 50 mcg tablet 50 mcg PO DAILY@0600 #90 tab 08/31/18 Doxycycline 100 mg PO BID 30 Days #60 cap 09/27/18 Polyethylene Glycol 3350 [Miralax] 17 gm PO DAILY 10/25/18 Oxycodone HCl 10 mg PO DAILY 11/10/18 Surgical History: Surgical History (Last Reviewed 11/08/18 @ 09:59 by Khushbu Mcleod) History of bilateral mastectomy Z90.13 History of left knee surgery Z98.890 History of lumpectomy of right breast Z98.890 1997 History of parathyroidectomy Z98.890 2017, due to enlargement. History of tonsillectomy Z90.89 Hx of colectomy Z90.49 12/09 s/p port placement 12/09 Surgical History: hysterectomy, mastectomy, tonsillectomy, - Psychiatric History: Depression [employer] History: No pertinent [employer] history Lives: Alone Smoking Status: Never smoker Alcohol: None Drugs: None - *Family History Maternal Family History: Family History (Last Reviewed 11/08/18 @ 09:59 by Khushbu Mcleod) Mother Cancer Sister Cancer Father Heart disease Myocardial infarction, Onset Age: 72 History Items: - - Ovarian cancer in her mother. Paternal Family History: Family History (Last Reviewed 11/08/18 @ 09:59 by Khushbu Mcleod) Mother Cancer Sister Cancer Father Heart disease Myocardial infarction, Onset Age: 72 History Items: Heart Disease Review of Systems Constitutional: Denies: Anorexia, Chills, Fever, Weakness Eyes: Denies: Blurred vision, Double vision, Drainage, Redness HEENT: Denies: Difficulty Hearing, Ear Pain, Eye Pain, Nasal Congestion, Sore Throat Cardiovascular: Reports: Chest Pain. Denies: Edema, Heaviness, Light Headedness, Palpitations, Paroxysmal Noc. Dyspnea, Syncope Respiratory: Denies: Cough, Hemoptysis, Pleuritic Pain, Shortness of Breath, Sputum production, Wheezing Gastrointestinal: Denies: Abdominal Pain, Constipation, Diarrhea, Nausea, Vomiting Genitourinary: Denies: Dysuria, Frequency, Hematuria Musculoskeletal: Reports: Back Pain. Denies: Arm Pain, Foot Pain Skin: Denies: Dryness, Rash Neurological: Denies: Balance problems, Double vision, Change in Speech, Slurred speech, Confusion, Numbness Psychiatric: Reports: Depression Endocrine: Denies: Change in Body Habitus, Polydipsia, Polyuria VTE Information - Inpt Only VTE Present on Admission: No VTE Mechan Device Prophylaxis: SCD's VTE Pharm Prophylaxis ordered?: No - Physical Exam General: Alert, Oriented x3, Cooperative, No apparent distress HEENT: Atraumatic, PERRLA, EOMI, Normocephalic Oral: Moist Mucosa, No Gingival or Mucosal Lesions/ Ulcerations Neck: Supple, No JVD, Negative Carotid Bruits, Trachea Midline, Thyroid Normal Size and Texture Lungs: Clear to auscultation, Normal air movement, No rhonchi, No wheeze, No rales Cardiovascular: Regular rate, Regular Rhythm, Normal S1, Normal S2, PMI Normal Abdomen: Bowel Sounds Present, Soft, Non Tender, Non-Distended, No Hepato-splenomegaly, Obese Extremities: No clubbing, No cyanosis, No edema Skin: No rashes, No breakdown Lymphatic: No Cervical, Supraclavicular, or Inguinal Adenopathy Neurological: Cranial nerves II-XII grossly intact, Motor Exam 5/5 strength throughout Psych/Mental Status: Normal Affect, Appropriate, Alert and oriented to time, place, person, mood and affect Vital Signs Temp Pulse Resp BP Pulse Ox 97.9 F 58 L 16 128/92 H 98 11/10/18 09:09 11/10/18 11:32 11/10/18 11:32 11/10/18 11:32 11/10/18 11:32 Oxygen Flow Rate (L/min) 97 Oxygen Delivery Method Room Air Weight: 5 lb 4 oz Body Mass Index (BMI) 0.0 Finger Stick Blood Glucose 149 Laboratory Tests Past 24 Hrs 11/10/18 11/10/18 10:00 10:00 WBC 6.9 RBC 3.25 L Hgb 9.9 L Hct 31.7 L MCV 97.5 MCH 30.5 MCHC 31.2 L RDW Std Deviation 57.1 H RDW Coeff of Brandyn 15.9 H Plt Count 277 MPV 10.2 Immature Gran % (Auto) 0.300 Neut % (Auto) 70.4 H Lymph % (Auto) 11.6 L Cross % (Auto) 9.4 Eos % (Auto) 7.7 H Baso % (Auto) 0.6 Absolute Neuts (auto) 4.9 Absolute Lymphs (auto) 0.80 L Nucleated RBC % 0 Sodium 139 Potassium 3.5 Chloride 105 Carbon Dioxide 30.0 Anion Gap 4 L BUN 13 Creatinine 0.47 L Estim Creat Clear Calc 2.08 Est GFR (MDRD) Af Amer 170 Est GFR (MDRD) Non-Af 141 BUN/Creatinine Ratio 27.7 H Glucose 85 Calcium 8.5 Troponin I < 0.015 Clinical Impression(s) from Imaging Studies Chest X-Ray 11/10/18 10:30 IMPRESSION: Mild increased markings at the lung bases slightly worse on the right side suggestive of atelectasis Electronically Signed: Chris Hernandez, at 10:49 EDT , Service support , Assessment/Plan This is a 68 years old female patient presented to the emergency room because of chest pain that she is being admitted for evaluation. #1 atypical chest pain: Risk factors are age, obesity, history of hypertension and diabetes as well as hyperlipidemia. No family history of premature CAD. EKG without acute ischemic changes. Troponin is negative. Chest x-ray showed no acute findings. Plan: Admit to PCU for observation, cardiac monitoring, serial cardiac enzymes, repeat EKG tomorrow morning, nuclear stress test tomorrow morning if cardiac enzymes are negative, continue statins, hold Xarelto for tonight, check PT and INR. #2 metastatic colon cancer: Status post right hemicolectomy, currently on chemotherapy, stable at this time. She follows up with Dr. Shepherd as outpatient. #3 bilateral pulmonary embolism: We will hold Xarelto tonight in case of patient needed further testing or cardiac catheterization. #4 hypothyroidism: Stable, continue levothyroxine. #5 hyperlipidemia: Continue statins. #6 chronic anemia: It is probably anemia of chronic disease secondary to cancer and chemotherapy. Hemoglobin has been around 8 to 10 g/dL. Today's hemoglobin is 9.9 g/dL. Stable at baseline. #7 history of hypertension: Patient was taken off antihypertensive medications 2 years ago because her blood pressure has been stable. Today, blood pressure stable. Plan to monitor. #8 history of type 2 diabetes mellitus: She was taken off metformin in the last several months. Hemoglobin A1c was 6% on August,. #9 history of bilateral breast cancer: Status post bilateral mastectomies followed by chemotherapy and that was back in the 1980s. Stable at this time, in remission. 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 #11 DVT prophylaxis: SCDs. This note was generated with [employer] dictation software. It may contain incorrect words, spelling, and punctuation that were not noted in checking the note before signing. Code Visit OBSV E&M: 10238 Initial observation care L2
--- NOTE | 2018-11-10 12:02 | CASEMGMT ---
RN CM Assessment Introduced role of RN CM to patient and patient neighbor David at bedside. Patient gave this CM permission to discuss assessment in neighbors presence.? Patient is alert, oriented and able?to participate in RN CM Assessment. ?Care providers, pharmacy, and demographics verified. Presentation: Intermittent Mid Chest Discomfort x2 days. H/o PE on Xarelto. H/o Stage 4 Colon Cancer on Chemo, last Chemo Wednesday11/08/18. Admit Dx: CP Re-Admit: No Barriers/Issues: None PCP: Jose Daniel Yang Specialists: Pain- Dr Paris, Onc- Dr Shepherd Preferred Pharmacy: [facility] Insurance: [employer] [facility] Rx Benefit:?Yes LNOK: Son Jude Peterson and son Rusty ePterson LW/HPOA: States yes to both, aware not on file with [facility], States thinks both sons are HPOA but thinks primary agent is barbara Peterson Living Arrangements:?Lives alone in a mobile home, ramp to enter ADL?s: Ambulates with walker and is Independent with ADLs Transportation: Patient drives, or her Ex [id number], or neighbor David. Denies any transportation issues. Made aware if ever needing transportation there is [facility] transport for appointments and Transportation through [facility]. DME: Walker, CPAP- has not used since she had PE. HHC: None. States that her Reproduction Specialist Dione is trying to get her an Aide but there is non currently in her area. SNF: None Goal: Home, does not think will have any needs. Denies any concerns, issues or questions with DC planning at this time. Aware CM remains available for any emerging needs. DC PLAN: Home with no anticipated needs identified at this time. LUIS Chang
--- NOTE | 2018-11-10 13:10 | EKG12_ITS ---
Test Reason : CP Blood Pressure : / mmHG Vent. Rate : 069 BPM Atrial Rate : 069 BPM P-R Int : 138 ms QRS Dur : 080 ms QT Int : 414 ms P-R-T Axes : 000 148 136 degrees QTc Int : 443 ms Normal sinus rhythm Right axis deviation Abnormal ECG Confirmed by TORIBIO LAWRENCE, YOLANDA ([id number]), mapping editor HERIBERTO WALLACE ([id number]) on 11/11/2018 1:22:25 PM Referred By: Moy Metcalf Confirmed By:MAIK ROONEY MD
[2018-11-10] MEDS: 0.9% Saline Lock 10 ML Syringe IV (14:04)
[2018-11-10] MEDS: oxyCODONE 5 MG Tablet 10 MG PO ×2 (14:04→21:45)
[2018-11-10 15:04] LABS: International Normalized Ratio 1.1; Prothrombin Time (Protime)PT. 14.1 SECONDS (11.7-14.9)
--- NOTE | 2018-11-10 15:51 | CPS ---
floor ekg for cp never put in and floor never called.
[2018-11-10] MEDS: Acetaminophen 325 MG Tablet 650 MG PO (16:59)
[2018-11-10] MEDS: Morphine 2 MG/ML Syringe IV (17:40)
[2018-11-10] MEDS: 0.9% NaCl PICC Flush IV (17:41)
[2018-11-10] MEDS: Doxycycline 100 MG CAPSULE PO (21:20)
[2018-11-10] MEDS: Atorvastatin Calcium 40 MG Tablet PO (21:20)
[2018-11-10] MEDS: MELATONIN 3 MG TABLET PO (23:18)
[2018-11-11] MEDS: Ondansetron 4 MG/2 ML Vial IV (01:44)
[2018-11-11] MEDS: 0.9% NaCl PICC Flush IV (01:45)
[2018-11-11] MEDS: Morphine 2 MG/ML Syringe IV (01:45)
[2018-11-11 03:00] VITALS: PULSE 80
[2018-11-11 03:01] VITALS: BP 163/80; PULSE 81; RESP 16; TEMP 36.7; O2SAT 93
[2018-11-11] MEDS: Levothyroxine 50 MCG Tablet PO (05:27)
[2018-11-11] MEDS: Acetaminophen 325 MG Tablet 650 MG PO ×2 (05:27→13:34)
[2018-11-11] MEDS: oxyCODONE 5 MG Tablet 10 MG PO ×2 (05:27→13:34)
--- NOTE | 2018-11-11 05:55 | EKG12_ITS ---
Test Reason : AM EKG Blood Pressure : / mmHG Vent. Rate : 073 BPM Atrial Rate : 073 BPM P-R Int : 148 ms QRS Dur : 078 ms QT Int : 424 ms P-R-T Axes : 055 031 049 degrees QTc Int : 467 ms Normal sinus rhythm Normal ECG Confirmed by NAKUL LAWRENCE, KHADAR ([id number]), film editor HERIBERTO WALLACE ([id number]) on 11/16/2018 11:02:07 AM Referred By: Moy Metcalf Confirmed By:KHADAR MOTA MD
[2018-11-11 06:34] VITALS: O2SAT 93
[2018-11-11 08:07] VITALS: PULSE 66
[2018-11-11 09:00] VITALS: BP 142/71; PULSE 79; RESP 16; TEMP 36.6; O2SAT 95
[2018-11-11] MEDS: Doxycycline 100 MG CAPSULE PO (09:05)
[2018-11-11] MEDS: Citalopram 20 MG Tablet PO (09:05)
--- NOTE | 2018-11-11 12:43 | DCINST_ITS ---
You will use the following diet at home:: Regular Your food should be the consistency of: Regular Discharge Activity: Return to Normal Activity, May not drive while taking narcotic pain medications. Weight Bearing Status: Weight bearing as tolerated Call your doctor if you observe: Fever of 101 or Higher, Shortness of breath, Dizziness, Fainting spells, Chest pain, Increased palpitations (irregular heartbeat), Uncontrolled pain Allergies/Adverse Reactions: Allergies amoxicillin [From Augmentin] Adverse Reaction (Severe, Verified 11/08/18 09:59) Hives clavulanic acid [From Augmentin] Adverse Reaction (Severe, Verified 11/08/18 09:59) Hives Medications to take at Discharge Atorvastatin Calcium [Lipitor] 40 mg PO QHS 11/14/17 Acetaminophen [Tylenol] 1,000 mg PO Q8H PRN PRN tab 12/03/17 Rivaroxaban [Xarelto] 20 mg PO DAILY 30 Days #30 tab 02/08/18 Fentanyl 25 mcg TRANSDERM. Q72H 04/19/18 Ondansetron [Zofran Odt] 4 mg PO Q8H PRN PRN #10 tab 08/30/18 citalopram 20 mg tablet 20 mg PO DAILY #90 tab 08/31/18 levothyroxine 50 mcg tablet 50 mcg PO DAILY@0600 #90 tab 08/31/18 Doxycycline 100 mg PO BID 30 Days #60 cap 09/27/18 Polyethylene Glycol 3350 [Miralax] 17 gm PO DAILY 10/25/18 Oxycodone HCl 10 mg PO TID 11/10/18 Primary Care Physician: Jose Daniel Yang DO [Primary Care Provider] - Please follow up with your Primary Care Physician in: 1 week. Test Results: Test results from this visit will be discussed in further detail at your follow- up appointment, if applicable. Please Follow Up With: Sharif Paris MD When: as scheduled.
--- NOTE | 2018-11-11 13:31 | CASEMGMT ---
RN CM NOTE: To room to review KHANNA form. Pt resting in bed. Awake/alert/oriented. Introduced self and role of RN CM. Reviewed KHANNA form. Denies having any questions. KHANNA form signed by pt, copy made and placed on chart, and original given to pt. Instructed pt to ask for CM if she has any questions re: form. Ryan JARRELLN RN CM
--- NOTE | 2018-11-11 13:55 | PHA.DC.MR ---
Pharmacy Service has performed discharge medication reconciliation for this patient. This patient does not have new medications for discharge. Home Medications Atorvastatin Calcium [Lipitor] 40 mg PO QHS 11/14/17 Acetaminophen [Tylenol] 1,000 mg PO Q8H PRN PRN tab 12/03/17 Rivaroxaban [Xarelto] 20 mg PO DAILY 30 Days #30 tab 02/08/18 Fentanyl 25 mcg TRANSDERM. Q72H 04/19/18 Ondansetron [Zofran Odt] 4 mg PO Q8H PRN PRN #10 tab 08/30/18 citalopram 20 mg tablet 20 mg PO DAILY #90 tab 08/31/18 levothyroxine 50 mcg tablet 50 mcg PO DAILY@0600 #90 tab 08/31/18 Doxycycline 100 mg PO BID 30 Days #60 cap 09/27/18 Polyethylene Glycol 3350 [Miralax] 17 gm PO DAILY 10/25/18 Oxycodone HCl 10 mg PO TID 11/10/18 The patient's discharge medication list was reviewed for discrepancies and discrepancies were resolved.
--- NOTE | 2018-11-11 13:57 | CASEMGMT ---
Pt is aware that LW/POA are not on file. SW asked her to bring them in as able, pt states understanding. BIN Vergara
--- NOTE | 2018-11-11 14:44 | STRESSREP ---
Stress Test Report Date: 11/11/2018 Procedure: Pharmacologic stress nuclear imaging study Indications: Chest pain Consent: Per the patient Procedure: The patient underwent pharmacologic (Regadenoson) evaluation with a peak heart rate of 136 beats per minute (88 %predicted maximal heart rate) and a peak blood pressure of 132/80 mmHg. The baseline ECG demonstrated normal sinus rhythm. EKG during lexiscan infusion revealed normal sinus rhythm, no significant ST-T changes. EKG post infusion revealed sinus tachycardia with left bundle branch block. [There were no cardiac dysrhythmias pretest, during pharmacologic infusion, or recovery]. [There was no complaint of chest discomfort during pharmacologic infusion or recovery]. Patient had nausea and vomiting with Lexiscan infusion The examination was discontinued secondary to completion of protocol. Impression: 1. Lexiscan stress test test is negative for Lexiscan infusion induced EKG changes of ischemia. 2. Lexiscan stress test test is negative for Lexiscan infusion induced chest pain. 3. Results of the nuclear portion of the test is as below Myocardial perfusion imaging study: Technique: The patient was injected with 11.6 millicuries of technetium 99m Cardiolite and subsequently rest SPECT Cardiolite nuclear imaging was obtained in the horizontal long, vertical long, and short axis views. The patient underwent pharmacologic (Regadenoson) evaluation. Please see above for details. The patient was injected with 33.9 millicuries of technetium 99m Cardiolite and subsequently stress SPECT Cardiolite nuclear imaging was obtained in the horizontal long, vertical long, and short axis views. A gated Cardiolite study at peak stress was obtained. Interpretation: Rest and stress SPECT Cardiolite nuclear imaging status post realignment, normalization, and attenuation correction demonstrate normal myocardial radioisotope uptake after recognition correction. Gated images reveal no significant regional wall motion abnormalities. The reported LVEF is 66 %. Impression: 1. There is no evidence of significant ischemia or infarction. 2. Estimated ejection fraction is 66%. This note was generated with [employer] software. It may contain incorrect words, spelling, and punctuation that were not noted in checking the note before signing.
[2018-11-11 14:55] VITALS: BP 136/63; PULSE 73; RESP 18; TEMP 36.6; O2SAT 97
--- NOTE | 2018-11-11 15:21 | DS.PCM_ITS ---
Discharge Date and Diagnosis Date of Admission: 11/10/18 Date of Discharge: 11/11/18 - Primary Discharge Diagnosis Chest pain, ACS ruled out. 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) Bilateral pulmonary embolism (Chronic) Colon cancer (Chronic) Colon cancer metastasized to intra-abdominal lymph node (Chronic) Metastasis to lymph nodes (Chronic) SCOOTER (iron deficiency anemia) (Chronic) Osteoarthritis of left hip (Chronic) Breast cancer (Chronic) Hypothyroidism (Chronic) Depression (Chronic) Nausea (Chronic) Type 2 diabetes mellitus (Chronic) IBS (irritable bowel syndrome) (Chronic) Hyperlipemia (Chronic) Hypertension (Chronic) Hospital Course and Treatment Imaging Results: Clinical Impression(s) from Imaging Studies Chest X-Ray 11/10/18 10:30 IMPRESSION: Mild increased markings at the lung bases slightly worse on the right side suggestive of atelectasis Electronically Signed: Chris Hernandez, at 10:49 EDT , Service support , Operations: None, - Procedures: EKG, Stress test Summary of Care Provided: Patient seen and examined on the day of discharge and appeared to be stable to be discharged home. She had no more chest pain but she complains of low back pain which is chronic. Denies any new symptoms such as numbness, tingling or leg weakness. Denied stool or incontinence. Her vital signs are stable. The patient is a 68 year old F admitted for chest pain for evaluation. Her symptoms was not typical for ACS. Her EKG revealed no acute ischemic changes. Her troponin was negative x3. Her routine blood work was remarkable for chronic anemia with stable hemoglobin, otherwise normal. She underwent nuclear stress test that revealed no evidence of stress-induced myocardial ischemia with preserved ejection fraction. ACS ruled out. Patient complained of back pain but this is chronic problem and she has been following up with pain management as outpatient. Patient continued on her home pain medications including oxycodone and fentanyl patch and also was given IV morphine PRN. Patient discharged home in a stable condition, discharged on her previous home medications without any changes including oxycodone and fentanyl patch, I recommended to follow-up with pain management as scheduled this coming Wednesday, recommended follow-up with PCP in 1 week. - Physical Exam General: Alert, Oriented x3, Cooperative, No apparent distress HEENT: Atraumatic, PERRLA, EOMI, Normocephalic Oral: Moist Mucosa, No Gingival or Mucosal Lesions/ Ulcerations Neck: Supple, No JVD, Negative Carotid Bruits, Trachea Midline, Thyroid Normal Size and Texture Lungs: Clear to auscultation, Normal air movement, No rhonchi, No wheeze, No rales Cardiovascular: Regular rate, Regular Rhythm, Normal S1, Normal S2 Abdomen: Bowel Sounds Present, Soft, Non Tender, Non-Distended, No Hepato- splenomegaly Extremities: No clubbing, No cyanosis, No edema Skin: No rashes, No breakdown Lymphatic: No Cervical, Supraclavicular, or Inguinal Adenopathy Neurological: Cranial nerves II-XII grossly intact, Neuro grossly intact Psych/Mental Status: Normal Affect, Appropriate Vital Signs Temp Pulse Resp BP Pulse Ox 97.9 F 79 16 142/71 H 95 11/11/18 09:00 11/11/18 09:00 11/11/18 09:00 11/11/18 09:00 11/11/18 09:00 Oxygen Flow Rate (L/min) 97 Oxygen Delivery Method Room Air Weight: 179 lb 3.773 oz Body Mass Index (BMI) 30.7 Finger Stick Blood Glucose 149 Intake and Output for Last 24 Hours 11/09/18 11/10/18 11/11/18 23:59 23:59 23:59 Intake Total 1350 / 1350 100 / 100 Balance 1350 / 1350 100 / 100 Laboratory Tests Past 24 Hrs 11/10/18 16:55 Troponin I < 0.015 Discharge Activity: Return to Normal Activity, May not drive while taking narcotic pain medications. Weight Bearing Status: Weight bearing as tolerated Call your doctor if you observe: Fever of 101 or Higher, Shortness of breath, Dizziness, Fainting spells, Chest pain, Increased palpitations (irregular heartbeat), Uncontrolled pain Home Medications: Medications to take at Discharge Atorvastatin Calcium [Lipitor] 40 mg PO QHS 11/14/17 Acetaminophen [Tylenol] 1,000 mg PO Q8H PRN PRN tab 12/03/17 Rivaroxaban [Xarelto] 20 mg PO DAILY 30 Days #30 tab 02/08/18 Fentanyl 25 mcg TRANSDERM. Q72H 04/19/18 Ondansetron [Zofran Odt] 4 mg PO Q8H PRN PRN #10 tab 08/30/18 citalopram 20 mg tablet 20 mg PO DAILY #90 tab 08/31/18 levothyroxine 50 mcg tablet 50 mcg PO DAILY@0600 #90 tab 08/31/18 Doxycycline 100 mg PO BID 30 Days #60 cap 09/27/18 Polyethylene Glycol 3350 [Miralax] 17 gm PO DAILY 10/25/18 Oxycodone HCl 10 mg PO TID 11/10/18 Primary Care Physician: Jose Daniel Yang DO [Primary Care Provider] - Please follow up with your Primary Care Physician in: 1 week. Please Follow Up With: Sharif Paris MD When: as scheduled. Disposition: Home Minutes spent on discharge:: 17 Medical Necessity - Tobacco Use Smoking Status: Never smoker Meaningful Use Info Meaningful Use Diagnoses (Choose all that apply): None applicable Code Visit OBSV E&M: 80959 Observation care discharge
== END 2018-11-11 12:43 | disposition home or self-care (01) ==
LOC: ED 10:21 → PCU 11:55
PROVIDERS: Admitting Provider Hospitalist; Emergency Provider Emergency Medicine; Family Provider Family Medicine; PCP Family Medicine; Referring Provider Hospitalist; Visit Provider Hospitalist
DX: R07.89 Other chest pain (principal); E11.9 Type 2 diabetes mellitus without complications; E03.9 Hypothyroidism, unspecified; E78.5 Hyperlipidemia, unspecified; I10 Essential (primary) hypertension; F32.9 Major depressive disorder, single episode, unspecified; C18.9 Malignant neoplasm of colon, unspecified; C78.00 Secondary malignant neoplasm of unspecified lung; C77.0 Secondary and unspecified malignant neoplasm of lymph nodes of head, face and neck; Z86.711 Personal history of pulmonary embolism; Z79.899 Other long term (current) drug therapy; Z79.01 Long term (current) use of anticoagulants; D50.9 Iron deficiency anemia, unspecified
CPT/HCPCS: 36591; 71045; 78452; 80048; 84484; 85025; 85610; 93005; 93017; 96361; 96374; 96375; 96376; 97161; 97802; 99218; 99285; A9500; J7030; A4216; G0378; J2405; J2785

== ENCOUNTER 2018-11-25 10:35 | Emergency (ER) | payer MEDICARE, SELFPAY ==
[2018-11-22 09:48] VITALS: BMI 34.7
[2018-11-25 10:35] VITALS: BP 141/94; PULSE 105; RESP 17; TEMP 36.7; O2SAT 98; BMI 33.6
--- NOTE | 2018-11-25 11:21 | RAD_ITS ---
STUDY: X-RAY - THORACIC SPINE REASON FOR EXAM: Female, 68 years old. Back pain. TECHNIQUE: AP and lateral view(s) of the thoracic spine were obtained. COMPARISON: None. FINDINGS: There is an increase in the normal thoracic kyphosis. There is no substantial scoliosis. There is demineralization of the thoracic spine with endplate spondylosis. There is multilevel disc space narrowing of the thoracic spine. The soft tissue structures are unremarkable. RAD/Thoracic Spine 2 Views IMPRESSION: Multilevel disc space narrowing with spondylosis. Electronically Signed: Chris Hernandez, at 13:03 EDT , Service support ,
--- NOTE | 2018-11-25 11:21 | RAD_ITS ---
STUDY: X-RAY - LUMBAR SPINE REASON FOR EXAM: Female, 68 years old. Low back pain with radiation into the left lower extremity. TECHNIQUE: AP and lateral view(s) of the lumbar spine were obtained. COMPARISON: None FINDINGS: Normal lumbar lordosis. There is no substantial scoliosis. Minimal anterior listhesis of L4 on L5 most likely secondary to facet joint osteoarthritis. There is multilevel endplate spondylosis of the lumbar vertebrae. There is multi-level degenerative disc disease with multi-level disc space narrowing. There is atherosclerotic calcification of the abdominal aorta without a demonstrated aneurysm. RAD/Lumbar Spine 2 or 3 Views IMPRESSION: Degenerative changes of the spine, as detailed above. Electronically Signed: Chris Hernandez, at 13:01 EDT , Service support ,
[2018-11-25 11:51] LABS: Absolute Lymphocyte Count 0.73 X10^3/uL (0.83-4.51); Basophil# 0.03 X10^3/uL; Basophil% 0.4 % (0-1); Eosinophil# 0.27 X10^3/uL; Eosinophils% 3.9 % (0-5); Hematocrit 30.5 % (37-47); Hemoglobin 9.7 g/dL (12.0-15.0); Lymphocyte # 0.73 X10^3/ul (4.0); Lymphocyte % 10.5 % (19-41); Mean Corp Hgb Conc 31.8 g/dL (32-36); Mean Corpuscular Hgb 29.9 pg (27.0-32.0); Mean Corpuscular Volume 94.1 fL (81-99); Mean Platelet Vol. 9.4 fl (6.2-12.0); Monocyte# 0.83 X10^3/uL; NRBC Flagged by Analyzer 0 % (0-5); Neutrophil # 5.04 X10^3/uL (2.7-7.7); Neutrophil % 72.9 % (47-70); Platelet Count 312 K/mm3 (150-450); RBC Distribution Width CV 15.2 % (11.6-14.6); RBC Distribution Width SD 52.1 fl (35.1-43.9); Red Blood Count 3.24 M/mm3 (4.2-5.4); White Blood Count 6.9 K/mm3 (4.4-11.0)
[2018-11-25] MEDS: 0.9% Normal Saline 1,000 ML 1000 ML IV (11:55)
[2018-11-25] MEDS: Ondansetron 4 MG/2 ML Vial IV (11:56)
[2018-11-25] MEDS: HYDROmorphone 1 MG/ML Syringe 0.5 MG IV (11:56)
[2018-11-25 12:10] LABS: ALB/GLOB Ratio 0.9 RATIO (0.9-2.4); AST(SGOT) 34 U/L (15-37); Alanine Aminotransfer ALT/SGPT 18 U/L (13-56); Alkaline Phosphatase 82 U/L (45-117); Anion Gap 9 (5-15); BUN 14 mg/dL (7-18); BUN/Creat Ratio 23.6 RATIO (10-20); Calcium,Total 8.3 mg/dL (8.5-10.1); Chloride 104 mmol/L (98-107); Creatinine, Serum 0.59 mg/dL (0.55-1.02); EST Glomerular Filtration Rate 108 mL/min (>60); Est Glom Filt Rate - Afr Amer 130 mL/min (>60); Estimated Creatinine Clearance 47.79 ml/min; Globulin 3.5 g/dL (2.2-4.2); Glucose 92 mg/dL (74-106); Potassium 3.5 mmol/L (3.5-5.1); Protein, Total 6.5 g/dL (6.4-8.2); Sodium Level 142 mmol/L (136-145)
--- NOTE | 2018-11-25 13:04 | ED.DCSUM_ITS ---
- ER Visit Summary Date of Service: 11/25/18 Chief Complaint: Back pain History of Present Illness: The patient is a 68 F who presents with back pain that has been gradually getting worse over the past few months. Patient states the pain is over the thoracic and lumbar area. Patient describes the pain as sharp, aching, burning, and dull. Patient has a history of colon cancer that is metastatic. Patient has had decreased appetite and has not eaten for the past 2 days. Patient states she normally gets back injections. Patient states her last back injection was 2 days ago. Patient states her last chemotherapy was 3 days ago. She denies any fevers or chills. Patient does admit to some nausea and vomiting. Patient also admits to some constipation. Physical Examination: Vital signs are stable. Patient is afebrile. Patient is in no acute distress. Oral mucosa is pink and dry. Neck is supple. Trachea is midline. There is no JVD noted. Heart was regular rate and rhythm. Lungs are clear and equal bilaterally. Abdomen is soft. Bowel sounds are normal. There is no tenderness. Musculoskeletal exam reveals tenderness of the thoracic and lumbar spine. There is no bony crepitance or step-off. There is no edema or ecchymosis. Range of motion was limited secondary to pain however the patient was able to sit up in bed without difficulty. Straight leg raises were negative bilaterally. Test Results: X-rays of the thoracic and lumbar spine were obtained. There are degenerative changes but no acute process. There is no metastatic lesion noted. CBC and basic metabolic profile were obtained and were essentially within normal limits. Urinalysis does not show any evidence of urinary tract infection. Emergency Department Course and Treatment: Patient was given IV fluids here. Patient was given a dose of Dilaudid and Zofran here. Patient had some relief with this. Patient was given a repeat dose of Dilaudid. Patient was instructed to drink plenty of fluids. Patient was instructed to follow-up with her primary care physician and oncologist in 5 to 7 days. Patient understood and was agreeable with the plan. All questions were answered. Disposition: Discharge home Impression: 1. Dehydration 2. Back pain This note was generated with [employer] software. It may contain incorrect words, spelling, and punctuation that were not noted in review of the chart prior to signing ED Disposition - Plan for ED Patient: Disposition: Home or Assisted Living Diagnosis: Dehydration, Back pain Instructions: BACK PAIN (Acute or Chronic), DEHYDRATION (6y-Adult) Referrals: Jose Daniel Yang DO [Primary Care Provider] - 5-7 Days Violet Shepherd MD [STAFF PHYSICIAN] - 5-7 Days
[2018-11-25 13:19] LABS: Squamous Epithelial Cells - UA 0 SEEN /hpf (5-10)
[2018-11-25 13:29] LABS: Color, Urine Yellow (Yellow); Glucose, Dipstick Normal (Normal); Ketone-Dipstick 50 mg/dl (Negative); Leukocyte Esterase-Dipstick 25 /ul (Negative); Nitrite-Dipstick Negative (Negative); Occult Blood-Urine 250 /ul (Negative); Protein-Dipstick 30 mg/dl (Negative); Specific Gravity, Urine 1.015 (1.002-1.030); Urine Bilirubin Dipstick Negative (Negative); Urine Clarity Sl. Cloudy (Clear); Urine Urobilinogen Normal (Normal); Urine pH 6.5 (5.0 - 8.0)
[2018-11-25 13:35] LABS: Bacteria 1+ /hpf (None Seen); Mucous, Urine 1+ /hpf (<or=2+); Red Blood Cells-Urine 25-50 SEEN /hpf (0-5); White Blood Cells 0-5 SEEN /hpf (0-5)
[2018-11-25] MEDS: HYDROmorphone 0.5 MG/0.5 ML SYRINGE IV (14:10)
[2018-11-25 14:48] VITALS: BP 171/92; PULSE 73; RESP 16; O2SAT 98
--- NOTE | 2018-11-25 14:49 | ED.RN ---
PORT DE-ACCESSED. DISCHARGE INSTRUCTIONS GIVEN TO AND REVIEWED WITH PATIENT, PATIENT DENIES QUESTIONS OR CONCERNS AND VOICES UNDERSTANDING OF DISCHARGE INSTRUCTIONS. PT TO PRIVATE VEHICLE VIA WHEELCHAIR.
== END 2018-11-25 14:50 | disposition home or self-care (01) ==
PROVIDERS: Emergency Provider Emergency Medicine; Family Provider Family Medicine; PCP Family Medicine
DX: E86.0 Dehydration (principal); M54.6 Pain in thoracic spine; M54.5 Low back pain; K59.00 Constipation, unspecified; C79.9 Secondary malignant neoplasm of unspecified site; Z85.038 Personal history of other malignant neoplasm of large intestine
CPT/HCPCS: 36591; 72070; 72072; 72100; 80053; 81001; 85025; 96361; 96374; 96375; 96376; 99284; J7030; A4216; J2405

== ENCOUNTER 2018-11-27 | Inpatient (IN) | payer MEDICARE, SELFPAY ==
[2018-11-27] VITALS (14 sets, daily range): BP systolic 143–176; BP diastolic 72–95; PULSE 76–99; RESP 14–18; TEMP 36.7–37.2; O2SAT 92–100; BMI 33.6; BMI 32.5
--- NOTE | 2018-11-27 00:14 | CT_ITS ---
STUDY: CT ABDOMEN AND PELVIS WITH CONTRAST REASON FOR EXAM: Female, 68 years old. Abdominal and back pain with nausea and constipation, post chemotherapy 11/22/2018. History of diabetes, hypertension, IBS, breast cancer, colon and fallopian tube cancer with diffuse metastases. Bilateral mastectomy, hysterectomy, colectomy RADIATION DOSAGE (If Supplied By Facility): CTDIvol = ( 15.16 ) mGy, DLP = ( 1069.90 ) mGycm TECHNIQUE: Transaxial 3.75 mm images were obtained from the dome of the diaphragm to the symphysis pubis without oral contrast. IV 100mL Isovue-300 was administered. Sagittal and coronal images were reconstructed. Individualized dose optimization techniques were used for this CT. COMPARISON: CT abdomen and pelvis 10/07/2018. 07/15/2018. 03/28/2018. FINDINGS: Mild right pleural effusion, minimal atelectasis in the lung bases. Stable nodularity along the anterior right chest wall along the right middle lobe with otherwise no other pulmonary nodules or masses detected. There is coronary artery calcification. There is a right hepatic mass with indistinct contour and low-attenuation measuring approximately 2.4 x 2.5 cm image 17 series 2 without other defined cystic or solid masses noted. This was retrospectively seen on the previous examination measuring approximately 1 cm 09/2018 and 0.6 cm 06/2018. There is moderate intrahepatic biliary ductal dilatation. There is perihepatic fluid.. Distended gallbladder, hepatic and common bile duct which appears to be tapering to normal caliber along the pancreas head. There are low attenuation masses adjacent to the gallbladder with limited separation from unopacified bowel. Normal spleen. Normal pancreas. There are bilateral heterogeneous enhancing adrenal masses with indistinct contour measuring on the left approximately 3 x 6.5 cm, right 4.5 x 2.5 cm. Too numerous to count and described mesenteric peritoneal masses. There is conglomeration of masses along the pancreas with limited separation from the pancreas and duodenal sweep, the distal duodenum and proximal jejunum appear small thickened with wall of up to 1.6 cm. There are numerous scattered lymphadenopathy within the mesentery and retroperitoneal, bilateral pelvic soft tissue. Normal right kidney. Normal left kidney. Normal visualized stomach. Normal small intestine. There are multiple colonic diverticula consistent with diverticulosis. Status post right hemicolectomy with postsurgical changes left anterior abdominal wall with adjacent masses, the anastomosis is adjacent to the left anterior abdominal wall and mesenteric masses. The appendix is visualized and appears normal. Normal abdominal aorta. Normal inferior vena cava. 2 numerous to count low attenuation heterogeneous enhancing retroperitoneal masses. Largest in the left periaortic space measures approximately 3 x 2.2 cm there is however near encasement of the aorta with heterogeneous soft tissue, poorly separable from the inferior vena cava. Normal urinary bladder. There is absence of the uterus consistent with a prior hysterectomy. [id number] free pelvic fluid. Numerous subcutaneous indistinct nodular opacification possibly related to injections rather than metastatic disease.. There are diffuse degenerative changes of the visualized spine, left greater than right hip and bilateral sacroiliac joints, lower lumbar facet joints, osteoporosis. CT/Abdomen/Pelvis W IV Cont ONLY IMPRESSION: Worsening metastatic disease to mesentery, retroperitoneum and peritoneum with worsening of masses, lymphadenopathy, mesenteric congestion and ascites particularly centered along the pancreas, jaspal and upper abdomen with relatively stable appearance of lymphadenopathy in the retroperitoneum or pelvis. Markedly worsened metastatic disease to liver. Markedly worsened metastatic disease to the right adrenal gland, mild worsening to the left adrenal gland. Mild progression of biliary dilatation since previous examination. Extrinsic compression on the common bile duct may be present. No intraluminal defect or calculus detected. Increase of wall edema and thickening involving the duodenum and proximal jejunal level, there is more heterogeneous enhancement on the wall possible due to metastatic seeding, however due to heterogeneous enhancement of the wall, wall compromise cannot be excluded in its early form or pending development. There is no pneumatosis or signs of perforation on the current images. This may relate to obstruction caused by the luminal narrowing, there is however no significant fluid distention of the stomach and proximal duodenum. Close attention and clinical correlation is advised. Other nonacute appearing findings without significant interval change. Electronically Signed: Virginia Tapia MD at 2:12 EDT , Service support ,
--- NOTE | 2018-11-27 00:16 | ED.VIS.GEN ---
History of Present Illness Chief Complaint: Other, Pain/Inj Informant: Patient Onset: Days Context: Gradual Onset Timing: Continuous Current Severity: Moderate Maximum Severity: Severe Narrative: The patient presents to the emergency department with abdominal pain and back pain. Patient does have a rather complex medical history. She has colon cancer with diffuse metastasis. She is on cetuximab for chemotherapy. She had her last chemo on the first of this month. She does follow with Dr. Alexander for oncology. Patient does have a history of chronic back pain. She states that after her chemo, she began to get sick. She states that she had nausea, vomiting, worsening back pain, and now abdominal pain. She states that she has been constipated but that is not atypical for her. She states she does feel like she cannot get comfortable. She denies any fevers but does feel like she is had chills. She denies any urinary symptoms. She is otherwise been in her normal state of health. This is her fourth treatment. Prior similar symptoms: Yes Recent Illness/Hospitalization: Yes Past Medical History - Allergies and Home Meds Allergies/Adverse Reactions: Allergies amoxicillin [From Augmentin] Adverse Reaction (Severe, Verified 11/27/18 00:06) Hives clavulanic acid [From Augmentin] Adverse Reaction (Severe, Verified 11/27/18 00:06) Hives Prior records reviewed: Yes Past Medical History: - Surgical History: hysterectomy, mastectomy, tonsillectomy, - Smoking Status: Never smoker - Family History Maternal Family History: Family History (Last Reviewed 11/22/18 @ 09:47 by Khushbu Mcleod) Mother Cancer Sister Cancer Father Heart disease Myocardial infarction, Onset Age: 72 Family History: Reports: - - Ovarian cancer in her mother. Paternal Family History: Family History (Last Reviewed 11/22/18 @ 09:47 by Khushbu Mcleod) Mother Cancer Sister Cancer Father Heart disease Myocardial infarction, Onset Age: 72 Family History: Reports: Heart Disease Review of Systems General: Reports: Chills. Denies: Fever, Sweats Eyes: Denies: Visual changes - bilaterally, Diplopia ENT: Denies: Rhinorrhea, Sore throat Cardiovascular: Denies: Chest pain, Palpitations Respiratory: Denies: Dyspnea, Cough, Dyspnea on exertion Gastrointestinal: Reports: Abdominal pain, Nausea, Vomiting. Denies: Diarrhea, Melena, Hematochezia Genitourinary: Denies: Dysuria, Hematuria, Frequency Musculoskeletal: Reports: Back pain. Denies: Extremity Pain Skin: Denies: Rash, Wounds Neurological: Denies: Headache, Weakness, Numbness Physical Exam Vital Signs/Narrative: Vital Signs Temp Pulse Resp BP Pulse Ox 11/27/18 00:01 98.4 F 89 15 147/95 H 100 Inital Vital Signs reviewed: Yes General: Well nourished, Well developed, No Acute Distress Head: Normocephalic, Atraumatic Eyes: Perrl, EOMI ENT: Moist mucous membranes, No rhinorrhea Neck: Supple, Nontender Cardiovascular: Regular rate, Regular rhythm, No murmurs Respiratory: No distress, CTA bilaterally, Chest nontender Abdomen: Soft, Nondistended, Normal bowel sounds, Tender. Negative for: Guarding, Rebound tenderness Back: Normal Inspection, - - Paraspinal lumbar tenderness. No midline tenderness. Straight leg raise negative. Extremities: Nontender, No edema Skin: Normal color, No rash Neurological: Alert, Oriented x3, Cranial nerves II-XII grossly intact, Normal Strength, Normal Sensation Psychological: Normal affect, Normal Mood Diagnostic/Tx/Re-eval Abnormal Lab Results 11/27/18 11/27/18 11/27/18 00:30 00:30 00:30 WBC 8.9 RBC 3.49 L Hgb 10.3 L Hct 32.5 L MCV 93.1 MCH 29.5 MCHC 31.7 L RDW Std Deviation 52.3 H RDW Coeff of Brandyn 15.3 H Plt Count 369 MPV 10.1 Immature Gran % (Auto) 0.400 Neut % (Auto) 74.9 H Lymph % (Auto) 10.7 L [place] % (Auto) 9.7 Eos % (Auto) 3.7 Baso % (Auto) 0.6 Absolute Neuts (auto) 6.7 Absolute Lymphs (auto) 0.95 Nucleated RBC % 0 Sodium 138 Potassium 3.5 Chloride 104 Carbon Dioxide 25.0 Anion Gap 9 BUN 14 Creatinine 0.58 Estim Creat Clear Calc 47.79 Est GFR (MDRD) Af Amer 132 Est GFR (MDRD) Non-Af 109 BUN/Creatinine Ratio 23.9 H Glucose 84 Lactic Acid 1.4 Calcium 8.6 Total Bilirubin 0.40 AST 34 ALT 16 Alkaline Phosphatase 85 Total Protein 6.9 Albumin 3.1 L Globulin 3.8 Albumin/Globulin Ratio 0.8 L Lipase 56 L - Medical Decision Making Clinical Impression(s) from Imaging Studies Abdomen/Pelvis CT 11/27/18 00:14 IMPRESSION: Worsening metastatic disease to mesentery, retroperitoneum and peritoneum with worsening of masses, lymphadenopathy, mesenteric congestion and ascites particularly centered along the pancreas, jaspal and upper abdomen with relatively stable appearance of lymphadenopathy in the retroperitoneum or pelvis. Markedly worsened metastatic disease to liver. Markedly worsened metastatic disease to the right adrenal gland, mild worsening to the left adrenal gland. Mild progression of biliary dilatation since previous examination. Extrinsic compression on the common bile duct may be present. No intraluminal defect or calculus detected. Increase of wall edema and thickening involving the duodenum and proximal jejunal level, there is more heterogeneous enhancement on the wall possible due to metastatic seeding, however due to heterogeneous enhancement of the wall, wall compromise cannot be excluded in its early form or pending development. There is no pneumatosis or signs of perforation on the current images. This may relate to obstruction caused by the luminal narrowing, there is however no significant fluid distention of the stomach and proximal duodenum. Close attention and clinical correlation is advised. Other nonacute appearing findings without significant interval change. Electronically Signed: Virginia Tapia MD at 2:12 EDT , Service support , The patient presents to the emergency department with worsening abdominal pain and back pain. She has advanced cancer and has been refractory to treatment. IV was established. Despite multiple doses of analgesics, the patient was still rather uncomfortable. She is not peritoneal on examination. However, given her advanced cancer I did want to reevaluate the progression especially given her abdominal pain. Screening labs were obtained and relatively unremarkable. The patient underwent CT imaging. This does demonstrate rather significant worsening disease. I did discuss the results with the patient. Now that her treatment is obviously not working, she is had pain that is been refractory to treatment, she is been increasingly nauseated and has had vomiting, I do feel that she is going to require admission. I made attempts to reach her oncologist. I also discussed with the hospitalist. He did recommend getting hospice involved and I discussed the care with the hospice nurse. At this time, we are going to hold on acute hospice evaluation until oncology is involved. The patient is going to be admitted for pain control and further discussion about goals of care. Impression 1. Acute abdominal pain secondary to metastatic cancer ED Disposition - Plan for ED Patient:
[2018-11-27] MEDS: HYDROmorphone 1 MG/ML Syringe IV ×3 (00:33→06:03)
[2018-11-27] MEDS: Ondansetron 4 MG/2 ML Vial IV (00:33)
[2018-11-27] MEDS: 0.9% Normal Saline 1,000 ML 1000 ML IV (00:33)
[2018-11-27 00:42] LABS: Absolute Lymphocyte Count 0.95 X10^3/uL (0.83-4.51); Absolute Neutrophil Count 6.7 X10^3/uL (2.0-7.7); Basophil# 0.05 X10^3/uL; Basophil% 0.6 % (0-1); Eosinophil# 0.33 X10^3/uL; Eosinophils% 3.7 % (0-5); Hematocrit 32.5 % (37-47); Hemoglobin 10.3 g/dL (12.0-15.0); Lymphocyte # 0.95 X10^3/ul (4.0); Lymphocyte % 10.7 % (19-41); Mean Corp Hgb Conc 31.7 g/dL (32-36); Mean Corpuscular Hgb 29.5 pg (27.0-32.0); Mean Corpuscular Volume 93.1 fL (81-99); Mean Platelet Vol. 10.1 fl (6.2-12.0); Monocyte# 0.86 X10^3/uL; Monocyte% 9.7 % (0-10); NRBC Flagged by Analyzer 0 % (0-5); Neutrophil # 6.68 X10^3/uL (2.7-7.7); Neutrophil % 74.9 % (47-70); Platelet Count 369 K/mm3 (150-450); RBC Distribution Width CV 15.3 % (11.6-14.6); RBC Distribution Width SD 52.3 fl (35.1-43.9); Red Blood Count 3.49 M/mm3 (4.2-5.4); White Blood Count 8.9 K/mm3 (4.4-11.0)
[2018-11-27 00:58] LABS: ALB/GLOB Ratio 0.8 RATIO (0.9-2.4); AST(SGOT) 34 U/L (15-37); Alanine Aminotransfer ALT/SGPT 16 U/L (13-56); Albumin, Serum 3.1 g/dL (3.2-5.0); Alkaline Phosphatase 85 U/L (45-117); Anion Gap 9 (5-15); BUN 14 mg/dL (7-18); BUN/Creat Ratio 23.9 RATIO (10-20); Calcium,Total 8.6 mg/dL (8.5-10.1); Chloride 104 mmol/L (98-107); Creatinine, Serum 0.58 mg/dL (0.55-1.02); EST Glomerular Filtration Rate 109 mL/min (>60); Est Glom Filt Rate - Afr Amer 132 mL/min (>60); Estimated Creatinine Clearance 47.79 ml/min; Globulin 3.8 g/dL (2.2-4.2); Glucose 84 mg/dL (74-106); Lipase 56 U/L (73-393); Potassium 3.5 mmol/L (3.5-5.1); Protein, Total 6.9 g/dL (6.4-8.2); Sodium Level 138 mmol/L (136-145)
[2018-11-27 01:04] LABS: Lactic Acid 1.4 mmol/L (0.4-2.0)
[2018-11-27] MEDS: fentaNYL 100 MCG/2 ML Ampul 50 MCG IV (01:28)
[2018-11-27 02:13] LABS: Mucous, Urine 0 SEEN /hpf (<or=2+); Squamous Epithelial Cells - UA 0 SEEN /hpf (5-10)
[2018-11-27 02:15] LABS: Color, Urine Yellow (Yellow); Glucose, Dipstick Normal (Normal); Ketone-Dipstick 50 mg/dl (Negative); Leukocyte Esterase-Dipstick Negative /ul (Negative); Nitrite-Dipstick Negative (Negative); Occult Blood-Urine 250 /ul (Negative); Protein-Dipstick 30 mg/dl (Negative); Specific Gravity, Urine 1.015 (1.002-1.030); Urine Bilirubin Dipstick Negative (Negative); Urine Clarity Clear (Clear); Urine Urobilinogen Normal (Normal)
[2018-11-27 02:21] LABS: Bacteria RARE /hpf (None Seen); Red Blood Cells-Urine 5-10 SEEN /hpf (0-5); White Blood Cells 0-5 SEEN /hpf (0-5)
--- NOTE | 2018-11-27 03:09 | PCM.HP.STD ---
Problem List (1) Intractable low back pain Status: Acute (2) Bilateral pulmonary embolism Status: Chronic (3) Colon cancer metastasized to intra-abdominal lymph node Status: Chronic History of Present Illness Date of Admission: 11/27/18 Chief Complaint: abdominal pain and lower back pain The patient is a 68 year old F with a significant history of breast cancer status post bilateral mastectomy; metastatic colon cancer who presented to emergency department with excruciating abdominal pain and lower back pain. In regard to her lower back pain she reported she has been having this pain for about 6 months. The pain has not changed in intensity. He rates the pain as a 10+. She sees Dr. Paris and is on home fentanyl and oxycodone which does not help with her pain .She was at a emergent department recently (11-25-2018) for this pain. She was given Dilaudid and Zofran and was discharged. In regard to her abdominal pain it began about 3 days ago. She rates her pain as a 10 out of 10. Her pain is diffuse in her abdomen. Her pain has been progressively worsening. She describes the pain as a combination of sharp pain; dull pain and aching pain. She denies any aggravating or ameliorating factors to her pain. On his current visit patient was started on ketamine since after receiving multiple doses of Dilaudid IV she continued to have pain. Her associated symptoms includes nausea; vomiting and anorexia. Also she reports constipation. Last time her bowels move was 3 to 4 days. However she stopped taking her home MiraLAX since she is vomiting. Patient reports that the ketamine that she was receiving at the ED was helping her abdominal pain but it was not touching her back pain. Patient is on chemotherapy for colon cancer. Her oncologist is Dr. Castillo. 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) Bilateral pulmonary embolism (Chronic) Colon cancer (Chronic) Colon cancer metastasized to intra-abdominal lymph node (Chronic) Metastasis to lymph nodes (Chronic) SCOOTER (iron deficiency anemia) (Chronic) Osteoarthritis of left hip (Chronic) Breast cancer (Chronic) Hypothyroidism (Chronic) Depression (Chronic) Nausea (Chronic) Type 2 diabetes mellitus (Chronic) IBS (irritable bowel syndrome) (Chronic) Hyperlipemia (Chronic) Hypertension (Chronic) Medical History: Medical History (Last Reviewed 11/27/18 @ 04:45 by Catalino Flores MD) Colon cancer (Chronic) C18.9 Type 2 diabetes mellitus (Chronic) E11.9 IBS (irritable bowel syndrome) (Chronic) K58.9 Hyperlipemia (Chronic) E78.5 Hypertension (Chronic) I10 History of hysterectomy Z90.710 due to postmenopausal bleeding and history of breast cancer Pulmonary embolism I26.99 Allergies amoxicillin [From Augmentin] Adverse Reaction (Severe, Verified 11/27/18 00:06) Hives clavulanic acid [From Augmentin] Adverse Reaction (Severe, Verified 11/27/18 00:06) Hives Home Medications: Ambulatory Orders Medication Instructions Recorded Atorvastatin Calcium [Lipitor] 40 mg PO QHS 11/14/17 Acetaminophen [Tylenol] 1,000 mg PO Q8H PRN PRN tab 12/03/17 Ondansetron [Zofran Odt] 4 mg PO Q8H PRN PRN #10 tab 08/30/18 levothyroxine 50 mcg tablet 50 mcg PO DAILY@0600 #90 tab 08/31/18 Polyethylene Glycol 3350 [Miralax] 17 gm PO DAILY 10/25/18 Oxycodone HCl 10 mg PO TID 11/10/18 fentanyl 50 mcg/hr transdermal 1 patch TRANSDERMAL Q72H 11/16/18 patch Citalopram [Celexa] 20 mg PO DAILY 11/27/18 Doxycycline 100 mg PO BID 11/27/18 Rivaroxaban [Xarelto] 20 mg PO DAILY 11/27/18 Surgical History: Surgical History (Last Reviewed 11/27/18 @ 04:45 by Catalino Flores MD) History of bilateral mastectomy Z90.13 History of left knee surgery Z98.890 History of lumpectomy of right breast Z98.890 1997 History of parathyroidectomy Z98.892017, due to enlargement. History of tonsillectomy Z90.89 Hx of colectomy Z90.49 12/09 s/p port placement 12/09 Surgical History: hysterectomy, mastectomy, tonsillectomy, - Psychiatric History: Depression BAKER TEST History: No pertinent BAKER TEST history Lives: Alone Smoking Status: Never smoker Alcohol: None - *Family History Maternal Family History: Family History (Last Reviewed 11/27/18 @ 04:45 by Catalino Flores MD) Mother Cancer Sister Cancer Father Heart disease Myocardial infarction, Onset Age: 72 History Items: No pertinent history Paternal Family History: Family History (Last Reviewed 11/27/18 @ 04:45 by Catalino Flores MD) Mother Cancer Sister Cancer Father Heart disease Myocardial infarction, Onset Age: 72 History Items: Heart Disease Review of Systems Constitutional: Reports: Anorexia, Weakness, Fatigue. Denies: Chills, Fever, Weight Change HEENT: Denies: Head Aches, Sinus Congestion, Sinus Drainage Cardiovascular: Denies: Chest Pain, Palpitations Respiratory: Denies: Cough, Shortness of breath at rest, Sputum production Gastrointestinal: Reports: Abdominal Pain, Constipation, Nausea, Vomiting Genitourinary: Denies: Dysuria Musculoskeletal: Reports: Back Pain. Denies: Joint Pain, Joint Tenderness Skin: Denies: Rash, Wounds Neurological: Denies: Numbness, Tingling, Focal weakness Psychiatric: Denies: Anxiety, Depression, Homicidal Ideations, Suicidal Ideations Hematologic/ Lymphatic: Denies: Easy Bruising, Easy Bleeding VTE Information - Inpt Only VTE Present on Admission: Yes - History of PE. VTE Mechan Device Prophylaxis: None VTE Pharm Prophylaxis ordered?: No Reason prophylaxis not ordered:: Treatment Not Indicated - Will be continued on Xarelto for history of PE Patient Problems: Active and Suspected Problems (Last Reviewed 11/27/18 @ 04:45 by Catalino Flores MD) Intractable low back pain (Acute) - Physical Exam General: Alert, Oriented x3, Cooperative HEENT: Atraumatic, PERRLA, EOMI, Normocephalic Neck: Supple, No JVD, Negative Carotid Bruits Lungs: Clear to auscultation, Normal air movement Cardiovascular: Regular rate, No murmurs Abdomen: Bowel Sounds Present, Soft, Tender Extremities: No edema, Capillary Refill Less than 3 Seconds, Tenderness - Spinal and paraspinal area of lower back Skin: No breakdown, - - Erythema of bilateral cheeks; Musculoskeletal: No Tenderness to Palpation of Joints or Extremities Neurological: Cranial nerves II-XII grossly intact Psych/Mental Status: Normal Affect, Appropriate Vital Signs Temp Pulse Resp BP Pulse Ox 98.4 F 89 15 147/95 H 100 11/27/18 00:01 11/27/18 00:01 11/27/18 00:01 11/27/18 00:01 11/27/18 00:01 Oxygen Delivery Method Room Air Weight: 88.904 kg Body Mass Index (BMI) 33.6 Finger Stick Blood Glucose 149 Intake and Output for Last 24 Hours 11/25/18 11/26/18 11/27/18 23:59 23:59 23:59 Intake Total 1000 / 1000 Balance 1000 / 1000 Laboratory Tests Past 24 Hrs 11/27/18 11/27/18 11/27/18 00:30 00:30 00:30 WBC 8.9 RBC 3.49 L Hgb 10.3 L Hct 32.5 L MCV 93.1 MCH 29.5 MCHC 31.7 L RDW Std Deviation 52.3 H RDW Coeff of Brandyn 15.3 H Plt Count 369 MPV 10.1 Immature Gran % (Auto) 0.400 Neut % (Auto) 74.9 H Lymph % (Auto) 10.7 L Hemphill % (Auto) 9.7 Eos % (Auto) 3.7 Baso % (Auto) 0.6 Absolute Neuts (auto) 6.7 Absolute Lymphs (auto) 0.95 Nucleated RBC % 0 Sodium 138 Potassium 3.5 Chloride 104 Carbon Dioxide 25.0 Anion Gap 9 BUN 14 Creatinine 0.58 Estim Creat Clear Calc 47.79 Est GFR (MDRD) Af Amer 132 Est GFR (MDRD) Non-Af 109 BUN/Creatinine Ratio 23.9 H Glucose 84 Lactic Acid 1.4 Calcium 8.6 Total Bilirubin 0.40 AST 34 ALT 16 Alkaline Phosphatase 85 Total Protein 6.9 Albumin 3.1 L Globulin 3.8 Albumin/Globulin Ratio 0.8 L Lipase 56 L Urine Color Urine Clarity Urine pH Ur Specific Hamilton Urine Protein Urine Glucose (UA) Urine Ketones Urine Occult Blood Urine Nitrite Urine Bilirubin Urine Urobilinogen Ur Leukocyte Esterase Urine RBC Urine WBC Ur Squamous Epith Cells Urine Bacteria Urine Mucus 11/27/18 02:08 WBC RBC Hgb Hct MCV MCH MCHC RDW Std Deviation RDW Coeff of Brandyn Plt Count MPV Immature Gran % (Auto) Neut % (Auto) Lymph % (Auto) Hemphill % (Auto) Eos % (Auto) Baso % (Auto) Absolute Neuts (auto) Absolute Lymphs (auto) Nucleated RBC % Sodium Potassium Chloride Carbon Dioxide Anion Gap BUN Creatinine Estim Creat Clear Calc Est GFR (MDRD) Af Amer Est GFR (MDRD) Non-Af BUN/Creatinine Ratio Glucose Lactic Acid Calcium Total Bilirubin AST ALT Alkaline Phosphatase Total Protein Albumin Globulin Albumin/Globulin Ratio Lipase Urine Color Yellow Urine Clarity Clear Urine pH 6.0 Ur Specific Hamilton 1.015 Urine Protein 30 H Urine Glucose (UA) Normal Urine Ketones 50 H Urine Occult Blood 250 H Urine Nitrite Negative Urine Bilirubin Negative Urine Urobilinogen Normal Ur Leukocyte Esterase Negative Urine RBC 5-10 SEEN Urine WBC 0-5 SEEN Ur Squamous Epith Cells 0 SEEN Urine Bacteria RARE Urine Mucus 0 SEEN Assessment/Plan All Active Problems (Last Reviewed 11/27/18 @ 04:45 by Catalino Flores MD) Intractable low back pain (Acute) The patient is a 68 year old F with a significant history of breast cancer status post bilateral mastectomy; metastatic colon cancer who presented to emergency department with excruciating abdominal pain and lower back pain; nausea and vomiting consistent with intractable lower abdominal pain and intractable abdominal pain with diffusely metastasized cancer in her abdomen. Intractable lower abdominal pain Likely secondary to metastatic colon cancer. Abdominal and pelvic CT shows diffuse metastatic disease. CT of the abdomen and pelvis was independently reviewed. And I agree with radiologist interpretation. Ketamine drip started in emergency department. Will put patient on Dilaudid DRIVEMATIC MACHINE OPERATOR pump. Zofran IV prn Compazine IV as needed for breakthrough nausea and vomiting. Will put patient on bowel protocol per DRIVEMATIC MACHINE OPERATOR orders. Patient currently is on chemotherapy regimen. It appears that prognosis may be grim. Patient does not want any heroic measures. She does not want chest compressions or intubation if needed. Will defer goals of care discussions which may include hospice for now. That can be done after after oncologist sees patient. Oncology consult. Intractable lower back pain. Patient reports chronic pain which she thinks has not changed in the last 6 months. She reported that she was supposed to have left hip replacement which was not done. Her pain could be multifactorial from the left hip replacement or from referred pain from her abdomen. Pain control as above. History PE Continue Xarelto. Reportedly she had missed some doses of her Xarelto because of her nausea and vomiting. Dermatitis Patient is on dicyclomine for chemotherapy associated dermatitis, continue DVT Prophylaxis Not indicated since patient is on Xarelto. Xarelto continued. Code Visit Inpatient E&M: 80408 Init Hosp L3
[2018-11-27] MEDS: proMETHazine 25 MG/ML Syringe 6.25 MG IV (03:53)
[2018-11-27] MEDS: HYDROmorphone PCA 0.2 MG/ML 100 ML BAG 20 MG IV (06:50)
[2018-11-27] MEDS: proCHLORPERazine 10 MG/2 ML Vial 5 MG IV ×2 (07:43→14:49)
--- NOTE | 2018-11-27 07:45 | PN_ITS ---
Progress Note 68-year-old female with past medical history of breast cancers, status post bilateral mastectomy, on chemotherapy, history of fallopian tube cancer status post BSO, history of metastatic colon CA, stage IV, follows with oncology who comes in with worsening abdominal pain ongoing for 5 days. She was admitted this morning from the ED. CT scan of the abdomen/pelvis showed worsening metastatic disease to the mesentery, retroperitoneal and peritoneal with worsening masses, lymphadenopathy,mesenteric congestion and ascites around the pancreas, border and upper abdomen. Patient was initially managed on ketamine drip in the ED. She was transitioned to Dilaudid drip on the floor. She complains of persistent abdominal pain. Given 1 dose of 2 mg IV Dilaudid. Fentanyl patch increased to 75 mcg, and Dilaudid ELECTRICIAN AIRCRAFT pump increased to 0.3 mg/hr Discussed with patient extensively, confirmed that CODE STATUS is DNR CCA. Patient appears to be open to hospice with the initial conversation and prognostication already started by the emergency room doctor. Would ask hospice to evaluate.
[2018-11-27] MEDS: HYDROmorphone 1 MG/ML Syringe 2 MG IV ×2 (08:39→16:26)
--- NOTE | 2018-11-27 09:36 | NURSING ---
Call placed to [facility] for consult. Hamida badillo and information faxed to office.
[2018-11-27] MEDS: oxyCODONE 5 MG Tablet 10 MG PO (13:59)
--- NOTE | 2018-11-27 14:37 | ONC.CONS.INP ---
Consult Referring Physician: Dr. Antonella Caldwell Consult Results: Metastatic Colon cancer, progressive disease. Abdominal pain. 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 She was diagnosed with stage IV (distant metastases to non-regional retroperitoneal and left supraclavicular lymph nodes pathologically confirmed by retroperitoneal lymph node biopsy) adenocarcinoma of the transverse colon, Positive for loss of mismatch protein (microsatellite instability detected, Complete loss of MLH1 and PMS2) status post an extended right hemicolectomy in October 2017 for an obstructive lesion. K-bridget/ NRAS non-mutated (wild type). After recovery and rehabilitation from her surgery she received palliative FOLFOX December 2017 through February 2018 however she had progressive disease evidence by rising marker and confirmed with CT scan, additional development of multiple lung metastases. Switched to second line systemic therapy with FOLFIRI- Avastin March 2018. Had a favorable response supported by tumor marker declining, and CT imaging of the abdomen and pelvis then developed progressive disease with rising marker and CT evidence by September 2018. Started third line therapy with cetuximab October 11, 2018, so far tolerated without any notable toxicities. She is now admitted with increasing abdominal pain, no food for [address] on 11/27/2018 shows increasing liver metastasis, abdominal nodes, ascites, bilateral adrenal masses, edema of duodenum and jejunum. 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) SCOOTER (iron deficiency anemia) (Chronic) Osteoarthritis of left hip (Chronic) Breast cancer (Chronic) Hypothyroidism (Chronic) Depression (Chronic) Nausea (Chronic) Type 2 diabetes mellitus (Chronic) IBS (irritable bowel syndrome) (Chronic) Hyperlipemia (Chronic) Hypertension (Chronic) Past Medical/Surgical History: Past Medical History - Most Recent Inpatient Visit Past Medical History Start: 11/27/18 05:08 Text: Status: Complete Freq: ONCE Protocol: Document 11/27/18 05:14 JEFF (Rec: 11/27/18 05:18 [facility] [place] [id number]) BMI Required to complete PMH What is Patient's BMI 32.5 Past Medical History Unable History Recalled No Query Text:Pt Unable/Family Not Present Neurologic Medical History Hx Stroke/TIA No Hx Dementia/Alzheimer's No Hx Parkinson's Disease No Hx Seizures No Hx Multiple Sclerosis No Hx Migraines No Cardiac Medical History VTE Present on Admission No: History of PE 11/2017 Hx of Deep Vein Thrombosis/VTE/PE Yes Hx Hypertension No Hx Chest Pain/Angina No Hx Heart Attack No Hx Cardiac Surgery/Stents/Etc. No Hx Heart Failure No Hx Pacemaker/AICD No Hx Irregular Heartbeat and/or Afib No Hx Anticoagulant Therapy No Query Text:(Coumadin, Aspirin, Plavix, Xarelto, etc.) Hx Pain in Legs when Walking/Leg Cramps Yes: pain in LLE Respiratory Medical History Hx COPD No Hx Emphysema No Hx Smoking No Smoking Status Never smoker Hx Smoking Exposure No Hx Tobacco Use in last 12 months No Hx of Pipe Smoking No Hx Sleep Apnea Yes CPAP Yes BIPAP No STOP Results Positive GI Medical History Hx Ulcer No Hx Hepatitis No Hx Cirrhosis No Hx GI Bleed No Hx Unplanned Weight Loss Yes: lost 70lbs in past year Genitourinary Medical History Indwelling Catheter in Place on Arrival/ No Admission Hx Renal Disease No Hx Dialysis No Musculoskeletal History Hx Arthritis Yes: osteoarthritis to bilateral knees and feet Hx Rheumatoid Arthritis No Endocrine Medical History Hx Diabetes No Hx Thyroid Disease No: parathyroid glands removed May 2017 Hematologic Medical History Hx of Blood Transfusion Yes Hx of Transfusion in last 3 Months No Ever experience any problems with No transfusion(s)? Hx of Preganancy in last 3 Months N/A Nurse Filling Out Transfusion & JGLASS Questions: Date: 11/27/18 Time: 05:16 Psycho/Social Medical History Hx Depression Yes Hx Anxiety Yes Hx Behavior Disorder No Hx Alcohol Use No Hx Substance Use No Other Medical History Hx Blood Disorders No Hx Anemia No Hx Cancer Yes: colon cancer, B/L BREAST CA, B/L MASTECTOMY, fallopian tube CA Hx Drug Resistant Organism No Wound/Pressure Injury Present on Arrival No /Admission Query Text:If yes, chart assessment in Shift/Clinical Findings Central Line/PICC/VAD Present on Arrival Yes /Admission Antibiotics within last 7 days? Yes Name of Antibiotic (Include dose/# days Doxycycline x6wks taken if known) Last day ATB taken 11/23/18 Risk for Readmission Number of Risk Factors 7 At Risk for Readmission Patient is At Risk For Readmission Patient is eligible for Call Back Y Past Medical History (Last Reviewed 11/27/18 @ 04:45 by Catalino Flores MD) Colon cancer (Chronic) Type 2 diabetes mellitus (Chronic) IBS (irritable bowel syndrome) (Chronic) Hyperlipemia (Chronic) Hypertension (Chronic) History of hysterectomy (Acute) Pulmonary embolism (Acute) Past Surgical History (Last Reviewed 11/27/18 @ 04:45 by Catalino Flores MD) History of bilateral mastectomy (Acute) History of left knee surgery (Acute) History of lumpectomy of right breast (Acute) History of parathyroidectomy (Acute) History of tonsillectomy (Acute) Hx of colectomy (Acute) s/p port placement (Acute) Maternal Family History: Family History (Last Reviewed 11/27/18 @ 04:45 by Catalino Flores MD) Mother Cancer Sister Cancer Father Heart disease Myocardial infarction, Onset Age: 72 Family History: No pertinent history Paternal Family History: Family History (Last Reviewed 11/27/18 @ 04:45 by Catalino Flores MD) Mother Cancer Sister Cancer Father Heart disease Myocardial infarction, Onset Age: 72 Family History: Heart Disease - Social History Lives: Alone Smoking Status: Never smoker Alcohol: None Allergies/Adverse Reactions: Allergy/AdvReac Type Severity Reaction Status Date / Time amoxicillin [From Augmentin] AdvReac Severe Hives Verified 11/27/18 05:24 clavulanic acid AdvReac Severe Hives Verified 11/27/18 05:24 [From Augmentin] Review of Systems Constitutional:: Reports: Weakness, Fatigue, Appetite change - poor. Denies: Fever, Sweats Cardiovascular:: Denies: Chest pain, Palpitations, Dyspnea on exertion, Orthopnea, PND, Shortness of breath Respiratory: Denies: Cough, Hemoptysis Gastrointestinal:: Reports: Abdominal pain, Vomiting Genitourinary: Denies: Dysuria, Hematuria, 15, Flank pain Musculoskeletal:: Denies: Back pain, Myalgia, Arthralgia Skin: Denies: Rash, Skin Changes, Wounds Neurological:: Denies: Headache, Dizziness, Visual changes, Tinnitus, Hearing loss Vital Signs Height 5 ft 4 in Weight: 86 kg Weight in Pounds 189.6 lbs Pulse Ox 100 Temperature 98.8 F Pulse Rate 99 Respiratory Rate 16 Blood Pressure 154/87 Blood Pressure Position Semi-Fowlers - Physical Exam General: Alert, Oriented x3, Cooperative HEENT: Atraumatic, PERRLA, EOMI, Normocephalic Oropharynx:: Dry mucosa Neck:: Supple, Trachea midline. Negative for: JVD, bilateral Cardiac:: Regular rate, Regular rhythm, Normal S1, Normal S2. Negative for: Murmur Lungs: Clear to auscultation, Excusion symmetrical. Negative for: Rhonchi, Wheezes Abdomen:: Soft, Tender - masses, - - upper intra-abdominal masses. Extremities:: Negative for: Cyanosis, Edema Neurological: Neuro grossly intact Skin:: Negative for: Lesions, Rash, Petechiae, Ecchymosis Psychiatric:: Appropriate affect, Euthymic Lymphatics:: Negative for: Cervical lymphadenopathy, Supraclavicular lymphadenopathy, Axillary lymphadenopathy Laboratory Data: Laboratory Tests 11/27/18 11/27/18 11/27/18 Range/Units 02:08 00:30 00:30 WBC (4.4-11.0) K/mm3 RBC (4.2-5.4) M/mm3 Hgb (12.0-15.0) g/dL Hct (37-47) % MCV (81-99) fL MCH (27.0-32.0) pg MCHC (32-36) g/dL RDW Std Deviation (35.1-43.9) fl RDW Coeff of Brandyn (11.6-14.6) % Plt Count (150-450) K/mm3 MPV (6.2-12.0) fl Immature Gran % (Auto) (0.0-0.9) % Neut % (Auto) (47-70) % Lymph % (Auto) (19-41) % Love % (Auto) (0-10) % Eos % (Auto) (0-5) % Baso % (Auto) (0-1) % Absolute Neuts (auto) (2.0-7.7) X10^3/uL Absolute Lymphs (auto) (0.83-4.51) X10^3/uL Nucleated RBC % (0-5) % Sodium 138 (136-145) mmol/L Potassium 3.5 (3.5-5.1) mmol/L Chloride 104 (98-107) mmol/L Carbon Dioxide 25.0 (21.0-32.0) mmol/L Anion Gap 9 (5-15) BUN 14 (7-18) mg/dL Creatinine 0.58 (0.55-1.02) mg/dL Estim Creat Clear Calc 47.79 ml/min Est GFR (MDRD) Af Amer 132 (>60) mL/min Est GFR (MDRD) Non-Af 109 (>60) mL/min BUN/Creatinine Ratio 23.9 H (10-20) RATIO Glucose 84 (74-106) mg/dL Lactic Acid 1.4 (0.4-2.0) mmol/L Calcium 8.6 (8.5-10.1) mg/dL Total Bilirubin 0.40 (0.20-1.00) mg/dL AST 34 (15-37) U/L ALT 16 (13-56) U/L Alkaline Phosphatase 85 (45-117) U/L Total Protein 6.9 (6.4-8.2) g/dL Albumin 3.1 L (3.2-5.0) g/dL Globulin 3.8 (2.2-4.2) g/dL Albumin/Globulin Ratio 0.8 L (0.9-2.4) RATIO Lipase 56 L (73-393) U/L Urine Color Yellow (Yellow) Urine Clarity Clear (Clear) Urine pH 6.0 (5.0 - 8.0) Ur Specific [place] 1.015 (1.002-1.030) Urine Protein 30 H (Negative) mg/dl Urine Glucose (UA) Normal (Normal) mg/dl Urine Ketones 50 H (Negative) mg/dl Urine Occult Blood 250 H (Negative) /ul Urine Nitrite Negative (Negative) Urine Bilirubin Negative (Negative) mg/dL Urine Urobilinogen Normal (Normal) mg/dl Ur Leukocyte Esterase Negative (Negative) /ul Urine RBC 5-10 SEEN (0-5) /hpf Urine WBC 0-5 SEEN (0-5) /hpf Ur Squamous Epith Cells 0 SEEN (5-10) /hpf Urine Bacteria RARE (None Seen) /hpf Urine Mucus 0 SEEN (<or=2+) /hpf 11/27/18 Range/Units 00:30 WBC 8.9 (4.4-11.0) K/mm3 RBC 3.49 L (4.2-5.4) M/mm3 Hgb 10.3 L (12.0-15.0) g/dL Hct 32.5 L (37-47) % MCV 93.1 (81-99) fL MCH 29.5 (27.0-32.0) pg MCHC 31.7 L (32-36) g/dL RDW Std Deviation 52.3 H (35.1-43.9) fl RDW Coeff of Brandyn 15.3 H (11.6-14.6) % Plt Count 369 (150-450) K/mm3 MPV 10.1 (6.2-12.0) fl Immature Gran % (Auto) 0.400 (0.0-0.9) % Neut % (Auto) 74.9 H (47-70) % Lymph % (Auto) 10.7 L (19-41) % Love % (Auto) 9.7 (0-10) % Eos % (Auto) 3.7 (0-5) % Baso % (Auto) 0.6 (0-1) % Absolute Neuts (auto) 6.7 (2.0-7.7) X10^3/uL Absolute Lymphs (auto) 0.95 (0.83-4.51) X10^3/uL Nucleated RBC % 0 (0-5) % Sodium (136-145) mmol/L Potassium (3.5-5.1) mmol/L Chloride (98-107) mmol/L Carbon Dioxide (21.0-32.0) mmol/L Anion Gap (5-15) BUN (7-18) mg/dL Creatinine (0.55-1.02) mg/dL Estim Creat Clear Calc ml/min Est GFR (MDRD) Af Amer (>60) mL/min Est GFR (MDRD) Non-Af (>60) mL/min BUN/Creatinine Ratio (10-20) RATIO Glucose (74-106) mg/dL Lactic Acid (0.4-2.0) mmol/L Calcium (8.5-10.1) mg/dL Total Bilirubin (0.20-1.00) mg/dL AST (15-37) U/L ALT (13-56) U/L Alkaline Phosphatase (45-117) U/L Total Protein (6.4-8.2) g/dL Albumin (3.2-5.0) g/dL Globulin (2.2-4.2) g/dL Albumin/Globulin Ratio (0.9-2.4) RATIO Lipase (73-393) U/L Urine Color (Yellow) Urine Clarity (Clear) Urine pH (5.0 - 8.0) Ur Specific [place] (1.002-1.030) Urine Protein (Negative) mg/dl Urine Glucose (UA) (Normal) mg/dl Urine Ketones (Negative) mg/dl Urine Occult Blood (Negative) /ul Urine Nitrite (Negative) Urine Bilirubin (Negative) mg/dL Urine Urobilinogen (Normal) mg/dl Ur Leukocyte Esterase (Negative) /ul Urine RBC (0-5) /hpf Urine WBC (0-5) /hpf Ur Squamous Epith Cells (5-10) /hpf Urine Bacteria (None Seen) /hpf Urine Mucus (<or=2+) /hpf Diagnostic Data: Diagnostic Data Abdomen/Pelvis CT 11/27/18 00:14 IMPRESSION: Worsening metastatic disease to mesentery, retroperitoneum and peritoneum with worsening of masses, lymphadenopathy, mesenteric congestion and ascites particularly centered along the pancreas, jaspal and upper abdomen with relatively stable appearance of lymphadenopathy in the retroperitoneum or pelvis. Markedly worsened metastatic disease to liver. Markedly worsened metastatic disease to the right adrenal gland, mild worsening to the left adrenal gland. Mild progression of biliary dilatation since previous examination. Extrinsic compression on the common bile duct may be present. No intraluminal defect or calculus detected. Increase of wall edema and thickening involving the duodenum and proximal jejunal level, there is more heterogeneous enhancement on the wall possible due to metastatic seeding, however due to heterogeneous enhancement of the wall, wall compromise cannot be excluded in its early form or pending development. There is no pneumatosis or signs of perforation on the current images. This may relate to obstruction caused by the luminal narrowing, there is however no significant fluid distention of the stomach and proximal duodenum. Close attention and clinical correlation is advised. Other nonacute appearing findings without significant interval change. Electronically Signed: Virginia Tapia MD at 2:12 EDT , Service support , Assessment and Plan Metastatic Colon cancer-progressive disease, increasing abdominal masses while on Erbitux. Abdominal pain. General weakness. Prognosis is poor, may be in weeks to months. Pt is meeting with Hospice care this afternoon. She is not sure what she wants to do. Suggestion: Continue Pain management to make her comfortable. Will follow with further suggestions depending on her choice of management. Thank you. Medications: Prescriptions This Visit Medication Instructions Recorded Citalopram [Celexa] 20 mg PO DAILY 11/27/18 Doxycycline 100 mg PO BID 11/27/18 Rivaroxaban [Xarelto] 20 mg PO DAILY 11/27/18 Medications Added to Medication List This Visit Category Date Time Status 0.9% Saline Lock Med 11/27/18 09:15 Active 10 - 40 ml IV UD PRN Atorvastatin Calcium [Lipitor] Med 11/27/18 22:00 Active 40 mg PO QHS Citalopram [Celexa] Med 11/27/18 10:00 Active 20 mg PO DAILY Doxycycline Med 11/27/18 10:00 Active 100 mg PO BID Ensure Clear Med 11/27/18 10:00 Active 120 ml PO 4X/DAY Heparin Pf Lock 10 units/ml Med 11/27/18 09:15 Active 50 units IV UD PRN Levothyroxine [Synthroid] Med 11/27/18 06:00 Active 50 mcg PO DAILY@0600 Menthol [Bengay Vanishing Scent] Med 11/27/18 13:34 Active 1 applic TOPICAL TID PRN PRN Ondansetron [Zofran] Med 11/27/18 06:00 Active 4 mg IV Q6H PRN PRN Oxycodone [Oxyir] Med 11/27/18 06:00 Active 10 mg PO TID Rivaroxaban [Xarelto] Med 11/27/18 08:00 Active 20 mg PO DAILYCM Senna/Docusate Sodium [Senokot-S, Elaine-Colace] Med 11/27/18 22:00 Active 2 tablet PO QHS fentaNYL patch [Duragesic patch] Med 11/27/18 08:45 Active 75 mcg TRANSDERM. Q72H Primary Care Provider: Jose Daniel Yang DO Referring Provider: - Problem List (1) Pain Status: Acute (2) Colon cancer metastasized to intra-abdominal lymph node Status: Chronic Code Visit Office Visits / Consults: [id number] IP Consult L5
--- NOTE | 2018-11-27 16:18 | NURSING ---
hospice here to see pt. pt leaving for inpt hospice unit. family at bedside. called report to zurdo in in pt hospice unit.
--- NOTE | 2018-11-27 16:33 | NURSING ---
pt left via ambulance to hospice. family at bedside
--- NOTE | 2018-11-27 21:30 | PCM.DC.SUM ---
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) SCOOTER (iron deficiency anemia) (Chronic) Osteoarthritis of left hip (Chronic) Breast cancer (Chronic) Hypothyroidism (Chronic) Depression (Chronic) Nausea (Chronic) Type 2 diabetes mellitus (Chronic) IBS (irritable bowel syndrome) (Chronic) Hyperlipemia (Chronic) Hypertension (Chronic) Hospital Course and Treatment Imaging Results: Clinical Impression(s) from Imaging Studies Abdomen/Pelvis CT 11/27/18 00:14 IMPRESSION: Worsening metastatic disease to mesentery, retroperitoneum and peritoneum with worsening of masses, lymphadenopathy, mesenteric congestion and ascites particularly centered along the pancreas, jaspal and upper abdomen with relatively stable appearance of lymphadenopathy in the retroperitoneum or pelvis. Markedly worsened metastatic disease to liver. Markedly worsened metastatic disease to the right adrenal gland, mild worsening to the left adrenal gland. Mild progression of biliary dilatation since previous examination. Extrinsic compression on the common bile duct may be present. No intraluminal defect or calculus detected. Increase of wall edema and thickening involving the duodenum and proximal jejunal level, there is more heterogeneous enhancement on the wall possible due to metastatic seeding, however due to heterogeneous enhancement of the wall, wall compromise cannot be excluded in its early form or pending development. There is no pneumatosis or signs of perforation on the current images. This may relate to obstruction caused by the luminal narrowing, there is however no significant fluid distention of the stomach and proximal duodenum. Close attention and clinical correlation is advised. Other nonacute appearing findings without significant interval change. Electronically Signed: Virginia Tapia MD at 2:12 EDT , Service support , Oncology Operations: None, - Procedures: None Summary of Care Provided: 68-year-old female with past medical history of breast cancers, status post bilateral mastectomy, on chemotherapy, history of fallopian tube cancer status post BSO, history of metastatic colon CA, stage IV, follows with oncology who comes in with worsening abdominal pain ongoing for 5 days. She was started on ketamine drip in the ED and admitted for intractable abdominal pain. She was transitioned to Dilaudid drip, kept on Fentanyl patch as well as scheduled tylenol. She was seen by oncology and hospice and admitted yo inpatient hospice facility Subjective: On the day of discharge, patient was seen and examined. 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 Her pain was still not controlled. She was willing to have Hospice see her and later will be discharged to inpatient hospice facility. - Physical Exam General: Alert, Oriented x3, Cooperative, - - in mild discomfort HEENT: Atraumatic, PERRLA, EOMI, Normocephalic Oral: Moist Mucosa Neck: Supple Lungs: Clear to auscultation, Normal air movement Cardiovascular: Regular rate, Regular Rhythm, Normal S1, Normal S2, No murmurs Abdomen: Bowel Sounds Present, Soft, Non-Distended, No Hepato-splenomegaly, Tender - generalised tenderness, no guarding or RBT Extremities: No edema Skin: No rashes Musculoskeletal: No Tenderness to Palpation of Joints or Extremities Lymphatic: No Cervical, Supraclavicular, or Inguinal Adenopathy Neurological: Cranial nerves II-XII grossly intact, Neuro grossly intact Psych/Mental Status: Normal Affect, Appropriate Vital Signs Temp Pulse Resp BP Pulse Ox 98.6 F 93 16 155/74 H 100 11/27/18 16:03 11/27/18 16:03 11/27/18 16:03 11/27/18 16:03 11/27/18 16:03 Oxygen Flow Rate (L/min) 2 Oxygen Delivery Method Nasal Cannula Weight: 86 kg Body Mass Index (BMI) 32.5 Finger Stick Blood Glucose 149 Intake and Output for Last 24 Hours 11/25/18 11/26/18 11/27/18 23:59 23:59 23:59 Intake Total 1826.75 / 1826.75 Output Total 400 / 400 Balance 1426.75 / 1426.75 Laboratory Tests Past 24 Hrs 11/27/18 11/27/18 11/27/18 00:30 00:30 00:30 WBC 8.9 RBC 3.49 L Hgb 10.3 L Hct 32.5 L MCV 93.1 MCH 29.5 MCHC 31.7 L RDW Std Deviation 52.3 H RDW Coeff of Brandyn 15.3 H Plt Count 369 MPV 10.1 Immature Gran % (Auto) 0.400 Neut % (Auto) 74.9 H Lymph % (Auto) 10.7 L [place] % (Auto) 9.7 Eos % (Auto) 3.7 Baso % (Auto) 0.6 Absolute Neuts (auto) 6.7 Absolute Lymphs (auto) 0.95 Nucleated RBC % 0 Sodium 138 Potassium 3.5 Chloride 104 Carbon Dioxide 25.0 Anion Gap 9 BUN 14 Creatinine 0.58 Estim Creat Clear Calc 47.79 Est GFR (MDRD) Af Amer 132 Est GFR (MDRD) Non-Af 109 BUN/Creatinine Ratio 23.9 H Glucose 84 Lactic Acid 1.4 Calcium 8.6 Total Bilirubin 0.40 AST 34 ALT 16 Alkaline Phosphatase 85 Total Protein 6.9 Albumin 3.1 L Globulin 3.8 Albumin/Globulin Ratio 0.8 L Lipase 56 L Urine Color Urine Clarity Urine pH Ur Specific [place] Urine Protein Urine Glucose (UA) Urine Ketones Urine Occult Blood Urine Nitrite Urine Bilirubin Urine Urobilinogen Ur Leukocyte Esterase Urine RBC Urine WBC Ur Squamous Epith Cells Urine Bacteria Urine Mucus 11/27/18 02:08 WBC RBC Hgb Hct MCV MCH MCHC RDW Std Deviation RDW Coeff of Brandyn Plt Count MPV Immature Gran % (Auto) Neut % (Auto) Lymph % (Auto) [place] % (Auto) Eos % (Auto) Baso % (Auto) Absolute Neuts (auto) Absolute Lymphs (auto) Nucleated RBC % Sodium Potassium Chloride Carbon Dioxide Anion Gap BUN Creatinine Estim Creat Clear Calc Est GFR (MDRD) Af Amer Est GFR (MDRD) Non-Af BUN/Creatinine Ratio Glucose Lactic Acid Calcium Total Bilirubin AST ALT Alkaline Phosphatase Total Protein Albumin Globulin Albumin/Globulin Ratio Lipase Urine Color Yellow Urine Clarity Clear Urine pH 6.0 Ur Specific [place] 1.015 Urine Protein 30 H Urine Glucose (UA) Normal Urine Ketones 50 H Urine Occult Blood 250 H Urine Nitrite Negative Urine Bilirubin Negative Urine Urobilinogen Normal Ur Leukocyte Esterase Negative Urine RBC 5-10 SEEN Urine WBC 0-5 SEEN Ur Squamous Epith Cells 0 SEEN Urine Bacteria RARE Urine Mucus 0 SEEN Discharge Diet: No Restrictions Home Medications: Medications to take at Discharge Atorvastatin Calcium [Lipitor] 40 mg PO QHS 11/14/17 Acetaminophen [Tylenol] 1,000 mg PO Q8H PRN PRN tab 12/03/17 Ondansetron [Zofran Odt] 4 mg PO Q8H PRN PRN #10 tab 08/30/18 levothyroxine 50 mcg tablet 50 mcg PO DAILY@0600 #90 tab 08/31/18 Polyethylene Glycol 3350 [Miralax] 17 gm PO DAILY 10/25/18 Oxycodone HCl 10 mg PO TID 11/10/18 fentanyl 50 mcg/hr transdermal patch 1 patch TRANSDERMAL Q72H 11/16/18 Citalopram [Celexa] 20 mg PO DAILY 11/27/18 Doxycycline 100 mg PO BID 11/27/18 Rivaroxaban [Xarelto] 20 mg PO DAILY 11/27/18 Primary Care Physician: Jose Daniel Yang DO [Primary Care Provider] - Disposition: Hospice Medical Facility Minutes spent on discharge:: 40 Patient Condition:: Poor Medical Necessity - Tobacco Use Smoking Status: Never smoker Tobacco Use: Non-smoker Meaningful Use Info Meaningful Use Diagnoses (Choose all that apply): None applicable Code Visit Inpatient E&M: 18023 Disch Hosp
== END 2018-11-27 16:35 | disposition hospice, inpatient (51) | DRG 948 ==
LOC: ED 03:52 → MS3 04:19
PROVIDERS: Admitting Provider Hospitalist; Emergency Provider Emergency Medicine; Family Provider Family Medicine; PCP Family Medicine; Visit Provider Internal Medicine
DX: G89.3 Neoplasm related pain (acute) (chronic) (principal); C18.9 Malignant neoplasm of colon, unspecified; C77.2 Secondary and unspecified malignant neoplasm of intra-abdominal lymph nodes; C78.00 Secondary malignant neoplasm of unspecified lung; C77.0 Secondary and unspecified malignant neoplasm of lymph nodes of head, face and neck; C79.71 Secondary malignant neoplasm of right adrenal gland; C78.7 Secondary malignant neoplasm of liver and intrahepatic bile duct; C78.6 Secondary malignant neoplasm of retroperitoneum and peritoneum; R10.84 Generalized abdominal pain; M54.5 Low back pain; D50.9 Iron deficiency anemia, unspecified; M16.12 Unilateral primary osteoarthritis, left hip; E03.9 Hypothyroidism, unspecified; F32.9 Major depressive disorder, single episode, unspecified; I10 Essential (primary) hypertension; K58.9 Irritable bowel syndrome, unspecified; E11.9 Type 2 diabetes mellitus without complications; E78.5 Hyperlipidemia, unspecified; Z85.44 Personal history of malignant neoplasm of other female genital organs; Z85.3 Personal history of malignant neoplasm of breast; Z90.13 Acquired absence of bilateral breasts and nipples; Z90.722 Acquired absence of ovaries, bilateral; Z90.710 Acquired absence of both cervix and uterus; Z90.49 Acquired absence of other specified parts of digestive tract; Z79.890 Hormone replacement therapy; Z86.711 Personal history of pulmonary embolism; Z79.01 Long term (current) use of anticoagulants; Z79.891 Long term (current) use of opiate analgesic; Z79.899 Other long term (current) drug therapy; E86.0 Dehydration; M54.6 Pain in thoracic spine; K59.00 Constipation, unspecified
CPT/HCPCS: 36591; 72070; 72100; 74177; 80053; 81001; 83605; 83690; 85025; 94762; 96361; 96374; 96375; 96376; 97802; 99284; 99285; J7030; J7120; Q9967; A4216; J1170; J2405